=== PATIENT | female | born 1945 | race Caucasian/White ===

== ENCOUNTER 2019-08-10 14:18 | Outpatient (CLI) | payer MEDICARE, OTHER ==
[2019-08-10 14:53] LABS: BASOPHILS # (AUTO) 0.1 10^3/uL (0.0-0.1); BASOPHILS % (AUTO) 1.6 %; EOSINOPHILS # (AUTO) 0.3 10^3/uL (0.0-0.7); HGB - HEMOGLOBIN 11.8 g/dL (12.0-16.0); LYMPHOCYTES # (AUTO) 1.4 10^3/uL (1.5-3.5); LYMPHOCYTES % (AUTO) 21.2 %; MEAN CORPUSCULAR HEMOGLOBIN 25.3 pg (27.0-31.0); MEAN CORPUSCULAR HGB CONC 29.9 g/dL (32.0-36.0); MEAN CORPUSCULAR VOLUME 84.4 fL (81.0-99.0); MEAN PLATELET VOLUME 10.1 fL (7.9-10.8); MONOCYTES # (AUTO) 0.3 10^3/uL (0.0-1.0); MONOCYTES % (AUTO) 4.6 %; NEUTROPHILS # (AUTO) 4.6 10^3/uL (1.5-6.6); NEUTROPHILS % (AUTO) 68.3 %; PLT - PLATELET COUNT 434 10^3/uL (130-450); RED BLOOD COUNT 4.67 10^6/uL (4.20-5.40); RED CELL DISTRIBUTION WIDTH 16.5 % (12.0-15.0); WHITE BLOOD COUNT 6.7 x10^3/uL (4.8-10.8)
[2019-08-10 15:06] LABS: ALBUMIN 3.5 g/dL (3.2-5.5); ALBUMIN/GLOBULIN RATIO 0.9 (1.0-2.2); ALKALINE PHOSPHATASE 103 IU/L (42-121); ALT ALANINE AMINOTRANSFERASE 12 IU/L (10-60); AST ASPARTATE AMINOTRANSFERASE 25 IU/L (10-42); BILIRUBIN,TOTAL 0.7 mg/dL (0.2-1.0); BUN - BLOOD UREA NITROGEN 20 mg/dL (6-20); CALCIUM 9.6 mg/dL (8.5-10.3); CARBON DIOXIDE - CO2 27 mmol/L (21-32); CHLORIDE 105 mmol/L (101-111); CHOL/HDL RATIO 2.3 (<4.4); CHOLESTEROL 146 mg/dL; CREATININE 0.8 mg/dL (0.4-1.0); GFR - MDRD 70 (>89); GLUCOSE 131 mg/dL (70-100); HDL CHOLESTEROL 63 mg/dL; LDL CHOLESTEROL,CALCULATED 64 mg/dL; SODIUM 143 mmol/L (135-145); TOTAL PROTEIN 7.3 g/dL (6.7-8.2); VLDL CHOLESTEROL 19 mg/dL
[2019-08-10 15:18] LABS: HB2 TOTAL 12.5 g/dL; HEMOGLOBIN A1C 0.5 g/dL; HEMOGLOBIN A1C % 5.8 % (4.6-6.2)
== END 2019-08-10 14:19 | disposition home or self-care (01) ==
LOC: LAB 14:18
PROVIDERS: ATTEND Physician Assistant Medical
DX: E11.9 Type 2 diabetes mellitus without complications (principal); E78.5 Hyperlipidemia, unspecified; M19.90 Unspecified osteoarthritis, unspecified site
CPT/HCPCS: 36415; 80053; 80061; 83036; 83721; 85025

== ENCOUNTER 2019-10-16 18:12 | Outpatient (CLI) | payer MEDICARE, OTHER ==
--- NOTE | 2019-10-17 16:46 | XRAY Report ---
Reason: HIP JOINT PAIN,RT Procedure Date: 10/16/2019 Accession Number: [id number] / [id number] Procedure: XR - Hip w/Pelvis 2-3V RT CPT Code: Final Report FULL RESULT: EXAM: RIGHT HIP RADIOGRAPHY EXAM DATE: 10/16/2019 06:19 PM. CLINICAL HISTORY: HIP JOINT PAIN,RT. COMPARISON: None. TECHNIQUE: 2 views. FINDINGS: Bones: No acute fracture or focal bony lesion. Joints: Patient has undergone right hip arthroplasty with revision. There is no evidence of dislocation. There is sclerosis of the margins of the acetabular component. No definite radiographic evidence of loosening. Soft Tissues: No unexpected soft tissue findings. IMPRESSION: 1. No fracture or dislocation. 2. Patient has undergone right hip arthroplasty with revision. No clear evidence of hardware dysfunction. Comparison with any available prior imaging may be utility. RADIA
== END 2019-10-16 18:13 | disposition home or self-care (01) ==
LOC: DI 18:12
PROVIDERS: ATTEND Physician Assistant
DX: M25.551 Pain in right hip (principal); Z96.641 Presence of right artificial hip joint

== ENCOUNTER 2019-11-11 13:57 | Outpatient (CLI) | payer MEDICARE, OTHER ==
[2019-11-11 18:51] LABS: BASOPHILS # (AUTO) 0.1 10^3/uL (0.0-0.1); BASOPHILS % (AUTO) 1.3 %; EOSINOPHILS # (AUTO) 0.2 10^3/uL (0.0-0.7); HGB - HEMOGLOBIN 11.6 g/dL (12.0-16.0); LYMPHOCYTES # (AUTO) 1.1 10^3/uL (1.5-3.5); LYMPHOCYTES % (AUTO) 15.9 %; MEAN CORPUSCULAR HEMOGLOBIN 25.8 pg (27.0-31.0); MEAN CORPUSCULAR HGB CONC 30.1 g/dL (32.0-36.0); MEAN CORPUSCULAR VOLUME 85.7 fL (81.0-99.0); MEAN PLATELET VOLUME 10.8 fL (7.9-10.8); MONOCYTES # (AUTO) 0.4 10^3/uL (0.0-1.0); MONOCYTES % (AUTO) 6.2 %; NEUTROPHILS # (AUTO) 5.2 10^3/uL (1.5-6.6); NEUTROPHILS % (AUTO) 73.2 %; PLT - PLATELET COUNT 417 10^3/uL (130-450); RED BLOOD COUNT 4.49 10^6/uL (4.20-5.40); RED CELL DISTRIBUTION WIDTH 16.4 % (12.0-15.0); WHITE BLOOD COUNT 7.1 x10^3/uL (4.8-10.8)
[2019-11-11 19:11] LABS: ALBUMIN 3.3 g/dL (3.2-5.5); ALBUMIN/GLOBULIN RATIO 0.9 (1.0-2.2); BILIRUBIN,TOTAL 0.7 mg/dL (0.2-1.0); CALCIUM 9.1 mg/dL (8.5-10.3); CREATININE 1.1 mg/dL (0.4-1.0); TOTAL PROTEIN 6.8 g/dL (6.7-8.2)
== END 2019-11-11 23:59 | disposition home or self-care (01) ==
LOC: LAB.WCP 13:57
PROVIDERS: ATTEND Physician Assistant
DX: R53.1 Weakness (principal)
CPT/HCPCS: 36415; 80053; 85025

== ENCOUNTER 2019-12-06 07:00 | Outpatient (CLI) | payer MEDICARE, OTHER | END 2019-12-06 23:59 | disposition home or self-care (01) | LOC: LAB.WCP 07:00 | PROVIDERS: ATTEND Physician Assistant | DX: F32.9 Major depressive disorder, single episode, unspecified (principal) | CPT/HCPCS: 36415; 84443 ==

== ENCOUNTER 2019-12-23 14:43 | Emergency (ER) | payer MEDICARE, OTHER ==
--- NOTE | 2019-12-23 17:46 | ED Physician Documentation ---
PD HPI BACK PAIN - Stated complaint Stated Complaint: LOWER BACK PX - Chief complaint Chief Complaint: Back Pain - History obtained from History obtained from: Patient - Additional information Additional information: There is a 74-year-old woman with a prior history of sciatica who presents with complaints that for the past 3 to 4 days her sciatica down the right leg has "been driving her crazy. She had some oxycodone tablets that she was using at night but she only has 1 or 2 tablets left and could not get a refill from her primary care provider. Patient had a right total hip replacement and had a revision the last one being a year ago in she subsequently moved here from [place] to be with her daughter in May and they finally convinced her to go to physical therapy which she started on December 06. She thinks that is flared up her sciatica. It runs down the right leg to the top of the foot. She is been using a walker since May. She is had some urinary stress incontinence. She is had prior discectomy and laminectomy at L4-5 and has had an MRI spine done in [place] before she moved here but nothing done around here recently. Review of Systems Constitutional: denies: Fever Skin: denies: Rash Musculoskeletal: reports: Back pain Neurologic: reports: Other (Pain radiating down the right leg) PD PAST MEDICAL HISTORY - Present Medications Home Medications: Ambulatory Orders Medication Instructions Recorded Confirmed Atorvastatin Calcium 40 mg PO DAILY PM 12/23/19 12/23/19 Buspirone HCl 7.5 mg PO BID 12/23/19 12/23/19 Cyclobenzaprine HCl 5 mg PO TID PRN 12/23/19 12/23/19 Doxycycline Monohydrate 100 mg PO BID 12/23/19 12/23/19 Meloxicam 15 mg PO DAILY 12/23/19 12/23/19 Methylprednisolone [Medrol] 4 mg PO DAILY #1 tab.ds.pk 12/23/19 Pregabalin 150 mg PO BID 12/23/19 12/23/19 Venlafaxine ER [Effexor ER] 150 mg PO DAILY PM 12/23/19 12/23/19 metFORMIN [Glucophage] 500 mg PO BIDWM 12/23/19 12/23/19 oxyCODONE [Roxicodone] 2.5 - 5 mg PO BID PRN 12/23/19 12/23/19 - Allergies Allergies/Adverse Reactions: Allergies Allergy/AdvReac Type Severity Reaction Status Date / Time latex Allergy Itching Verified 12/23/19 14:54 opiods Allergy Itching Uncoded 12/23/19 14:54 PD ED PE NORMAL - Vitals Vital signs reviewed: Yes - General General: Alert and oriented X 3, No acute distress, Well developed/nourished - HEENT HEENT: Atraumatic - Back Back: No spinal TTP - Derm Derm: Normal color, Warm and dry, No rash - Extremities Extremities: No deformity, No tenderness to palpate, No edema, Other (She has pretty good range of motion in the right hip without pain.) - Neuro Neuro: Alert and oriented X 3, 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 She has the prescription at home. She is about to run out of the oxycodone but I have explained to her that I will not prescribe narcotics from the emergency department for chronic condition. She was given a shot of morphine and Phenergan. I'm going to put her on a Medrol Dosepak and she is to follow back up with her primary care provider for further pain management. I encouraged her to continue with physical therapy. Departure - Departure Disposition: 01 Home, Self Care Clinical Impression: Back pain Qualifiers: Back pain location: low back pain Chronicity: acute Back pain laterality: midline Sciatica presence: with sciatica Sciatica laterality: sciatica of right side Qualified Code(s): M54.41 - Lumbago with sciatica, right side Condition: Good Instructions: ED Sciatica Follow-Up: Ariane Valenzuela PA [Primary Care Provider] - Prescriptions: Methylprednisolone [Medrol] 4 mg PO DAILY #1 tab.ds.pk Comments: Be sure to take the meloxicam As prescribed. Take the Medrol Dosepak as prescribed. See your primary care provider for further pain management. Continue with physical therapy.
[2019-12-23] MEDS ORDERED: MORPHINE 10 MG/ML VIAL IM STA (18:41)
[2019-12-23] MEDS ORDERED: PROMETHAZINE 25 MG/1 ML VIAL IM STA (18:41)
[2019-12-23 19:19] VITALS: BP 121/60
== END 2019-12-23 19:18 | disposition home or self-care (01) ==
LOC: ED 14:43
DX: M54.41 Lumbago with sciatica, right side (principal)
CPT/HCPCS: 96372; 99283; 99284

== ENCOUNTER 2020-02-04 12:37 | Outpatient (CLI) | payer MEDICARE, OTHER ==
--- NOTE | 2020-02-04 15:41 | MRI Report ---
Reason: LUMBAR BACK PAIN, RADICULOPATHY Procedure Date: 02/04/2020 Accession Number: [id number] / [id number] Procedure: MRI - Lumbar Spine W/O CPT Code: Final Report FULL RESULT: EXAM: MRI LUMBAR SPINE WITHOUT CONTRAST EXAM DATE: 02/04/2020 01:00 PM. CLINICAL HISTORY: Lumbar back pain, radiculopathy. COMPARISON: None. TECHNIQUE: Multiplanar, multisequence T1-weighted and fluid-sensitive sequences of the lumbar spine from T12 to S1 without contrast. Other: None. FINDINGS: Spinal Canal: The conus terminates at L1. The conus medullaris and cauda equina are unremarkable. Alignment: Approximately 5 mm anterior subluxation L4 on L5. Alignment otherwise within normal limits. Bone Marrow: Five cyy-mfz-moqgkhf lumbar vertebral bodies are assumed. Moderate chronic appearing compression deformity of the L5 vertebral body. No significant associated marrow edema. Chronic Schmorl's node at the L4 upper endplate on the right. No acute fracture visualized. There appears to be solid osseous fusion of the L4 and L5 facet joints. Partial laminectomy at the L4-L5 level. Disk Levels/Facets: T12-L1: Mild disk dehydration. Minimal disk bulge. No stenosis. L1-L2: Mild disk height loss and dehydration. Minimal disk bulge. Mild facet arthropathy. No significant stenosis. L2-L3: Mild disk height loss. Slight annular disk bulge and mild degenerative facet arthropathy. No significant stenosis. L3-L4: Annular disk bulge with small broad-based foraminal protrusions and severe degenerative facet arthropathy. Mild central canal stenosis. Bilateral lateral recess stenosis. Mild bilateral foraminal stenosis. L4-L5: Grade 1 spondylolisthesis. Slight uncovering of the disk. Moderate left and mild right foraminal stenosis. Partial laminectomy. L5-S1: Moderate bilateral degenerative facet arthropathy. Slight annular disk bulge. Moderate left and mild right foraminal stenosis. Musculature: Mild atrophy of the paraspinous musculature more pronounced distally. Other: Unremarkable. IMPRESSION: 1. Multilevel lumbar degenerative disk and facet arthropathy. 2. L4-L5 previous partial laminectomy and posterior fusion. Grade 1 spondylolisthesis. 3. L3-L4 mild central canal stenosis. Mild bilateral foraminal stenosis. 4. L4-L5 moderate left and mild right foraminal stenosis. 5. L5-S1 moderate left and mild right foraminal stenosis. Comment: The following findings are so common in adults without low back pain that while we report their presence, they must be interpreted with caution and in the context of the clinical situation. (Reference [place] et al, Spine 2001) Prevalence of findings in patients without low back pain: Disk degeneration (any evidence): 92% Disk desiccation/T2 signal loss: 83% Disk height loss: 56% Disk bulge: 64% Disk protrusion: 32% Annular tear/high intensity zone: 38% RADIA
== END 2020-02-04 12:38 | disposition home or self-care (01) ==
LOC: DI 12:37
PROVIDERS: ATTEND Physician Assistant
DX: M51.37 Other intervertebral disc degeneration, lumbosacral region (principal); M48.07 Spinal stenosis, lumbosacral region; M51.36 Other intervertebral disc degeneration, lumbar region; M48.061 Spinal stenosis, lumbar region without neurogenic claudication; M47.816 Spondylosis without myelopathy or radiculopathy, lumbar region; M47.817 Spondylosis without myelopathy or radiculopathy, lumbosacral region; M43.16 Spondylolisthesis, lumbar region
CPT/HCPCS: 72148

== ENCOUNTER 2020-09-01 08:00 | Outpatient (CLI) | payer MEDICARE, OTHER ==
[2020-09-01 19:03] LABS: BASOPHILS # (AUTO) 0.1 10^3/uL (0.0-0.1); BASOPHILS % (AUTO) 1.5 %; EOSINOPHILS # (AUTO) 0.2 10^3/uL (0.0-0.7); EOSINOPHILS % (AUTO) 2.8 %; LYMPHOCYTES # (AUTO) 1.4 10^3/uL (1.5-3.5); LYMPHOCYTES % (AUTO) 20.6 %; MEAN CORPUSCULAR HEMOGLOBIN 23.7 pg (27.0-31.0); MEAN CORPUSCULAR HGB CONC 29.8 g/dL (32.0-36.0); MEAN CORPUSCULAR VOLUME 79.5 fL (81.0-99.0); MEAN PLATELET VOLUME 10.4 fL (7.9-10.8); MONOCYTES # (AUTO) 0.4 10^3/uL (0.0-1.0); MONOCYTES % (AUTO) 5.7 %; NEUTROPHILS # (AUTO) 4.7 10^3/uL (1.5-6.6); NEUTROPHILS % (AUTO) 69.3 %; PLT - PLATELET COUNT 432 10^3/uL (130-450); RED CELL DISTRIBUTION WIDTH 17.1 % (12.0-15.0); WHITE BLOOD COUNT 6.8 x10^3/uL (4.8-10.8)
[2020-09-01 19:16] LABS: ALBUMIN 3.3 g/dL (3.2-5.5); ALBUMIN/GLOBULIN RATIO 0.9 (1.0-2.2); ALKALINE PHOSPHATASE 95 IU/L (42-121); ALT ALANINE AMINOTRANSFERASE 13 IU/L (10-60); AST ASPARTATE AMINOTRANSFERASE 25 IU/L (10-42); BILIRUBIN,TOTAL 0.4 mg/dL (0.2-1.0); BUN - BLOOD UREA NITROGEN 22 mg/dL (6-20); CALCIUM 8.9 mg/dL (8.5-10.3); CARBON DIOXIDE - CO2 23 mmol/L (21-32); CHLORIDE 104 mmol/L (101-111); CHOL/HDL RATIO 2.1 (<4.4); CHOLESTEROL 143 mg/dL; CREATININE 0.8 mg/dL (0.4-1.0); GLUCOSE 85 mg/dL (70-100); HDL CHOLESTEROL 69 mg/dL; LDL CHOLESTEROL,CALCULATED 55 mg/dL; LDL/HDL RATIO 0.8 (<4.4); SODIUM 138 mmol/L (135-145); VLDL CHOLESTEROL 19 mg/dL
[2020-09-01 20:45] LABS: HEMOGLOBIN A1c% 5.8 % (4.27-6.07)
== END 2020-09-01 23:59 ==
LOC: LAB.R 08:00
PROVIDERS: ATTEND Physician Assistant
DX: E78.5 Hyperlipidemia, unspecified (principal); E11.42 Type 2 diabetes mellitus with diabetic polyneuropathy
CPT/HCPCS: 80053; 80061; 82607; 82746; 83036; 83721; 85025

== ENCOUNTER 2020-09-21 13:30 | Outpatient (CLI) | payer MEDICARE, OTHER ==
[2020-09-21 18:07] LABS: % IRON SATURATION 6 % (20-50); IRON 21 ug/dL (28-170); TOTAL IRON BINDING CAPACITY 335 ug/dL (250-450); TRANSFERRIN 239 mg/dL (192-382)
== END 2020-09-21 23:59 | disposition home or self-care (01) ==
LOC: LAB.WCP 13:30
PROVIDERS: ATTEND Physician Assistant
DX: D64.9 Anemia, unspecified (principal)
CPT/HCPCS: 36415; 82728; 83540; 84466

== ENCOUNTER 2021-01-15 08:00 | Outpatient (CLI) | payer MEDICARE, OTHER ==
[2021-01-15 19:25] LABS: CREATININE,URINE 51.1 mg/dL
[2021-01-15 19:57] LABS: MICROALBUMIN,URINE < 0.2 mg/dL (0-300.0)
== END 2021-01-15 23:59 | disposition home or self-care (01) ==
LOC: LAB.R 08:00
PROVIDERS: ATTEND Physician Assistant Medical
DX: E11.9 Type 2 diabetes mellitus without complications (principal)
CPT/HCPCS: 82043; 82570

== ENCOUNTER 2021-01-22 16:41 | Outpatient (CLI) | payer MEDICARE, OTHER ==
--- NOTE | 2021-01-22 19:20 | XRAY Report ---
PROCEDURE: Foot 3 View LT INDICATIONS: LEFT FOOT PAIN TECHNIQUE: 3 views of the foot were acquired. COMPARISON: None FINDINGS: Bones: No fractures or dislocations. There are scattered areas of moderate to severe IP degenerative narrowing as well as moderate first MTP degenerative narrowing. Periarticular osteophytes are presen t. Small areas of periarticular lucency are noted most prominent at the first MTP joint. Tibiotalar f usion is present. Midfoot degenerative changes are present. Calcaneal spur is present. Soft tissues: No tibiotalar joint effusion. Achilles tendon appears normal. IMPRESSION: Degenerative changes as above. Periarticular lucencies are noted particularly at the first MTP joint. There are somewhat nonspecific. These can be similar as identified with gout. However, degenerative lucencies secondary to subchondral arthritic cyst formation/erosions cannot be excluded. Reviewed by: Hina Huang MD on 01/22/2021 7:19 PM PST Approved by: Hina Huang MD on 01/22/2021 7:19 PM PST Station ID: [id number]
== END 2021-01-22 16:42 | disposition home or self-care (01) ==
LOC: DI.N 16:41
PROVIDERS: ATTEND Physician Assistant Medical
DX: M19.072 Primary osteoarthritis, left ankle and foot (principal); R93.6 Abnormal findings on diagnostic imaging of limbs

== ENCOUNTER 2021-02-24 17:08 | Emergency (ER) | payer MEDICARE, OTHER ==
--- NOTE | 2021-02-24 17:25 | ED Physician Documentation ---
PD HPI LOWER EXT INJURY - Stated complaint Stated Complaint: RIGHT KNEE PX - Chief complaint Chief Complaint: Ext Problem - History obtained from History obtained from: Patient - History of Present Illness PD HPI LOW EXT INJURY LOCATION: Right, Hip, Buttock, Calf Type of injury: No: Fall, Twist Timing - onset: Today (worsening), Yesterday Timing - duration: Days (1) Timing - details: Gradual onset, Still present Improved by: Rest Worsened by: Moving, Palpating Associated symptoms: Tingling (feeling of tingling down posterolateral thigh to lateral calf and foot. Has pain from right SI area of back down same area of leg. No leg weakness. No noted injury. Has had sciatic pain in the past, but typically not as bad and only to upper thigh level.). No: Weakness, Numbness, Swelling Similar symptoms before: Diagnosis (sciatic pain from back but not usually as severe. Current episode also different by having some tenderness at posterolateral thigh and posterolateral knee. No rash nor sores.) Recently seen: Clinic (had J&J COVID vaccine 4 days ago.) Review of Systems Constitutional: reports: Myalgias (just left shoulder at injection site.). denies: Fever, Chills Nose: denies: Rhinorrhea / runny nose, Congestion Throat: denies: Sore throat Respiratory: denies: Cough Skin: denies: Rash, Lesions Neurologic: denies: Focal weakness, Numbness, Altered mental status, Headache PD PAST MEDICAL HISTORY - Past Medical History Cardiovascular: High cholesterol Respiratory: Asthma, Sleep apnea Neuro: CVA, TIA, Peripheral neuropathy GI: Other : Incontinence, Chronic bladder infection Psych: Depression, Anxiety Musculoskeletal: Osteoarthritis, Fibromyalgia - Past Surgical History Past Surgical History: Yes General: Gastric surgery Ortho: Hip replacement, Knee replacement, Rotator cuff repair, Shoulder arthroplasty, Spine surgery - Present Medications Home Medications: Ambulatory Orders Medication Instructions Recorded Confirmed Atorvastatin Calcium 40 mg PO DAILY PM 12/23/19 02/24/21 Cyclobenzaprine HCl 5 mg PO TID PRN 12/23/19 02/24/21 Doxycycline Monohydrate 100 mg PO BID 12/23/19 02/24/21 Meloxicam 15 mg PO DAILY 12/23/19 02/24/21 Pregabalin 150 mg PO TID 12/23/19 02/24/21 Venlafaxine ER [Effexor ER] 150 mg PO DAILY PM 12/23/19 02/24/21 metFORMIN [Glucophage] 500 mg PO BIDWM 12/23/19 02/24/21 oxyCODONE [Roxicodone] 2.5 - 5 mg PO BID PRN 12/23/19 02/24/21 Naproxen Sodium 275 mg PO BID #10 tablet 02/24/21 dexAMETHasone [Decadron] 4 mg PO DAILY #5 tablet 02/24/21 oxyCODONE [Roxicodone] 5 mg PO Q4-6H PRN #10 tablet 02/24/21 - Allergies Allergies/Adverse Reactions: Allergies Allergy/AdvReac Type Severity Reaction Status Date / Time latex Allergy Itching Verified 02/24/21 17:28 opiods Allergy Itching Uncoded 02/24/21 17:28 - Social History Does the pt smoke?: No Smoking Status: Never smoker Does the pt drink ETOH?: Yes Does the pt have substance abuse?: No - Immunizations Immunizations are current?: Yes - POLST Patient has POLST: No PD ED PE NORMAL - Vitals Vital signs reviewed: Yes - General General: Alert and oriented X 3, Well developed/nourished, Other - Back Back: No CVA TTP, No spinal TTP, Other (tender right SI area, without rash nor sores, but is muscle tender. Also some tender at right gluteal and posterior thigh. ) - Derm Derm: Normal color, Warm and dry, No rash - Extremities Extremities: Normal ROM s pain, Other (tender posterolateral knee. No effusion. No calf tenderness. Decreased sensation in dermatomal pattern posterolateral thigh and knee, and anterolateral lower leg, dorsolateral foot. ) Results - Vitals Vitals: Vital Signs - 24 hr 02/24/21 02/24/21 17:13 18:52 Temperature 36.1 C L 37.2 C Heart Rate 79 78 Respiratory 16 18 Rate Blood Pressure 111/55 L 113/48 L O2 Saturation 98 100 Oxygen O2 Source Room air PD MEDICAL DECISION MAKING - ED course Complexity details: re-evaluated patient (improved with meds here. ), considered differential (no caudal symptoms. Does have nerve root pattern of tingling, decreased sensation. Interesting with some soft tissue/skin tendeness which has me consider early shingles but not definitive right now. ), d/w patient Departure - Departure Disposition: 01 Home, Self Care Clinical Impression: Sciatic leg pain Condition: Stable Instructions: ED Sciatica Follow-Up: Ariane Quick PA-C [Primary Care Provider] - Prescriptions: dexAMETHasone [Decadron] 4 mg PO DAILY #5 tablet Naproxen Sodium 275 mg PO BID #10 tablet oxyCODONE [Roxicodone] 5 mg PO Q4-6H PRN #10 tablet PRN Reason: Pain Comments: The area and pattern of your pain corresponds with sciatic distribution. This seems your sciatic back pain is flared and is just causing further down the leg. Consider the possibility of an inflammatory response to the vaccine that you had. There was no particular injury stated. I would suggest some anti-inflammatories over the next several days. This can be naproxen twice daily with food. Also consider mild steroid type medicine or Aleve for a few days, shaisses own. To this add Tylenol 500 mg 4 times a day. Also oxycodone 1/2 to 1 tablet every 6 hours if needed for worse pain. Stay well-hydrated. Recheck if not improved well over the next several days. Watch for signs of other symptoms such as weakness of the leg, fevers, rash (such as a shingles rash) or other new symptoms. Discharge Date/Time: 02/24/21 19:07
[2021-02-24] MEDS ORDERED: oxyCODONE 5 MG TABLET PO STA (17:58)
[2021-02-24] MEDS ORDERED: ACETAMINOPHEN 325 MG TABLET PO STA (17:58)
[2021-02-24] MEDS ORDERED: CHERRY SYRUP 10 ML UDC PO ONE (17:58)
[2021-02-24] MEDS ORDERED: DEXAMETHASONE 10 MG/ML VIAL PO STA (17:58)
[2021-02-24] MEDS ORDERED: KETOROLAC 30 MG/ML VIAL IM STA (17:58)
[2021-02-24 18:53] VITALS: BP 113/48
== END 2021-02-24 19:07 | disposition home or self-care (01) ==
LOC: ED 17:08
DX: M54.31 Sciatica, right side (principal); M53.3 Sacrococcygeal disorders, not elsewhere classified
CPT/HCPCS: 96372; 99283; A9270

== ENCOUNTER 2021-03-05 17:14 | Emergency (ER) | payer MEDICARE, OTHER ==
--- OUTSIDE RECORDS SUMMARY | 2021-03-05 17:17 | EXTERNAL MEDICAL SUMMARY RPT | Continuity of Care Document ---
:1945 Demographics Phone Unavailable Preferred Language Unknown Marital Status Unknown Restorationist Affiliation Unknown Race Unknown Ethnic Group Unknown Author Organization [facility] Address [address] [phone] Phone Social History date description facility [phone]
--- OUTSIDE RECORDS SUMMARY | 2021-03-05 17:26 | EXTERNAL MEDICAL SUMMARY RPT | Continuity of Care Document ---
:1945 Demographics Phone Unavailable Preferred Language Unknown Marital Status Unknown Religion Affiliation Unknown Race Unknown Ethnic Group Unknown Author Organization [facility] Address [address] [phone] Phone Social History date description facility [phone]
[2021-03-05] MEDS ORDERED: HYDROmorphone 1 MG/ML CARPUJECT IM STA (17:42)
--- NOTE | 2021-03-05 17:45 | ED Physician Documentation ---
PD HPI BACK PAIN - Stated complaint Stated Complaint: BACK PX - Chief complaint Chief Complaint: Back Pain - History obtained from History obtained from: Patient - Additional information Additional information: 85-year-old woman with history of back problems and sciatica. Had an MRI done January of last year showing multilevel lumbar degenerative disc and facet arthropathy and history of L4-L5 previous partial laminectomy and posterior fusion with grade 1 spondylolisthesis. L3-L4 mild central canal stenosis and mild bilateral foraminal stenosis, L4-L5 moderate left and mild right foraminal stenosis and L5-S1 moderate left and mild right foraminal stenosis. For the last 2 weeks after a cold she has developed significant right-sided back pain from the buttock into the right thigh. She denies weakness, numbness, tingling, saddle anesthesia. She has chronic urinary incontinence which has not changed with this episode. Got a shot of Toradol last week which was not helpful and has been medicating with oxycodone and Aleve at home without relief. Review of Systems Ten Systems: 10 systems reviewed and negative Constitutional: denies: Fever, Chills Cardiac: denies: Chest pain / pressure, Palpitations Respiratory: denies: Dyspnea, Cough GI: denies: Abdominal Pain : reports: Incontinent. denies: Dysuria, Frequency, Unable to Void PD PAST MEDICAL HISTORY - Past Medical History Cardiovascular: High cholesterol Respiratory: Asthma, Sleep apnea Neuro: CVA, TIA, Peripheral neuropathy Endocrine/Autoimmune: Type 2 diabetes GI: Other : Incontinence, Chronic bladder infection HEENT: Chronic vision loss Psych: Depression, Anxiety Musculoskeletal: Osteoarthritis, Fibromyalgia Derm: None - Past Surgical History Past Surgical History: Yes General: Gastric surgery Ortho: Hip replacement, Knee replacement, Rotator cuff repair, Shoulder arthrop lasty, Spine surgery - Present Medications Home Medications: Ambulatory Orders Medication Instructions Recorded Confirmed Atorvastatin Calcium 40 mg PO DAILY PM 12/23/19 02/24/21 Cyclobenzaprine HCl 5 mg PO TID PRN 12/23/19 02/24/21 Meloxicam 15 mg PO DAILY 12/23/19 02/24/21 Pregabalin 150 mg PO TID 12/23/19 02/24/21 Venlafaxine ER [Effexor ER] 150 mg PO DAILY PM 12/23/19 02/24/21 metFORMIN [Glucophage] 500 mg PO BIDWM 12/23/19 02/24/21 oxyCODONE [Roxicodone] 2.5 - 5 mg PO BID PRN 12/23/19 02/24/21 Naproxen Sodium 275 mg PO BID #10 tablet 02/24/21 oxyCODONE [Roxicodone] 5 mg PO Q4-6H PRN #10 tablet 02/24/21 HYDROmorphone [Dilaudid] 1 - 2 tab PO Q4H PRN #25 tablet 03/05/21 predniSONE [Deltasone] 20 mg PO [id number] #21 tab 03/05/21 - Allergies Allergies/Adverse Reactions: Allergies Allergy/AdvReac Type Severity Reaction Status Date / Time latex Allergy Itching Verified 03/05/21 17:24 opiods Allergy Itching Uncoded 03/05/21 17:24 - Social History Does the pt smoke?: No Smoking Status: Never smoker Does the pt drink ETOH?: Yes Does the pt have substance abuse?: No - Immunizations Immunizations are current?: Yes - POLST Patient has POLST: No PD ED PE NORMAL - Vitals Vital signs reviewed: Yes - General General: Alert and oriented X 3, No acute distress - Abdomen Abdomen: Normal bowel sounds, Soft, Non tender - Back Back: No CVA TTP, No spinal TTP - Extremities Extremities: Other (Symmetric bilateral lower extremity reflexes, slight hyper esthesia in the right leg.) - Neuro Neuro: Alert and oriented X 3, Normal speech Results - Vitals Vitals: Vital Signs - 24 hr 03/05/21 03/05/21 17:17 18:06 Temperature 36.0 C L 36.6 C Heart Rate 85 85 Respiratory 20 12 Rate Blood Pressure 88/61 L 118/58 L O2 Saturation 99 99 Oxygen O2 Source Room air - Labs Labs: Laboratory Tests 03/05/21 03/05/21 18:39 18:39 WBC 8.3 RBC 4.10 L Hgb 9.5 L Hct 32.9 L MCV 80.2 L MCH 23.2 L MCHC 28.9 L RDW 17.8 H Plt Count 378 MPV 10.0 Neut # (Auto) 5.8 Lymph # (Auto) 1.3 L [place] # (Auto) 0.7 Eos # (Auto) 0.4 Baso # (Auto) 0.1 Absolute Nucleated RBC 0.00 Nucleated RBC % 0.0 Sodium 134 L Potassium 4.6 Chloride 103 Carbon Dioxide 23 Anion Gap 8.0 BUN 32 H Creatinine 0.9 Estimated GFR (MDRD) 61 L Glucose 121 H Calcium 8.3 L PD MEDICAL DECISION MAKING - ED course ED course: 75-year-old woman presents with an acute exacerbation of chronic sciatica. CT imaging was done to rule out neoplasm given her advanced age and this was negative for acute changes when compared to prior MRI. She was pain-free after a milligram of Dilaudid IM. Departure - Departure Disposition: Home, Self Care Clinical Impression: Sciatic leg pain Back pain Qualifiers: Back pain location: low back pain Chronicity: acute Back pain laterality: right Sciatica presence: with sciatica Sciatica laterality: sciatica of right side Qualified Code(s): M54.41 - Lumbago with sciatica, right side Condition: Good Record reviewed to determine appropriate education?: Yes Instructions: ED Sciatica Prescriptions: predniSONE [Deltasone] 20 mg PO [id number] #21 tab HYDROmorphone [Dilaudid] 1 - 2 tab PO Q4H PRN #25 tablet PRN Reason: Pain Comments: Do not take Dilaudid/hydromorphone and oxycodone at the same time. When pain is more severe you can take the Dilaudid/hydromorphone since we know that worked for you here. If pain goes back to a lower level you can take the oxycodone. Follow-up with the back surgeon as scheduled for further evaluation and treatment; Return for new or worse symptoms. Do not drink or drive while taking narcotic pain medication. Note that many narcotic pain relievers also contain Tylenol/acetaminophen. Please ensure that your total dose of acetaminophen from all sources does not exceed 3 g (3000 mg) per day. You may get constipated while on this medication. Take a stool softener such as Colace twice a day while you are on it. Also add an jbbi-rgs-ylgnlln laxative such as senna or MiraLAX on any day that you do not have a bowel movement. If you received a narcotic pain medication or sedative while in the emergency department, do not drive for the next 24 hours.
[2021-03-05 18:43] LABS: BASOPHILS # (AUTO) 0.1 10^3/uL (0.0-0.1); BASOPHILS % (AUTO) 1.4 %; EOSINOPHILS # (AUTO) 0.4 10^3/uL (0.0-0.7); EOSINOPHILS % (AUTO) 4.8 %; HCT - HEMATOCRIT 32.9 % (37.0-47.0); HGB - HEMOGLOBIN 9.5 g/dL (12.0-16.0); LYMPHOCYTES # (AUTO) 1.3 10^3/uL (1.5-3.5); LYMPHOCYTES % (AUTO) 15.4 %; MEAN CORPUSCULAR HEMOGLOBIN 23.2 pg (27.0-31.0); MEAN CORPUSCULAR HGB CONC 28.9 g/dL (32.0-36.0); MEAN CORPUSCULAR VOLUME 80.2 fL (81.0-99.0); MONOCYTES # (AUTO) 0.7 10^3/uL (0.0-1.0); MONOCYTES % (AUTO) 8.3 %; NEUTROPHILS # (AUTO) 5.8 10^3/uL (1.5-6.6); NEUTROPHILS % (AUTO) 69.6 %; PLT - PLATELET COUNT 378 10^3/uL (130-450); RED CELL DISTRIBUTION WIDTH 17.8 % (12.0-15.0); WHITE BLOOD COUNT 8.3 x10^3/uL (4.8-10.8)
--- NOTE | 2021-03-05 18:49 | CT Report ---
PROCEDURE: LUMBAR SPINE WO INDICATIONS: back pain TECHNIQUE: Noncontrast 3 mm thick sections acquired from the T12 level to the sacrum. Sagittal and coronal refo rmats were constructed. For radiation dose reduction, the following was used: automated exposure co ntrol, adjustment of mA and/or kV according to patient size. COMPARISON: Correlation is made with the prior lumbar MRI, 02/04/2020. FINDINGS: Image quality: Excellent. Bones: There is normal bony alignment. No acute vertebral body compression fractures. Remote appearing compression of arteries are seen at L 4-L5, with approximately 50% loss of height centrally at L4, with a Schmorl's node component. There i s 40-50% loss of height centrally at L5. No definite posterior displacement of fracture fragments can be seen. No acute features are seen. No suspicious lytic or blastic bony lesions. Central spinal caliber is of normal overall caliber. N o pars defects. Relatively prominent bony degenerative changes are seen throughout, which are worst at L4-L5 and L5-S 1. At L4-L5, there is moderate right-sided and moderate to severe left-sided neuroforaminal narrowing . At L5-S1, there is bilateral moderate to severe neuroforaminal narrowing. Bridging endplate osteoph ytes are seen at each lumbar level, with the exception of L3-L4. Soft tissues: No retroperitoneal masses or hematomas. Visualized aorta is normal in caliber. Promi nent vascular calcification can be seen of the abdominal aorta and its branches. Apparent bariatric s urgery can be seen involving the stomach, which is partially seen. Please correlate with known patien t history. IMPRESSION: No acute fractures or other acute abnormalities can be seen. Stable central compression of arteries are seen at L4 and L5. Multiple levels of degenerative change are seen, which are similar to the prior lumbar MRI. Incidental note is made of: Prominent atherosclerotic calcification Apparent prior bariatric surgery partially seen Reviewed by: Jose Carlos Maldonado MD on 03/05/2021 5:47 PM SY Approved by: Jose Carlos Maldonado MD on 03/05/2021 5:47 PM SY Station ID: [id number]
[2021-03-05 18:52] LABS: CALCIUM 8.3 mg/dL (8.5-10.3); CREATININE 0.9 mg/dL (0.4-1.0); POTASSIUM 4.6 mmol/L (3.5-5.0)
[2021-03-05 19:01] VITALS: BP 117/50
[2021-03-05 19:37] LABS: PLATELET MORPHOLOGY NORMAL APPEARANCE (NORMAL)
[2021-03-05 19:38] LABS: PLATELET ESTIMATE, MANUAL NORMAL (130-450,000) (NORMAL); WBC MORPHOLOGY (MULTIPLE) NORMAL APPEARANCE (NORMAL)
--- NOTE | 2021-03-06 15:01 | ED Physician Documentation ---
ED Addendum - Addendum Addendum: 03/06/21 15:01 Nurse relayed that she was having a lot of nausea today, I authorized her to call in a prescription for Zofran, 20 mg every 6 hours by mouth as needed for nausea #20.
== END 2021-03-05 19:26 | disposition home or self-care (01) ==
LOC: ED 17:14
DX: M54.41 Lumbago with sciatica, right side (principal); R11.0 Nausea; E11.42 Type 2 diabetes mellitus with diabetic polyneuropathy; Z79.84 Long term (current) use of oral hypoglycemic drugs
CPT/HCPCS: 36415; 72131; 80048; 85025; 96372; 99284; J1170

== ENCOUNTER 2021-04-01 16:47 | Outpatient (CLI) | payer MEDICARE, OTHER | END 2021-04-01 16:48 | disposition critical access hospital (66) | LOC: EMS 16:47 | DX: R06.02 Shortness of breath (principal); M25.551 Pain in right hip; R41.0 Disorientation, unspecified | CPT/HCPCS: A0425; A0429 ==

== ENCOUNTER 2021-04-01 17:07 | Emergency (ER) | payer MEDICARE, OTHER ==
[2021-04-01] MEDS ORDERED: SODIUM CHLORIDE 0.9% 1,000 ML IV STA ×2 (17:13→19:06)
[2021-04-01] MEDS ORDERED: ONDANSETRON 4 MG/2 ML VIAL IVP STA (17:32)
[2021-04-01] MEDS ORDERED: IOVERSOL 320 100 ML VIAL IVP ONE ×2 (17:36→19:43)
--- NOTE | 2021-04-01 17:36 | ED Physician Documentation ---
History of Present Illness - Stated complaint Stated Complaint: SOA/HIP PX - Chief complaint Chief Complaint: General - Additonal information Additional information: 75-year-old female is brought to the emergency department for evaluation of reported hypotension and tachycardia. Patient was getting ready to go to her primary care doctor office when she began to feel worse than normal. She states for few days she has been having shortness of breath. She states that when she tries to eat or drink she gets nauseated. She presented to [facility] walk-in clinic where she was noted to be tachycardic with a heart rate of 116-120 as well as hypotension with a blood pressure of 77/50 therefore she was a brought to the emergency department via EMS. On presentation to the ER right now patient appears as though she does not feel well. She reports that she feels nauseated and short of air. She denies that she is having chest pain back pain or abdominal pain. She does have a history of chronic right hip pain and has difficulty lying flat or on her hip. She denies that at present she has had any uncontrolled vomiting or diarrhea or urinary symptoms in the preceding few days. On presentation to the emergency department now she is noted to have sinus rhythm without ischemic changes. Her blood pressure is 129/49. In review of previous emergency department visits I do note some previously soft blood pressures as well as diastolics in the 40s and 50s. Patient's daughter Sarika is at the bedside and provides more ancillary history. She reports that for the last 3 days patient has had significant nausea with loss of appetite and has eaten very little. She endorses that patient has chronic pain issues is depressed and rarely gets out of bed. Review of Systems Constitutional: denies: Fever, Chills Eyes: reports: Reviewed and negative Ears: reports: Reviewed and negative Nose: reports: Reviewed and negative Throat: reports: Reviewed and negative Cardiac: reports: Reviewed and negative Respiratory: reports: Dyspnea. denies: Cough GI: reports: Abdominal Pain, Nausea. denies: Vomiting : reports: Reviewed and negative Skin: reports: Reviewed and negative Musculoskeletal: reports: Reviewed and negative Neurologic: reports: Generalized weakness. denies: Focal weakness, Near syncope, Syncope, Seizure, Headache, Head injury, LOC Psychiatric: reports: Reviewed and negative PD PAST MEDICAL HISTORY - Past Medical History Cardiovascular: High cholesterol Respiratory: Asthma, Sleep apnea Neuro: CVA, TIA, Peripheral neuropathy Endocrine/Autoimmune: Type 2 diabetes GI: Other : Incontinence, Chronic bladder infection HEENT: Chronic vision loss Psych: Depression, Anxiety Musculoskeletal: Osteoarthritis, Fibromyalgia Derm: None - Past Surgical History Past Surgical History: Yes General: Gastric surgery Ortho: Hip replacement, Knee replacement, Rotator cuff repair, Shoulder arthroplasty, Spine surgery - Present Medications Home Medications: Ambulatory Orders Medication Instructions Recorded Confirmed Atorvastatin Calcium 40 mg PO DAILY PM 12/23/19 04/01/21 Cyclobenzaprine HCl 5 mg PO TID PRN 12/23/19 02/24/21 Meloxicam 15 mg PO DAILY 12/23/19 04/01/21 Pregabalin 150 mg PO TID 12/23/19 04/01/21 Venlafaxine ER [Effexor ER] 150 mg PO DAILY PM 12/23/19 04/01/21 metFORMIN [Glucophage] 500 mg PO BIDWM 12/23/19 04/01/21 Naproxen Sodium 275 mg PO BID #10 tablet 02/24/21 04/01/21 HYDROmorphone [Dilaudid] 1 - 2 tab PO Q4H PRN #25 tablet 03/05/21 - Allergies Allergies/Adverse Reactions: Allergies Allergy/AdvReac Type Severity Reaction Status Date / Time latex Allergy Itching Verified 04/01/21 17:28 opiods Allergy Itching Uncoded 04/01/21 17:28 - Social History Does the pt smoke?: No Smoking Status: Never smoker Does the pt drink ETOH?: Yes Does the pt have substance abuse?: No - Immunizations Immunizations are current?: Yes - POLST Patient has POLST: No PD ED PE EXPANDED - General General: Alert, No acute distress - Cardiac Cardiac: Regular Rate, Radial strong equal, Pedal strong equal, Cap refill < 2 sec - Respiratory Respiratory: Clear to ausultation rakan. No: Distress, Labored - Abdomen Abdomen: Normal Bowel sounds, Tender to palpation (Right-sided abdomen tender without guarding or rebound.) - Back Back: Soft tissue tenderness - Derm Derm: Normal color, Warm and dry - Extremities Extremities: Normal, Deformity, Right calf TTP/cord, Left calf TTP/cord, Pedal Pulses Present. No: Pedal edema bilateral - Neuro Neuro: Alert and Oriented X 3, CNII-XII intact - GCS Eye Opening: Spontaneous Motor: Obeys Commands Verbal: Oriented Total: 15 Results - Vitals Vitals: Vital Signs - 24 hr 04/01/21 04/01/21 04/01/21 17:19 18:51 20:28 Temperature 36.8 C 36.8 C Heart Rate 70 75 82 Respiratory 14 11 L 12 Rate Blood Pressure 129/49 L 125/67 147/93 H O2 Saturation 99 100 100 04/01/21 22:07 Temperature Heart Rate 79 Respiratory 16 Rate Blood Pressure 123/65 O2 Saturation 99 Oxygen O2 Source Room air - EKG (time done) 1725 Rate: Rate (enter#) (75) Rhythm: NSR Bentley: Normal Intervals: Normal SC. No: Prolonged QT QRS: Normal Ischemia: Normal ST segments Compare to prior EKG: Old EKG unavailable Computer interpretation: Agree with computer - Labs Labs: Laboratory Tests 04/01/21 04/01/21 04/01/21 17:41 17:41 17:41 WBC 10.1 RBC 4.37 Hgb 10.5 L Hct 34.5 L MCV 78.9 L MCH 24.0 L MCHC 30.4 L RDW 18.3 H Plt Count 385 MPV 9.4 Neut # (Auto) 8.0 H Lymph # (Auto) 1.2 L Metcalfe # (Auto) 0.8 Eos # (Auto) 0.1 Baso # (Auto) 0.1 Absolute Nucleated RBC 0.00 Nucleated RBC % 0.0 PT 13.3 H INR 1.2 APTT 23.9 L Sodium 138 Potassium 3.8 Chloride 102 Carbon Dioxide 25 Anion Gap 11.0 BUN 30 H Creatinine 1.1 H Estimated GFR (MDRD) 48 L Glucose 101 H Lactic Acid Calcium 9.0 Total Bilirubin 0.8 AST 24 ALT 19 Alkaline Phosphatase 89 Troponin I High Sens Total Protein 6.7 Albumin 3.5 Globulin 3.2 Albumin/Globulin Ratio 1.1 Lipase 27 Urine Color Urine Clarity Urine pH Ur Specific [place] Urine Protein Urine Glucose (UA) Urine Ketones Urine Occult Blood Urine Nitrite Urine Bilirubin Urine Urobilinogen Ur Leukocyte Esterase Ur Microscopic Review Urine Culture Comments 04/01/21 04/01/21 04/01/21 17:41 17:41 19:14 WBC RBC Hgb Hct MCV MCH MCHC RDW Plt Count MPV Neut # (Auto) Lymph # (Auto) Metcalfe # (Auto) Eos # (Auto) Baso # (Auto) Absolute Nucleated RBC Nucleated RBC % PT INR APTT Sodium Potassium Chloride Carbon Dioxide Anion Gap BUN Creatinine Estimated GFR (MDRD) Glucose Lactic Acid 2.7 H 1.4 Calcium Total Bilirubin AST ALT Alkaline Phosphatase Troponin I High Sens 10.0 Total Protein Albumin Globulin Albumin/Globulin Ratio Lipase Urine Color Urine Clarity Urine pH Ur Specific [place] Urine Protein Urine Glucose (UA) Urine Ketones Urine Occult Blood Urine Nitrite Urine Bilirubin Urine Urobilinogen Ur Leukocyte Esterase Ur Microscopic Review Urine Culture Comments 04/01/21 20:33 WBC RBC Hgb Hct MCV MCH MCHC RDW Plt Count MPV Neut # (Auto) Lymph # (Auto) Metcalfe # (Auto) Eos # (Auto) Baso # (Auto) Absolute Nucleated RBC Nucleated RBC % PT INR APTT Sodium Potassium Chloride Carbon Dioxide Anion Gap BUN Creatinine Estimated GFR (MDRD) Glucose Lactic Acid Calcium Total Bilirubin AST ALT Alkaline Phosphatase Troponin I High Sens Total Protein Albumin Globulin Albumin/Globulin Ratio Lipase Urine Color YELLOW Urine Clarity CLEAR Urine pH 5.0 Ur Specific Greenfield <=1.005 Urine Protein NEGATIVE Urine Glucose (UA) NEGATIVE Urine Ketones TRACE Urine Occult Blood NEGATIVE Urine Nitrite NEGATIVE Urine Bilirubin NEGATIVE Urine Urobilinogen 0.2 (NORMAL) Ur Leukocyte Esterase NEGATIVE Ur Microscopic Review NOT INDICATED Urine Culture Comments NOT INDICATED - Rads (name of study) CXR Radiology: Final report received (Indistinct left perihilar opacity is nonspecific but may represent an atypical infection.) CT angio chest Radiology: Final report received (No evidence of central pulmonary embolism. No acute airspace consolidation. No evidence of aortic aneurysm or definite evidence of dissection.) Ct abd Radiology: Final report received (Distention of the gallbladder without calcified gallstones or wall thickening. No evidence of aortic aneurysm or evidence of dissection. Small fat-containing ventral abdominal hernia.) abd US Radiology: See rad report, Other (Per aeronautical engineering technologist, bile duct within normal limits. Isolated shadowing stone within the fundus of the gallbladder. No stones seen in the CBD. No pericholecystic fluid or gallbladder wall thickening.) PD MEDICAL DECISION MAKING - ED course Complexity details: re-evaluated patient, considered differential, d/w patient, d/w family ED course: This is a 75-year-old female that comes to the emergency department for evaluation of 3 days of shortness of air, nausea and lack of appetite. She had been traveling to [place] to see her back pain specialist but the sudden shortness of air prompted her daughter to drive her to the walk-in clinic. When she presented there she was noted to be tachycardic and hypotensive thus EMS was summoned. By the time the patient arrived to the emergency department her blood pressure and heart rate had normalized despite no treatment. OtherwiseScreening labs show a mild anemia of 10.5 only. As her electrolytes are without any worrisome abnormality. Urine shows no signs of infection. Because of the hypotension and tachycardia at the outside clinic a lactic acid was obtained and initial lactate was noted to be elevated at 2.7. After 2 L of fluid the lactate had normalized to 1.2. However the concerning differential included pulmonary embolus versus aortic dissection therefore a CT of the chest abdomen and pelvis was completed. The CT of the chest though initially ordered as an aorta protocol was unfortunately done as a PE protocol however the radiologist has interpreted that there is no pulmonary embolus or findings of aortic aneurysm or thoracic aorta dilation. There are no findings of pneumonia. The CT of the abdomen did suggest gallbladder Distention without findings of calcified stones. On presentation the patient did have mild right upper quadrant abdominal pain therefore an abdominal ultrasound was completed to rule out gallstones versus acute cholecystitis. But again reassuringly her liver function tests and bilirubin are essentially normal. Abdominal ultrasound does show an isolated gallstone without gallbladder wall thickening pericholecystic fluid. CBD shows no obstructing stone. At this time the cause of the patient's acute shortness of air and lack of appetite is not clear though she has become chronically debilitated secondary to chronic back pain as well as chronic hip pain. No acute medical findings were found today. Patient is being discharged back home. Emergent return pr ecautions were discussed. Departure - Departure Disposition: 01 Home, Self Care Clinical Impression: Shortness of breath, Nausea Chronic hip pain Qualifiers: Laterality: right Qualified Code(s): M25.551 - Pain in right hip; G89.29 - Other chronic pain Gallstone Qualifiers: Cholecystitis presence: without cholecystitis Biliary obstruction: without b iliary obstruction Qualified Code(s): K80.20 - Calculus of gallbladder without cholecystitis without obstruction Condition: Stable Record reviewed to determine appropriate education?: Yes Instructions: Gallstones Toy Comments: Anne waller were seen in the emergency department today for a few days with shortness of breath, lack of appetite and nausea. When you were initially at the walk-in clinic they noted an elevated heart rate and a low blood pressure but by the time you had arrived to the emergency department your vital signs had normalized. Your heart rate was normal as well as your blood pressure. Initially you did have a mildly elevated lactic acid of 2.7. But with some IV fluids and this normalized to 1.2 which is a normal finding. Today your labs do show a mild anemia only. We did do a CAT scan of your chest and abdomen. Reassuringly the CAT scan of the chest does not show any pulmonary embolus, aortic aneurysm or dilation of your thoracic aorta. The CT of the abdomen did suggest that you had a distended or enlarged gallbladder therefore we did complete an abdominal ultrasound to make sure that your gallbladder was not inflamed. The ultrasound shows an isolated gallstone only without findings to suggest infection or inflammation of the gallbladder. I do think that a component of your shortness of air and nausea may be due to chronic pain and deconditioning secondary to lack of mobility and movement. Please discuss this emergency department visit with your primary care provider. If at any point you develop chest pain, cannot breathe normally, have suddenly severe abdominal pain or uncontrolled vomiting please return immediately to the emergency department for a second look.
[2021-04-01 17:47] LABS: BASOPHILS # (AUTO) 0.1 10^3/uL (0.0-0.1); BASOPHILS % (AUTO) 0.7 %; EOSINOPHILS # (AUTO) 0.1 10^3/uL (0.0-0.7); EOSINOPHILS % (AUTO) 0.8 %; HCT - HEMATOCRIT 34.5 % (37.0-47.0); HGB - HEMOGLOBIN 10.5 g/dL (12.0-16.0); LYMPHOCYTES # (AUTO) 1.2 10^3/uL (1.5-3.5); LYMPHOCYTES % (AUTO) 11.5 %; MEAN CORPUSCULAR HGB CONC 30.4 g/dL (32.0-36.0); MEAN CORPUSCULAR VOLUME 78.9 fL (81.0-99.0); MEAN PLATELET VOLUME 9.4 fL (7.9-10.8); MONOCYTES # (AUTO) 0.8 10^3/uL (0.0-1.0); MONOCYTES % (AUTO) 7.9 %; NEUTROPHILS % (AUTO) 78.6 %; PLT - PLATELET COUNT 385 10^3/uL (130-450); RED BLOOD COUNT 4.37 10^6/uL (4.20-5.40); RED CELL DISTRIBUTION WIDTH 18.3 % (12.0-15.0); WHITE BLOOD COUNT 10.1 x10^3/uL (4.8-10.8)
[2021-04-01 17:53] LABS: INR 1.2 (0.8-1.2); PT - PROTHROMBIN TIME 13.3 secs (9.9-12.6)
[2021-04-01 18:00] LABS: PARTIAL THROMBOPLASTIN TIME 23.9 secs (24.9-33.3)
--- NOTE | 2021-04-01 18:09 | XRAY Report ---
PROCEDURE: Chest 1 View X-Ray INDICATIONS: Chest Pain TECHNIQUE: One view of the chest was acquired. COMPARISON: None. FINDINGS: Surgical changes and devices: None. Lungs and pleura: No pleural effusions or pneumothorax. There is an indistinct perihilar opacity in the left hemithorax. Mediastinum: Mediastinal contours appear normal. Heart size is normal. Bones and chest wall: No suspicious bony lesions. Overlying soft tissues appear unremarkable. IMPRESSION: 1. Indistinct left perihilar opacity is nonspecific but may represent an atypical infection. Reviewed by: Jose Bautista MD on 04/01/2021 6:08 PM PDT Approved by: Jose Bautista MD on 04/01/2021 6:08 PM PDT Station ID: [id number]
[2021-04-01 18:10] LABS: ALBUMIN 3.5 g/dL (3.2-5.5); ALBUMIN/GLOBULIN RATIO 1.1 (1.0-2.2); BILIRUBIN,TOTAL 0.8 mg/dL (0.2-1.0); CREATININE 1.1 mg/dL (0.4-1.0); POTASSIUM 3.8 mmol/L (3.5-5.0); TOTAL PROTEIN 6.7 g/dL (6.7-8.2)
--- NOTE | 2021-04-01 19:16 | CT Report ---
PROCEDURE: ANGIO CHEST W/WO INDICATIONS: Short of air, reported hypotension, tachycardia CONTRAST: IV CONTRAST: Optiray 320 ml: 100 PO CONTRAST: *NO PO CONTRAST TECHNIQUE: After the administration of intravenous contrast, 2 mm thick sections acquired from the pulmonary api crystal to the posterior costophrenic angles. 3-dimensional maximum intensity projection (MIP) coronal a nd sagittal reformats were then acquired through the thorax. For radiation dose reduction, the follow ing was used: automated exposure control, adjustment of mA and/or kV according to patient size. COMPARISON: Chest x-ray 04/01/2021. Concurrent CT of the abdomen and pelvis. FINDINGS: Image quality: Diagnostic. Pulmonary arteries: Pulmonary arteries are normal in size, and demonstrate no intraluminal filling d efects to suggest central pulmonary embolism. Lungs and pleura: There is mild dependent atelectasis. There are small bilateral calcified nodules co nsistent with calcified granulomas. No pleural effusions or pneumothorax. Central and peripheral air ways are patent. Mediastinum: Heart size is normal, without pericardial effusion. No mediastinal or hilar adenopathy . Thoracic aorta is normal in caliber. There is suboptimal contrast enhancement but no definite inti mal flaps are identified to suggest dissection. No periaortic hematomas. Esophagus is normal in hang ruby, without hiatal hernia. Bones and chest wall: No suspicious bony lesions. Ribs and thoracic spine appear intact throughout. No axillary or supraclavicular adenopathy. No discrete thyroid nodules identified. Abdomen: Visualized upper abdomen demonstrates postsurgical changes consistent with prior gastrojeju nostomy. IMPRESSION: 1. No evidence of central pulmonary embolism. 2. No acute airspace consolidation. 3. No evidence of aortic aneurysm or definite evidence of dissection CLINICAL RECOMMENDATION STATEMENTS: In patients <35 years with an ITN detected on CT, MRI, or extrathyroidal ultrasound, the Committee re commends further evaluation with dedicated thyroid ultrasound if the nodule is ?1 cm and has no suspi cious imaging features, and if the patient has normal life expectancy. In patients ?35 years with an ITN detected on CT, MRI, or extrathyroidal ultrasound, the Committee re commends further evaluation with dedicated thyroid ultrasound if the nodule is ?1.5 cm and has no jaylene picious imaging features, and if the patient has normal life expectancy. (ACR, 2014) Reviewed by: Jose Bautista MD on 04/01/2021 7:15 PM PDT Approved by: Jose Bautista MD on 04/01/2021 7:15 PM PDT Station ID: [id number]
--- NOTE | 2021-04-01 19:37 | CT Report ---
PROCEDURE: Abdomen/Pelvis W INDICATIONS: hypotension, tachycardia CONTRAST: IV CONTRAST: Optiray 320 ml: 100 PO CONTRAST: *NO PO CONTRAST TECHNIQUE: After the administration of intravenous contrast, 5 mm thick sections acquired from the diaphragms to the symphysis. 5 mm thick coronal and sagittal reformats were acquired. For radiation dose reducti on, the following was used: automated exposure control, adjustment of mA and/or kV according to perri ent size. COMPARISON: Concurrent CT angiogram of the chest. FINDINGS: Image quality: There is metallic streak artifact from patient's right hip prosthesis. ABDOMEN: Lung bases: Lung bases are clear. Heart size is normal. Solid organs: Evaluation of the liver demonstrates no focal hepatic lesions. Gallbladder is distende d without wall thickening or calcified gallstones. Biliary system is non dilated. The spleen is norm al in size. Pancreas enhances normally without peripancreatic fat stranding or fluid collections. No adrenal nodules. Kidneys demonstrate no hydronephrosis. Peritoneum and bowel: Bowel loops demonstrate normal wall thickness and caliber. No free fluid or a ir. Nodes and vessels: No retroperitoneal or mesenteric adenopathy by size criteria. Aorta and inferior vena cava are normal in size. There is extensive atherosclerotic vascular calcification along the ao rta. No periaortic hematomas. Miscellaneous: There is a small fat-containing periumbilical hernia. PELVIS: Genitourinary: The urinary bladder is nondistended. Miscellaneous: No inguinal hernias or adenopathy. Bones: There is a right hip prosthesis with associated extensive metallic streak artifact limiting e valuation in the pelvis. No suspicious bony lesions. No vertebral body compression fractures. IMPRESSION: 1. Distention of the gallbladder without calcified gallstones or wall thickening. Recommend correlati on clinically and if there is clinical suspicion for cholecystitis, further evaluation may be obtaine d with ultrasound. 2. No evidence of aortic aneurysm or definite evidence of dissection. 3. Small fat-containing ventral abdominal hernia. Reviewed by: Jose Bautista MD on 04/01/2021 7:36 PM PDT Approved by: Jose Bautista MD on 04/01/2021 7:36 PM PDT Station ID: [id number]
[2021-04-01 20:39] LABS: BILIRUBIN,URINE NEGATIVE (NEGATIVE); GLUCOSE, URINE (UA) NEGATIVE (NEGATIVE); KETONES,URINE (UA) TRACE mg/dL (NEGATIVE); LEUKOCYTE ESTERASE, URINE NEGATIVE (NEGATIVE); NITRITE,URINE NEGATIVE (NEGATIVE); OCCULT BLOOD,URINE NEGATIVE (NEGATIVE); PROTEIN,URINE NEGATIVE (NEGATIVE); UROBILINOGEN,URINE 0.2 (NORMAL) E.U./dL (NORMAL)
[2021-04-01 20:40] LABS: CLARITY,URINE CLEAR (CLEAR)
[2021-04-01 23:11] VITALS: BP 119/69
--- NOTE | 2021-04-02 08:23 | Ultrasound Report ---
PROCEDURE: Abdomen Limited INDICATIONS: RUQ abdo pain; distended GB TECHNIQUE: Real-time focused scanning was performed of the abdomen, with image documentation. COMPARISON: None. FINDINGS: Liver measures 13.9 cm and is mildly echogenic diffusely. No focal hepatic lesion. There i s a 4 mm gallstone seen in the fundus. No definite wall thickening, pericholecystic fluid or sonograp hic Deras sign. No bile duct dilatation. The pancreas unremarkable but the tail is not well seen. Ri ght kidney measures 10.4 cm and there is a possible parapelvic cyst measuring 1.6 cm. Suboptimal eval uation secondary to bowel gas and body habitus. IMPRESSION: Cholelithiasis although no other sonographic criteria for acute cholecystitis. Coarsely echogenic liver suggesting hepatic steatosis/diffuse hepatocellular disease. Please correlat e with LFTs. Additional chronic and incidental findings as above. Findings are concordant with the preliminary study interpretation provided at the time of the study. Reviewed by: Dany Be MD on 04/02/2021 8:22 AM PDT Approved by: Dany Be MD on 04/02/2021 8:22 AM PDT Station ID: [id number]
== END 2021-04-01 23:18 | disposition home or self-care (01) ==
LOC: EDUNIT# → ED 17:07 → SUPCPDRO 17:07 → ED 23:18
DX: M25.551 Pain in right hip (principal); G89.29 Other chronic pain; K80.20 Calculus of gallbladder without cholecystitis without obstruction; D64.9 Anemia, unspecified; E11.42 Type 2 diabetes mellitus with diabetic polyneuropathy; Z79.84 Long term (current) use of oral hypoglycemic drugs
CPT/HCPCS: 36415; 71045; 71275; 74177; 76705; 80053; 81003; 83605; 83690; 84484; 85025; 85610; 85730; 87040; 93005; 96361; 96374; 99284; Q9967; 81001; 87086

== ENCOUNTER 2021-06-16 15:14 | Outpatient (CLI) | payer MEDICARE, OTHER ==
--- NOTE | 2021-06-16 16:20 | XRAY Report ---
PROCEDURE: Ankle 3 View LT INDICATIONS: PAINFUL L ANKLE TECHNIQUE: 3 views of the ankle were acquired. COMPARISON: Left foot radiographs 01/22/2021 FINDINGS: Bones: Postsurgical changes are seen from posterior arthrodesis with multiple metallic screws across the mortise joint and distal tibiofibular articulation, with solid osseous fusion. Chronic fracture or osteotomy of the distal fibular shaft. Severe degenerative changes are seen in the posterior subta lar joint with subchondral sclerosis. Mild degenerative spurring is seen at the dorsal talonavicular joint. A plantar calcaneal spur is present. No acute fractures or dislocations. No suspicious bony le sions. Soft tissues: Soft tissue edema is seen surrounding the ankle. IMPRESSION: Postsurgical changes from ankle arthrodesis with solid osseous fusion. Severe degenerati ve changes at the posterior subtalar joint. No acute osseous abnormality identified. Reviewed by: Jay Puentes MD on 06/16/2021 4:19 PM PDT Approved by: Jay Puentes MD on 06/16/2021 4:19 PM PDT Station ID: [id number]
== END 2021-06-16 15:15 | disposition home or self-care (01) ==
LOC: DI 15:14
PROVIDERS: ATTEND Podiatrist
DX: M19.072 Primary osteoarthritis, left ankle and foot (principal); Z98.1 Arthrodesis status

== ENCOUNTER 2021-06-27 09:48 | Outpatient (CLI) | payer MEDICARE | END 2021-06-27 09:49 | disposition critical access hospital (66) | LOC: EMS 09:48 | DX: Z04.3 Encounter for examination and observation following other accident (principal); M25.551 Pain in right hip | CPT/HCPCS: A0425; A0429 ==

== ENCOUNTER 2021-06-27 10:07 | Emergency (ER) | payer MEDICARE, OTHER ==
--- NOTE | 2021-06-27 10:24 | ED Physician Documentation ---
PD HPI Fall - Stated complaint Stated Complaint: GLF - Chief complaint Chief Complaint: Trauma Ext - History obtained from History obtained from: Patient - History of Present Illness Mechanism of injury: Tripped Fall distance: Standing position Where injury occurred: Home Timing - onset: Today Injury(ies) location: Head, Left Lower Extremity Quality of pain: Pain Associated symptoms: No: LOC, AMS, Amnesia, Seizures, Ear drainage, Nasal drainage, Neck pain, Weakness, Paresthesias, Dyspnea, Nausea / vomiting, Hematemesis, Abdominal distension Symptoms improve with: Rest Worsens with: Movement, Palpation Contributing factors: No: Anticoagulated Similar symptoms before: Diagnosis (hip fracture) Recently seen: Not recently seen - Additional information Additional information: 76-year-old female with a complicated orthopedic history was in her home today when she backed up into some boxes and fell into the boxes and hit her head on her bookcase. She was not knocked unconscious she denies any neck pain she does have pain in her right hip and her right knee and she was unable to get out of the boxes. She had to call 911. She has had prior fracture to her right hip she has had infection after the repair she has had 4 procedures on her right hip. She has had a knee replacement on the right. Review of Systems Constitutional: denies: Fever Eyes: denies: Decreased vision Respiratory: denies: Cough GI: denies: Vomiting : denies: Dysuria Skin: denies: Rash Musculoskeletal: reports: Extremity pain, Joint pain. 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 : Incontinence, Chronic bladder infection HEENT: Chronic vision loss Psych: Depression, Anxiety Musculoskeletal: Osteoarthritis, Fibromyalgia Derm: None - Past Surgical History Past Surgical History: Yes General: Gastric surgery Ortho: Hip replacement, Knee replacement, Rotator cuff repair, Shoulder arthroplasty, Spine surgery - Present Medications Home Medications: Ambulatory Orders Medication Instructions Recorded Confirmed Atorvastatin Calcium 40 mg PO DAILY PM 12/23/19 06/27/21 Cyclobenzaprine HCl 5 mg PO TID PRN 12/23/19 06/27/21 Meloxicam 15 mg PO DAILY 12/23/19 06/27/21 Pregabalin 150 mg PO TID 12/23/19 06/27/21 Venlafaxine ER [Effexor ER] 150 mg PO DAILY PM 12/23/19 06/27/21 metFORMIN [Glucophage] 500 mg PO BIDWM 12/23/19 06/27/21 - Allergies Allergies/Adverse Reactions: Allergies Allergy/AdvReac Type Severity Reaction Status Date / Time latex Allergy Itching Verified 06/27/21 10:11 opiods Allergy Itching Uncoded 04/01/21 17:28 - Social History Does the pt smoke?: No Smoking Status: Never smoker Does the pt drink ETOH?: Yes Does the pt have substance abuse?: No - Immunizations Immunizations are current?: Yes - POLST Patient has POLST: No PD ED PE NORMAL - Vitals Vital signs reviewed: Yes (normal ) - General General: Alert and oriented X 3, No acute distress, Well developed/nourished - HEENT HEENT: PERRL, EOMI, Other ( bruise to the occciput without step off or crepitance. ) - Neck Neck: Supple, no meningeal sign, No bony TTP - Cardiac Cardiac: RRR, No murmur - Respiratory Respiratory: No respiratory distress, Clear bilaterally - Abdomen Abdomen: Normal bowel sounds, Soft, Non tender, Non distended, No organomegaly - Female Female : Fern Cutter present - Back Back: No CVA TTP, No spinal TTP - Derm Derm: Normal color, Warm and dry, No rash - Extremities Extremities: No deformity, Other (Tenderness to the trochanter on the right and pain to the posterior knee on the right without evidence of effusion or ligamentous laxity. 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, No motor deficit, No sensory deficit, Normal speech Eye Opening: Spontaneous Motor: Obeys Commands Verbal: Oriented GCS Score: 15 - Psych Psych: Normal mood, Normal affect Results - Vitals Vitals: Vital Signs - 24 hr 06/27/21 06/27/21 06/27/21 10:11 10:42 11:53 Temperature 36.2 C L 35.9 C L Heart Rate 65 62 69 Respiratory 18 144 H 16 Rate Blood Pressure 123/49 L 114/96 H 143/55 H O2 Saturation 100 100 99 06/27/21 06/27/21 13:32 17:02 Temperature Heart Rate 69 69 Respiratory 14 18 Rate Blood Pressure 141/61 H 145/69 H O2 Saturation 100 Oxygen O2 Source Room air - Rads (name of study) hip Radiology: Prelim report reviewed (Impression: Total right hip arthroplasty with revision, stable from prior 2019 study. Moderate left hip joint space narrowing), EMP read indepedently, See rad report knee Radiology: Prelim report reviewed (Impression: Osteopenia and total joint replacement without fracture or joint effusion.), EMP read indepedently, See rad report PD MEDICAL DECISION MAKING - ED course Complexity details: reviewed results, re-evaluated patient, considered differential, d/w patient ED course: 76-year-old female with a fall in her home was unable to get up out of the cardboard box that she fell into she did hit her head she is not on any blood thinners she injured her right hip which is the hip she has had a lot of problems with and has had multiple revisions with she is able to walk on this and has no evidence of fracture to her pelvis or hip or loosening of her hardware. Similar to her knee. Departure - Departure Disposition: 01 Home, Self Care Clinical Impression: Contusion of hip, right Qualifiers: Encounter type: initial encounter Qualified Code(s): S70.01XA - Contusion of right hip, initial encounter Sprain of knee Qualifiers: Encounter type: initial encounter Involved ligament of knee: unspecified ligament Laterality: right Qualified Code(s): S83.91XA - Sprain of unspecified site of right knee, initial encounter Condition: Stable Instructions: ED Contusion Hip, ED Sprain Knee Follow-Up: Ariane Quick PA-C [Primary Care Provider] - Discharge Date/Time: 06/27/21 16:55
--- NOTE | 2021-06-27 11:23 | XRAY Report ---
PROCEDURE: Hip w/Pelvis 2-3V RT INDICATIONS: Fall, pain TECHNIQUE: AP pelvis with lateral view(s) of the right hip(s). COMPARISON: 10/16/2019 FINDINGS: Bones: There is a right hip arthroplasty with revision and acetabular stabilization. There is linear lucency around the femoral associated bone cement, stable from prior. Acetabular periarticular sclero sis and remodeling is also stable. Degenerative changes noted lower lumbar spine. Moderate left hip j oint space narrowing and diffuse atherosclerotic vascular calcification noted as well. Soft tissues: The visualized bowel gas pattern is normal. No suspicious soft tissue calcifications. Herniorrhaphy titanium tacks noted in the low pelvis. IMPRESSION: Right total hip arthroplasty with revision, stable from the prior 2019 study. Moderate left hip joint space narrowing Reviewed by: Waqas Pillai MD on 06/27/2021 10:22 AM AKMORAIMA Approved by: Waqas Pillai MD on 06/27/2021 10:22 AM AKMORAIMA Station ID: [id number]
--- NOTE | 2021-06-27 11:25 | XRAY Report ---
PROCEDURE: Knee 3 View RT INDICATIONS: GLF TECHNIQUE: 3 views of the right knee(s) were acquired. COMPARISON: None. FINDINGS: Bones: No fractures or dislocations. No suspicious bony lesions. Generalized decreased osseous min eralization present. Total knee arthroplasty in place. Soft tissues: No joint effusion. No suspicious soft tissue calcifications. The described vascular c alcification noted. IMPRESSION: Osteopenia and total joint replacement without fracture or joint effusion Reviewed by: Waqas Pillai MD on 06/27/2021 10:23 AM SY Approved by: Waqas Pillai MD on 06/27/2021 10:23 AM AKMORAIMA Station ID: [id number]
[2021-06-27] MEDS ORDERED: ACETAMINOPHEN 325 MG TABLET PO STA (16:33)
[2021-06-27 17:03] VITALS: BP 145/69
== END 2021-06-27 16:55 | disposition home or self-care (01) ==
LOC: EDUNIT# → ED 10:07
DX: S09.90XA Unspecified injury of head, initial encounter (principal); S70.01XA Contusion of right hip, initial encounter; S83.91XA Sprain of unspecified site of right knee, initial encounter; W01.198A Fall on same level from slipping, tripping and stumbling with subsequent striking against other object, initial encounter; Y92.009 Unspecified place in unspecified non-institutional (private) residence as the place of occurrence of the external cause; E11.42 Type 2 diabetes mellitus with diabetic polyneuropathy; Z79.84 Long term (current) use of oral hypoglycemic drugs
CPT/HCPCS: 73502; 73562; 99282; 99283; A9270

== ENCOUNTER 2021-10-26 17:22 | Outpatient (CLI) | payer MEDICARE ==
[2021-10-27 00:45] LABS: CHLAMYDIA TRACHOMATIS DNA NEGATIVE (NEGATIVE); NEISSERIA GONORRHOEAE DNA NEGATIVE (NEGATIVE); TRICHOMONAS VAGINALIS DNA NEGATIVE (NEGATIVE)
[2021-10-27 01:42] LABS: BACTERIAL VAGINOSIS DNA NEGATIVE (NEGATIVE); CANDIDA GLABRATA DNA NEGATIVE (NEGATIVE); CANDIDA GROUP DNA POSITIVE (NEGATIVE); CANDIDA KRUSEI DNA NEGATIVE (NEGATIVE); TRICHOMONAS VAGINALIS DNA NEGATIVE (NEGATIVE)
== END 2021-10-26 23:59 | disposition home or self-care (01) ==
LOC: LAB 17:22
PROVIDERS: ATTEND Family Medicine
DX: N89.8 Other specified noninflammatory disorders of vagina (principal)
CPT/HCPCS: 87491; 87591; 87661; 87801

== ENCOUNTER 2023-09-06 08:00 | Outpatient (CLI) | payer MEDICARE, MEDICAID ==
[2023-09-06 19:31] LABS: BASOPHILS # (AUTO) 0.1 10^3/uL (0.0-0.1); BASOPHILS % (AUTO) 2.4 %; EOSINOPHILS # (AUTO) 0.6 10^3/uL (0.0-0.7); EOSINOPHILS % (AUTO) 10.3 %; HCT - HEMATOCRIT 38.8 % (37.0-47.0); HGB - HEMOGLOBIN 11.7 g/dL (12.0-16.0); LYMPHOCYTES # (AUTO) 1.6 10^3/uL (1.5-3.5); LYMPHOCYTES % (AUTO) 29.6 %; MEAN CORPUSCULAR HEMOGLOBIN 25.6 pg (27.0-31.0); MEAN CORPUSCULAR HGB CONC 30.2 g/dL (32.0-36.0); MEAN CORPUSCULAR VOLUME 84.9 fL (81.0-99.0); MEAN PLATELET VOLUME 9.2 fL (7.9-10.8); MONOCYTES # (AUTO) 0.5 10^3/uL (0.0-1.0); MONOCYTES % (AUTO) 9.2 %; NEUTROPHILS # (AUTO) 2.6 10^3/uL (1.5-6.6); NEUTROPHILS % (AUTO) 48.3 %; PLT - PLATELET COUNT 391 10^3/uL (130-450); RED BLOOD COUNT 4.57 10^6/uL (4.20-5.40); RED CELL DISTRIBUTION WIDTH 16.4 % (12.0-15.0); WHITE BLOOD COUNT 5.3 x10^3/uL (4.8-10.8)
[2023-09-06 20:14] LABS: ALBUMIN 3.1 g/dL (3.2-5.5); BILIRUBIN,TOTAL 0.3 mg/dL (0.2-1.0); CALCIUM 8.8 mg/dL (8.5-10.3); CREATININE 0.7 mg/dL (0.6-1.3); CRP - C-REACTIVE PROTEIN 0.8 mg/dL (<0.5); POTASSIUM 4.6 mmol/L (3.5-4.5); TOTAL PROTEIN 6.2 g/dL (6.4-8.9)
== END 2023-09-06 23:59 | disposition home or self-care (01) ==
LOC: LAB.R 08:00
DX: E11.42 Type 2 diabetes mellitus with diabetic polyneuropathy (principal); D50.9 Iron deficiency anemia, unspecified; M79.7 Fibromyalgia
CPT/HCPCS: 80053; 85025; 85651; 86140

== ENCOUNTER 2023-09-14 12:04 | Outpatient (CLI) | payer MEDICARE, MEDICAID ==
--- NOTE | 2023-09-14 14:27 | XRAY Report ---
PROCEDURE: Tib/Fib LT INDICATIONS: OSTEOMYELITIS, UNSPECIFIED TECHNIQUE: 2 views of the tibia and fibula were acquired. COMPARISON: 06/16/2021 FINDINGS: Bones: The left tibia and fibula demonstrates severe osteopenia of the distal tibia and fibula and a nkle. There is been resection of the distal fibula. Best seen on AP view, the bone surrounding the sc rews demonstrates lucency consistent with loosening or infection. The left knee also demonstrates ost eopenia with subcortical lucency. Status post arthrodesis of the ankle Soft tissues: Vasculature has atherosclerotic calcifications. No soft tissue gas. IMPRESSION: 1. Status post arthrodesis of the ankle 2. 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 3. Lucency around the screws in the distal tibia consistent with loosening or infection. Reviewed by: Yohannes Coats on 09/14/2023 2:25 PM PDT Approved by: Yohannes Coats on 09/14/2023 2:25 PM PDT Station ID: [id number]
== END 2023-09-14 12:05 | disposition home or self-care (01) ==
LOC: DI 12:04
PROVIDERS: ATTEND Registered Nurse
DX: M85.862 Other specified disorders of bone density and structure, left lower leg (principal); Z98.1 Arthrodesis status

== ENCOUNTER 2023-09-15 08:00 | Outpatient (CLI) | payer MEDICARE, MEDICAID | END 2023-09-15 23:59 | disposition home or self-care (01) | LOC: LAB.R 08:00 | PROVIDERS: ATTEND Registered Nurse | DX: S81.802A Unspecified open wound, left lower leg, initial encounter (principal) | CPT/HCPCS: 87070; 87205 ==

== ENCOUNTER 2023-09-20 11:24 | Day surgery (SDC) | payer MEDICARE, MEDICAID ==
[2023-09-20 12:26] VITALS: O2SAT 97
--- NOTE | 2023-09-20 14:08 | ANESTHESIA PROCEDURE NOTE ---
Anesth Central Line Template - Central Line Central Line Preparation: Consent Obtained, Time out completed, Ultrasound used, Sterile prep and drape (trimmed at 45, 3 cm left exposed. statlock and tegederm, flushes and draws easily.) Central line location: Right Basilic Central line type: PICC Single Lumen Central line catheter tip site resides: Superior vena cava (SVC) Central line aftercare: Secured, Placement confirmed, Bundle checklist complete, Pt tolerated well
--- NOTE | 2023-09-20 14:12 | XRAY Report ---
PROCEDURE: Chest for Line Placement INDICATIONS: post PICC insertion TECHNIQUE: One view of the chest was acquired. COMPARISON: CT chest chest x-ray 04/01/2021 FINDINGS: Surgical changes and devices: None. Lungs and pleura: No pleural effusions or pneumothorax. Lungs are clear. Mediastinum: Mediastinal contours appear normal. Heart size is enlarged. Bones and chest wall: No suspicious bony lesions. Overlying soft tissues appear unremarkable. IMPRESSION: No acute cardiopulmonary process. Reviewed by: Hina Huang MD on 09/20/2023 2:10 PM PST Approved by: Hina Huang MD on 09/20/2023 2:10 PM PST Station ID: [id number]
[2023-09-20 14:39] VITALS: BP 128/50
== END 2023-09-20 11:25 | disposition home or self-care (01) ==
LOC: SDS 11:24
PROVIDERS: ATTEND Registered Nurse
DX: M86.9 Osteomyelitis, unspecified (principal)
CPT/HCPCS: 36569; C1751

== ENCOUNTER 2023-10-04 14:41 | Outpatient (CLI) | payer OTHER, MEDICAID ==
[2023-10-04 15:09] LABS: BASOPHILS # (AUTO) 0.1 10^3/uL (0.0-0.1); BASOPHILS % (AUTO) 2.2 %; EOSINOPHILS # (AUTO) 0.6 10^3/uL (0.0-0.7); EOSINOPHILS % (AUTO) 9.8 %; HCT - HEMATOCRIT 38.4 % (37.0-47.0); HGB - HEMOGLOBIN 11.5 g/dL (12.0-16.0); LYMPHOCYTES # (AUTO) 1.3 10^3/uL (1.5-3.5); LYMPHOCYTES % (AUTO) 21.9 %; MEAN CORPUSCULAR HEMOGLOBIN 26.2 pg (27.0-31.0); MEAN CORPUSCULAR HGB CONC 29.9 g/dL (32.0-36.0); MEAN CORPUSCULAR VOLUME 87.5 fL (81.0-99.0); MEAN PLATELET VOLUME 9.6 fL (7.9-10.8); MONOCYTES # (AUTO) 0.6 10^3/uL (0.0-1.0); MONOCYTES % (AUTO) 9.6 %; NEUTROPHILS # (AUTO) 3.4 10^3/uL (1.5-6.6); NEUTROPHILS % (AUTO) 56.3 %; PLT - PLATELET COUNT 340 10^3/uL (130-450); RED BLOOD COUNT 4.39 10^6/uL (4.20-5.40); RED CELL DISTRIBUTION WIDTH 16.8 % (12.0-15.0)
[2023-10-04 15:29] LABS: ALBUMIN 3.2 g/dL (3.2-5.5); ALBUMIN/GLOBULIN RATIO 1.2 (1.0-2.2); BILIRUBIN,TOTAL 0.2 mg/dL (0.2-1.0); CREATININE 0.6 mg/dL (0.6-1.3); CRP - C-REACTIVE PROTEIN 1.1 mg/dL (<0.5); POTASSIUM 3.9 mmol/L (3.5-4.5); TOTAL PROTEIN 5.9 g/dL (6.4-8.9)
== END 2023-10-04 14:42 | disposition home or self-care (01) ==
LOC: LAB.R 14:41
PROVIDERS: ATTEND Registered Nurse
DX: I10 Essential (primary) hypertension (principal); E50.9 Vitamin A deficiency, unspecified; M19.90 Unspecified osteoarthritis, unspecified site
CPT/HCPCS: 80053; 85025; 85651; 86140

== ENCOUNTER 2023-10-14 08:00 | Outpatient (CLI) | payer OTHER, MEDICAID ==
[2023-10-14 13:19] LABS: BASOPHILS # (AUTO) 0.1 10^3/uL (0.0-0.1); BASOPHILS % (AUTO) 1.5 %; EOSINOPHILS # (AUTO) 0.4 10^3/uL (0.0-0.7); HCT - HEMATOCRIT 38.1 % (37.0-47.0); HGB - HEMOGLOBIN 11.4 g/dL (12.0-16.0); LYMPHOCYTES # (AUTO) 1.4 10^3/uL (1.5-3.5); LYMPHOCYTES % (AUTO) 17.4 %; MEAN CORPUSCULAR HEMOGLOBIN 25.9 pg (27.0-31.0); MEAN CORPUSCULAR HGB CONC 29.9 g/dL (32.0-36.0); MEAN CORPUSCULAR VOLUME 86.4 fL (81.0-99.0); MEAN PLATELET VOLUME 9.6 fL (7.9-10.8); MONOCYTES # (AUTO) 0.7 10^3/uL (0.0-1.0); MONOCYTES % (AUTO) 8.3 %; NEUTROPHILS # (AUTO) 5.4 10^3/uL (1.5-6.6); NEUTROPHILS % (AUTO) 67.6 %; PLT - PLATELET COUNT 419 10^3/uL (130-450); RED BLOOD COUNT 4.41 10^6/uL (4.20-5.40); RED CELL DISTRIBUTION WIDTH 16.4 % (12.0-15.0)
[2023-10-14 13:33] LABS: BILIRUBIN,TOTAL 0.3 mg/dL (0.2-1.0); CALCIUM 8.5 mg/dL (8.5-10.3); CREATININE 0.5 mg/dL (0.6-1.3)
[2023-10-14 15:56] LABS: CRP - C-REACTIVE PROTEIN 3.4 mg/dL (<0.5)
== END 2023-10-14 23:59 | disposition home or self-care (01) ==
LOC: LAB.R 08:00
PROVIDERS: ATTEND Registered Nurse
DX: L97.228 Non-pressure chronic ulcer of left calf with other specified severity (principal)
CPT/HCPCS: 80053; 85025; 86140

== ENCOUNTER 2023-10-18 13:57 | Outpatient (CLI) | payer OTHER, MEDICAID | END 2023-10-18 13:58 | disposition home or self-care (01) | LOC: LAB.R 13:57 | PROVIDERS: ATTEND Registered Nurse | DX: M86.9 Osteomyelitis, unspecified (principal) | CPT/HCPCS: 85651 ==

== ENCOUNTER 2023-11-06 08:00 | Outpatient (CLI) | payer OTHER, MEDICAID ==
[2023-11-06 15:54] LABS: BASOPHILS # (AUTO) 0.2 10^3/uL (0.0-0.1); BASOPHILS % (AUTO) 2.3 %; EOSINOPHILS # (AUTO) 0.6 10^3/uL (0.0-0.7); EOSINOPHILS % (AUTO) 9.1 %; HCT - HEMATOCRIT 39.5 % (37.0-47.0); HGB - HEMOGLOBIN 11.7 g/dL (12.0-16.0); LYMPHOCYTES # (AUTO) 1.4 10^3/uL (1.5-3.5); MEAN CORPUSCULAR HEMOGLOBIN 25.2 pg (27.0-31.0); MEAN CORPUSCULAR HGB CONC 29.6 g/dL (32.0-36.0); MEAN CORPUSCULAR VOLUME 84.9 fL (81.0-99.0); MEAN PLATELET VOLUME 9.7 fL (7.9-10.8); MONOCYTES # (AUTO) 0.6 10^3/uL (0.0-1.0); MONOCYTES % (AUTO) 8.2 %; NEUTROPHILS # (AUTO) 4.3 10^3/uL (1.5-6.6); NEUTROPHILS % (AUTO) 60.3 %; PLT - PLATELET COUNT 388 10^3/uL (130-450); RED BLOOD COUNT 4.65 10^6/uL (4.20-5.40); RED CELL DISTRIBUTION WIDTH 15.8 % (12.0-15.0); WHITE BLOOD COUNT 7.1 x10^3/uL (4.8-10.8)
[2023-11-06 16:30] LABS: BILIRUBIN,TOTAL 0.2 mg/dL (0.2-1.0); CALCIUM 8.7 mg/dL (8.5-10.3); CREATININE 0.7 mg/dL (0.6-1.3); CRP - C-REACTIVE PROTEIN 0.8 mg/dL (<0.5); POTASSIUM 4.6 mmol/L (3.5-4.5); TOTAL PROTEIN 6.1 g/dL (6.4-8.9)
== END 2023-11-06 23:59 | disposition home or self-care (01) ==
LOC: LAB.R 08:00
PROVIDERS: ATTEND Registered Nurse
DX: E11.42 Type 2 diabetes mellitus with diabetic polyneuropathy (principal); D50.9 Iron deficiency anemia, unspecified; M19.90 Unspecified osteoarthritis, unspecified site
CPT/HCPCS: 80053; 85025; 86140

== ENCOUNTER 2023-11-15 08:00 | Outpatient (CLI) | payer OTHER, MEDICAID | END 2023-11-15 23:59 | disposition home or self-care (01) | LOC: LAB.R 08:00 | PROVIDERS: ATTEND Registered Nurse | DX: I10 Essential (primary) hypertension (principal); E11.42 Type 2 diabetes mellitus with diabetic polyneuropathy; M79.7 Fibromyalgia | CPT/HCPCS: 83036; 85025; 86140 ==

== ENCOUNTER 2023-12-12 13:06 | Outpatient (CLI) | payer MEDICARE, MEDICAID ==
--- NOTE | 2023-12-12 14:39 | XRAY Report ---
PROCEDURE: Hip w/Pelvis 2-3V RT INDICATIONS: RIGHT HIP PAIN TECHNIQUE: 3 views of the hip were acquired. COMPARISON: 06/27/2021 FINDINGS: Bones: No fractures or dislocations. Stable appearance of right hip arthroplasty. Bone cement is see n along the femoral component with adjacent lucency, stable compared to prior. Acetabular component p eriarticular sclerosis and remodeling is stable compared to prior. Degenerative changes of the visual ized lower lumbar spine and pubic symphysis. Moderate degenerative changes of the left hip. Diffusely decreased osseous mineralization. No suspicious bony lesions. Soft tissues: No suspicious soft tissue calcifications or masses. Atherosclerotic vascular calcifica tions. Partially visualized stent within the right femoral artery. IMPRESSION: Stable appearance of right total hip arthroplasty status post revision. No acute osseous abnormalitie s. Reviewed by: Eric Long MD on 12/12/2023 2:38 PM PST Approved by: Eric Long MD on 12/12/2023 2:38 PM PST Station ID: [id number]
== END 2023-12-12 13:07 | disposition home or self-care (01) ==
LOC: DI 13:06
PROVIDERS: ATTEND Registered Nurse
DX: M25.551 Pain in right hip (principal); Z96.641 Presence of right artificial hip joint

== ENCOUNTER 2024-01-16 08:00 | Outpatient (CLI) | payer MEDICARE, MEDICAID ==
[2024-01-16 17:01] LABS: BASOPHILS # (AUTO) 0.2 10^3/uL (0.0-0.1); EOSINOPHILS # (AUTO) 0.7 10^3/uL (0.0-0.7); EOSINOPHILS % (AUTO) 8.7 %; HGB - HEMOGLOBIN 11.3 g/dL (12.0-16.0); LYMPHOCYTES # (AUTO) 1.6 10^3/uL (1.5-3.5); LYMPHOCYTES % (AUTO) 21.4 %; MEAN CORPUSCULAR HEMOGLOBIN 25.5 pg (27.0-31.0); MEAN PLATELET VOLUME 9.2 fL (7.9-10.8); MONOCYTES # (AUTO) 0.6 10^3/uL (0.0-1.0); MONOCYTES % (AUTO) 8.5 %; NEUTROPHILS # (AUTO) 4.4 10^3/uL (1.5-6.6); NEUTROPHILS % (AUTO) 59.1 %; PLT - PLATELET COUNT 442 10^3/uL (130-450); RED BLOOD COUNT 4.43 10^6/uL (4.20-5.40); RED CELL DISTRIBUTION WIDTH 16.4 % (12.0-15.0); WHITE BLOOD COUNT 7.4 x10^3/uL (4.8-10.8)
[2024-01-16 17:03] LABS: ALBUMIN 2.9 g/dL (3.2-5.5); ALBUMIN/GLOBULIN RATIO 0.9 (1.0-2.2); BILIRUBIN,TOTAL 0.3 mg/dL (0.2-1.0); CALCIUM 9.2 mg/dL (8.5-10.3); CREATININE 0.6 mg/dL (0.6-1.3); POTASSIUM 4.4 mmol/L (3.5-4.5); TOTAL PROTEIN 6.2 g/dL (6.4-8.9)
== END 2024-01-16 23:58 | disposition home or self-care (01) ==
LOC: LAB.R 08:00
PROVIDERS: ATTEND Registered Nurse
DX: L97.228 Non-pressure chronic ulcer of left calf with other specified severity (principal); D50.9 Iron deficiency anemia, unspecified; G90.09 Other idiopathic peripheral autonomic neuropathy; L89.619 Pressure ulcer of right heel, unspecified stage
CPT/HCPCS: 80053; 85025; 85651; 86140

== ENCOUNTER 2024-01-19 10:14 | Outpatient (CLI) | payer MEDICARE, MEDICAID ==
--- NOTE | 2024-01-19 13:06 | XRAY Report ---
PROCEDURE: Calcaneus 2+V RT INDICATIONS: PRESSURE ULCER RIGHT HEEL/OSTEOMYELITIS TECHNIQUE: Two views of the calcaneus were acquired. COMPARISON: None. FINDINGS: Bones: Diffuse osseous demineralization limits sensitivity for subtle nondisplaced fracture. No defi nite fracture or dislocation. No osseous erosion, osteolysis or periosteal reaction. No suspicious b duane lesions. Soft tissues: No suspicious calcifications. Achilles tendon appears normal. IMPRESSION: 1.Diffuse osseous demineralization limits sensitivity for subtle nondisplaced fracture. No definite f racture or dislocation. 2.No osseous erosion, osteolysis or periosteal reaction. If there is high clinical suspicion for oste omyelitis, recommend an MRI for further evaluation. Reviewed by: Kat Raymundo MD on 01/19/2024 1:05 PM PST Approved by: Kat Raymundo MD on 01/19/2024 1:05 PM PST Station ID: [id number]
--- NOTE | 2024-01-19 13:13 | XRAY Report ---
PROCEDURE: Tib/Fib LT INDICATIONS: OSTEO - EXPOSED TENDON/LIGAMENT TECHNIQUE: 2 views of the tibia and fibula were acquired. COMPARISON: Tib-fib radiograph on September 14, 2023. FINDINGS: Bones: Status post arthrodesis of the ankle and resection of the distal fibula. Lucencies surroundin g the distal tibial hardware, as before. Severe osteopenia limits sensitivity for subtle nondisplaced fracture. Within these limitations, no definite fracture. Left knee demonstrate diffuse osseous santos neralization and heterogeneity, as before. No suspicious bony lesions. Compared to prior, no increase d osseous erosion, osteolysis or periosteal reaction. Soft tissues: No suspicious soft tissue calcifications or masses. Vascular calcifications. Soft ti ssue lucency at the level of the lateral tibial middiaphysis. Plantar and calcaneal enthesophytes. IMPRESSION: 1.Status post arthrodesis of the ankle and resection of the distal fibula. Lucency surrounding the di stal tibial hardware, as before, concerning for loosening and/or infection. 2.Severe osteopenia limits sensitivity for subtle nondisplaced fracture. Within these limitations, no definite acute osseous abnormality. 3.Compared to prior dated September 14, 2023, no increased osseous erosion, osteolysis or periosteal re action. 4.Soft tissue lucency at the level of the lateral tibial middiaphysis may reflect a wound. Correlate with physical exam. Reviewed by: Kat Raymundo MD on 01/19/2024 1:12 PM PST Approved by: Kat Raymundo MD on 01/19/2024 1:12 PM PST Station ID: [id number]
== END 2024-01-19 10:15 | disposition home or self-care (01) ==
LOC: DI 10:14
PROVIDERS: ATTEND Registered Nurse
DX: M86.9 Osteomyelitis, unspecified (principal); M85.872 Other specified disorders of bone density and structure, left ankle and foot

== ENCOUNTER 2024-02-02 10:58 | Outpatient (CLI) | payer MEDICARE, MEDICAID | END 2024-02-02 23:59 | disposition critical access hospital (66) | LOC: EMS 10:58 | DX: R07.89 Other chest pain (principal); R07.1 Chest pain on breathing | CPT/HCPCS: A0425; A0429 ==

== ENCOUNTER 2024-02-02 11:04 | Emergency (ER) | payer MEDICARE, MEDICAID ==
[2024-02-02 11:24] VITALS: O2SAT 94
[2024-02-02 11:42] LABS: BASOPHILS # (AUTO) 0.1 10^3/uL (0.0-0.1); BASOPHILS % (AUTO) 1.6 %; EOSINOPHILS # (AUTO) 0.3 10^3/uL (0.0-0.7); HCT - HEMATOCRIT 41.3 % (37.0-47.0); HGB - HEMOGLOBIN 12.1 g/dL (12.0-16.0); LYMPHOCYTES # (AUTO) 1.1 10^3/uL (1.5-3.5); LYMPHOCYTES % (AUTO) 15.4 %; MEAN CORPUSCULAR HEMOGLOBIN 25.5 pg (27.0-31.0); MEAN CORPUSCULAR HGB CONC 29.3 g/dL (32.0-36.0); MEAN CORPUSCULAR VOLUME 86.9 fL (81.0-99.0); MEAN PLATELET VOLUME 8.8 fL (7.9-10.8); MONOCYTES # (AUTO) 0.6 10^3/uL (0.0-1.0); MONOCYTES % (AUTO) 8.8 %; NEUTROPHILS # (AUTO) 5.1 10^3/uL (1.5-6.6); NEUTROPHILS % (AUTO) 70.1 %; PLT - PLATELET COUNT 384 10^3/uL (130-450); RED BLOOD COUNT 4.75 10^6/uL (4.20-5.40); RED CELL DISTRIBUTION WIDTH 16.8 % (12.0-15.0); WHITE BLOOD COUNT 7.3 x10^3/uL (4.8-10.8)
--- NOTE | 2024-02-02 11:58 | XRAY Report ---
PROCEDURE: Chest 1V INDICATIONS: Chest pain TECHNIQUE: One view of the chest was acquired. COMPARISON: None. FINDINGS: Surgical changes and devices: None. Lungs and pleura: No pleural effusions or pneumothorax. Lungs are clear. Mediastinum: Mediastinal contours appear normal. Heart size is normal. Bones and chest wall: No suspicious bony lesions. Overlying soft tissues appear unremarkable. IMPRESSION: No acute cardiopulmonary process. Reviewed by: Jesus Napier MD on 02/02/2024 11:57 AM PDT Approved by: Jesus Napier MD on 02/02/2024 11:57 AM PDT Station ID: [id number]
[2024-02-02 11:59] LABS: ALBUMIN/GLOBULIN RATIO 0.9 (1.0-2.2); BILIRUBIN,TOTAL 0.3 mg/dL (0.2-1.0); CALCIUM 8.7 mg/dL (8.5-10.3); CREATININE 0.6 mg/dL (0.6-1.3); POTASSIUM 4.2 mmol/L (3.5-4.5); TOTAL PROTEIN 6.4 g/dL (6.4-8.9)
[2024-02-02 12:01] LABS: TROPONIN I HIGH SENSITIVITY 5.1 ng/L (2.3-14.8)
[2024-02-02] MEDS: HYDROcod/ACETAM 5/325 MG TABLET PO STA (12:10)
--- NOTE | 2024-02-02 12:18 | ED Physician Documentation ---
PD HPI DYSPNEA - Stated complaint Stated Complaint: CP - Chief complaint Chief Complaint: Cardiac - History obtained from History obtained from: Patient - Additional information Additional information: Patient is a 78-year-old female presenting for evaluation of chest pain with taking a deep breath and feeling more short of air for the past few days. She does have a history of mild dementia. She resides at [facility]. She does have bedsores to bilateral lower extremities. She does have a history of pneumonia and raise concerns about to this being the cause of her symptoms. She denies any significant cough. Denies fever. She is on Plavix for history of a stroke. 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 : Incontinence, Chronic bladder infection HEENT: Chronic vision loss Psych: Depression, Anxiety Musculoskeletal: Osteoarthritis, Fibromyalgia Derm: None - Past Surgical History Past Surgical History: Yes General: Gastric surgery Ortho: Hip replacement, Knee replacement, Rotator cuff repair, Shoulder arthroplasty, Spine surgery - Present Medications Home Medications: Ambulatory Orders Medication Instructions Recorded Confirmed Atorvastatin Calcium 40 mg PO DAILY PM 12/23/19 06/27/21 Cyclobenzaprine HCl 5 mg PO TID PRN 12/23/19 06/27/21 Meloxicam 15 mg PO DAILY 12/23/19 06/27/21 Pregabalin 150 mg PO TID 12/23/19 06/27/21 Venlafaxine ER [Effexor ER] 150 mg PO DAILY PM 12/23/19 06/27/21 metFORMIN [Glucophage] 500 mg PO BIDWM 12/23/19 06/27/21 - Allergies Allergies/Adverse Reactions: Allergies Allergy/AdvReac Type Severity Reaction Status Date / Time latex Allergy Itching Verified 06/27/21 10:11 Sulfa (Sulfonamide Allergy Unknown Verified 02/02/24 11:22 Antibiotics) opiods Allergy Itching Uncoded 04/01/21 17:28 - Social History Does the pt smoke?: No Smoking Status: Never smoker Does the pt drink ETOH?: Yes Does the pt have substance abuse?: No - Immunizations Immunizations are current?: Yes - POLST Patient has POLST: No PD ED PE NORMAL - General General: Alert and oriented X 3, No acute distress, Well developed/nourished - HEENT HEENT: Atraumatic, Moist mucous membranes, Pharynx benign - Neck Neck: Supple, no meningeal sign - Cardiac Cardiac: RRR, Strong equal pulses - Respiratory Respiratory: No respiratory distress, Clear bilaterally - Abdomen Abdomen: Soft, Non tender, Non distended - Extremities Extremities: No calf tenderness / cord - Neuro Neuro: Alert and oriented X 3, Normal speech Results - Vitals Vitals: Vital Signs - 24 hr 02/02/24 02/02/24 02/02/24 11:16 13:41 15:33 Temperature 37.0 C Heart Rate 80 79 78 Respiratory 18 19 17 Rate Blood Pressure 136/59 H 152/71 H 147/70 H O2 Saturation 94 94 94 Oxygen O2 Source Room air - EKG (time done) 1116 EKG releavant findings:: EKG personally interpreted by author of this note. Relevant findings are: Rate 82, normal sinus rhythm, no STEMI, QTc 415 - Labs Labs: Laboratory Tests 02/02/24 02/02/24 02/02/24 11:37 11:37 11:37 WBC 7.3 RBC 4.75 Hgb 12.1 Hct 41.3 MCV 86.9 MCH 25.5 L MCHC 29.3 L RDW 16.8 H Plt Count 384 MPV 8.8 Neut # (Auto) 5.1 Lymph # (Auto) 1.1 L Fannin # (Auto) 0.6 Eos # (Auto) 0.3 Baso # (Auto) 0.1 Absolute Nucleated RBC 0.00 Nucleated RBC % 0.0 D-Dimer 338.3 H Sodium 139 Potassium 4.2 Chloride 104 Carbon Dioxide 31 Anion Gap 4.0 L BUN 38 H Creatinine 0.6 Estimated GFR (MDRD) 96 Glucose 104 Calcium 8.7 Total Bilirubin 0.3 AST 10 ALT 4 L Alkaline Phosphatase 89 Troponin I High Sens 5.1 B-Natriuretic Peptide Total Protein 6.4 Albumin 3.0 L Globulin 3.4 Albumin/Globulin Ratio 0.9 L Lipase 13 Nasal Adenovirus (PCR) Nasal B. parapertussis DNA (PCR) Nasal Coronavir 229E PCR Nasal Coronavir HKU1 PCR Nasal Coronavir NL63 PCR Nasal Coronavir OC43 PCR Nasal Enterovir/Rhinovir PCR Nasal Influenza B PCR Nasal Influenza A PCR Nasal Parainfluen 1 PCR Nasal Parainfluen 2 PCR Nasal Parainfluen 3 PCR Nasal Parainfluen 4 PCR Nasal RSV (PCR) Nasal B.pertussis DNA PCR Nasal C.pneumoniae (PCR) Kaushik Human Metapneumo PCR Nasal M.pneumoniae (PCR) Nasal SARS-CoV-2 (PCR) 02/02/24 02/02/24 11:37 11:49 WBC RBC Hgb Hct MCV MCH MCHC RDW Plt Count MPV Neut # (Auto) Lymph # (Auto) Fannin # (Auto) Eos # (Auto) Baso # (Auto) Absolute Nucleated RBC Nucleated RBC % D-Dimer Sodium Potassium Chloride Carbon Dioxide Anion Gap BUN Creatinine Estimated GFR (MDRD) Glucose Calcium Total Bilirubin AST ALT Alkaline Phosphatase Troponin I High Sens B-Natriuretic Peptide 73 Total Protein Albumin Globulin Albumin/Globulin Ratio Lipase Nasal Adenovirus (PCR) NOT DETECTED Nasal B. parapertussis DNA (PCR) NOT DETECTED Nasal Coronavir 229E PCR NOT DETECTED Nasal Coronavir HKU1 PCR NOT DETECTED Nasal Coronavir NL63 PCR NOT DETECTED Nasal Coronavir OC43 PCR NOT DETECTED Nasal Enterovir/Rhinovir PCR NOT DETECTED Nasal Influenza B PCR NOT DETECTED Nasal Influenza A PCR NOT DETECTED Nasal Parainfluen 1 PCR NOT DETECTED Nasal Parainfluen 2 PCR NOT DETECTED Nasal Parainfluen 3 PCR NOT DETECTED Nasal Parainfluen 4 PCR NOT DETECTED Nasal RSV (PCR) NOT DETECTED Nasal B.pertussis DNA PCR NOT DETECTED Nasal C.pneumoniae (PCR) NOT DETECTED Kaushik Human Metapneumo PCR NOT DETECTED Nasal M.pneumoniae (PCR) NOT DETECTED Nasal SARS-CoV-2 (PCR) NOT DETECTED PD Medical Decision Making - ED course Complexity details: reviewed results, re-evaluated patient, d/w patient ED course: Patient is a 78-year-old female presenting for evaluation of chest pain and shortness of air. Vital signs stable.She is on Plavix. EKG is nonischemic. CBC, chemistries, D-dimer, troponin were obtained and reviewed. Troponin negative. Symptoms ongoing for 2 days thus I feel ACS is unlikely with a negative troponin and nonischemic EKG. Symptoms also do not suggest unstable angina. BNP unremarkable. Does not appear to be in fluid overload. Chest x-ray which I reviewed is without signs of pneumonia. Respiratory swab is pending. D-dimer slightly elevated but Age-adjusted D-dimer cutoff is 395. Patient resting comfortably here without further symptoms. Reviewed results of workup with her and she feels comfortable with plan for discharge and close outpatient follow- up. Advised on concerning symptoms to return for. Departure - Departure Disposition: 01 Home, Self Care Clinical Impression: Chest pain Condition: Stable Instructions: ED Chest Pain Atypical Unkn Cause Comments: Your testing today does not show signs of a heart attack, blood clot in your lungs or pneumonia. Your respiratory swab is negative for tested viruses such as COVID, influenza and RSV. I would recommend close follow-up with your primary care doctor regarding your symptoms to see if you need more testing. Return to the ER with any worsening symptoms. Forms: PCP List Discharge Date/Time: 02/02/24 15:33
[2024-02-02 13:10] LABS: B. PARAPERTUSSIS- RESP PCR PAN NOT DETECTED; B. PERTUSSIS- RESP PCR PANEL NOT DETECTED; C. PNEUMONIAE- RESP PCR PANEL NOT DETECTED; CORONAVIRUS 229E-RESP PCR NOT DETECTED; CORONAVIRUS HKU1-RESP PCR NOT DETECTED; CORONAVIRUS NL63-RESP PCR NOT DETECTED; CORONAVIRUS OC43-RESP PCR NOT DETECTED; HUMAN METAPNEUMOVIRUS NOT DETECTED; INFLUENZA A- RESP PCR PANEL NOT DETECTED; INFLUENZA B - RESP PCR PANEL NOT DETECTED; M. PNEUMONIAE- RESP PCR PANEL NOT DETECTED; PARAINFLUENZA VIRUS 1 NOT DETECTED; PARAINFLUENZA VIRUS 2 NOT DETECTED; PARAINFLUENZA VIRUS 3 NOT DETECTED; PARAINFLUENZA VIRUS 4 NOT DETECTED; RHINOVIRUS/ENTEROVIRUS NOT DETECTED; RSV- RESP PCR PANEL NOT DETECTED; SARS-CoV-2 -RESP PCR PANEL NOT DETECTED
[2024-02-02 15:36] VITALS: BP 147/70
== END 2024-02-02 15:33 | disposition home or self-care (01) ==
LOC: EDUNIT# → ED 11:04
DX: R07.9 Chest pain, unspecified (principal); R06.02 Shortness of breath; E78.00 Pure hypercholesterolemia, unspecified; J45.909 Unspecified asthma, uncomplicated; G47.30 Sleep apnea, unspecified; Z86.73 Personal history of transient ischemic attack (TIA), and cerebral infarction without residual deficits; E11.42 Type 2 diabetes mellitus with diabetic polyneuropathy; M79.7 Fibromyalgia; Z79.01 Long term (current) use of anticoagulants; Z98.84 Bariatric surgery status; Z79.84 Long term (current) use of oral hypoglycemic drugs
CPT/HCPCS: 36415; 71045; 80053; 83690; 83880; 84484; 85025; 85379; 87633; 93005; 99283; 99284; A9270

== ENCOUNTER 2024-02-02 15:32 | Outpatient (CLI) | payer MEDICARE, MEDICAID | END 2024-02-02 23:59 | disposition home or self-care (01) | LOC: EMS 15:32 | PROVIDERS: ATTEND Emergency Medicine | DX: R53.1 Weakness (principal); I69.398 Other sequelae of cerebral infarction; F03.90 Unspecified dementia, unspecified severity, without behavioral disturbance, psychotic disturbance, mood disturbance, and anxiety; R41.0 Disorientation, unspecified; Z74.01 Bed confinement status | CPT/HCPCS: A0425; A0428 ==

== ENCOUNTER 2024-02-13 15:12 | Outpatient (CLI) | payer MEDICARE, MEDICAID ==
[2024-02-13 15:26] LABS: BASOPHILS # (AUTO) 0.1 10^3/uL (0.0-0.1); BASOPHILS % (AUTO) 1.9 %; EOSINOPHILS # (AUTO) 0.4 10^3/uL (0.0-0.7); EOSINOPHILS % (AUTO) 5.8 %; HCT - HEMATOCRIT 40.5 % (37.0-47.0); HGB - HEMOGLOBIN 12.2 g/dL (12.0-16.0); LYMPHOCYTES # (AUTO) 1.3 10^3/uL (1.5-3.5); LYMPHOCYTES % (AUTO) 20.1 %; MEAN CORPUSCULAR HEMOGLOBIN 26.2 pg (27.0-31.0); MEAN CORPUSCULAR HGB CONC 30.1 g/dL (32.0-36.0); MEAN CORPUSCULAR VOLUME 87.1 fL (81.0-99.0); MEAN PLATELET VOLUME 9.4 fL (7.9-10.8); MONOCYTES # (AUTO) 0.5 10^3/uL (0.0-1.0); MONOCYTES % (AUTO) 7.4 %; NEUTROPHILS % (AUTO) 64.5 %; PLT - PLATELET COUNT 442 10^3/uL (130-450); RED BLOOD COUNT 4.65 10^6/uL (4.20-5.40); RED CELL DISTRIBUTION WIDTH 16.1 % (12.0-15.0); WHITE BLOOD COUNT 6.2 x10^3/uL (4.8-10.8)
== END 2024-02-13 15:13 | disposition home or self-care (01) ==
LOC: LAB.R 15:12
PROVIDERS: ATTEND Registered Nurse
DX: R79.82 Elevated C-reactive protein (CRP) (principal); R70.0 Elevated erythrocyte sedimentation rate; R79.9 Abnormal finding of blood chemistry, unspecified; Z13.0 Encounter for screening for diseases of the blood and blood-forming organs and certain disorders involving the immune mechanism
CPT/HCPCS: 85025; 85651; 86140

== ENCOUNTER 2024-02-19 08:08 | Day surgery (SDC) | payer MEDICARE, MEDICAID ==
--- NOTE | 2024-02-19 10:35 | ANESTHESIA PROCEDURE NOTE ---
Anesth Central Line Template - Central Line Central Line Preparation: Consent Obtained, Time out completed, Ultrasound used, Sterile prep and drape Central line location: Right Basilic Central line type: PICC Single Lumen Central line catheter tip site resides: Superior vena cava (SVC) Central line aftercare: Secured, Placement confirmed, No pneumothorax, No complications, Bundle checklist complete, Pt tolerated well Other Info/Details: cut at 41 based on elbow insertion point. Unable to elicit p wave changes at 41 cm. Easily aspirates and flushes with cap. Secured. PCXR for confirmation of placement.
--- NOTE | 2024-02-19 10:36 | XRAY Report ---
PROCEDURE: Chest for Line Placement INDICATIONS: POST PICC TECHNIQUE: One view of the chest was acquired. COMPARISON: Chest x-ray 02/02/2024 FINDINGS: Surgical changes and devices: Right PICC line is present distal tip projecting over the mid/distal S VC. Left shoulder tendon anchors are present. Lungs and pleura: No pleural effusions or pneumothorax. Lungs are clear. Mediastinum: Mediastinal contours appear normal. Heart size is normal. Bones and chest wall: No suspicious bony lesions. Overlying soft tissues appear unremarkable. IMPRESSION: Right PICC projecting over mid/distal SVC. Reviewed by: Hina Huang MD on 02/19/2024 10:35 AM PDT Approved by: Hina Huang MD on 02/19/2024 10:35 AM PDT Station ID: [id number]
== END 2024-02-19 08:09 | disposition home or self-care (01) ==
LOC: SDS 08:08
PROVIDERS: ATTEND Nurse Anesthetist, Certified Registered
DX: M86.671 Other chronic osteomyelitis, right ankle and foot (principal)
CPT/HCPCS: 36569; C1751

== ENCOUNTER 2024-02-20 19:59 | Outpatient (CLI) | payer MEDICARE, MEDICAID | END 2024-02-20 20:00 | disposition EMS.NT | LOC: EMS 19:59 | DX: T82.9XXA Unspecified complication of cardiac and vascular prosthetic device, implant and graft, initial encounter (principal) ==

== ENCOUNTER 2024-03-11 13:49 | Outpatient (CLI) | payer MEDICARE, MEDICAID ==
--- NOTE | 2024-03-12 09:39 | MRI Report ---
PROCEDURE: Ankle RT WO INDICATIONS: OSTEOMYELITIS TECHNIQUE: Noncontrast coronal and sagittal T1 spin echo and STIR; axial T1 spin echo and T2 fast spin echo with fat saturation through the right ankle. COMPARISON: Calcaneal radiograph dated 01/19/2024. FINDINGS: Image quality: Excellent. Bones: Extensive marrow edema throughout calcaneus is seen with fracture line involving weight-bearin g portion of calcaneus extending to posterior superior cortex. Edema is also noted involving distal t ibia with internal linear hypointense signal extending to anterior and inferior cortex. Similar edema and internal hypointense signal involving superior aspect of talus extending to anterior talar dome is seen. No displaced fracture is seen. Edema is also noted involving plantar aspect of proximal cubo id without discrete fracture line. Moderate tibiotalar joint effusion is noted, and no loose bodies. Well-defined plantar calcaneal enthesophyte is seen. No definite bony erosive changes are seen. Midfo ot and hindfoot joint osteoarthritic changes are noted. Soft tissues: Ulceration involving plantar aspect of right heel is seen with surrounding subcutaneous soft tissue edema and swelling consistent with cellulitis. No discrete drainable abscess collection is seen. Achilles tendon is intact. Thickened plantar fascia at its plantar calcaneal insertion is se en, no gross loose bodies. Mild edema within visualized plantar foot muscles concerning for mild myos itis. No intramuscular fluid collection. Flexor tendons are intact. Extensor tendons are intact. Tendinosis involving the peroneus longus tend on at the level of mid to distal calcaneus and cuboid joint is seen. There is low-grade deltoid ligam ent and spring ligament sprain. Attenuated-appearing anterior talofibular ligament is seen suggestive of moderate grade intrasubstance partial thickness tear. Rest of the lateral ankle ligaments are int act. IMPRESSION: 1. Extensive marrow edema involving weight-bearing portion of calcaneus, superior aspect of talus and distal tibia with internal linear hypointense signal extending to articulating cortices as described in detail above suggestive of extensive insufficiency fractures. No displaced fracture. 2. Osteoarthritic changes throughout midfoot and hindfoot. Likely contusion involving plantar aspect of proximal cuboid. 3. Ulceration involving plantar aspect of right heel with adjacent cellulitis. No underlying bony ero sive changes are seen in the calcaneus to suggest osteomyelitis. Moderate tibiotalar joint effusion, no loose bodies. 4. Tendinosis involving the peroneus longus tendon at the level of distal calcaneus and calcaneocuboi d joint. Rest of the ankle tendons are intact. 5. Low-grade sprain involving spring ligament. Moderate grade partial thickness tear involving anteri or talofibular ligament. Reviewed by: Riaz Tello MD on 03/12/2024 9:38 AM PDT Approved by: Riaz Tello MD on 03/12/2024 9:38 AM PDT Station ID: [id number]
== END 2024-03-11 13:50 | disposition home or self-care (01) ==
LOC: DI 13:49
PROVIDERS: ATTEND Registered Nurse
DX: M19.072 Primary osteoarthritis, left ankle and foot (principal); L97.419 Non-pressure chronic ulcer of right heel and midfoot with unspecified severity; L03.115 Cellulitis of right lower limb; M25.471 Effusion, right ankle; S93.491A Sprain of other ligament of right ankle, initial encounter; M67.971 Unspecified disorder of synovium and tendon, right ankle and foot

== ENCOUNTER 2024-03-12 13:53 | Outpatient (CLI) | payer MEDICARE, MEDICAID ==
[2024-03-12 14:05] LABS: BASOPHILS # (AUTO) 0.2 10^3/uL (0.0-0.1); BASOPHILS % (AUTO) 2.2 %; EOSINOPHILS # (AUTO) 0.5 10^3/uL (0.0-0.7); EOSINOPHILS % (AUTO) 6.1 %; HGB - HEMOGLOBIN 10.3 g/dL (12.0-16.0); LYMPHOCYTES # (AUTO) 1.1 10^3/uL (1.5-3.5); LYMPHOCYTES % (AUTO) 14.7 %; MEAN CORPUSCULAR HGB CONC 28.6 g/dL (32.0-36.0); MEAN CORPUSCULAR VOLUME 87.4 fL (81.0-99.0); MEAN PLATELET VOLUME 9.4 fL (7.9-10.8); MONOCYTES # (AUTO) 0.5 10^3/uL (0.0-1.0); MONOCYTES % (AUTO) 6.1 %; NEUTROPHILS # (AUTO) 5.5 10^3/uL (1.5-6.6); NEUTROPHILS % (AUTO) 70.8 %; PLT - PLATELET COUNT 454 10^3/uL (130-450); RED BLOOD COUNT 4.12 10^6/uL (4.20-5.40); RED CELL DISTRIBUTION WIDTH 15.7 % (12.0-15.0); WHITE BLOOD COUNT 7.8 x10^3/uL (4.8-10.8)
[2024-03-12 20:23] LABS: ESTIMATED AVERAGE GLUCOSE 111 mg/dL (70-100); HEMOGLOBIN A1c% 5.5 % (4.27-6.07)
== END 2024-03-12 13:54 | disposition home or self-care (01) ==
LOC: LAB.R 13:53
PROVIDERS: ATTEND Registered Nurse
DX: E11.42 Type 2 diabetes mellitus with diabetic polyneuropathy (principal); D50.9 Iron deficiency anemia, unspecified; L89.619 Pressure ulcer of right heel, unspecified stage
CPT/HCPCS: 83036; 85025; 86140

== ENCOUNTER 2024-03-27 11:45 | Outpatient (CLI) | payer MEDICARE, MEDICAID ==
[2024-03-27 11:51] LABS: BASOPHILS # (AUTO) 0.1 10^3/uL (0.0-0.1); BASOPHILS % (AUTO) 1.6 %; EOSINOPHILS # (AUTO) 0.5 10^3/uL (0.0-0.7); EOSINOPHILS % (AUTO) 6.7 %; HCT - HEMATOCRIT 36.7 % (37.0-47.0); HGB - HEMOGLOBIN 10.6 g/dL (12.0-16.0); LYMPHOCYTES % (AUTO) 13.2 %; MEAN CORPUSCULAR HGB CONC 28.9 g/dL (32.0-36.0); MEAN CORPUSCULAR VOLUME 86.6 fL (81.0-99.0); MEAN PLATELET VOLUME 9.2 fL (7.9-10.8); MONOCYTES # (AUTO) 0.5 10^3/uL (0.0-1.0); NEUTROPHILS # (AUTO) 5.2 10^3/uL (1.5-6.6); NEUTROPHILS % (AUTO) 71.4 %; PLT - PLATELET COUNT 438 10^3/uL (130-450); RED BLOOD COUNT 4.24 10^6/uL (4.20-5.40); RED CELL DISTRIBUTION WIDTH 16.1 % (12.0-15.0); WHITE BLOOD COUNT 7.3 x10^3/uL (4.8-10.8)
[2024-03-27 11:58] LABS: SLIDE REVIEW? Indicated
[2024-03-27 12:07] LABS: ALBUMIN 2.9 g/dL (3.2-5.5); ALBUMIN/GLOBULIN RATIO 0.9 (1.0-2.2); BILIRUBIN,TOTAL 0.3 mg/dL (0.2-1.0); CALCIUM 8.6 mg/dL (8.5-10.3); CREATININE 0.6 mg/dL (0.6-1.3); PLATELET ESTIMATE, MANUAL NORMAL (130-450,000) (NORMAL); PLATELET MORPHOLOGY NORMAL APPEARANCE (NORMAL); POTASSIUM 4.2 mmol/L (3.5-4.5); TOTAL PROTEIN 6.2 g/dL (6.4-8.9)
== END 2024-03-27 11:46 | disposition home or self-care (01) ==
LOC: LAB.R 11:45
PROVIDERS: ATTEND Registered Nurse
DX: E78.2 Mixed hyperlipidemia (principal); R78.1 Finding of opiate drug in blood
CPT/HCPCS: 80053; 85025

== ENCOUNTER 2024-04-15 08:24 | Outpatient (CLI) | payer MEDICARE, MEDICAID ==
[2024-04-15 08:34] LABS: BASOPHILS # (AUTO) 0.1 10^3/uL (0.0-0.1); BASOPHILS % (AUTO) 1.9 %; EOSINOPHILS # (AUTO) 0.5 10^3/uL (0.0-0.7); EOSINOPHILS % (AUTO) 7.2 %; HCT - HEMATOCRIT 40.4 % (37.0-47.0); HGB - HEMOGLOBIN 12.1 g/dL (12.0-16.0); LYMPHOCYTES # (AUTO) 1.5 10^3/uL (1.5-3.5); LYMPHOCYTES % (AUTO) 22.6 %; MEAN CORPUSCULAR HEMOGLOBIN 25.5 pg (27.0-31.0); MEAN CORPUSCULAR VOLUME 85.2 fL (81.0-99.0); MEAN PLATELET VOLUME 9.6 fL (7.9-10.8); MONOCYTES # (AUTO) 0.5 10^3/uL (0.0-1.0); MONOCYTES % (AUTO) 7.3 %; NEUTROPHILS # (AUTO) 4.1 10^3/uL (1.5-6.6); NEUTROPHILS % (AUTO) 60.9 %; PLT - PLATELET COUNT 364 10^3/uL (130-450); RED BLOOD COUNT 4.74 10^6/uL (4.20-5.40); RED CELL DISTRIBUTION WIDTH 16.6 % (12.0-15.0); WHITE BLOOD COUNT 6.7 x10^3/uL (4.8-10.8)
== END 2024-04-15 08:25 | disposition home or self-care (01) ==
LOC: LAB.R 08:24
PROVIDERS: ATTEND Registered Nurse
DX: D50.9 Iron deficiency anemia, unspecified (principal); G90.09 Other idiopathic peripheral autonomic neuropathy
CPT/HCPCS: 85025; 86140

== ENCOUNTER 2024-05-27 14:35 | Outpatient (CLI) | payer MEDICARE, MEDICAID ==
--- NOTE | 2024-05-27 19:12 | Ultrasound Report ---
PROCEDURE: Arterial Duplex Lwr Ext BL INDICATIONS: ATHSCL [place] ARTERIES OF EXTRM W INTRMT MARSHA TECHNIQUE: Color and pulse Doppler interrogation was performed of both lower extremity arterial systems, with im age documentation. COMPARISON: None FINDINGS: Right lower extremity: Common femoral artery: Not imaged Deep femoral artery: Not imaged Proximal superficial femoral artery: 16.5 cm/sec, with triphasic flow. Mid superficial femoral artery: Not imaged Distal superficial femoral artery: Not imaged. Popliteal artery: Not imaged Posterior tibial artery: Not imaged Anterior tibial artery/dorsalis pedis: Potentially thrombosed. Morales-scale imaging description: Technically very challenging study with limited ability to tolerate the exam. Patient in a wheelchair, nonmobile, unable to move her to relax. Left lower extremity: Common femoral artery: Not imaged Deep femoral artery: Not imaged Proximal superficial femoral artery: 32.5 cm/sec, with biphasic flow. Mid superficial femoral artery: Not imaged Distal superficial femoral artery: 36.5 cm/sec, with monophasic flow. Popliteal artery: Not imaged Posterior tibial artery: Not imaged Anterior tibial artery/dorsalis pedis: 10.9 cm/sec, with biphasic flow. Morales-scale imaging description: Technically very challenging study with limited ability to tolerate the exam. Patient in a wheelchair, nonmobile, unable to move her to relax. IMPRESSION: Extremely limited study secondary to inability to tolerate the examination based on the in a wheelcha ir and immobile and unable to turn the legs. Reviewed by: Cipriano Koehler MD on 05/27/2024 7:11 PM PDT Approved by: Cipriano Koehler MD on 05/27/2024 7:11 PM PDT Station ID: [id number]
--- NOTE | 2024-05-27 19:14 | Ultrasound Report ---
PROCEDURE: Ankle Brachial Index INDICATIONS: ATHSCL [place] ARTERIES OF EXTRM W INTRKS MARSHA TECHNIQUE: Ankle-brachial indices were obtained bilaterally and recorded. COMPARISONS: Arterial ultrasound from the same date. FINDINGS: Right ankle brachial index (ENEDELIA): 1.04 Left ankle brachial index (ENEDELIA): 0.45 Healing potential: Ankle pressures >55 mm Hg in non-diabetics and >80 mm Hg in diabetics are likely to achieve primary h ealing of ischemic foot ulcers. Toe pressures >30 mm Hg are likely to achieve primary healing of ischemic foot ulcers, toe or transme tatarsal amputations. IMPRESSION: Suspect severe stenotic/occlusive disease of the left lower extremity. Unfortunately, however, patien t was unable to tolerate the arterial ultrasound examination. An ENEDELIA of 0.45 on the left is consisten t with chronic limb ischemia. Reviewed by: Cipriano Koehler MD on 05/27/2024 7:13 PM PDT Approved by: Cipriano Koehler MD on 05/27/2024 7:13 PM PDT Station ID: [id number]
== END 2024-05-27 14:36 | disposition home or self-care (01) ==
LOC: DI 14:35
PROVIDERS: ATTEND Family Medicine
DX: I70.213 Atherosclerosis of native arteries of extremities with intermittent claudication, bilateral legs (principal)
CPT/HCPCS: 93922; 93925

== ENCOUNTER 2024-06-09 08:00 | Outpatient (CLI) | payer MEDICARE, MEDICAID ==
[2024-06-09 16:33] LABS: BASOPHILS # (AUTO) 0.1 10^3/uL (0.0-0.1); BASOPHILS % (AUTO) 1.3 %; EOSINOPHILS # (AUTO) 0.3 10^3/uL (0.0-0.7); EOSINOPHILS % (AUTO) 4.4 %; HCT - HEMATOCRIT 42.1 % (37.0-47.0); HGB - HEMOGLOBIN 12.2 g/dL (12.0-16.0); LYMPHOCYTES # (AUTO) 1.2 10^3/uL (1.5-3.5); LYMPHOCYTES % (AUTO) 16.4 %; MEAN CORPUSCULAR HEMOGLOBIN 25.4 pg (27.0-31.0); MEAN CORPUSCULAR VOLUME 87.5 fL (81.0-99.0); MONOCYTES # (AUTO) 0.6 10^3/uL (0.0-1.0); MONOCYTES % (AUTO) 7.8 %; NEUTROPHILS # (AUTO) 5.2 10^3/uL (1.5-6.6); NEUTROPHILS % (AUTO) 69.8 %; PLT - PLATELET COUNT 385 10^3/uL (130-450); RED BLOOD COUNT 4.81 10^6/uL (4.20-5.40); RED CELL DISTRIBUTION WIDTH 17.3 % (12.0-15.0); WHITE BLOOD COUNT 7.5 x10^3/uL (4.8-10.8)
== END 2024-06-09 23:59 | disposition home or self-care (01) ==
LOC: LAB.R 08:00
PROVIDERS: ATTEND Family Medicine
DX: D50.9 Iron deficiency anemia, unspecified (principal); M86.671 Other chronic osteomyelitis, right ankle and foot; L89.619 Pressure ulcer of right heel, unspecified stage
CPT/HCPCS: 85025; 86140

== ENCOUNTER 2024-06-16 08:00 | Outpatient (CLI) | payer MEDICARE, MEDICAID ==
[2024-06-16 15:45] LABS: BASOPHILS # (AUTO) 0.1 10^3/uL (0.0-0.1); BASOPHILS % (AUTO) 1.7 %; EOSINOPHILS # (AUTO) 0.6 10^3/uL (0.0-0.7); EOSINOPHILS % (AUTO) 7.4 %; HCT - HEMATOCRIT 43.2 % (37.0-47.0); HGB - HEMOGLOBIN 12.2 g/dL (12.0-16.0); LYMPHOCYTES # (AUTO) 1.3 10^3/uL (1.5-3.5); LYMPHOCYTES % (AUTO) 15.2 %; MEAN CORPUSCULAR HEMOGLOBIN 25.3 pg (27.0-31.0); MEAN CORPUSCULAR HGB CONC 28.2 g/dL (32.0-36.0); MEAN CORPUSCULAR VOLUME 89.4 fL (81.0-99.0); MEAN PLATELET VOLUME 9.2 fL (7.9-10.8); MONOCYTES # (AUTO) 0.8 10^3/uL (0.0-1.0); NEUTROPHILS # (AUTO) 5.6 10^3/uL (1.5-6.6); NEUTROPHILS % (AUTO) 66.3 %; PLT - PLATELET COUNT 321 10^3/uL (130-450); RED BLOOD COUNT 4.83 10^6/uL (4.20-5.40); RED CELL DISTRIBUTION WIDTH 17.2 % (12.0-15.0); WHITE BLOOD COUNT 8.4 x10^3/uL (4.8-10.8)
[2024-06-16 15:49] LABS: SLIDE REVIEW? Indicated
[2024-06-16 16:32] LABS: PLATELET ESTIMATE, MANUAL NORMAL (130-450,000) (NORMAL); PLATELET MORPHOLOGY NORMAL APPEARANCE (NORMAL)
== END 2024-06-16 23:59 | disposition home or self-care (01) ==
LOC: LAB.R 08:00
PROVIDERS: ATTEND Family Medicine
DX: D50.9 Iron deficiency anemia, unspecified (principal); R79.82 Elevated C-reactive protein (CRP)
CPT/HCPCS: 36415; 85025; 86140

== ENCOUNTER 2024-07-15 13:32 | Outpatient (CLI) | payer MEDICARE, MEDICAID ==
[2024-07-15 13:38] LABS: BASOPHILS # (AUTO) 0.1 10^3/uL (0.0-0.1); BASOPHILS % (AUTO) 1.8 %; EOSINOPHILS # (AUTO) 0.3 10^3/uL (0.0-0.7); HCT - HEMATOCRIT 45.7 % (37.0-47.0); HGB - HEMOGLOBIN 13.4 g/dL (12.0-16.0); LYMPHOCYTES # (AUTO) 1.2 10^3/uL (1.5-3.5); LYMPHOCYTES % (AUTO) 21.4 %; MEAN CORPUSCULAR HEMOGLOBIN 25.7 pg (27.0-31.0); MEAN CORPUSCULAR HGB CONC 29.3 g/dL (32.0-36.0); MEAN CORPUSCULAR VOLUME 87.5 fL (81.0-99.0); MEAN PLATELET VOLUME 9.5 fL (7.9-10.8); MONOCYTES # (AUTO) 0.4 10^3/uL (0.0-1.0); MONOCYTES % (AUTO) 7.6 %; NEUTROPHILS # (AUTO) 3.6 10^3/uL (1.5-6.6); NEUTROPHILS % (AUTO) 62.8 %; PLT - PLATELET COUNT 317 10^3/uL (130-450); RED BLOOD COUNT 5.22 10^6/uL (4.20-5.40); RED CELL DISTRIBUTION WIDTH 17.2 % (12.0-15.0); WHITE BLOOD COUNT 5.7 x10^3/uL (4.8-10.8)
== END 2024-07-15 13:33 | disposition home or self-care (01) ==
LOC: LAB.R 13:32
PROVIDERS: ATTEND Family Medicine
DX: D50.9 Iron deficiency anemia, unspecified (principal); R79.82 Elevated C-reactive protein (CRP)
CPT/HCPCS: 85025; 86140

== ENCOUNTER 2024-08-06 10:11 | Observation (INO) | payer MEDICARE, MEDICAID ==
[2024-08-06 10:48] LABS: BASOPHILS # (AUTO) 0.1 10^3/uL (0.0-0.1); BASOPHILS % (AUTO) 1.8 %; EOSINOPHILS # (AUTO) 0.2 10^3/uL (0.0-0.7); EOSINOPHILS % (AUTO) 3.6 %; HCT - HEMATOCRIT 45.3 % (37.0-47.0); HGB - HEMOGLOBIN 13.2 g/dL (12.0-16.0); LYMPHOCYTES # (AUTO) 1.2 10^3/uL (1.5-3.5); LYMPHOCYTES % (AUTO) 18.2 %; MEAN CORPUSCULAR HGB CONC 29.1 g/dL (32.0-36.0); MEAN CORPUSCULAR VOLUME 89.3 fL (81.0-99.0); MEAN PLATELET VOLUME 9.6 fL (7.9-10.8); MONOCYTES # (AUTO) 0.6 10^3/uL (0.0-1.0); MONOCYTES % (AUTO) 9.3 %; NEUTROPHILS # (AUTO) 4.5 10^3/uL (1.5-6.6); NEUTROPHILS % (AUTO) 66.8 %; PLT - PLATELET COUNT 345 10^3/uL (130-450); RED BLOOD COUNT 5.07 10^6/uL (4.20-5.40); RED CELL DISTRIBUTION WIDTH 16.6 % (12.0-15.0); WHITE BLOOD COUNT 6.7 x10^3/uL (4.8-10.8)
--- NOTE | 2024-08-06 10:50 | ED Physician Documentation ---
PD HPI CHEST PAIN - Stated complaint Stated Complaint: CHEST DISCOMFORT - Chief complaint Chief Complaint: Cardiac - History obtained from History obtained from: Patient - Additional information Additional information: 79-year-old woman with mild dementia, lives at [facility], type 2 diabetes, CVA, TIA, PAD, hypercholesterolemia, apnea, asthma presents for evaluation of chest pain and shortness of breath. She says she has had intermittent chest pain for the last 2 weeks. She cannot describe it very well. She does say it is worse after eating and while sleeping. She is also short of breath. Noted to be hypoxemic. She denies cough. When I ask her if her legs are swollen she says "they tell me that they are." She denies history of heart or lung disease. 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 : Incontinence, Chronic bladder infection HEENT: Chronic vision loss Psych: Depression, Anxiety Musculoskeletal: Osteoarthritis, Fibromyalgia, Chronic back pain Derm: None - Past Surgical History Past Surgical History: Yes General: Gastric surgery Ortho: Hip replacement, Knee replacement, Rotator cuff repair, Shoulder arthroplasty, Spine surgery - Present Medications Home Medications: Ambulatory Orders Medication Instructions Recorded Confirmed Atorvastatin Calcium 40 mg PO DAILY PM 12/23/19 06/27/21 Cyclobenzaprine HCl 5 mg PO TID PRN 12/23/19 06/27/21 Meloxicam 15 mg PO DAILY 12/23/19 06/27/21 Pregabalin 150 mg PO TID 12/23/19 06/27/21 Venlafaxine ER [Effexor ER] 150 mg PO DAILY PM 12/23/19 06/27/21 metFORMIN [Glucophage] 500 mg PO BIDWM 12/23/19 06/27/21 - Allergies Allergies/Adverse Reactions: Allergies Allergy/AdvReac Type Severity Reaction Status Date / Time latex Allergy Itching Verified 08/06/24 10:27 Sulfa (Sulfonamide Allergy Unknown Verified 08/06/24 10:27 Antibiotics) opiods Allergy Itching Uncoded 08/06/24 10:27 - Social History Does the pt smoke?: No Smoking Status: Never smoker Does the pt drink ETOH?: Yes Does the pt have substance abuse?: No - Immunizations Immunizations are current?: Yes - POLST Patient has POLST: No PD ED PE NORMAL - Vitals Vital signs reviewed: Yes - General General: No acute distress, Other (Demented and slow to answer questions but is able to give an adequate history.) - HEENT HEENT: PERRL, EOMI - Neck Neck: Supple, no meningeal sign, No bony TTP - Cardiac Cardiac: RRR, No murmur - Respiratory Respiratory: No respiratory distress, Clear bilaterally - Abdomen Abdomen: Non tender - Derm Derm: Normal color, Warm and dry - Extremities Extremities: Other (Mild pitting pedal edema of both legs, no calf tenderness.) - Neuro Eye Opening: Spontaneous Motor: Obeys Commands Verbal: Confused (Mild) GCS Score: 14 Results - Vitals Vitals: Vital Signs - 24 hr 08/06/24 08/06/24 10:19 12:27 Temperature 36.0 C L Heart Rate 96 94 Respiratory 19 20 Rate Blood Pressure 144/81 H 122/84 H O2 Saturation 89 L 94 If not protocol 2 : Oxygen Flow, liters/minute Oxygen O2 Source Nasal cannula - EKG (time done) 1059 EKG releavant findings:: EKG personally interpreted by author of this note. Relevant findings are: Rate: Rate (enter#) (99) Rhythm: Atrial fibrillation (w pvc) QRS: Low voltage Ischemia: Normal ST segments - Labs Labs: Laboratory Tests 08/06/24 08/06/24 08/06/24 10:42 10:42 10:42 WBC 6.7 RBC 5.07 Hgb 13.2 Hct 45.3 MCV 89.3 MCH 26.0 L MCHC 29.1 L RDW 16.6 H Plt Count 345 MPV 9.6 Neut # (Auto) 4.5 Lymph # (Auto) 1.2 L Bradford # (Auto) 0.6 Eos # (Auto) 0.2 Baso # (Auto) 0.1 Absolute Nucleated RBC 0.00 Nucleated RBC % 0.0 Sodium 138 Potassium 4.6 H Chloride 101 Carbon Dioxide 33 H Anion Gap 4.0 L BUN 27 H Creatinine 0.6 Estimated GFR (MDRD) 96 Glucose 124 H Calcium 8.9 Total Bilirubin 0.4 AST 10 ALT < 3 L Alkaline Phosphatase 103 Troponin I High Sens 7.2 B-Natriuretic Peptide 158 H Total Protein 6.1 L Albumin 3.1 L Globulin 3.0 Albumin/Globulin Ratio 1.0 Lipase 10 L - Rads (name of study) Single view chest x-ray showing prominent interstitial markings possibly consistent with pulmonary edema Relevant Findings:: Final report received, EMP independent interpretation of test CT of the chest demonstrates hazy groundglass opacities, prominent pulmonary artery. Enlarged mediastinal lymph nodes. Relevant Findings:: Final report received, EMP independent interpretation of test PD Medical Decision Making - ED course ED course: 79-year-old woman presents with intermittent chest pain of 2 weeks duration and some shortness of breath. She is hypoxic on room air with sats in the high 80s. Grossly normal-appearing lungs, may be some mild peripheral fluid overload. Workup demonstrates mild elevation in BNP, normal CBC, unremarkable CMP, and CT angiography of the chest demonstrating some nonspecific findings that could be atypical infection versus CHF. She was persistently hypoxemic in the emergency department so decision to admit was made at 12:53 PM when I spoke with Dr. Laguerre for observation status and will treat her for combination of atypical pneumonia and CHF with Lasix, Rocephin, Zithromax, after blood cultures. Departure - Departure Disposition: ED Place in Observation Clinical Impression: Congestive heart failure Qualifiers: Heart failure type: unspecified Heart failure chronicity: acute Qualified Code(s): I50.9 - Heart failure, unspecified Pneumonia Qualifiers: Pneumonia type: due to unspecified organism Laterality: bilateral Lung location: unspecified part of lung Qualified Code(s): J18.9 - Pneumonia, unspecified organism Respiratory failure Qualifiers: Chronicity: acute Respiratory failure complication: hypoxia Qualified Code(s): J96.01 - Acute respiratory failure with hypoxia Condition: Serious Forms: PCP List
--- NOTE | 2024-08-06 10:58 | XRAY Report ---
PROCEDURE: Chest 1V INDICATIONS: CHEST PAIN TECHNIQUE: One view of the chest was acquired. COMPARISON: 02/19/2024. FINDINGS: Surgical changes and devices: None. Lungs and pleura: No pleural effusions or pneumothorax. Prominent interstitial markings. Mediastinum: Mediastinal contours appear normal. Heart size is normal. Bones and chest wall: No suspicious bony lesions. Overlying soft tissues appear unremarkable. IMPRESSION: Prominent interstitial markings may represent pulmonary edema. Recommend clinical correlation. Reviewed by: Eric Long MD on 08/06/2024 10:56 AM PDT Approved by: Eric Long MD on 08/06/2024 10:56 AM PDT Station ID: [id number]
[2024-08-06 11:04] LABS: LIPASE 10 U/L (11-82)
[2024-08-06 11:09] LABS: TROPONIN I HIGH SENSITIVITY 7.2 ng/L (2.3-14.8)
[2024-08-06 11:21] LABS: ALBUMIN 3.1 g/dL (3.2-5.5); ALKALINE PHOSPHATASE 103 IU/L (42-121); ALT ALANINE AMINOTRANSFERASE < 3 IU/L (10-60); AST ASPARTATE AMINOTRANSFERASE 10 IU/L (10-42); BILIRUBIN,TOTAL 0.4 mg/dL (0.2-1.0); BUN - BLOOD UREA NITROGEN 27 mg/dL (6-20); CALCIUM 8.9 mg/dL (8.5-10.3); CARBON DIOXIDE - CO2 33 mmol/L (21-32); CHLORIDE 101 mmol/L (101-111); CREATININE 0.6 mg/dL (0.6-1.3); GFR - MDRD 96 (>89); GLUCOSE 124 mg/dL (74-104); POTASSIUM 4.6 mmol/L (3.5-4.5); SODIUM 138 mmol/L (135-145); TOTAL PROTEIN 6.1 g/dL (6.4-8.9)
[2024-08-06] MEDS ORDERED: iohexoL-300 100 ML VIAL ONE (11:28)
--- NOTE | 2024-08-06 12:19 | CT Report ---
PROCEDURE: Angio Chest INDICATIONS: dyspnea, cp, hypoxemia, pe protocol CONTRAST: 80ml [id number] TECHNIQUE: After the administration of intravenous contrast, 2 mm axial images were acquired from the pulmonary apices to the posterior costophrenic angles during the arterial phase. In addition, 1 mm lung kernel and 5 mm soft tissue kernel reconstructions were performed. 3-dimensional coronal oblique maximum int ensity projection (MIP) reformats, 8 mm axial MIP, and 5 mm coronal and sagittal MPR reformats were t hen performed through the thorax. For radiation dose reduction, the following was used: automated exp osure control, adjustment of mA and/or kV according to patient size. COMPARISON: Chest radiograph on the same day. FINDINGS: Image quality: Excellent. Large vessels: No filling defects within the opacified pulmonary arteries, accounting for motion and contrast timing. Main pulmonary artery is prominent in size concerning for pulmonary vascular hyperte nsion. No evidence of acute aortic syndrome or aortic aneurysm. Lungs and pleura: There is biapical scarring. Hazy groundglass opacities are seen scattered in bilate ral lung pink. Dependent atelectasis are seen in posterior aspect of bilateral lung pink. No pleu ral effusion. No pneumothorax. No suspicious pulmonary nodules which require follow up. Mediastinum: Heart size is normal. No pericardial effusion. No large vessel abnormality. Prominent me diastinal lymph nodes are seen measures up to 1.3 cm in short axis diameter in right paratracheal spa ce. Moderate atherosclerotic calcifications are noted in coronary vessels and thoracic aorta. Chest wall and lower neck: Thyroid is unremarkable. No axillary or supraclavicular adenopathy by size . Bones: No aggressive osseous abnormality. Upper Abdomen: Unremarkable. IMPRESSION: 1. No pulmonary embolus. No thoracic aortic aneurysm or gross dissection. Prominent size of main pulm onary artery concerning for pulmonary vascular hypertension. 2. Hazy groundglass opacities scattered in bilateral lung pink concerning for mild pulmonary edema versus pneumonitis. Dependent atelectasis in posterior aspect of bilateral lung pink. No pleural ef fusion or pneumothorax. Airway is patent. 3. Enlarged mediastinal lymph nodes which may be reactive in nature. Moderate atherosclerotic disease and coronary vessels and thoracic aorta. Reviewed by: Riaz Tello MD on 08/06/2024 12:17 PM PDT Approved by: Riaz Tello MD on 08/06/2024 12:17 PM PDT Station ID: [id number]
[2024-08-06] MEDS: cefTRIAXone 1 GM VIAL IVP STA (13:01)
[2024-08-06] MEDS: cefTRIAXone 1 GM in SODIUM CHLORIDE 0.9% MINIBAG 100 ML IV STA (13:07)
[2024-08-06] MEDS: FUROSEMIDE 40 MG/4 ML VIAL IVP STA (13:07)
[2024-08-06] MEDS: iohexoL-300 100 ML VIAL IVP ONE (13:15)
[2024-08-06] MEDS ORDERED: HYDROmorphone 0.5 MG/0.5 ML SYRINGE IVP PRN (13:47)
[2024-08-06] MEDS ORDERED: ONDANSETRON 4 MG/2 ML VIAL IVP PRN (13:47)
[2024-08-06] MEDS ORDERED: ONDANSETRON ODT 4 MG TABLET TL PRN (13:47)
[2024-08-06] MEDS ORDERED: SODIUM CHLORIDE FLUSH 0.9% 10 ML SYRINGE IVP PRN (13:47)
[2024-08-06] MEDS: AZITHROMYCIN INJ 500 MG in SODIUM CHLORIDE 0.9% 250 ML IV STA (14:01)
--- NOTE | 2024-08-06 16:08 | HISTORY & PHYSICAL EXAMINATION ---
Chief Complaint - Chief Complaint Chief Complaint: Shortness of Breath History of Present Illness - Admitted From Admitted From:: ED - History Obtained From Records Reviewed: ED Note History obtained from: Patient Exam Limitations: Patient was slow to answer questions - History of Present Illness HPI Comment/Other: Ms. Martinez is a pleasant 79 year old female who presents today with shortness of breath. She states her shortness of breath appears suddenly and randomly and is not associated with any event. Patient states she has been experiencing this for a couple of weeks now but can not remember when exactly it began. She also states her chest feels tight. She is unable to describe her chest pain. Nothing seems to make her shortness of breath better other then resting and waiting for it to go away. When she experiences SOB, she will call her nurse who will tell her to breath slowly and calmly. Patient states that she has been gaining weight and thinks that makes her SOB worse however she can not stop eating. She does not walk or exercises. Upon ROS patient admits to fatigue, SOB and chest pain/chest tightness and experiences trouble swallowing when having difficulty breathing. She states she does not remember the last time she urinated but had a bowel movement couple days ago. Patient denies fever, chills, night sweats, nausea, vomiting, changes to hearing or vision, abdominal pain, diarrhea, numbness or tingling or skin rashes. Patient states she does not like people talking to her about her health because she does not think we can make her feel better. 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 She states her dad is healthy. Living arrangement: assisted Living Situation: Alone Social History Notes: Never smoked - Substance History Use: Uses substance without health or social issues: NONE, Alcohol (Used to drink a glass of wine with her meal every night however not anymore since she has been in and out of the hospital) Abuse: Recurrent use of substance despite neg consequences: NONE Dependence: Experiences withdrawal or developed tolerances: NONE - POLST Patient has POLST: Yes POLST Status: Full Code Meds/Allgy - Home Medications Home Medications: Ambulatory Orders Medication Instructions Recorded Confirmed Pregabalin 225 mg PO BID 12/23/19 08/06/24 Albuterol Sulfate [Proair 90 mcg IH Q6HR PRN 08/06/24 08/06/24 Respiclick] Ascorbic Acid [Vitamin C] 500 mg PO DAILY 08/06/24 08/06/24 Aspirin Chewable [St Rodo 81 mg PO DAILY 08/06/24 08/06/24 Aspirin] Bisacodyl Supp [Dulcolax Supp] 10 mg [place] ONCE PRN 08/06/24 08/06/24 Carboxymethylcellulose Sodium 2 each OP UD 08/06/24 08/06/24 [Refresh Plus] Cholecalciferol [Vitamin D3] 50 mcg PO DAILY 08/06/24 08/06/24 Clopidogrel Bisulfate [Plavix] 75 mg PO DAILY 08/06/24 08/06/24 DULoxetine [Cymbalta] 30 mg PO DAILY 08/06/24 08/06/24 Ferrous Sulfate [Feosol] 325 mg PO DAILY 08/06/24 08/06/24 HYDROcodone/ACET 7.5/325 [[place] 1 tab PO Q6HR 08/06/24 08/06/24 7.5/325] HYDROcodone/ACET 7.5/325 [[place] 1 tab PO Q6HR PRN 08/06/24 08/06/24 7.5/325] Menthol [Biofreeze] 1 each TP Q8HR 08/06/24 08/06/24 Mineral Oil [Mineral Oil Enema] 1 ea RC PRN PRN 08/06/24 08/06/24 Multivit with Iron,Minerals 1 each PO DAILY 08/06/24 08/06/24 [Multivitamins with Iron] Naloxone HCl [Narcan] 4 mg NS PRN PRN 08/06/24 08/06/24 Oxycodone HCl 5 mg PO UD PRN 08/06/24 08/06/24 Pantoprazole [Protonix] 40 mg PO DAILY 08/06/24 08/06/24 Saliva Stimulant Thelma [Biotene 15 ml PO DAILY 08/06/24 08/06/24 Moisturizing Mouth Thelma] Senna [Senokot] 17.2 mg PO BID PRN 08/06/24 08/06/24 busPIRone [Buspar] 5 mg PO BID 08/06/24 08/06/24 guaiFENesin LIQUID [Robitussin 15 ml PO Q6H PRN 08/06/24 08/06/24 Liquid] polyethylene glycoL 3350 [Miralax] 17 gm PO DAILY 08/06/24 08/06/24 - Allergies Allergies/Adverse Reactions: Allergies Allergy/AdvReac Type Severity Reaction Status Date / Time latex Allergy Itching Verified 08/06/24 10:27 Sulfa (Sulfonamide Allergy Unknown Verified 08/06/24 10:27 Antibiotics) opiods Allergy Itching Uncoded 08/06/24 10:27 Review of Systems - Other Findings Other Findings: ROS that I could obtain was in HPI. Patient was sleepy and tired and not willing to answer more questions. Prior Level of Functionality: Patient states she spends most of her time in bed Exam - Vital Signs Vital Signs: Vital Signs x48h Temp Pulse Pulse Resp BP BP Pulse Ox 08/06/24 14:45 36.5 C 107 H 18 130/79 96 08/06/24 13:20 105 H 22 151/97 H 96 08/06/24 12:27 94 20 122/84 H 94 08/06/24 10:19 36.0 C L 96 19 144/81 H 89 L O2 Flow Rate 08/06/24 14:45 2 08/06/24 13:20 2 08/06/24 12:27 2 08/06/24 10:19 - Physical Exam General Appearance: positive: No acute distress, Other (Patient is slow to answer questions. When I would ask the patient questions she would go back to sleep then wake up again then go back to sleep.) Eyes Bilateral: positive: Normal inspection, No lid inflammation, Conjunctivae nml, No scleral icterus Neck: positive: Nml inspection, Thyroid nml, No JVD Respiratory: positive: Breath sounds nml Cardiovascular: positive: No murmur, Tachycardia Abdomen: positive: Non-tender, Nml bowel sounds, No distention Skin: positive: Color nml, No rash, Warm, Dry Extremities: positive: Non-tender, No pedal edema Neurologic/Psychiatric: positive: Mood/affect nml Conclusion/Plan - Problem List (1) Acute respiratory failure with hypoxia Conclusion/Plan: -Unclear if patient's hypoxia is due to pulmonary or cardiology - SOB that appeared 2 weeks ago. X-ray findings depict hazy ground glass opacities scattered in bilateral lung pink. These findings may suggest pulmonary edema - Patient does not have a fever, no elevated WBC count or any infectious symptoms that will suggest a viral pneumonia - Patient is currently on empiric broad spectrum antibiotic treatment: Azithromycin 250 mls @250 mls/hr IV Daily and Ceftriaxone 100 mls @200 mls/hr IV Daily - Blood cultures are ordered and results are pending. Once results come back, I will reassess antibiotic treatment - I will order an echo to see if this is a cardiac cause which will tell me if the patient has pulmonary edema - Continuos monitoring of vital signs - IV Fluids (2) Obstructive sleep apnea Conclusion/Plan: - Patient has obstructive sleep apnea which can lead to obesity hypoventilation syndrome. Both of these can lead to Pulmonary hypertension resulting in right si ded heart failure - I will investigate if patient needs a CPAP mask - I will order an echo to help me determine what the cause is (3) Diabetes mellitus Conclusion/Plan: - Patient's blood glucose level is 124. I will order an low insulin sliding scale and low care diet - I will check order a A1C test for tomorrow (4) Hypertension Conclusion/Plan: - Patient's blood pressure appears to be well managed. Will discharge patient with at home blood pressure medication Selected Entries 08/06/24 08/06/24 08/06/24 10:19 12:27 13:20 Blood Pressure 144/81 H 122/84 H 151/97 H (5) Immobility Conclusion/Plan: - Will order a PT/OT for an evaluation for the patient's mobility - Lab Results Lab results reviewed: Yes Fish Bones: 08/06/24 10:42 08/06/24 10:42 - Diagnostic Imaging Results Diagnostic Imaging Results: positive: Final report reviewed (Interstitial markings may represent pulmonary edema) - EKG Results EKG Comparison: No prior EKG
--- NOTE | 2024-08-06 16:39 | PHARMACY PROGRESS NOTE ---
- Best Possible Medication History Admit Date and Time: 08/06/24 6532 Processed by: Pharmacy Medications reviewed in ED?: Yes Medication History completed: Yes Patient Interview: Completed Secondary Source(s): Facility MAR as ONLY source As the person ultimately responsible for medication therapy, providers are able to order a medication from an existing home medication list in [facility] via the "Reconcile Routine" prior to Confirmation of that medication by integrated logistics support manager. Such practice is discouraged except when the physician, in their clinical judgment, deems that a medical need exists for a medication without regard to previous use.
[2024-08-06] MEDS: SODIUM CHLORIDE 0.9% 1,000 ML IV SCH (20:24)
[2024-08-06] MEDS: SODIUM CHLORIDE FLUSH 0.9% 10 ML SYRINGE IVP SCH (20:25)
[2024-08-06] MEDS: INSULIN LISPRO 300 UNIT/3 ML PEN SUBQ SCH (21:33)
[2024-08-07] MEDS: ACETAMINOPHEN 325 MG TABLET PO PRN (03:26)
[2024-08-07] MEDS: oxyCODONE 5 MG TABLET PO PRN (05:04)
[2024-08-07] MEDS: ENOXAPARIN 40 MG/0.4 ML SYRINGE SUBQ SCH (08:23)
[2024-08-07] MEDS: cefTRIAXone 1 GM in SODIUM CHLORIDE 0.9% MINIBAG 100 ML IV SCH (08:24)
[2024-08-07] MEDS: AZITHROMYCIN INJ 500 MG in SODIUM CHLORIDE 0.9% 250 ML IV SCH (09:13)
--- NOTE | 2024-08-07 09:49 | PROVIDER PROGRESS NOTE ---
Subjective - Prog Note Date Prog Note Date: 08/07/24 Prog Note Time: 10:19 - Subjective Pt reports feeling: Improved (Discharge Note) Subjective: Ms. Martinez is a pleasant 79 year old female who is admitted for shortness of breath. Patient is more alert today and is able to answer questions better compared to yesterday. She reports feeling better today. Patient states her breathing "feels labored" but when she relaxes it goes away. Eating makes her SOB worse. She did report her chest feels tight but can breath past it. Patient expressed interest in starting physical therapy and wants to move a little bit as she is "too young to be bedridden and laying around". Upon ROS, patient admits to a runny nose and increased appetite. Patient believes her hunger is due to her anxiety and the feeling that she should be doing something. Patient denies headache, fever, chills, vision or hearing changes, difficulty swallowing, abdominal pain or urinary/bowel problems. Current Medications - Current Medications Current Medications: Medications Oxycodone HCl (Oxycodone 5 Mg Tablet) 5 mg PO Q4HR PRN PRN Reason: Pain 5 to 7 Last Admin: 08/07/24 09:32 Dose: 5 mg Acetaminophen (Acetaminophen 325 Mg Tablet) 650 mg PO Q4HR PRN PRN Reason: Pain 1 to 4, or Fever Last Admin: 08/07/24 03:26 Dose: 650 mg Azithromycin 500 mg/ Sodium (Chloride) 250 mls @ 250 mls/hr IV DAILY [facility] Stop: 08/08/24 09:00 Last Admin: 08/07/24 09:13 Dose: 250 mls/hr Ceftriaxone Sodium 1 gm/ (Sodium Chloride) 100 mls @ 200 mls/hr IV DAILY [facility] Stop: 08/10/24 09:29 Last Admin: 08/07/24 09:00 Dose: Infused Enoxaparin Sodium (Enoxaparin 40 Mg/0.4 Ml Syringe) 40 mg SUBQ DAILY [facility] Last Admin: 08/07/24 08:23 Dose: 40 mg Hydromorphone HCl (Hydromorphone 0.5 Mg/0.5 Ml Syringe) 0.5 mg IVP Q2H PRN PRN Reason: Pain 8 to 10 Insulin Human Lispro (Insulin Lispro 300 Unit/3 Ml Pen) 1 - 9 unit SUBQ 0800,1200,1700,2100 [facility]; Protocol Last Admin: 08/07/24 08:23 Dose: Not Given Ondansetron HCl (Ondansetron Odt 4 Mg Tablet) 4 mg TL Q6HR PRN PRN Reason: Nausea / Vomiting Ondansetron HCl (Ondansetron 4 Mg/2 Ml Vial) 4 mg IVP Q6HR PRN PRN Reason: Nausea / Vomiting Objective - Vital Signs/Intake & Output Vital Signs: Vital Signs x48h Temp Pulse Resp BP Pulse Ox O2 Flow Rate 08/07/24 09:14 20 93 08/07/24 08:09 36.3 C L 72 20 127/72 96 2 08/07/24 03:35 36.3 C L 87 24 124/74 97 2 Intake & Output: Intake & Output 08/04/24 08/05/24 08/06/24 08/07/24 23:59 23:59 23:59 23:59 Intake Total 590 1100 Output Total 1850 300 Balance -1260 800 - Objective General Appearance: positive: No acute distress, Alert Eyes Bilateral: positive: Normal inspection, No lid inflammation, Conjunctivae nml ENT: positive: No signs of dehydration Neck: positive: Nml inspection, Thyroid nml, No JVD Respiratory: positive: Breath sounds nml Cardiovascular: positive: Regular rate & rhythm, No murmur, No gallop Abdomen: positive: Non-tender, Nml bowel sounds Skin: positive: Color nml, No rash, Warm Neurologic/Psychiatric: positive: Oriented x3, Mood/affect nml - Lab Results Fish Bones: 08/06/24 10:42 08/06/24 10:42 Other Labs: Lab Results x24hrs 08/07/24 08/06/24 08/06/24 Range/Units 07:48 21:31 13:43 WBC (4.8-10.8) x10^3/uL RBC (4.20-5.40) 10^6/uL Hgb (12.0-16.0) g/dL Hct (37.0-47.0) % MCV (81.0-99.0) fL MCH (27.0-31.0) pg MCHC (32.0-36.0) g/dL RDW (12.0-15.0) % Plt Count (130-450) 10^3/uL MPV (7.9-10.8) fL Neut # (Auto) (1.5-6.6) 10^3/uL Lymph # (Auto) (1.5-3.5) 10^3/uL Jackson # (Auto) (0.0-1.0) 10^3/uL Eos # (Auto) (0.0-0.7) 10^3/uL Baso # (Auto) (0.0-0.1) 10^3/uL Absolute Nucleated RBC x10^3/uL Nucleated RBC % /100WBC Sodium (135-145) mmol/L Potassium (3.5-4.5) mmol/L Chloride (101-111) mmol/L Carbon Dioxide (21-32) mmol/L Anion Gap (6-13) BUN (6-20) mg/dL Creatinine (0.6-1.3) mg/dL Estimated GFR (MDRD) (>89) Glucose (74-104) mg/dL POC Whole Bld Glucose 115 H 108 H (70 - 100) mg/dL Lactic Acid 0.7 (0.5-2.2) mmol/L Calcium (8.5-10.3) mg/dL Total Bilirubin (0.2-1.0) mg/dL AST (10-42) IU/L ALT (10-60) IU/L Alkaline Phosphatase (42-121) IU/L Troponin I High Sens (2.3-14.8) ng/L B-Natriuretic Peptide (5-100) pg/mL Total Protein (6.4-8.9) g/dL Albumin (3.2-5.5) g/dL Globulin (2.1-4.2) g/dL Albumin/Globulin Ratio (1.0-2.2) Lipase (11-82) U/L 08/06/24 08/06/24 08/06/24 Range/Units 10:42 10:42 10:42 WBC 6.7 (4.8-10.8) x10^3/uL RBC 5.07 (4.20-5.40) 10^6/uL Hgb 13.2 (12.0-16.0) g/dL Hct 45.3 (37.0-47.0) % MCV 89.3 (81.0-99.0) fL MCH 26.0 L (27.0-31.0) pg MCHC 29.1 L (32.0-36.0) g/dL RDW 16.6 H (12.0-15.0) % Plt Count 345 (130-450) 10^3/uL MPV 9.6 (7.9-10.8) fL Neut # (Auto) 4.5 (1.5-6.6) 10^3/uL Lymph # (Auto) 1.2 L (1.5-3.5) 10^3/uL Jackson # (Auto) 0.6 (0.0-1.0) 10^3/uL Eos # (Auto) 0.2 (0.0-0.7) 10^3/uL Baso # (Auto) 0.1 (0.0-0.1) 10^3/uL Absolute Nucleated RBC 0.00 x10^3/uL Nucleated RBC % 0.0 /100WBC Sodium 138 (135-145) mmol/L Potassium 4.6 H (3.5-4.5) mmol/L Chloride 101 (101-111) mmol/L Carbon Dioxide 33 H (21-32) mmol/L Anion Gap 4.0 L (6-13) BUN 27 H (6-20) mg/dL Creatinine 0.6 (0.6-1.3) mg/dL Estimated GFR (MDRD) 96 (>89) Glucose 124 H (74-104) mg/dL POC Whole Bld Glucose (70 - 100) mg/dL Lactic Acid (0.5-2.2) mmol/L Calcium 8.9 (8.5-10.3) mg/dL Total Bilirubin 0.4 (0.2-1.0) mg/dL AST 10 (10-42) IU/L ALT < 3 L (10-60) IU/L Alkaline Phosphatase 103 (42-121) IU/L Troponin I High Sens 7.2 (2.3-14.8) ng/L B-Natriuretic Peptide 158 H (5-100) pg/mL Total Protein 6.1 L (6.4-8.9) g/dL Albumin 3.1 L (3.2-5.5) g/dL Globulin 3.0 (2.1-4.2) g/dL Albumin/Globulin Ratio 1.0 (1.0-2.2) Lipase 10 L (11-82) U/L ABX Reporting Has patient been on IV antibiotics over the past 48 hours?: Yes Sepsis Event Note (H) - Evaluation Current Stage of Sepsis: Ruled out Assessment/Plan - Problem List (1) Acute respiratory failure with hypoxia Impression: - Unclear if patient's hypoxia is due to pulmonary or cardiology. At this point I am leaning towards CHF rather than a pulmonary etiology due to the fact that the patient responded well to diuretics and the antibiotic treatment. - SOB that appeared 2 weeks ago. X-ray findings depict hazy ground glass opacities scattered in bilateral lung pink. These findings may suggest pulmonary edema - Patient does not have a fever, no elevated WBC count or any infectious symptoms that will suggest a viral pneumonia - Patient is currently on empiric broad spectrum antibiotic treatment: Azithromycin 250 mls @250 mls/hr IV Daily and Ceftriaxone 100 mls @200 mls/hr IV Daily - Blood cultures are ordered and results are pending. Once results come back, I will reassess antibiotic treatment. My plan is to discharge the patient to custodial today with the appropriate oral antibiotic treatment once the cultures are received - I will order an echo to see if this is a cardiac cause which will tell me if the patient has pulmonary edema. The results of this echo will not change my course of treatment. I will inform the patient to follow up with her PCP regarding the results of the echo - Continous monitoring of vital signs - IV Fluids (2) Obstructive sleep apnea Impression: - Patient has obstructive sleep apnea which can lead to obesity hypoventilation syndrome. Both of these can lead to Pulmonary hypertension resulting in right sided heart failure - I do not believe a CPAP mask is necessary at this point however consider overnight oximetry if needed - I will order an echo to help me determine if the cause is pulmonary hypertension (3) Diabetes mellitus Impression: - Today patient's blood glucose is 115. Patient is on a low insulin sliding scale and low carb diet - Her A1C is 5.5 - no change to patient's outpatient's medications Laboratory Tests 08/07/24 05:25 Hemoglobin A1c % 5.5 (4) Hypertension Impression: - Today patients blood pressure appears to be well managed. Will discharge patient with at home blood pressure medications Selected Entries 08/07/24 08:09 Blood Pressure 127/72 [Right Brachial artery] (5) Immobility Impression: - Will order a PT/OT for an evaluation for the patient's mobility
[2024-08-07 10:37] LABS: ESTIMATED AVERAGE GLUCOSE 111 mg/dL (70-100); HEMOGLOBIN A1c% 5.5 % (4.27-6.07)
--- NOTE | 2024-08-07 12:16 | Discharge Plan ---
"Discharge Plan for SNF / TREV - Discharge Plan And Transition Orders Problem Reviewed?: Yes Disposition: 03 SNF DC/Xfer Condition: Fair Allergies and Adverse Reactions: Allergies Allergy/AdvReac Type Severity Reaction Status Date / Time latex Allergy Itching Verified 08/06/24 10:27 Sulfa (Sulfonamide Allergy Unknown Verified 08/06/24 10:27 Antibiotics) opiods Allergy Itching Uncoded 08/06/24 10:27 Health Concerns: Morbidly obese female who is essentially bedbound. She has been living at various half-way facilities since approximately the spring 2020. She has severely reduced mobility due to multiple falls starting in 2011. A hip fracture resulted in a hip arthroplasty and then she developed postoperative infection. Overall she has had 5 surgeries with 2 revisions in that same hip until 2018. She then had a fall at [facility] in November 2001 with a distal femur periprosthetic fracture of the right femur. She has spinal stenosis. Sciatica. Chronic back pain due to all of this with severely reduced mobility. Unfortunately she has gained weight with her immobility. In August 2019 she weighed 176 pounds (80 kg) and had a BMI of 26.27. She shahla joy weighs 111.13 kg and a BMI of 36.2. She has lived in [facility], and most recently here on [facility] at these facilities. Other than asthma as a remote medical problem, the patient does not have any diagnosis cardiovascular disease. She had an episode of chest pain and shortness of breath for which she was seen in a walk-in clinic. Chest x-ray and EKG and troponins were negative at that visit. She was not hypoxic. CT pulmonary angiogram was negative. Starting in approximately 2019 she has been having iron deficiency anemia. That was transfused for hemoglobin of 7.1 when she was treated for her fall and femur fracture in November 2021. She was brought in by ambulance from [facility] for intermittent substernal chest pain for 2 weeks. Patient has a history of intermittent atrial fibrillation as well as past stroke and TIAs and is on Plavix. She was 89% on room air. EKG was normal. Troponins are negative. Chest x-ray has prominent interstitial markings but may be technique because of her obesity. CT of the chest and thorax does not have pulmonary emboli. Biapical scarring is present. Hazy groundglass opacities seen scattered in bilateral lung pink with dependent atelectasis especially in the posterior aspect of bilateral lung pink. No pleural effusion. EKG had sinus rhythm. Troponin was normal at 7.2. She was placed in observation and treated as either early congestive heart failure with a Lasix injection, or early viral pneumonia. Empiric antibiotics were used even though we were thinking viral. Overnight the patient has done well. She is now 92% on room air. Seems to be back at baseline from her physical immobility. Echocardiogram was done before discharge. Results are pending. Plan of Treatment: 1. Her primary care provider at the longterm, either Dr. Laguna or Dr. Stallings, need to get the final echo report to assess her ejection fraction will risk of pulmonary hypertension due to obesity hypoventilation syndrome/obesity/obstructive sleep apnea 2. Although I strongly suspect cardiac disease in the form of diastolic heart failure, I will go ahead and have 1 day of azithromycin at the longterm, follow-up with 3 days of amoxicillin to complete therapy for antibiotics. 3. Patient insist that she does not want to be in bed. She would like to be more mobile. I would recommend PT and OT at the longterm. Care Goals: She has permanent placement at a half-way facility. Goal will be to improve quality of life with reduced pain, improve mobility in the forms of multimodal pain management and PT and OT. Assessment: Patient is alert, oriented to person. Not necessarily oriented to place, time or situation. Appears to have poor insight into her overall condition. - SNF / TREV Transition Orders Admit to (Facility): [facility] Under the care of (Name): [facility] specialty group: Dr. Stallings or Dr. Rivas Discharge Diagnosis: 1. Acute respiratory failure with hypoxia 2. Abnormal CT with groundglass opacities 3. Obstructive sleep apnea history 4. Type 2 diabetes mellitus with A1c 5.5% 5. Hypertension 6. Immobility 7. Chronic pain syndrome 8. Morbid obesity 9. Dementia Medicare Certification Statement: I certify that [facility] half[facility]way care is medically necessary on a continuing basis for any of the conditions for which she/he is receiving care during hospitalization. Notify PCP of admission and forward orders to primary provider for signature. Weight on admission and: Daily Call PCP immediately if weight increases by: 2 kg Other Notification Orders: Call PCP immediately if patient develops dyspnea, chest pain/tightness or edema. House Bowel Program: Yes Additional Bowel Program Orders: If no BM after 2 days, nurse may give M.O.M. 30ml PO PRN and/or ducolax Supp 1 ID and/or SHARA 250mg P.O., and/or senna 1-2 tabs PO. On day 3 nurse may give repeat above order until residents constipation is resolved. Annual Influenza Vaccine (between Jul 14 and February 10): Yes Two-step PPD per [facility] [id number] or approved exception documents: Yes Lab Tests or X-ray Orders: bmp and bnp 08/14/24 Medication Orders: PLEASE REFER TO THE DISCHARGE MEDICATION LIST. Insulin Orders?: No - Medications New Prescriptions: Amoxicillin [Amoxil] 500 mg PO Q6H 3 Days #24 cap Furosemide [Lasix] 20 mg PO DAILY #1 tablet Azithromycin [Zithromax] 500 mg PO DAILY #2 tablet - Diet Type: No added salt Texture: Regular Liquids: Thin May have monthly special meal: Yes - Therapies | Activity Therapy: Evaluation | Treat if indicated: PT, OT Rehabilitation Potential: Maximize functional status Activity: Activity as Tolerated Weight Bearing: Full Weight Assistance Devices: Wheelchair, Walker"
[2024-08-07 16:20] VITALS: BP 154/76; O2SAT 98
== END 2024-08-07 15:17 ==
LOC: EDUNIT# → ED 10:11 → MS2 13:47 → UNDODISOB 15:33
PROVIDERS: ADMIT Specialist; ATTEND Specialist
DX: J96.01 Acute respiratory failure with hypoxia (principal); I11.0 Hypertensive heart disease with heart failure; I50.9 Heart failure, unspecified; J18.9 Pneumonia, unspecified organism; G47.33 Obstructive sleep apnea (adult) (pediatric); I48.91 Unspecified atrial fibrillation; Z86.73 Personal history of transient ischemic attack (TIA), and cerebral infarction without residual deficits; Z91.81 History of falling; G89.29 Other chronic pain; Z79.84 Long term (current) use of oral hypoglycemic drugs; Z79.02 Long term (current) use of antithrombotics/antiplatelets; E66.01 Morbid (severe) obesity due to excess calories; Z68.36 Body mass index [BMI] 36.0-36.9, adult; M48.00 Spinal stenosis, site unspecified; E11.42 Type 2 diabetes mellitus with diabetic polyneuropathy; F32.A Depression, unspecified; F41.9 Anxiety disorder, unspecified; R32 Unspecified urinary incontinence; R53.2 Functional quadriplegia; F03.90 Unspecified dementia, unspecified severity, without behavioral disturbance, psychotic disturbance, mood disturbance, and anxiety
CPT/HCPCS: 36415; 71045; 71275; 80053; 83036; 83605; 83690; 83880; 84484; 85025; 87040; 93005; 93307; 96361; 96365; 96366; 96367; 96372; 96375; 99285; A9270; G0378; J1650; Q9967

== ENCOUNTER 2025-03-11 06:00 | Inpatient (IN) ==
--- NOTE | 2025-03-11 06:17 | ED Physician Documentation ---
History of Present Illness Stated complaint Stated Complaint: WEAKNESS Chief complaint Chief Complaint: Fever History obtained from History obtained from: Patient and EMS Additonal information Additional information: The patient is sent to the emergency department from [facility] via EMS for chief complaint of altered mental status. The patient has mild dementia but is apparently at baseline fairly talkative. It is not clear why staff was checking her in the wee hours in the morning but they felt that her responsiveness was less and sent her in. Medics deny any other report of complaints from either the staff or the patient. She has been tachycardic and route. The patient states she has a little bit of pain near the top of her right chest, but denies pain elsewhere. No nausea or vomiting. No cough or shortness of breath. No sore throat. No other complaints at this time. Meds/Allgy Home Medications Ambulatory Orders Medication Instructions Recorded Confirmed pregabalin 150 mg capsule 225 mg PO BID 12/23/19 08/06/24 Menthol [Biofreeze] 1 ea TP Q8HR 08/06/24 08/06/24 Oxycodone Hcl 5 mg PO UD PRN Pain >8 08/06/24 08/06/24 albuterol sulfate 90 mcg/actuation 90 mcg IH Q6HR PRN Wheezing 08/06/24 08/06/24 breath activated powder inhaler (ProAir RespiClick) ascorbic acid (vitamin C) 500 mg 500 mg PO DAILY 08/06/24 08/06/24 chewable tablet (C-500) aspirin 81 mg chewable tablet 81 mg PO DAILY 08/06/24 08/06/24 bisacodyl 10 mg rectal suppository 10 mg MA ONCE PRN Constipation 08/06/24 08/06/24 buspirone 5 mg tablet 5 mg PO BID 08/06/24 08/06/24 carboxymethylcellulose sodium 0.5 2 ea ophthalmic (eye) UD dry eyes 08/06/24 08/06/24 % eye drops in a dropperette (Refresh Plus) cholecalciferol (vitamin D3) 25 50 mcg PO DAILY 08/06/24 08/06/24 mcg (1,000 unit) tablet clopidogrel 75 mg tablet (Plavix) 75 mg PO DAILY 08/06/24 08/06/24 duloxetine 30 mg capsule,delayed 30 mg PO DAILY 08/06/24 08/06/24 release ferrous sulfate 325 mg (65 mg 325 mg PO DAILY 08/06/24 08/06/24 iron) tablet guaifenesin 100 mg/5 mL oral liquid 15 ml PO Q6H PRN Cough 08/06/24 08/06/24 hydrocodone 7.5 mg-acetaminophen 1 tab PO Q6HR 08/06/24 08/06/24 325 mg tablet hydrocodone 7.5 mg-acetaminophen 1 tab PO Q6HR PRN Moderate Pain 08/06/24 325 mg tablet (Level 4-6) mineral oil (Fleet Mineral Oil 1 ea RC PRN PRN Constipation 08/06/24 08/06/24 enema) naloxone 4 mg/actuation nasal 4 mg NS PRN PRN Per Pharmacy 08/06/24 08/06/24 spray (Narcan) pantoprazole 40 mg tablet,delayed 40 mg PO DAILY 08/06/24 08/06/24 release pediatric [id number]-blvb-mon 1 ea PO DAILY 08/06/24 08/06/24 (Multi-Vitamins with Iron chewable tablet) polyethylene glycol 3350 17 gram 17 g PO DAILY 08/06/24 08/06/24 oral powder packet saliva stimulant comb. no.3 15 ml PO DAILY 08/06/24 08/06/24 (Biotene Moisturizing Mouth mucosal spray) sennosides 8.6 mg tablet (Senna 17.2 mg PO BID PRN Constipation 08/06/24 08/06/24 Lax) amoxicillin 250 mg capsule 500 mg (2 x 250 mg) PO Q6H 3 days 08/07/24 #24 caps azithromycin 250 mg tablet 500 mg (2 x 250 mg) PO DAILY #2 08/07/24 tabs furosemide 20 mg tablet 20 mg PO DAILY new chf #1 tab 08/07/24 naloxone 4 mg/actuation nasal 4 mg intranasal Q2M #2 ea 09/30/24 spray (Narcan) Allergies Allergies Allergy/AdvReac Type Severity Reaction Status Date / Time latex Allergy Itching Verified 09/30/24 21:04 Sulfa (Sulfonamide Allergy Unknown Verified 09/30/24 21:04 Antibiotics) opiods Allergy Intermediate Rash Uncoded 09/30/24 21:04 PFSH Active Problems All Active Problems (Updated 11/30/24 @ 00:01 by ) Immobility (Acute) Hypertension (Acute) Diabetes mellitus (Acute) Obstructive sleep apnea (Acute) Acute respiratory failure with hypoxia (Acute) Pulmonary edema (Acute) Respiratory failure (Acute) Pneumonia (Acute) Congestive heart failure (Acute) Back pain (Acute) Social History Social History Smoking Status: Never smoker Do you dip or chew tobacco?: No Do you vape?: No Living arrangement: assisted Living Condition: Alone Relationship: Level: Dependent Do you feel safe in your home environment?: Yes Suffered physical, verbal, emotional, or financial abuse?: No History of Abuse: No ETOH Use: Frequency: Occasional Number of Amount/day: 1 POLST Patient has POLST: Yes POLST Status: Full Code Exam Exam Vital Signs: Vital Signs x48h Temp Pulse Resp BP Pulse Ox O2 Flow Rate 03/11/25 06:55 126/98 H 03/11/25 06:36 37.7 C 130 H 28 H 95 2 Constitutional normal general appearance and no apparent distress HENMT normocephalic, head/scalp atraumatic, external nose normal and oral mucous membranes normal Eyes EOMs intact bilaterally Neck/C-Spine visual inspection normal and supple Respiratory breath sounds equal bilaterally, normal respiratory effort and clear to auscultation bilaterally Cardiovascular normal heart rate noted, regular rhythm noted and no edema Gastrointestinal abdomen normal to inspection, abdomen soft to palpation, nontender to palpation and nondistended Genitourinary no CVA tenderness Extremities normal to inspection Neurology The patient is awake, but is somewhat slow to respond to questions. She is able to answer simple questions without difficulty though. Psychiatry mental status grossly normal Skin skin color normal Results Vitals Vitals: Vital Signs - 24 hr 03/11/25 06:36 03/11/25 06:43 03/11/25 06:55 Temperature 37.7 C Temperature Source Oral Pulse Rate 130 H Respiratory Rate 28 H Blood Pressure 126/98 H O2 Saturation 95 O2 Source Nasal cannula If not protocol: Oxygen Flow, liters/minute 2 Pain Intensity 10 10 Oxygen O2 Source Nasal cannula Labs Labs: Laboratory Tests 03/11/25 03/11/25 06:30 06:35 WBC 16.7 H RBC 5.20 Hgb 14.6 Hct 50.8 H MCV 97.7 MCH 28.1 MCHC 28.7 L RDW 14.4 Plt Count 372 MPV 9.5 Neut # (Auto) 14.5 H Lymph # (Auto) 1.1 L Dare # (Auto) 1.0 Eos # (Auto) 0.1 Baso # (Auto) 0.1 Absolute Nucleated RBC 0.00 Nucleated RBC % 0.0 Urine Color YELLOW Urine Clarity HAZY Urine pH 6.0 Ur Specific Mohawk >=1.030 H Urine Protein TRACE Urine Glucose (UA) NEGATIVE Urine Ketones NEGATIVE Urine Occult Blood MODERATE H Urine Nitrite POSITIVE H Urine Bilirubin NEGATIVE Urine Urobilinogen 0.2 (NORMAL) Ur Leukocyte Esterase MODERATE H Urine RBC 11-25 H Urine WBC >25 H Urine WBC Clumps PRESENT Ur Squamous Epith Cells FEW Squamous Urine Bacteria Moderate H Ur Microscopic Review INDICATED Urine Culture Comments INDICATED PD Medical Decision Making ED course ED course: The patient was treated with IV fluids, Tylenol, and Toradol, and worked up for her fever with labs, chest x-ray, UA, and respiratory PCR panel. I felt she was likely tachycardic secondary to the fever and her pain was atypical but since she had chest pain, I also got an EKG on her. She is currently awaiting the remainder of her workup and will be sent to Dr. Gamez at change of shift pending this. Discharge Plan Discharge Prescriptions: No Action pregabalin 150 MG capsule 225 mg PO BID Patient Comments: TK 1 C PO BID Rx Instructions: AM/ PM buspirone 5 MG tablet 5 mg PO BID Rx Instructions: give 1 tablet po every AM and at bedtime for anxiety. aspirin 81 MG tablet,chewable 81 mg PO DAILY albuterol sulfate [ProAir RespiClick] 90 MCG aerosol powdr breath activated 90 mcg IH Q6HR PRN (Reason: Wheezing) clopidogrel [Plavix] 75 MG tablet 75 mg PO DAILY hydrocodone-acetaminophen 1 TAB tablet 1 tab PO Q6HR ferrous sulfate 325 MG tablet 325 mg PO DAILY Oxycodone Hcl 5 MG Capsule 5 mg PO UD PRN (Reason: Pain >8) Rx Instructions: give 1 tablet by mouth every 12 hours as needed for breakthrough pain unrelieved by norco. bisacodyl 10 MG suppository 10 mg MA ONCE PRN (Reason: Constipation) Rx Instructions: use 1 supp rectally as needed for bm if senna not effective on 4th day of no bm. ascorbic acid (vitamin C) [C-500] 500 MG tablet,chewable 500 mg PO DAILY carboxymethylcellulose sodium [Refresh Plus] 1 EACH dropperette 2 ea ophthalmic (eye) UD Rx Instructions: instill 2 drops into both eyes 3 times daily for related cataract surgery. duloxetine 30 MG capsule,delayed release(DR/EC) 30 mg PO DAILY cholecalciferol (vitamin D3) 25 MCG tablet 50 mcg PO DAILY saliva stimulant comb. no.3 [Biotene Moisturizing Mouth] 100 SPRAYS/44.3 ML spray,non-aerosol 15 ml PO DAILY Menthol [Biofreeze] 1 EACH Adh..Patch 1 ea TP Q8HR Rx Instructions: apply to RLE topically every 8 hrs for pain. polyethylene glycol 3350 17 GM powder in packet 17 g PO DAILY pediatric ebzpbeoh-sryd-wsc [Multi-Vitamins with Iron] 1 EACH tablet,chewable 1 ea PO DAILY guaifenesin 100 MG/5 ML liquid 15 ml PO Q6H PRN (Reason: Cough) mineral oil [Fleet Mineral Oil] 133 ML enema 1 ea RC PRN PRN (Reason: Constipation) Rx Instructions: insert 1 as needed if bisacodyl supp not effective on 4th day of no bm. hydrocodone-acetaminophen 1 TAB tablet 1 tab PO Q6HR PRN (Reason: Moderate Pain (Level 4-6)) naloxone [Narcan] 4 MG spray,non-aerosol 4 mg NS PRN PRN (Reason: Per Pharmacy) sennosides [Senna Lax] 8.6 MG tablet 17.2 mg PO BID PRN (Reason: Constipation) pantoprazole 40 MG tablet,delayed release (DR/EC) 40 mg PO DAILY furosemide 20 MG tablet 20 mg PO DAILY Qty: 1 0RF azithromycin 250 MG tablet 500 mg PO DAILY Qty: 2 0RF amoxicillin 250 MG capsule 500 mg PO Q6H 3 Days Qty: 24 0RF naloxone [Narcan] 4 mg/actuation spray,non-aerosol 4 mg intranasal Q2M Qty: 2 0RF Rx Instructions: spray 1 dose into ONE nostril; alternate nostrils w each dose until help arrives Print Language: Mohawk Stand Alone Forms: PCP List
[2025-03-11 06:42] LABS: BASOPHILS # (AUTO) 0.1 10^3/uL (0.0-0.1); BASOPHILS % (AUTO) 0.5 %; EOSINOPHILS # (AUTO) 0.1 10^3/uL (0.0-0.7); EOSINOPHILS % (AUTO) 0.5 %; HCT - HEMATOCRIT 50.8 % (37.0-47.0); HGB - HEMOGLOBIN 14.6 g/dL (12.0-16.0); LYMPHOCYTES # (AUTO) 1.1 10^3/uL (1.5-3.5); LYMPHOCYTES % (AUTO) 6.3 %; MEAN CORPUSCULAR HEMOGLOBIN 28.1 pg (27.0-31.0); MEAN CORPUSCULAR HGB CONC 28.7 g/dL (32.0-36.0); MEAN CORPUSCULAR VOLUME 97.7 fL (81.0-99.0); MEAN PLATELET VOLUME 9.5 fL (7.9-10.8); MONOCYTES % (AUTO) 5.7 %; NEUTROPHILS # (AUTO) 14.5 10^3/uL (1.5-6.6); NEUTROPHILS % (AUTO) 86.6 %; PLT - PLATELET COUNT 372 10^3/uL (130-450); RED CELL DISTRIBUTION WIDTH 14.4 % (12.0-15.0); WHITE BLOOD COUNT 16.7 x10^3/uL (4.8-10.8)
[2025-03-11] MEDS: SODIUM CHLORIDE 0.9% 1,000 ML IV STA ×2 (06:42→08:56)
[2025-03-11] MEDS: KETOROLAC 30 MG/ML VIAL IVP STA (06:43)
[2025-03-11 06:47] LABS: BILIRUBIN,URINE NEGATIVE (NEGATIVE); GLUCOSE, URINE (UA) NEGATIVE (NEGATIVE); KETONES,URINE (UA) NEGATIVE (NEGATIVE); LEUKOCYTE ESTERASE, URINE MODERATE (NEGATIVE); NITRITE,URINE POSITIVE (NEGATIVE); OCCULT BLOOD,URINE MODERATE (NEGATIVE); PROTEIN,URINE TRACE mg/dL (NEGATIVE); UROBILINOGEN,URINE 0.2 (NORMAL) E.U./dL (NORMAL)
--- OUTSIDE RECORDS SUMMARY | 2025-03-11 06:55 | EXTERNAL MEDICAL SUMMARY RPT | Continuity of Care Document ---
Author Organization [facility] Address [address] [place] [id number] Phone Problems date description facility 2024-12-16 01:58 Personal history of (healed) tr aumatic fracture [facility] 2024-12-18 07:44 [facility] 2024-12-19 14:55 Personal history of (healed) tr aumatic fracture [facility] 2024-12-25 09:34 Personal history of (healed) tr aumatic fracture [facility] 2024-12-26 07:30 Unspecified open wound, [facility] h ip[facility] 2024-12-26 08:23 Unspecified open wound, right h ip, initial encounter [facility] 2024-12-27 00:05 Unspecified open wound, right h ip, initial encounter [facility] Results/Labs test date facility value unit notes Result panel 1 AMPICILLIN 2024-12-16 01:30 [facility] (missing) (missing) (missing) CEFAZOLIN 2024-12-16 01:30 [facility] (missing) (missing) (missing) CUL,WOUND (AEROBIC) 2024-12-16 01:30 [facility] (missing) (missing) (missing) GENTAMICIN 2024-12-16 01:30 [facility] (missing) (missing) (missing) TOBRAMYCIN 2024-12-16 01:30 [facility] (missing) (missing) (missing) AMPICILLIN 2024-12-16 01:30 [facility] >=32 (missing) (missing) AMPICILLIN/SULBAC ORTIZ 2024-12-16 01:30 [facility] >=32 (missing) (missing) TRIMETHOPRIM/SULF AMETHOXAZOLE 2024-12-16 01:30 [facility] >=320 (missing) (missing) CIPROFLOXACIN 2024-12-16 01:30 [facility] >=4 (missing) (missing) CEFAZOLIN 2024-12-16 01:30 [facility] >=64 (missing) (missing) LEVOFLOXACIN 2024-12-16 01:30 [facility] >=8 (missing) (missing) CEFEPIME 2024-12-16 01:30 [facility] <=0.12 (missing) (missing) ERTAPENEM 2024-12-16 01:30 [facility] <=0.12 (missing) (missing) CEFTRIAXONE 2024-12-16 01:30 [facility] <=0.25 (missing) (missing) AMPICILLIN/SULBAC ORTIZ 2024-12-16 01:30 [facility] <=2 (missing) (missing) PIPERACILLIN/TAZO BACTAM 2024-12-16 01:30 [facility] <=4 (missing) (missing) CEFEPIME 2024-12-16 01:30 [facility] 0.5 (missing) (missing) CEFTRIAXONE 2024-12-16 01:30 [facility] 0.5 (missing) (missing) CUL,WOUND (AEROBIC) 2024-12-16 01:30 [facility] 11+ GROWTH (missing) (missing) CUL,WOUND (AEROBIC) 2024-12-16 01:30 [facility] 22+ GROWTH (missing) (missing) TOBRAMYCIN 2024-12-16 01:30 [facility] 4 (missing) (missing) GENTAMICIN 2024-12-16 01:30 [facility] 8 (missing) (missing) CUL,WOUND (AEROBIC) 2024-12-16 01:30 [facility] BETA STREP C: Susceptibility testing is not generally (missing) (missing) CUL,WOUND (AEROBIC) 2024-12-16 01:30 [facility] [employer] CC.1ORG 1 COLONY COUNT* (missing) (missing) CUL,WOUND (AEROBIC) 2024-12-16 01:30 [facility] CC.6COLONY COUNT (missing) (missing) CUL,WOUND (AEROBIC) 2024-12-16 01:30 [facility] CULTURE IN PROGRESS. RESULTS TO FOLLOW. (missing) (missing) CUL,WOUND (AEROBIC) 2024-12-16 01:30 [facility] GRAM STAIN: (missing) (missing) CUL,WOUND (AEROBIC) 2024-12-16 01:30 [facility] IDMIC.1ORG 1 ID/JAYESH COM* (missing) (missing) CUL,WOUND (AEROBIC) 2024-12-16 01:30 [facility] IDMICID/JAYESH COM* (missing) (missing) CUL,WOUND (AEROBIC) 2024-12-16 01:30 [facility] MODERATE WHITE BLOOD CELLS (missing) (missing) CUL,WOUND (AEROBIC) 2024-12-16 01:30 [facility] NO ORGANISMS SEEN (missing) (missing) CUL,WOUND (AEROBIC) 2024-12-16 01:30 [facility] ORG.1PRELIM ORG ID* (missing) (missing) CUL,WOUND (AEROBIC) 2024-12-16 01:30 [facility] PPROPROTEUS SPECIES TO BE FURTHER IDENTIFIED (missing) (missing) O:PROMIR 2024-12-16 01:30 [facility] PROMIRPROTEUS MIRABILISPROTEUS MIRABILIS (missing) (missing) O:PROSTU 2024-12-16 01:30 [facility] PROSTUPROVIDENCIA STUARTIIPROVIDENCIA STUARTII (missing) (missing) CUL,WOUND (AEROBIC) 2024-12-16 01:30 [facility] SENSNISENSITIVITIES NOT INDICATED FOR THIS ISOLATE (missing) (missing) O:STRGPC 2024-12-16 01:30 [facility] STRGPCBETA HEMOLYTIC STREP GROUP CBETA HEMOLYTIC STREP GROUP C (missing) (missing) CUL,WOUND (AEROBIC) 2024-12-16 01:30 [facility] YIDENTIFICATION AND SENSITIVITIES TO FOLLOW (missing) (missing) CUL,WOUND (AEROBIC) 2024-12-16 01:30 [facility] erythromycin, levofloxacin and vancomycin. (missing) (missing) CUL,WOUND (AEROBIC) 2024-12-16 01:30 [facility] indicated due to this organism's predictable susceptibility (missing) (missing) CUL,WOUND (AEROBIC) 2024-12-16 01:30 [facility] to ampicillin, penicillin, cephalosporins, clindamycin, (missing) (missing) Result panel 2 CUL,WOUND (AEROBIC) 2024-12-26 07:00 [facility] (missing) (missing) (missing) TRIMETHOPRIM/SULFA METHOXAZOLE 2024-12-26 07:00 [facility] >=320 (missing) (missing) CIPROFLOXACIN 2024-12-26 07:00 [facility] >=4 (missing) (missing) LEVOFLOXACIN 2024-12-26 07:00 [facility] >=8 (missing) (missing) CEFEPIME 2024-12-26 07:00 [facility] <=0.12 (missing) (missing) ERTAPENEM 2024-12-26 07:00 [facility] <=0.12 (missing) (missing) CEFTRIAXONE 2024-12-26 07:00 [facility] <=0.25 (missing) (missing) AMPICILLIN 2024-12-26 07:00 [facility] <=2 (missing) (missing) AMPICILLIN/SULBACT AM 2024-12-26 07:00 [facility] <=2 (missing) (missing) CEFAZOLIN 2024-12-26 07:00 [facility] <=4 (missing) (missing) PIPERACILLIN/TAZOB ACTAM 2024-12-26 07:00 [facility] <=4 (missing) (missing) CUL,WOUND (AEROBIC) 2024-12-26 07:00 [facility] 11+ GROWTH (missing) (missing) TOBRAMYCIN 2024-12-26 07:00 [facility] 4 (missing) (missing) GENTAMICIN 2024-12-26 07:00 [facility] 8 (missing) (missing) CUL,WOUND (AEROBIC) 2024-12-26 07:00 [employer] CC.1ORG 1 COLONY COUNT* (missing) (missing) CUL,WOUND (AEROBIC) 2024-12-26 07:00 [employer] CC.6COLONY COUNT (missing) (missing) CUL,WOUND (AEROBIC) 2024-12-26 07:00 [facility] CULTURE IN PROGRESS. RESULTS TO FOLLOW. (missing) (missing) CUL,WOUND (AEROBIC) 2024-12-26 07:00 [facility] FEW WHITE BLOOD CELLS (missing) (missing) CUL,WOUND (AEROBIC) 2024-12-26 07:00 [facility] GRAM STAIN: (missing) (missing) CUL,WOUND (AEROBIC) 2024-12-26 07:00 [email or web address] IDMIC.1ORG 1 ID/JAYESH COM* (missing) (missing) CUL,WOUND (AEROBIC) 2024-12-26 07:00 [facility] NO ORGANISMS SEEN (missing) (missing) CUL,WOUND (AEROBIC) 2024-12-26 07:00 [facility] ORG.1PRELIM ORG ID* (missing) (missing) CUL,WOUND (AEROBIC) 2024-12-26 07:00 [facility] PPROPROTEUS SPECIES TO BE FURTHER IDENTIFIED (missing) (missing) O:PROMIR 2024-12-26 07:00 [facility] PROMIRPROTEUS MIRABILISPROTEUS MIRABILIS (missing) (missing) CUL,WOUND (AEROBIC) 2024-12-26 07:00 [facility] YIDENTIFICATION AND SENSITIVITIES TO FOLLOW (missing) (missing) Social History date description facility
[2025-03-11 06:57] LABS: BACTERIA,URINE Moderate /HPF (None Seen); CLARITY,URINE HAZY (CLEAR); SQUAMOUS EPITHELIAL CELL,UR FEW Squamous (<= Few); WBC CLUMPS,URINE PRESENT; WBC,URINE >25 /HPF (0-5)
[2025-03-11 07:02] LABS: LIPASE < 10 U/L (11-82)
[2025-03-11 07:03] LABS: ALBUMIN 3.3 g/dL (3.2-5.5); ALBUMIN/GLOBULIN RATIO 0.9 (1.0-2.2); ALKALINE PHOSPHATASE 103 IU/L (42-121); ALT ALANINE AMINOTRANSFERASE 4 IU/L (10-60); AST ASPARTATE AMINOTRANSFERASE 14 IU/L (10-42); BILIRUBIN,TOTAL 0.6 mg/dL (0.2-1.0); BUN - BLOOD UREA NITROGEN 18 mg/dL (6-20); CALCIUM 8.9 mg/dL (8.5-10.3); CARBON DIOXIDE - CO2 37 mmol/L (21-32); CHLORIDE 95 mmol/L (101-111); CREATININE 0.5 mg/dL (0.6-1.3); GFR - MDRD 119 (>89); GLUCOSE 173 mg/dL (74-104); SODIUM 139 mmol/L (135-145); TOTAL PROTEIN 6.8 g/dL (6.4-8.9)
[2025-03-11] MEDS: ACETAMINOPHEN 500 MG TABLET PO STA (07:03)
[2025-03-11] MEDS: ACETAMINOPHEN 650 MG SUPP PR STA (07:18)
[2025-03-11] MEDS: ACETAMINOPHEN 1,000 MG/100 ML 1,000 MG/100 ML BAG IV ONE (07:28)
[2025-03-11] MEDS: cefTRIAXone 2 GM in SODIUM CHLORIDE 0.9% MINIBAG 100 ML IV STA (07:41)
[2025-03-11 07:46] LABS: CORONAVIRUS 229E-RESP PCR NOT DETECTED; CORONAVIRUS HKU1-RESP PCR NOT DETECTED; CORONAVIRUS NL63-RESP PCR NOT DETECTED; CORONAVIRUS OC43-RESP PCR NOT DETECTED; HUMAN METAPNEUMOVIRUS NOT DETECTED; SARS-CoV-2 -RESP PCR PANEL NOT DETECTED
[2025-03-11 07:47] LABS: B. PARAPERTUSSIS- RESP PCR PAN NOT DETECTED; B. PERTUSSIS- RESP PCR PANEL NOT DETECTED; C. PNEUMONIAE- RESP PCR PANEL NOT DETECTED; INFLUENZA A- RESP PCR PANEL NOT DETECTED; INFLUENZA B - RESP PCR PANEL NOT DETECTED; M. PNEUMONIAE- RESP PCR PANEL NOT DETECTED; PARAINFLUENZA VIRUS 1 NOT DETECTED; PARAINFLUENZA VIRUS 2 NOT DETECTED; PARAINFLUENZA VIRUS 4 NOT DETECTED; RHINOVIRUS/ENTEROVIRUS NOT DETECTED; RSV- RESP PCR PANEL NOT DETECTED
[2025-03-11] MEDS ORDERED: iohexoL-300 100 ML VIAL ONE (08:00)
--- NOTE | 2025-03-11 08:02 | ED Physician Documentation ---
ED Addendum Addendum Addendum: 79-year-old female signed out to me by Dr. Carmona, see her note for full H&P on this patient. Briefly she does have some baseline cognitive deficits, but was more altered than usual. Noted to have a fever and was sent here for evaluation. Found to have a UTI. Respiratory panel does not show any acute abnormalities. Lactate is normal. White blood cell count elevated at 16,000. Blood cultures drawn. Given Rocephin and IV fluids. She is in atrial fibrillation, heart rate is staying at around [address] abdomen pelvis was performed to exclude any intra-abdominal pathology since the patient is difficult to obtain a history from. Does have a periumbilical hernia that is easily reducible. EKG done at 6:07 AM. 136 bpm. Atrial fibrillation. Borderline axis deviation normal QRS. No ST changes consistent with ischemia Discussed the case with the hospitalist and admit for further care. This document was made in part using voice recognition software. While efforts are made to proofread this document, sound alike and grammatical errors may occur. Discharge Plan Discharge Patient Disposition: [facility] DC/Xfer Condition: Stable Clinical Impression: Acute alteration in mental status, Atrial fibrillation with RVR Fever Qualifiers: Fever type: unspecified Qualified Code(s): R50.9 - Fever, unspecified UTI (urinary tract infection) Qualifiers: Urinary tract infection type: site unspecified Hematuria presence: without hematuria Qualified Code(s): N39.0 - Urinary tract infection, site not specified Interventions: ED Admission Assessment Last Done: 03/11/25 09:58
--- NOTE | 2025-03-11 08:06 | XRAY Report ---
PROCEDURE: XR Chest 1V INDICATIONS: R CP, fever TECHNIQUE: One view of the chest was acquired. COMPARISON: 09/30/2024. FINDINGS: Surgical changes and devices: None. Lungs and pleura: No pleural effusions or pneumothorax. Mild left basilar atelectasis. Otherwise, no consolidation. Mediastinum: Mediastinal contours appear normal. Heart size is normal. Bones and chest wall: No suspicious bony lesions. Overlying soft tissues appear unremarkable. IMPRESSION: No acute cardiopulmonary process. Findings are concordant with preliminary interpretation provided by [facility]. Reviewed by: Eric Long MD on 03/11/2025 8:05 AM PDT Approved by: Eric Long MD on 03/11/2025 8:05 AM PDT Station ID: [id number]
[2025-03-11] MEDS: iohexoL-300 100 ML VIAL IVP ONE (08:26)
--- NOTE | 2025-03-11 08:42 | CT Report ---
PROCEDURE: CT Abdomen/Pelvis W INDICATIONS: UTI, flank pain CONTRAST: 100ml omni 300 TECHNIQUE: After the administration of intravenous contrast, a CT scan of the abdomen and pelvis was performed. Images were recorded and evaluated at appropriate window settings. Reformats: coronal and sagittal. F or radiation dose reduction, the following was used: automated exposure control, adjustment of mA and /or kV according to patient size. COMPARISON: 04/01/2021 FINDINGS: Image quality: Diagnostic. Lower chest: Small right pleural effusion with adjacent atelectasis. Trace left pleural effusion. Cor onary and valvular calcifications. Liver: No solid mass. Gallbladder: No radiopaque stones or wall thickening. Biliary tree: No intrahepatic or extrahepatic dilation, accounting for age. Spleen: No splenomegaly. Pancreas: No pancreatic ductal dilation. Adrenals: No adrenal nodule. Kidneys and ureters: No hydronephrosis. No renal cystic lesion which requires follow up. No solid mas s. Stomach, bowel and peritoneum: Prior gastric bypass. No gastric or small bowel dilation. No abnormal wall thickening. No pathologic free fluid. Diverticulosis without evidence of diverticulitis. Normal appendix. Lymph nodes: No central or retroperitoneal adenopathy. Vessels: No infrarenal aortic aneurysm. Atherosclerotic vascular calcifications. Patent portal vein. PELVIS Reproductive organs: Unremarkable. Bladder: Decompressed, limiting evaluation. Pelvic lymph nodes: No pelvic adenopathy by size criteria. Bones: No aggressive osseous abnormality. Right hip arthroplasty with surrounding soft tissue attenua tion with some calcification is progressed compared to prior. There is posterior and superior migrati on of the hip arthroplasty with chronic osseous remodeling/fracture deformities of the acetabulum. De creased osseous mineralization. Degenerative changes of the spine. Other: Umbilical hernia containing fat.. IMPRESSION: 1.No acute findings within the abdomen or pelvis. 2.Small right and trace left pleural effusions with adjacent atelectasis. 3.There is posterior and superior migration of the right hip arthroplasty with osseous remodeling/fra cture deformities of the acetabulum. 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 Recommend nonurgent orthopedic consultation. 4.Diverticulosis without evidence of acute diverticulitis. Reviewed by: Eric Long MD on 03/11/2025 8:40 AM PDT Approved by: Eric Long MD on 03/11/2025 8:40 AM PDT Station ID: [id number]
[2025-03-11] MEDS: diltiaZEM INJ 5 MG/ML VIAL IVP STA (08:56)
--- OUTSIDE RECORDS SUMMARY | 2025-03-11 09:23 | EXTERNAL MEDICAL SUMMARY RPT | Continuity of Care Document ---
Author Organization [facility] Address [address] [place] [id number] Phone Problems date description facility 2024-12-16 01:58 Personal history of (healed) tr aumatic fracture [facility] 2024-12-18 07:44 [facility] 2024-12-19 14:55 Personal history of (healed) tr aumatic fracture [facility] 2024-12-25 09:34 Personal history of (healed) tr aumatic fracture [facility] 2024-12-26 07:30 Unspecified open wound, right h ip[facility] 2024-12-26 08:23 Unspecified open wound, right h ip, initial encounter [facility] 2024-12-27 00:05 Unspecified open wound, right h ip, initial encounter [facility] Results/Labs test date facility value unit [...] generally (missing) (missing) CUL,WOUND (AEROBIC) 2024-12-16 01:30 [facility] [employer] CC.1ORG 1 COLONY COUNT* (missing) (missing) CUL,WOUND (AEROBIC) 2024-12-16 01:30 [facility] CC.6COLONY COUNT (missing) (missing) CUL,WOUND (AEROBIC) 2024-12-16 01:30 [facility] CULTURE IN PROGRESS. RESULTS TO FOLLOW. (missing) (missing) CUL,WOUND (AEROBIC) 2024-12-16 01:30 [facility] GRAM STAIN: (missing) (missing) CUL,WOUND (AEROBIC) 2024-12-16 01:30 [facility] IDMIC.1ORG 1 ID/JAYESH COM* (missing) (missing) CUL,WOUND (AEROBIC) 2024-12-16 01:30 [facility] IDMICID/JAYESH COM* (missing) (missing) CUL,WOUND (AEROBIC) 2024-12-16 01:30 [facility] MODERATE WHITE BLOOD CELLS (missing) (missing) CUL,WOUND (AEROBIC) 2024-12-16 01:30 [facility] NO ORGANISMS SEEN (missing) (missing) CUL,WOUND (AEROBIC) 2024-12-16 01:30 [facility] ORG.1PRELIM ORG ID* (missing) (missing) CUL,WOUND (AEROBIC) 2024-12-16 01:30 [facility] PPROPROTEUS SPECIES TO BE FURTHER IDENTIFIED (missing) (missing) O:PROMIR 2024-12-16 01:30 [facility] PROMIRPROTEUS MIRABILISPROTEUS MIRABILIS (missing) (missing) O:PROSTU 2024-12-16 01:30 [facility] PROSTUPROVIDENCIA STUARTIIPROVIDENCIA STUARTII (missing) (missing) CUL,WOUND (AEROBIC) 2024-12-16 01:30 [facility] SENSNISENSITIVITIES NOT INDICATED FOR THIS ISOLATE (missing) (missing) O:STRGPC 2024-12-16 01:30 [facility] STRGPCBETA HEMOLYTIC STREP GROUP CBETA HEMOLYTIC STREP GROUP C (missing) (missing) CUL,WOUND (AEROBIC) 2024-12-16 01:30 [facility] YIDENTIFICATION AND SENSITIVITIES TO FOLLOW (missing) (missing) CUL,WOUND (AEROBIC) 2024-12-16 01:30 [facility] erythromycin, levofloxacin and vancomycin. (missing) (missing) CUL,WOUND (AEROBIC) 2024-12-16 01:30 [facility] indicated due to this organism's predictable susceptibility [...] 8 (missing) (missing) CUL,WOUND (AEROBIC) 2024-12-26 07:00 [facility] CC.1ORG 1 COLONY COUNT* (missing) (missing) CUL,WOUND (AEROBIC) 2024-12-26 07:00 [facility] CC.6COLONY COUNT (missing) (missing) CUL,WOUND (AEROBIC) 2024-12-26 07:00 [facility] CULTURE IN PROGRESS. RESULTS TO FOLLOW. (missing) (missing) CUL,WOUND (AEROBIC) 2024-12-26 07:00 [facility] FEW WHITE BLOOD CELLS (missing) (missing) CUL,WOUND (AEROBIC) 2024-12-26 07:00 [facility] GRAM STAIN: (missing) (missing) CUL,WOUND (AEROBIC) 2024-12-26 07:00 [facility] IDMIC.1ORG 1 ID/JAYESH COM* (missing) (missing) CUL,WOUND (AEROBIC) 2024-12-26 07:00 [facility] NO ORGANISMS SEEN (missing) (missing) CUL,WOUND (AEROBIC) 2024-12-26 07:00 [facility] ORG.1PRELIM ORG ID* (missing) (missing) CUL,WOUND (AEROBIC) 2024-12-26 07:00 [facility] PPROPROTEUS SPECIES TO BE FURTHER IDENTIFIED (missing) (missing) O:PROMIR 2024-12-26 07:00 [facility] PROMIRPROTEUS MIRABILISPROTEUS MIRABILIS (missing) (missing) CUL,WOUND (AEROBIC) 2024-12-26 07:00 [facility] YIDENTIFICATION AND SENSITIVITIES TO FOLLOW (missing) (missing) Result panel 3 WBC,URINE 2025-03-11 06:30 [facility] >25 /hpf URINE CATHETERIZED SPECIFIC GRAVITY,URINE 2025-03-11 06:30 [facility] >=1.030 (missing) (missing) UROBILINOGEN,URIN E 2025-03-11 06:30 [facility] 0.2 (NORMAL) e.u./dl (missing) RBC,URINE 2025-03-11 06:30 [facility] 11-25 /hpf (missing) PH,URINE 2025-03-11 06:30 [facility] 6.0 ph (missing) SQUAMOUS EPITHELIAL CELL,UR 2025-03-11 06:30 [facility] FEW Squamous (missing) (missing) CLARITY,URINE 2025-03-11 06:30 [facility] HAZY (missing) (missing) UR CULTURE IF IND 2025-03-11 06:30 [facility] INDICATED (missing) (missing) URINE MICROSCOPIC INDICATED? 2025-03-11 06:30 [facility] INDICATED (missing) (missing) LEUKOCYTE ESTERASE, URINE 2025-03-11 06:30 [facility] MODERATE (missing) (missing) OCCULT BLOOD,URINE 2025-03-11 06:30 [facility] MODERATE (missing) (missing) BACTERIA,URINE 2025-03-11 06:30 [facility] Moderate /hpf (missing) BILIRUBIN,URINE 2025-03-11 06:30 [facility] NEGATIVE (missing) Bilirubin can be influenced by color interference. Please correlate positive results with clinical presentation GLUCOSE, URINE (UA) 2025-03-11 06:30 [facility] NEGATIVE mg/dl (missing) KETONES,URINE (UA) 2025-03-11 06:30 [facility] NEGATIVE mg/dl (missing) NITRITE,URINE 2025-03-11 06:30 [facility] POSITIVE (missing) (missing) WBC CLUMPS,URINE 2025-03-11 06:30 [facility] PRESENT (missing) (missing) PROTEIN,URINE 2025-03-11 06:30 [facility] TRACE mg/dl (missing) COLOR,URINE 2025-03-11 06:30 [facility] YELLOW (missing) URINE CATHETERIZED Result panel 4 LIPASE 2025-03-11 06:35 [facility] < 10 u/l As of May 2023 testing method has changed, this may include reference ranges. NUCLEATED RED BLOOD CELLS AUTO 2025-03-11 06:35 [facility] 0.0 /100wbc (missing) NRBC ABSOLUTE COUNT (AUTO) 2025-03-11 06:35 [facility] 0.00 x10 3/ul (missing) BASOPHILS # (AUTO) 2025-03-11 06:35 [facility] 0.1 10 3/ul (missing) EOSINOPHILS # (AUTO) 2025-03-11 06:35 [facility] 0.1 10 3/ul (missing) CREATININE 2025-03-11 06:35 [facility] 0.5 mg/dl As of May 2023 testing method has changed, this may include reference ranges. BILIRUBIN,TOTAL 2025-03-11 06:35 [facility] 0.6 mg /dl As of May 2023 testing method has changed, this may include reference ranges. ALBUMIN/GLOBULIN RATIO 2025-03-11 06:35 [facility] 0.9 (missing) (missing) MONOCYTES # (AUTO) 2025-03-11 06:35 [facility] 1.0 10 3/ul (missing) LYMPHOCYTES # (AUTO) 2025-03-11 06:35 [facility] 1.1 10 3/ul (missing) ALKALINE PHOSPHATASE 2025-03-11 06:35 [facility] 103 iu/l As of May 2023 testing method has changed, this may include reference ranges. GFR - MDRD 2025-03-11 06:35 [facility] 119 (vanessa arredondo) Social History date description facility
[2025-03-11] MEDS ORDERED: ONDANSETRON 4 MG/2 ML VIAL IVP PRN (09:46)
[2025-03-11] MEDS: SODIUM CHLORIDE 0.9% 1,000 ML IV SCH (10:20)
--- NOTE | 2025-03-11 14:06 | PHARMACY PROGRESS NOTE ---
Best Possible Medication History Admit Date and Time: 03/11/25 [id number] Home Medications Medication Instructions Recorded Confirmed Type albuterol sulfate 90 mcg/actuation 2 inh inhalation Q4H PRN shortness 08/06/24 03/11/25 History breath activated powder inhaler of breath (ProAir RespiClick) ascorbic acid (vitamin C) 500 mg 500 mg PO DAILY 08/06/24 03/11/25 History chewable tablet (C-500) aspirin 81 mg chewable tablet 81 mg PO DAILY 08/06/24 03/11/25 History bisacodyl 10 mg rectal suppository 10 mg WV ONCE PRN Constipation 08/06/24 03/11/25 History carboxymethylcellulose sodium 0.5 2 ea ophthalmic (eye) TID dry eyes 08/06/24 03/11/25 History % eye drops in a dropperette (Refresh Plus) cholecalciferol (vitamin D3) 25 50 mcg PO DAILY 08/06/24 03/11/25 History mcg (1,000 unit) tablet clopidogrel 75 mg tablet (Plavix) 75 mg PO DAILY 08/06/24 03/11/25 History ferrous sulfate 325 mg (65 mg 325 mg PO DAILY 08/06/24 03/11/25 History iron) tablet guaifenesin 100 mg/5 mL oral liquid 15 ml PO Q6H PRN Cough 08/06/24 03/11/25 History mineral oil (Fleet Mineral Oil 1 ea RC PRN PRN Constipation 08/06/24 03/11/25 History enema) naloxone 4 mg/actuation nasal 1 spray intranasal PRN PRN opioid 08/06/24 03/11/25 History spray (Narcan) overdose pantoprazole 40 mg tablet,delayed 40 mg PO DAILY 08/06/24 03/11/25 History release polyethylene glycol 3350 17 gram 17 g PO DAILY PRN constipation 08/06/24 03/11/25 History oral powder packet saliva stimulant comb. no.3 15 ml PO DAILY 08/06/24 03/11/25 History (Biotene Moisturizing Mouth mucosal spray) sennosides 8.6 mg tablet (Senna 17.2 mg PO DAILY PRN Constipation 08/06/24 0 03/11/25 History Lax) furosemide 20 mg tablet 20 mg PO DAILY new chf #1 tab 08/07/24 03/11/25 Rx acetaminophen 325 mg tablet 650 mg PO Q4H PRN pain 03/11/25 03/11/25 History camphor-menthol 0.2 %-3.5 % 1 applic topical Q8HR 03/11/25 03/11/25 History topical gel duloxetine 20 mg capsule,delayed 20 mg PO QAM 03/11/25 03/11/25 History release sprinkle (Drizalma Sprinkle) multivitamin (Daily Multi-Vitamin 1 tab PO DAILY 03/11/25 03/11/25 History tablet) oxycodone 5 mg tablet 5 mg PO Q12H PRN breakthrough pain 03/11/25 03/11/25 History pregabalin 225 mg capsule 225 mg PO BID 03/11/25 03/11/25 History Processed by: Pharmacy Medications reviewed in ED?: No Medication History completed: Yes Patient Interview: Pt unable to participate Secondary Source(s): Facility [facility] as ONLY source (From [facility]) [facility] Statement: As the person ultimately responsible for medication therapy, providers are able to order a medication from an existing home medication list in [facility] via the "Reconcile Routine" prior to Confirmation of that medication by pit crew support worker. Such practice is discouraged except when the physician, in their clinical judgment, deems that a medical need exists for a medication without regard to previous use.
--- NOTE | 2025-03-11 16:51 | ADVANCE CARE PLANNING NOTE ---
Advance Care Planning Planning Encounter Date: 03/11/25 Time: 16:46 Purpose: establish code status and discuss care goals Parties in Attendance: hospitalitst, patient and patient's daughter/DPOA Sarika Lyon Decisional Capacity of the Patient: impaired w improving encephalopathy from UTI, and baseline mild dementia. Daughter is making decisions but running them past mom Diagnosis for Encounter (1) Acute alteration in mental status: Summary: lives at SNF due to immobility. Presented as sudden change in mental status. This morning was moaning and nonverbal and sent to ER. Found to have encephalopathy from UTI. 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. She retired and was living in [place]. She is and has 3 children. She began having orthopedic problems in 2011. Increasing mobility issues. Those are delineated in her objective medical story. She then came to live with her [place] in [place] She lasted with her daughter about a year but had a noticeable decline with memory and increasing depression. She was transition to an assisted living facility a nd had a tumultuous experience with various assisted living facilities and usp facilities unavailable [facility], and eventually ended up back [place]. She has become more and more obese due to her sedentary existence. Her orthopedic injuries, and spinal stenosis have resulted in and immobility. Her right foot is turned inward and right leg slightly turned inward. She has had heel ulcers, buttocks ulcers. Recurrent UTIs. When she was living with her daughter in 2019 she was at least able to ambulate with a walker. Her DPOA is her daughter. Sarika Lyon. She lives in [place]. Mom's main discomfort is chronic pain. She is also plagued by a waxing and waning dysthymia. Memory loss is present but she still is oriented to person, place, and situation for the most part. She and her daughter seem to have a loving relationship with good communication between the 2 of them when I watched them talk to 1 another during this encounter. Although previous POLST form was a full code, the daughter states that there was a new POLST form filled out that made the patient a DO NOT RESUSCITATE. Somewhere that was lost in the multiple shuffles between nursing homes. She and mom both would like to state that she is a DO NOT RESUSCITATE and are amenable to filling out a new POLST form while she is here. Goals were discussed. The patient has chronic nosebleeds from her oxygen given to her at night. The patient is on Plavix and aspirin. I talked about the fact that she is on a platelet inhibitor for history of TIAs as well as for intermi ttent A-fib. The daughter and the patient do not want her on Coumadin or a DOAC. After discussing the risk of stroke, the daughter feels that at least I will keep her on the platelet inhibitors and deal with the nosebleeds. Daughter would also like to see mom regain some of her strength in her arms. She does not have any expectations of mom will become fully mobile again, even with use of walker. But she would like to see mom being more independent by the use of her arms and strengthening her arms. So she would like to see us do PT and OT here. Objective/Medical Story: Morbidly obese female who is essentially bedbound. 1. She has severely reduced mobility due to multiple falls/sciatica/spinal stenosis starting in 2011. A hip fracture resulted in a hip arthroplasty and then she developed postoperative infection that year. Overall, she has had 5 surgeries with 2 revisions in that same hip until 2018. She was living in [place] and she came to live with her daughter in the Fall of 2018. She was using a Front wheeled walker. By February 2020, she was not able to live with her daughter and she was placed at [facility] in [place], [place]. These placements have to take into account that she is a combined Medicare/Medicaid patient. From [place] she went to [facility] in [place] in December 2020. A POLST form was filled out at that time and she was a Full Code. On November 21, 2021, she fell in the [facility] From [place] (she could not return due to high level of care needs) she was transferred to a [place] SNF affiliated with [facility]. She then had a fall at [facility] usp facility in November 2021 with a distal femur periprosthetic fracture of the right femur. a right distal femur periprosthetic fracture. Orthopedics found the fracture to be nonoperable and they recommended nonweightbearing and leg immobilizer. Hemoglobin was 7.1. She returned to assisted living facility in [facility] November 22, 2021. She was rehospitalized at [facility] in November 2021 for a UTI as well as continued iron deficiency anemia. She slid out of her wheelchair there. After hospitalization she was transferred to [facility] in [place]. From there she was transferred to [facility] to be closed to her daughter. 2. She has spinal stenosis. Sciatica. She was sent to see Maddie Bernal in Jun for the back pain and the hip pain. This was also after some of her antidepressants were modified. Dr. Bernal felt that the patient's hip condition was consistent with complex right hip and revision arthroplasty with residual numbness and difficulty. A component of her symptoms was right sided sciatica and it was recommended she return to see anesthesia for epidural steroid injection. Is not clear if she ever received that treatment. 3. Unfortunately she has gained weight with her immobility. In August 2019 she weighed 176 pounds (80 kg) and had a BMI of 26.27. InSeptember, she weighed 111.13 kg and a BMI of 36.2. Currently she is 110.5 kg. 4. She had an episode of chest pain and shortness of breath for which she was seen in a walk-in clinic. Chest x-ray and EKG and troponins were negative at that visit. She was not hypoxic. CT pulmonary angiogram was negative. 5. Starting in approximately 2019 she has been having iron deficiency anemia. That was transfused for hemoglobin of 7.1 when she was treated for her fall and femur fracture in November 2021. 6. Remote history of asthma 7. Diabetes with nephropathy. Used to be on metformin. 8. Depression with anxiety, also major depressive disorder 9. Hypertriglyceridemia 10. Chronic pain syndrome 11. Urinary incontinence with bladder sling 12. 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 Also in 2006. 14. History of atrial fibrillation dating to [place]. Had an episode of atrial fibrillation with her July 2024 admission. Unclear why she is not on a DOAC. Anticoagulation is with aspirin and Plavix. #15 rotator cuff disease with both rotator cuffs repaired. 16. Left wrist carpal tunnel repair 17. Right knee replacement for osteoarthritis 18. Deep tissue injury of heels due to immobility as well as current skin tunnel in buttock. Goals of Care: 1. Complete a POLST form 2. Increase strength in arms 3 complete treatment for this current acute episode of UTI. They still want treatment of any acute illnesses for the foreseeable future. We discussed pneumonia, GI bleed, recurrent skin ulcers. They still want treatment for any of these things if they occur. Plan: 1. New POLST form with. Patient is DO NOT RESUSCITATE with limited interventions. 2. I have ordered PT and OT 3. If the quality of her life deteriorates further with progressive dementia and inability to interact with her family and loved ones, daughter and she may consider transitioning to hospice with comfort measures. Code Status: Do Not Attempt Resuscitation Time spent on advance care plannin minutes
[2025-03-11] MEDS: PETROLATUM WHITE 5 GM PACKET TOP PRN (17:23)
[2025-03-11] MEDS: SODIUM CHLORIDE FLUSH 0.9% 10 ML SYRINGE IVP SCH (17:23)
[2025-03-11] MEDS: ONDANSETRON ODT 4 MG TABLET TL PRN (17:26)
--- NOTE | 2025-03-11 17:42 | HISTORY & PHYSICAL EXAMINATION ---
Chief Complaint Chief Complaint Chief Complaint: AMS History of Present Illness Admitted From Admitted From:: [facility] History Obtained From Records Reviewed: [facility] and [facility] History obtained from: Patient Exam Limitations: acutely altered History of Present Illness HPI Comment/Other: Anne is an 79-year-old female with a history of CHF, HTN, and atrial fibrillation who was brought to the ED with acute altered mental status from [facility]. Staff at [facility] reported that she was less talkative than usual. She had no nausea, vomiting, fever, or shortness of breath on admission. In the ED, she was found to have an acute UTI and was started on IV ceftriaxone. A complete history and review of systems was not obtained, due the the patient's altered mentation. She is currently immobile and appears lethargic and pale. The patient is oriented to person and place, but not date/time. The patient thought it was March and then April. When she was told today's date, she became upset about missing a meeting with her daughter Sarika and was in mild distress. She complained that her right leg was "paralyzed". Meds/Allgy Home Medications Ambulatory Orders Medication Instructions Recorded Confirmed albuterol sulfate 90 mcg/actuation 2 inh inhalation Q4H PRN shortness 08/06/24 03/11/25 breath activated powder inhaler of breath (ProAir RespiClick) ascorbic acid (vitamin C) 500 mg 500 mg PO DAILY 08/06/24 03/11/25 chewable tablet (C-500) aspirin 81 mg chewable tablet 81 mg PO DAILY 08/06/24 03/11/25 bisacodyl 10 mg rectal suppository 10 mg IA ONCE PRN Constipation 08/06/24 03/11/25 carboxymethylcellulose sodium 0.5 2 ea ophthalmic (eye) TID dry eyes 08/06/24 03/11/25 % eye drops in a dropperette (Refresh Plus) cholecalciferol (vitamin D3) 25 50 mcg PO DAILY 08/06/24 03/11/25 mcg (1,000 unit) tablet clopidogrel 75 mg tablet (Plavix) 75 mg PO DAILY 08/06/24 03/11/25 ferrous sulfate 325 mg (65 mg 325 mg PO DAILY 08/06/24 03/11/25 iron) tablet guaifenesin 100 mg/5 mL oral liquid 15 ml PO Q6H PRN Cough 08/06/24 03/11/25 mineral oil (Fleet Mineral Oil 1 ea RC PRN PRN Constipation 08/06/24 03/11/25 enema) naloxone 4 mg/actuation nasal 1 spray intranasal PRN PRN opioid 08/06/24 03/11/25 spray (Narcan) overdose pantoprazole 40 mg tablet,delayed 40 mg PO DAILY 08/06/24 03/11/25 release polyethylene glycol 3350 17 gram 17 g PO DAILY PRN constipation 08/06/24 03/11/25 oral powder packet saliva stimulant comb. no.3 15 ml PO DAILY 08/06/24 03/11/25 (Biotene Moisturizing Mouth mucosal spray) sennosides 8.6 mg tablet (Senna 17.2 mg PO DAILY PRN Constipation 08/06/24 03/11/25 Lax) furosemide 20 mg tablet 20 mg PO DAILY new chf #1 tab 08/07/24 03/11/25 acetaminophen 325 mg tablet 650 mg PO Q4H PRN pain 03/11/25 03/11/25 camphor-menthol 0.2 %-3.5 % 1 applic topical Q8HR 03/11/25 03/11/25 topical gel duloxetine 20 mg capsule,delayed 20 mg PO QAM 03/11/25 03/11/25 release sprinkle (Drizalma Sprinkle) multivitamin (Daily Multi-Vitamin 1 tab PO DAILY 03/11/25 03/11/25 tablet) oxycodone 5 mg tablet 5 mg PO Q12H PRN breakthrough pain 03/11/25 03/11/25 pregabalin 225 mg capsule 225 mg PO BID 03/11/25 03/11/25 Allergies Allergies Allergy/AdvReac Type Severity Reaction Status Date / Time latex Allergy Itching Verified 09/30/24 21:04 Sulfa (Sulfonamide Allergy Unknown Verified 09/30/24 21:04 Antibiotics) opiods Allergy Intermediate Rash Uncoded 09/30/24 21:04 PFSH Active Problems All Active Problems (Updated 03/11/25 @ 19:00 by Mercedes Solis) Hyperkalemia (Acute) Decubitus ulcer, buttock (Acute) Sepsis (Acute) Atrial fibrillation with RVR (Acute) Acute alteration in mental status (Acute) UTI (urinary tract infection) (Acute) Fever (Acute) Immobility (Acute) Hypertension (Acute) Diabetes mellitus (Acute) Obstructive sleep apnea (Acute) Acute respiratory failure with hypoxia (Acute) Pulmonary edema (Acute) Respiratory failure (Acute) Pneumonia (Acute) Congestive heart failure (Acute) Back pain (Acute) Social History Social History Smoking Status: Never smoker Do you dip or chew tobacco?: No Do you vape?: No Living arrangement: [facility] Living Condition: Alone Relationship: Caregiver Level: Dependent Do you feel safe in your home environment?: Yes Suffered physical, verbal, emotional, or financial abuse?: No History of Abuse: No ETOH Use: Frequency: Occasional Number of Amount/day: 1 POLST Patient has POLST: Yes POLST Status: Full Code Review of Systems Status of ROS: unobtainable due to mental status (Patient was unable to answer most questions) Constitutional Reports: Weakness Neurological Reports: Weakness in extremities (Patient reported her right leg is "paralyzed") Psychiatric Reports: Other (Patient expressed worry and became upset about today's date.) Prior Level of Functionality: Patient has been immobile for years. Exam Exam Vital Signs: Vital Signs x48h Temp Pulse Resp BP Pulse Ox O2 Flow Rate 03/11/25 17:04 36.7 C 94 16 106/73 95 2 Constitutional Mild distress. Pallor. Well-nourished. Immobile. HENMT normocephalic, head/scalp atraumatic (Complaint of right head tenderness--no lesion seen on exam.), hearing grossly normal bilaterally and external nose normal Oral mucous membranes are dry. Patient has mild epistaxis. Eyes PERRL and no scleral icterus Neck/C-Spine visual inspection normal and supple Chest inspection of chest normal and palpation of chest abnormal (Patient had tenderness to palpation.) Respiratory breath sounds equal bilaterally, normal respiratory effort and clear to auscultation bilaterally Cardiovascular normal heart rate noted, rhythm abnormal (irregular) (atrial fibrillation) and no murmur Gastrointestinal abdomen soft to palpation and nontender to palpation Obese abdomen; scars. Opening that tunnels into her right upper buttock 6.4cm. Extremities 2+ pitting edema bilaterally. UE strength 2/5. LE immobility. Right hip scar, right leg internally rotated, and knee scar. Neurology gait normal (Immobile) Psychiatry cooperative A&O x2. Patient did not know date or time. Worried and mildly distressed. Skin skin color abnormal (pale), no rash and no lesions Sepsis Event Note (H) Evaluation Current Stage of Sepsis: Sepsis Possible source of Sepsis: positive Genitourinary Sepsis Criteria Sepsis Criteria: Suspected or Documented, Recorded Heart Rate greater than 90 bpm, Recorded Respiratory Rate greater than 20 and WBC count greater than 12,000 or less than 4000 Conclusion/Plan Problem List (1) Sepsis: Plan: Patient is altered and has been tachycardic with HR up to 130 bpm and tachypneic with RR up to 28. Patient's WBCs are significantly elevated, and urinalysis revealed acute UTI with presence of blood and leukocyte esterase. -Continue IV Rocephin and trend WBCs and clinical status. -Blood and urine cultures were collected to identify pathogen and adjust antibiotics as indicated. -Repeat blood cultures as indicated. (2) Acute alteration in mental status: Plan: Patient was brought into ED by EMS from [facility] with AMS. Staff at [facility] reported that she changed from her baseline and had a fever, according to the record. On admission, she was alert and oriented to person and place only, and was unaware of date/time. She became mildly distressed when hearing today's date, as she became worried that she missed a meeting. Patient was given IV Rocephin to treat acute UTI, which is most likely the cause of the patient's altered mental status. -Continue daily neuro exams and monitor mental status -Continue IV Rocephin x5 days and trend WBCs -Monitor her elevated potassium and continue IVF. Trend in am. (3) UTI (urinary tract infection): Plan: Patient's urinalysis showed positive leukocyte esterase, nitrites, WBCs, RBCs/blood, and moderate bacteria. Patient has a history of recurrent UTIs and is immobile. She was started on IVF, IV abx. Ruled out acute pyelonephritis and hydronephrosis with abdominal CT. -Continue IV Rocephin x5 days -Trend WBCs and observe clinical status -Urine culture pending Qualifiers: Hematuria presence: without hematuria Urinary tract infection type: s ite unspecified Qualified Code(s): N39.0 - Urinary tract infection, site not specified (4) Atrial fibrillation with RVR: Plan: The patient was diagnosed with atrial fibrillation last year and was prescribed clopidogrel. In the ED, she was given diltiazem in the ED and enoxaparin on admission. Her heart rate was elevated to 130 bpm, but has normalized to 90s. An EKG in the ED showed no acute changes indicating MN or ischemia. -Continue enoxaparin and monitor HR (5) Congestive heart failure: Plan: On exam, patient does not have any signs or symptoms of CHF currently--no cough, JVD, or rales. However, she has 2+ pitting edema bilaterally likely due to immobility and lack of compression. Patient's CXR showed no pulmonary edema. Her previous echocardiogram 07/2024 during previous inpatient admission that showed an EF of 50-55%, mild tricuspid regurgitation, and mild-moderate mitral regurgitation. -Continue furosemide to control edema/congestion -Continue to monitor volume status in hospital and clinical signs of CHF Qualifiers: Heart failure chronicity: acute Heart failure type: unspecified Q ualified Code(s): I50.9 - Heart failure, unspecified (6) Immobility: Plan: Patient has been immobile for the last 4 years, according to her daughter. She is unable to move her legs and has limited mobility in her upper extremities. She and her daughter discussed a goal of increasing mobility in her arms. -Referral for PT/OT in hospital and possibly at [facility] depending on duration of hospital stay and insurance coverage (7) Hyperkalemia: Plan: Patient's potassium is elevated at 5.0mmol/L. -Continue IVF -Trend in am (8) Diabetes mellitus: Plan: Patient's glucose is 173 mg/dL in hospital. She is not currently being treated for DM2. -Trend in am -Recommend follow-up with PCP Lab Results Lab results reviewed: Yes 03/11/25 06:35 03/11/25 06:35 Diagnostic Imaging Results Diagnostic Imaging Results: positive Final report reviewed EKG Results EKG Interpreted Independently: No EKG Comparison: Changed from prior EKG EKG Findings: Right axis deviation seen on EKG 09/2024. Core Measures Anticipated LOS I expect patient to be DC'd or transferred within 96 hours.: Yes DVT/VTE - Prophylaxis VTE/DVT Device ordered at admit?: No VTE/DVT Prophylaxis med ordered at admit?: Yes
[2025-03-12] MEDS: HYDROcod/ACETAM 5/325 MG TABLET PO PRN (01:15)
[2025-03-12] MEDS: cefTRIAXone 1 GM VIAL IVP SCH (08:25)
[2025-03-12] MEDS: ENOXAPARIN 40 MG/0.4 ML SYRINGE SUBQ SCH (08:27)
[2025-03-12] MEDS ORDERED: cefTRIAXone 1 GM in SODIUM CHLORIDE 0.9% MINIBAG 100 ML IV SCH (09:00)
--- NOTE | 2025-03-12 09:09 | PROVIDER PROGRESS NOTE ---
Subjective Prog Note Date Prog Note Date: 03/12/25 Prog Note Time: 08:15 Subjective Pt reports feeling: Improved Subjective: Anne is an 79-year-old female with a history of DM2 and HTN who was admitted to the hospital with sepsis, altered mental status, and urinary tract infection. She states that she feels a little better today. She denies any abdominal pain, nausea, or vomiting. The patient denies shortness of breath, chest pain, or palpitations. She reports that she is not "fully better". She has an appetite and requested breakfast. Her pallor is pink now, and she is aware of herself, the location, and date/time. She had eye irritation and was rubbing her eyes. She reports that she had cataract surgery in the past. Current Medications Current Medications Current Medications: Current Medications Generic Name Dose Route Start Last Admin Trade Name Freq PRN Reason Stop Dose Admin Acetaminophen 650 mg 03/11/25 09:46 Acetaminophen 325 Mg Tablet PO Q4HR PRN Pain 1 to 4, or Fever Hydrocodone Bitart/Acetaminophen 1 tab 03/11/25 09:46 03/12/25 01:15 Hydrocod/Acetam 5/325 Mg Tablet PO 1 tab Q4HR PRN Administration Pain 5 to 7 Ceftriaxone Sodium 1 gm 03/12/25 09:00 Ceftriaxone 1 Gm Vial IVP DAILY [facility] Enoxaparin Sodium 40 mg 03/12/25 09:00 Enoxaparin 40 Mg/0.4 Ml Syringe SUBQ DAILY [facility]AN Ondansetron HCl 4 mg 03/11/25 09:46 03/11/25 17:26 Ondansetron Odt 4 Mg Tablet TL 4 mg Q6HR PRN Administration Nausea / Vomiting Ondansetron HCl 4 mg 03/11/25 09:46 Ondansetron 4 Mg/2 Ml Vial IVP Q6HR PRN Nausea / Vomiting Petrolatum 1 applic 03/11/25 17:07 03/11/25 17:23 Petrolatum White 5 Gm Packet TOP 1 applic PRN PRN Administration Dry Lips Sodium Chloride 10 ml 03/11/25 09:46 Sodium Chloride Flush 0.9% 10 Ml Syringe IVP PRN PRN NEEDED PER PROVIDER ORDERS Sodium Chloride 10 ml 03/11/25 17:00 03/12/25 01:15 Sodium Chloride Flush 0.9% 10 Ml Syringe IVP 10 ml 0100,0900,1700 [facility] Administration Sterile Water 10 ml 03/12/25 09:00 Water For Injection,Sterile 10 Ml Vial DAILY [facility] Objective Vital Signs/Intake & Output Reviewed Vital Signs: Yes Vital Signs: Vital Signs x48h Temp Pulse Resp BP Pulse Ox O2 Flow Rate 03/12/25 01:32 36.6 C 113 H 18 130/73 97 2 Intake & Output: Intake & Output 03/09/25 03/10/25 03/11/25 03/12/25 23:59 23:59 23:59 23:59 Intake Total 3680 / 3680 Output Total 0 / 0 150 / 150 Balance 368 / 0 -150 / -150 Weight (kg) 110.5 kg Objective General Appearance: positive No acute distress, Alert and Lethargic Eyes Bilateral: positive Normal inspection, PERRL and Other (Dry eyes) ENT: positive ENT inspection nml Neck: positive Nml inspection Respiratory: positive Chest non-tender and No respiratory distress; negative Breath sounds nml (decreased bilaterally) Cardiovascular: positive Irregularly irregular (Atrial fibrillation) and Tachycardia (112 bpm) Abdomen: positive Non-tender and No distention Skin: positive Color nml, No rash, Warm and Dry Extremities: positive Non-tender and Pedal edema (+2); negative Full ROM (Lower extremities immobile) or Nml appearance (Internal rotation of right leg) Neurologic/Psychiatric: positive Oriented x3 and Mood/affect nml Lab Results 03/11/25 06:35 03/11/25 06:35 Diagnostic Imaging Diagnostic Imaging Results: positive Final report reviewed ABX Reporting Has patient been on IV antibiotics over the past 48 hours?: Yes Sepsis Event Note (H) Evaluation Current Stage of Sepsis: Sepsis Possible source of Sepsis: positive Genitourinary Sepsis Criteria Sepsis Criteria: Suspected or Documented, Recorded Heart Rate greater than 90 bpm, Recorded Respiratory Rate greater than 20 and WBC count greater than 12,000 or less than 4000 Assessment/Plan Problem List (1) Sepsis: Impression: The patient presented with tachycardia, tachypneia, and an elevated WBC count. Her lactic acid today is 1.1 mmol/L. Blood cultures have shown no growth after 1 day. -Continue IVF and IV ceftriaxone -Adjust antiobiotic therapy as indicated when urine and blood culture results return Qualifiers: Sepsis acute organ dysfunction status: unspecified Sepsis type: sepsis due to unspecified organism Qualified Code(s): A41.9 - Sepsis, unspecified organism (2) UTI (urinary tract infection): Impression: The patient had positive urinalysis with blood, nitrites, moderate bacteria, leukocyte esterase and WBCs in the emergency department. The patient denies abdominal pain, or painful urination. Abdominal CT was negative for hydronephrosis/pyelonephritis. -Continue IVF and IV ceftriaxone -Urine culture is pending--adjust abx therapy as indicated. Qualifiers: Hematuria presence: without hematuria Urinary tract infection type: s ite unspecified Qualified Code(s): N39.0 - Urinary tract infection, site not specified (3) Hyperkalemia: Impression: On admission, the patient's potassium was elevated to 5.0 mmol/L. She has received IVF since her admission. -Trend K in am -Continue IVF (4) Acute alteration in mental status: Impression: The patient presented to the ED with confusion and less talkative than her baseline, according to [facility] staff. On admission, she was unable to recall the date or time, and was in mild distress. She has improved today and was alert and oriented to person/place/time. She was calm and able to answer questions about her condition. -Continue to monitor any acute changes (5) Atrial fibrillation with RVR: Impression: The patient was diagnosed with atrial fibrillation years ago, and is currently on clopidogrel. She is still tachycardic at 112bpm this morning. She has a history of stroke/TIA. However, her daughter Sarika stated yesterday evening that she was not aware of her mother's atrial fibrillation or the medications she was taking for this condition. The daughter and patient were educated about her condition and treatment. -Continue telemetry to monitor for acute changes -Continue anticoagulant therapy (6) Diabetes mellitus: Impression: The patient has been treated with metformin in the past for diabetes. However, she is currently untreated. Her glucose was 173 mg/dL yesterday. This elevation is possibly due to her acute UTI. -Continue to monitor glucose level -Obtain hgbA1C and recommend follow up with primary care at [facility] Qualifiers: Diabetes mellitus complication status: with hyperglycemia Diabetes mellitus half-way insulin use: without half-way use Diabetes mellitus type: t ype 2 Qualified Code(s): E11.65 - Type 2 diabetes mellitus with hyperglycemia (7) Immobility: Impression: The patient has been immobile for at least four years, according to her daughter. The patient and her daughter discussed a goal of increasing mobility and trying physical therapy. They have a meeting scheduled with staff at [facility] to discuss her mobility goals. -Consult with PT to screen
[2025-03-12] MEDS: MULTIVITAMIN W/MINERALS TABLET PO SCH (09:53)
--- NOTE | 2025-03-12 13:35 | PT Plan of Care ---
PT Plan of Care Physical Therapy Plan of Care: Diagnosis Diagnosis UTI Diagnosis metabolic encephalopathy Referring Provider Kristi Laguerre Patient Status Inpatient Chief Complaint Chief Complaint weakness, mobility limitations Onset of Chief Complaint steady decline over several years, onset 2011 Balance/ Functional Results Sitting Balance Unable Standing Balance Unable Assessment Assessment Pt is an 79yo F referred for PT eval d/t limited mobility and reported deconditioning. Pt has complex medical history including several orthopedic injuries and surgeries and per hospitalist pt is NWB BLE. Please see med record for further PMH. Primarily bedbound at baseline and has a tilt in space wheelchair at SNF where she resides. D/t history of BLE injuries and surgeries, pt requires overhead lift transfers for all out of bed mobility. Cleared for PT eval . Upon eval, pt is somnolent but follows cues with mod multimodal cueing requiring maxAx2 to dependent assist for all bed mobility and transfers. BLE with significantly limited active motion, able to PF BL ankles but unable to DF d /t weakness, atrophy and pain. Unable to participate in unsupported sitting at EOB d/t pain, weakness, and elevated RR with supine activities. Able to complete upper body hygiene tasks x5 min with set up and mod to max cueing. Notably fatigued with increased RR after this activity, SpO2 92% after activity. Pt appears below reported baseline of indep with ADLs and able to participate in transfers. Plan for PT 2- 3x/wk while in acute setting to restore PLOF. When medically clear, PT rec dc back to SNF with continued PT services as appropriate. Goals Improve bed mobility to: Moderate Assist Improve supine to sit to: Maximum Assist Improve sit to supine to: Maximum Assist Other transfer goal: able to sit unsupported x2 minutes during transfers for improved safety and core stability PT Plan of Care Duration 2-3x/wk during acute stay Discharge Recommendations Discharge Location Intermediate Facility Support/Services Needed With assist Transport Needs at [facility]
--- NOTE | 2025-03-12 15:11 | OT Plan of Care ---
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 Complicated surgical hx of R LE which pt has been in and out of rehab for since 2019. Most recently resides at [facility] where she is bedbound, CHARISSA OOB, but able to use UE for simple ADLs/Grooming with set up. Met on 1L NC Spo2 above 90% during session. Pt lethargic but appropriate. B UE grossly 3/5 throughout deconditioned. Pt GC-MIN A grooming with set up and increased time 2/2 fatigue requiring therapist assist. Pt able to use B UE for support on bedrails for A with rolling R<>L in bed MAX A; MAX A perineal hygiene and LB care. Minimal active movement B LE. Overall presents with decreased endurance, activity tolerance and ADL status. Will benefit from cont OT services during acute stay 2-3x per week to maintain. Rec d/c to SNF at this time. Goals - Activities of Daily Living Improve Upper Extremity Contact Guard Dressing to: Improve Lower Extremity Maximum Assist Dressing to: Improve Grooming/Hygiene to: Contact Guard Improve Bathing to: Maximum Assist Improve Toileting to: Maximum Assist Plan Treatment Frequency 2 to 3 times/week -Discharge Recommendations Discharge Location Alf Facility Transport Needs at [facility]charge [facility]
[2025-03-12] MEDS: METOPROLOL TARTRATE 25 MG TABLET PO SCH (18:19)
[2025-03-12] MEDS: ACETAMINOPHEN 325 MG TABLET PO PRN (18:55)
[2025-03-12] MEDS: DULoxetine 20 MG CAPSULE PO SCH (18:55)
[2025-03-12] MEDS: SIMETHICONE CHEW 80 MG TABLET PO SCH (18:55)
[2025-03-12] MEDS: PREGABALIN 100 MG CAPSULE PO SCH (22:14)
[2025-03-12] MEDS: CARBOXYMETHYLCELLULOSE OPHTH DROPS EACHEYE SCH (22:14)
[2025-03-12] MEDS: PREGABALIN 25 MG CAPSULE PO SCH (22:14)
[2025-03-13 05:53] LABS: BASOPHILS # (AUTO) 0.1 10^3/uL (0.0-0.1); BASOPHILS % (AUTO) 0.9 %; EOSINOPHILS # (AUTO) 0.2 10^3/uL (0.0-0.7); EOSINOPHILS % (AUTO) 2.1 %; HCT - HEMATOCRIT 45.2 % (37.0-47.0); HGB - HEMOGLOBIN 13.6 g/dL (12.0-16.0); LYMPHOCYTES # (AUTO) 1.2 10^3/uL (1.5-3.5); LYMPHOCYTES % (AUTO) 16.1 %; MEAN CORPUSCULAR HEMOGLOBIN 28.8 pg (27.0-31.0); MEAN CORPUSCULAR HGB CONC 30.1 g/dL (32.0-36.0); MEAN CORPUSCULAR VOLUME 95.8 fL (81.0-99.0); MEAN PLATELET VOLUME 9.7 fL (7.9-10.8); MONOCYTES # (AUTO) 0.6 10^3/uL (0.0-1.0); MONOCYTES % (AUTO) 7.6 %; NEUTROPHILS # (AUTO) 5.5 10^3/uL (1.5-6.6); PLT - PLATELET COUNT 305 10^3/uL (130-450); RED BLOOD COUNT 4.72 10^6/uL (4.20-5.40); RED CELL DISTRIBUTION WIDTH 14.6 % (12.0-15.0); WHITE BLOOD COUNT 7.6 x10^3/uL (4.8-10.8)
[2025-03-13] MEDS: PANTOPRAZOLE 40 MG TABLET PO SCH (06:06)
[2025-03-13 06:12] LABS: CALCIUM 9.1 mg/dL (8.5-10.3); CREATININE 0.6 mg/dL (0.6-1.3); POTASSIUM 4.7 mmol/L (3.5-4.5)
[2025-03-13] MEDS: SALIVA STIMULANT SPRAY 44.3 ML BOTTLE PO SCH (08:19)
[2025-03-13] MEDS: polyethylene glycoL 3350 17 GM PACKET PO SCH (08:19)
[2025-03-13] MEDS: DOCUSATE SODIUM 250 MG CAPSULE PO SCH (08:20)
[2025-03-13] MEDS: ASPIRIN CHEW 81 MG TABLET PO SCH (08:20)
[2025-03-13] MEDS: FUROSEMIDE 20 MG TABLET PO SCH (08:20)
[2025-03-13] MEDS: CLOPIDOGREL 75 MG TABLET PO SCH (08:20)
[2025-03-13] MEDS: SENNA 8.6 MG TABLET PO SCH (08:21)
[2025-03-13] MEDS: FERROUS SULFATE 325 MG TABLET PO SCH (08:21)
--- NOTE | 2025-03-13 10:28 | PROVIDER PROGRESS NOTE ---
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 Her pallor has improved, although she is more lethargic today. Nursing staff reports that she is slow to respond and had to be fed her pills this morning. Current Medications Current Medications Current Medications: Current Medications Generic Name Dose Route Start Last Admin Trade Name Freq PRN Reason Stop Dose Admin Acetaminophen 650 mg 03/11/25 09:46 03/12/25 18:55 Acetaminophen 325 Mg Tablet PO 650 mg Q4HR PRN Administration Pain 1 to 4, or Fever Hydrocodone Bitart/Acetaminophen 1 tab 03/11/25 09:46 03/13/25 05:48 Hydrocod/Acetam 5/325 Mg Tablet PO 1 tab Q4HR PRN Administration Pain 5 to 7 Aspirin 81 mg 03/13/25 09:00 03/13/25 08:20 Aspirin Chew 81 Mg Tablet PO 81 mg DAILY [facility]AN Administration Carboxymethylcellulose 2 drops 03/12/25 22:00 03/13/25 05:48 Carboxymethylcellulose Ophth Drops EACHEYE 2 drops TID AMAN Administration Ceftriaxone Sodium 1 gm 03/12/25 09:00 03/13/25 08:19 Ceftriaxone 1 Gm Vial IVP 1 gm DAILY [facility] Administration Clopidogrel Bisulfate 75 mg 03/13/25 09:00 03/13/25 08:20 Clopidogrel 75 Mg Tablet PO 75 mg DAILY [facility] Administration Docusate Sodium 250 - 500 mg 03/13/25 09:00 03/13/25 08:20 Docusate Sodium 250 Mg Capsule PO 250 mg DAILY [facility]AN Administration Duloxetine HCl 20 mg 03/12/25 18:00 03/13/25 08:20 Duloxetine 20 Mg Capsule PO 20 mg DAILY [facility] Administration Enoxaparin Sodium 40 mg 03/12/25 09:00 03/13/25 08:19 Enoxaparin 40 Mg/0.4 Ml Syringe SUBQ 40 mg DAILY [facility] Administration Ferrous Sulfate 325 mg 03/13/25 09:00 03/13/25 08:21 Ferrous Sulfate 325 Mg Tablet PO 325 mg DAILY [facility]AN Administration Furosemide 20 mg 03/13/25 09:00 03/13/25 08:20 Furosemide 20 Mg Tablet PO 20 mg DAILY [facility] Administration Metoprolol Tartrate 25 mg 03/12/25 17:03 03/13/25 09:23 Metoprolol Tartrate 25 Mg Tablet PO 25 mg BID AMAN Administration Multivitamins/Minerals 1 tab 03/12/25 10:00 03/13/25 08:20 Multivitamin W/Minerals Tablet PO 1 tab DAILYWM AMAN Administration Ondansetron HCl 4 mg 03/11/25 09:46 03/12/25 12:13 Ondansetron Odt 4 Mg Tablet TL 4 mg Q6HR PRN Administration Nausea / Vomiting Ondansetron HCl 4 mg 03/11/25 09:46 Ondansetron 4 Mg/2 Ml Vial IVP Q6HR PRN Nausea / Vomiting Pantoprazole Sodium 40 mg 03/13/25 07:00 03/13/25 06:06 Pantoprazole 40 Mg Tablet PO 40 mg QDAC AMAN Administration Petrolatum 1 applic 03/11/25 17:07 03/11/25 17:23 Petrolatum White 5 Gm Packet TOP 1 applic PRN PRN Administration Dry Lips Polyethylene Glycol 17 gm 03/13/25 09:00 03/13/25 08:19 Polyethylene Glycol 3350 17 Gm Packet PO 17 gm DAILY AMAN Administration Pregabalin 200 mg 03/12/25 21:00 03/13/25 08:20 Pregabalin 100 Mg Capsule PO 200 mg BID AMAN Administration Pregabalin 25 mg 03/12/25 21:00 03/13/25 08:21 Pregabalin 25 Mg Capsule PO 25 mg BID AMAN Administration Saliva Substitute 1,500 sprays 03/13/25 09:00 03/13/25 08:19 Saliva Stimulant [place] 44.3 Ml Bottle PO 1,500 sprays DAILY AMAN Administration Senna 8.6 - 17.2 mg 03/13/25 09:00 03/13/25 08:21 Senna 8.6 Mg Tablet PO 8.6 mg DAILY AMAN Administration Simethicone 80 mg 03/12/25 19:00 03/13/25 09:19 Simethicone Chew 80 Mg Tablet PO 80 mg 0900,1300,1800,2100 AMAN Administration Sodium Chloride 10 ml 03/11/25 09:46 Sodium Chloride Flush 0.9% 10 Ml Syringe IVP PRN PRN NEEDED PER PROVIDER ORDERS Sodium Chloride 10 ml 03/11/25 17:00 03/13/25 09:12 Sodium Chloride Flush 0.9% 10 Ml Syringe IVP 10 ml 0100,0900,1700 AMAN Administration Sterile Water 10 ml 03/12/25 09:00 03/13/25 08:19 Water For Injection,Sterile 10 Ml Vial MC 10 ml DAILY AMAN Administration Objective Vital Signs/Intake & Output Reviewed Vital Signs: Yes Vital Signs: Vital Signs x48h Temp Pulse Pulse Resp BP BP Pulse Ox 03/13/25 09:23 102 H 141/73 H 03/13/25 08:13 36.6 C 100 24 141/73 H 94 O2 Flow Rate 03/13/25 09:23 03/13/25 08:13 1 Intake & Output: Intake & Output 03/10/25 03/11/25 03/12/25 03/13/25 23:59 23:59 23:59 23:59 Intake Total 3680 / 3680 480 / 480 140 / 140 Output Total 0 / 0 150 / 150 Balance 3680 / 3680 330 / 330 140 / 140 Weight (kg) 110.5 kg Objective General Appearance: positive No acute distress, Alert and Lethargic Eyes Bilateral: positive Normal inspection ENT: positive ENT inspection nml Neck: positive Nml inspection and No JVD Respiratory: positive Chest non-tender and No respiratory distress; negative Breath sounds nml (hypoventilation) Cardiovascular: positive Irregularly irregular (atrial fibrillation) Skin: positive Color nml, No rash, Warm, Dry and Other (3 erythematous, patchy skin lesions on neck and chest) Extremities: positive Non-tender and Pedal edema (2+ pitting edema) Neurologic/Psychiatric: positive Oriented x3 and Depressed mood/affect Lab Results 03/13/25 05:38 03/13/25 05:38 Other Labs: Lab Results x24hrs 03/13/25 Range/Units 05:38 WBC 7.6 (4.8-10.8) x10^3/uL RBC 4.72 (4.20-5.40) 10^6/uL Hgb 13.6 (12.0-16.0) g/dL Hct 45.2 (37.0-47.0) % MCV 95.8 (81.0-99.0) fL MCH 28.8 (27.0-31.0) pg MCHC 30.1 L (32.0-36.0) g/dL RDW 14.6 (12.0-15.0) % Plt Count 305 (130-450) 10^3/uL MPV 9.7 (7.9-10.8) fL Neut # (Auto) 5.5 (1.5-6.6) 10^3/uL Lymph # (Auto) 1.2 L (1.5-3.5) 10^3/uL Andrew # (Auto) 0.6 (0.0-1.0) 10^3/uL Eos # (Auto) 0.2 (0.0-0.7) 10^3/uL Baso # (Auto) 0.1 (0.0-0.1) 10^3/uL Absolute Nucleated RBC 0.00 x10^3/uL Nucleated RBC % 0.0 /100WBC Sodium 139 (135-145) mmol/L Potassium 4.7 H (3.5-4.5) mmol/L Chloride 98 L (101-111) mmol/L Carbon Dioxide 38 H (21-32) mmol/L Anion Gap 3.0 L (6-13) BUN 24 H (6-20) mg/dL Creatinine 0.6 (0.6-1.3) mg/dL Estimated GFR (MDRD) 96 (>89) Glucose 145 H (74-104) mg/dL Calcium 9.1 (8.5-10.3) mg/dL Diagnostic Imaging Diagnostic Imaging Results: positive Final report reviewed ABX Reporting Has patient been on IV antibiotics over the past 48 hours?: Yes Sepsis Event Note (H) Evaluation Current Stage of Sepsis: Sepsis Possible source of Sepsis: positive Genitourinary Sepsis Criteria Sepsis Criteria: Suspected or Documented, Recorded Heart Rate greater than 90 bpm, Recorded Respiratory Rate greater than 20 and WBC count greater than 12,000 or less than 4000 Assessment/Plan Problem List (1) Sepsis: Impression: The patient's sepsis has improved on IV ceftriaxone x2 days; her WBCs and neutrophils have decreased. She has no fever, chills, or other clinical signs of infection. -No growth from blood cultures after 2 days. -Growth from urine cultures is being assessed. -Continue IV ceftriaxone x5 days and adjust as indicated Qualifiers: Sepsis acute organ dysfunction status: unspecified Sepsis type: sepsis due to unspecified organism Qualified Code(s): A41.9 - Sepsis, unspecified organism (2) Acute alteration in mental status: Impression: When the patient was first admitted, it was suspected that her AMS was due to sepsis due to UTI. The patient's became A&Ox3 on day 2, however her mentation declined on day 3 of admission. She was slow to respond and did not feed herself or take her pills. Differential diagnosis included stroke/TIA, drug-induced (sedatives/opioids), or hypercapnia d/t hypoventilation. After the RT assessed her, PaCO2 was found to be 71 mmHg. -The patient is being placed on room air and in a chair for further evaluation of respiration (3) UTI (urinary tract infection): Impression: The patient's infection has improved, with her WBCs and neutrophils decreasing. -Urine culture grew Citrobacter sedlakii -Consult with pharmacist to change IV abx based on pathogen identified Qualifiers: Hematuria presence: without hematuria Urinary tract infection type: s ite unspecified Qualified Code(s): N39.0 - Urinary tract infection, site not specified (4) Hyperkalemia: Impression: Patient's potassium level has decreased to 4.7 mmol/L. -Continue to trend (5) Atrial fibrillation with RVR: Impression: Patient was diagnosed with a-fib many years ago and is currently on clopidogrel and metoprolol. -Continue telemetry -Continue meds (6) Diabetes mellitus: Impression: The patient has untreated diabetes. Her glucose in hospital has been as high as 173 mg/dL. -Continue to trend. Consider hgbA1C. -Recommend follow up with primary care at [facility] Qualifiers: Diabetes mellitus complication status: with hyperglycemia Diabetes mellitus intermediate frame tender insulin use: without intermediate frame tender use Diabetes mellitus type: t ype 2 Qualified Code(s): E11.65 - Type 2 diabetes mellitus with hyperglycemia (7) Immobility: Impression: Patient has limited mobility and strength 2/5 in UE. She has no mobility in her legs and 2+ pitting edema. She has been assessed by PT. She requires maximum assistance. They recommended a follow-up with PT at [facility] as needed. -Encourage patient to sit up in a chair -Encourage patient to use arms independently
[2025-03-13 10:48] LABS: ABG BASE EXCESS 15.7 mmol/L (-2.0-3.0); ABG HCO3 41.3 mmol/L (22.0-26.0); ABG PH 7.37 (7.35-7.45); ABG PO2 54 mmHg (83-108); ALLEN TEST POSITIVE
[2025-03-13 10:51] LABS: ABG OXYGEN SATURATION 87 % (95-98); ABG PCO2 71 mmHg (34-45); ABG TCO2 43.4 mmol/L (21.0-29.0)
[2025-03-13] MEDS: CEFEPIME 1 GM VIAL IVP SCH (13:58)
[2025-03-13 18:07] LABS: ABG PH 7.39 (7.35-7.45); ABG PO2 89 mmHg (83-108)
[2025-03-13 18:08] LABS: ABG BASE EXCESS 18.6 mmol/L (-2.0-3.0); ABG HCO3 43.7 mmol/L (22.0-26.0); ABG OXYGEN SATURATION 99 % (95-98); ALLEN TEST POSITIVE
[2025-03-13 18:12] LABS: ABG PCO2 71 mmHg (34-45); ABG TCO2 45.8 mmol/L (21.0-29.0)
[2025-03-13] MEDS ORDERED: SENNA 8.6 MG TABLET PO PRN (21:59)
[2025-03-14 05:05] LABS: BASOPHILS # (AUTO) 0.1 10^3/uL (0.0-0.1); BASOPHILS % (AUTO) 0.9 %; EOSINOPHILS # (AUTO) 0.2 10^3/uL (0.0-0.7); EOSINOPHILS % (AUTO) 2.8 %; HCT - HEMATOCRIT 44.5 % (37.0-47.0); LYMPHOCYTES # (AUTO) 1.5 10^3/uL (1.5-3.5); LYMPHOCYTES % (AUTO) 18.2 %; MEAN CORPUSCULAR HEMOGLOBIN 28.2 pg (27.0-31.0); MEAN CORPUSCULAR HGB CONC 29.2 g/dL (32.0-36.0); MEAN CORPUSCULAR VOLUME 96.5 fL (81.0-99.0); MEAN PLATELET VOLUME 10.1 fL (7.9-10.8); MONOCYTES # (AUTO) 0.6 10^3/uL (0.0-1.0); MONOCYTES % (AUTO) 7.7 %; NEUTROPHILS # (AUTO) 5.8 10^3/uL (1.5-6.6); PLT - PLATELET COUNT 308 10^3/uL (130-450); RED BLOOD COUNT 4.61 10^6/uL (4.20-5.40); RED CELL DISTRIBUTION WIDTH 14.5 % (12.0-15.0); WHITE BLOOD COUNT 8.2 x10^3/uL (4.8-10.8)
[2025-03-14 05:17] LABS: ABG PH 7.42 (7.35-7.45)
[2025-03-14 05:18] LABS: ABG BASE EXCESS 19.6 mmol/L (-2.0-3.0); ABG HCO3 44.2 mmol/L (22.0-26.0); ABG OXYGEN SATURATION 99 % (95-98); ABG PO2 87 mmHg (83-108); ALLEN TEST POSITIVE
[2025-03-14 05:19] LABS: ABG RESPIRATORY RATE 16 b/min
[2025-03-14 05:19] LABS: CREATININE 0.6 mg/dL (0.6-1.3); POTASSIUM 4.7 mmol/L (3.5-4.5)
[2025-03-14 05:20] LABS: ABG PCO2 68 mmHg (34-45)
[2025-03-14 05:21] LABS: ABG TCO2 46.3 mmol/L (21.0-29.0)
[2025-03-14] MEDS: PANTOPRAZOLE 40 MG VIAL IVP SCH (06:22)
--- NOTE | 2025-03-14 16:37 | PROVIDER PROGRESS NOTE ---
Subjective Prog Note Date Prog Note Date: 03/14/25 Prog Note Time: 13:16 Subjective Pt reports feeling: No change Subjective: Anne is an 79-year-old female with a history of A-fib, DM2, LARON, and HTN who was brought in by EMS for AMS and found to have a UTI in the ED. Today, she reported feeling sad and sleepy. She was alert and oriented to person and place, but not time, according to RN. She was not able to distinguish night versus day. Her gaze is more downcast and she has more pain in her right hip. She asked for her leg to be moved medially. She denied nausea/vomiting, chest pain. Current Medications Current Medications Current Medications: Current Medications Generic Name Dose Route Start Last Admin Trade Name Freq PRN Reason Stop Dose Admin Acetaminophen 650 mg 03/11/25 09:46 03/12/25 18:55 Acetaminophen 325 Mg Tablet PO 650 mg Q4HR PRN Administration Pain 1 to 4, or Fever Hydrocodone Bitart/Acetaminophen 1 tab 03/11/25 09:46 03/13/25 05:48 Hydrocod/Acetam 5/325 Mg Tablet PO 1 tab Q4HR PRN Administration Pain 5 to 7 Aspirin 81 mg 03/13/25 09:00 03/14/25 08:45 Aspirin Chew 81 Mg Tablet PO 81 mg DAILY AMAN Administration Carboxymethylcellulose 2 drops 03/12/25 22:00 03/14/25 05:20 Carboxymethylcellulose Ophth Drops EACHEYE 2 drops TID AMAN Administration Cefepime HCl 1 gm 03/13/25 12:30 03/14/25 08:45 Cefepime 1 Gm Vial IVP 1 gm BID AMAN Administration Clopidogrel Bisulfate 75 mg 03/13/25 09:00 03/14/25 08:45 Clopidogrel 75 Mg Tablet PO 75 mg DAILY AMAN Administration Docusate Sodium 250 - 500 mg 03/13/25 09:00 03/14/25 08:45 Docusate Sodium 250 Mg Capsule PO 250 mg DAILY AMAN Administration Duloxetine HCl 20 mg 03/12/25 18:00 03/14/25 08:45 Duloxetine 20 Mg Capsule PO 20 mg DAILY AMAN Administration Enoxaparin Sodium 40 mg 03/12/25 09:00 03/14/25 08:45 Enoxaparin 40 Mg/0.4 Ml Syringe SUBQ 40 mg DAILY AMAN Administration Ferrous Sulfate 325 mg 03/13/25 09:00 03/14/25 08:47 Ferrous Sulfate 325 Mg Tablet PO 325 mg DAILY AMAN Administration Furosemide 20 mg 03/13/25 09:00 03/14/25 08:47 Furosemide 20 Mg Tablet PO 20 mg DAILY AMAN Administration Metoprolol Tartrate 25 mg 03/12/25 17:03 03/14/25 08:47 Metoprolol Tartrate 25 Mg Tablet PO 25 mg BID AMAN Administration Multivitamins/Minerals 1 tab 03/12/25 10:00 03/14/25 08:44 Multivitamin W/Minerals Tablet PO 1 tab DAILYWM AMAN Administration Ondansetron HCl 4 mg 03/11/25 09:46 03/12/25 12:13 Ondansetron Odt 4 Mg Tablet TL 4 mg Q6HR PRN Administration Nausea / Vomiting Ondansetron HCl 4 mg 03/11/25 09:46 Ondansetron 4 Mg/2 Ml Vial IVP Q6HR PRN Nausea / Vomiting Pantoprazole Sodium 40 mg 03/14/25 05:15 03/14/25 08:48 Pantoprazole 40 Mg Vial IVP Not Given DAILY [facility] Petrolatum 1 applic 03/11/25 17:07 03/11/25 17:23 Petrolatum White 5 Gm Packet TOP 1 applic PRN PRN Administration Dry Lips Polyethylene Glycol 17 gm 03/13/25 09:00 03/14/25 08:49 Polyethylene Glycol 3350 17 Gm Packet PO 17 gm DAILY AMAN Administration Pregabalin 200 mg 03/12/25 21:00 03/14/25 08:49 Pregabalin 100 Mg Capsule PO 200 mg BID AMAN Administration Pregabalin 25 mg 03/12/25 21:00 03/14/25 08:49 Pregabalin 25 Mg Capsule PO 25 mg BID AMAN Administration Saliva Substitute 1,500 sprays 03/13/25 09:00 03/14/25 09:11 Saliva Stimulant [place] 44.3 Ml Bottle PO 1,500 sprays DAILY AMAN Administration Senna 8.6 - 17.2 mg 03/13/25 09:00 03/14/25 08:46 Senna 8.6 Mg Tablet PO 8.6 mg DAILY AMAN Administration Senna 17.2 mg 03/13/25 21:59 Senna 8.6 Mg Tablet PO DAILY PRN Constipation Simethicone 80 mg 03/12/25 19:00 03/14/25 08:49 Simethicone Chew 80 Mg Tablet PO 80 mg 0900,1300,1800,2100 AMAN Administration Sodium Chloride 10 ml 03/11/25 09:46 Sodium Chloride Flush 0.9% 10 Ml Syringe IVP PRN PRN NEEDED PER PROVIDER ORDERS Sodium Chloride 10 ml 03/11/25 17:00 03/14/25 09:11 Sodium Chloride Flush 0.9% 10 Ml Syringe IVP 10 ml 0100,0900,1700 AMAN Administration Sterile Water 15 ml 03/13/25 12:30 03/14/25 08:49 Water For Injection,Sterile 10 Ml Vial MC 15 ml BID AMAN Administration Objective Vital Signs/Intake & Output Reviewed Vital Signs: Yes Vital Signs: Vital Signs x48h Temp Pulse Pulse Resp BP BP Pulse Ox 03/14/25 12:00 36.1 C L 72 24 108/67 99 03/14/25 11:00 76 24 109/64 98 03/14/25 11:00 03/14/25 10:00 81 26 H 120/71 98 03/14/25 09:00 03/14/25 09:00 90 24 123/82 97 03/14/25 08:47 92 132/65 H 03/14/25 08:02 88 03/14/25 08:00 36.4 C L 90 23 111/74 95 03/14/25 07:00 86 27 H 120/77 94 03/14/25 06:32 03/14/25 06:00 83 23 115/60 96 03/14/25 05:44 81 O2 Flow Rate 03/14/25 12:00 2 03/14/25 11:00 2 03/14/25 11:00 2 03/14/25 10:00 2 03/14/25 09:00 2 03/14/25 09:00 2 03/14/25 08:47 03/14/25 08:02 2 03/14/25 08:00 03/14/25 07:00 03/14/25 06:32 2 03/14/25 06:00 03/14/25 05:44 2 Intake & Output: Intake & Output 03/11/25 03/12/25 03/13/25 03/14/25 23:59 23:59 23:59 23:59 Intake Total 3680 / 3680 480 / 480 140 / 140 120 / 120 Output Total 0 / 0 150 / 150 200 / 200 0 / 0 Balance 3679 / 0 330 / 330 -60 / -60 120 / 120 Weight (kg) 110.5 kg Objective General Appearance: positive No acute distress, Alert and Lethargic Eyes Bilateral: positive Normal inspection, PERRL and No scleral icterus Neck: positive No JVD and Other (three dry, scaly lesions--two on neck and one on chest) Respiratory: positive Chest non-tender, No respiratory distress and Other (hypoventilation and diminished breath sounds) Cardiovascular: positive Irregularly irregular (atrial fibrillation) Abdomen: positive Non-tender Skin: positive Color nml, Warm, Dry and Other (scab/eschar lesion on right anterior lower leg and left medial lower leg) Extremities: positive Non-tender and Pedal edema (left 2+ edema, right 1+ ) Neurologic/Psychiatric: positive Disoriented to time (Patient is aware of person and place.) and Depressed mood/affect Lab Results 03/14/25 04:50 03/14/25 04:50 Other Labs: Lab Results x24hrs 03/14/25 03/14/25 03/13/25 Range/Units 05:05 04:50 21:20 WBC 8.2 (4.8-10.8) x10^3/uL RBC 4.61 (4.20-5.40) 10^6/uL Hgb 13.0 (12.0-16.0) g/dL Hct 44.5 (37.0-47.0) % MCV 96.5 (81.0-99.0) fL MCH 28.2 (27.0-31.0) pg MCHC 29.2 L (32.0-36.0) g/dL RDW 14.5 (12.0-15.0) % Plt Count 308 (130-450) 10^3/uL MPV 10.1 (7.9-10.8) fL Neut # (Auto) 5.8 (1.5-6.6) 10^3/uL Lymph # (Auto) 1.5 (1.5-3.5) 10^3/uL Martin # (Auto) 0.6 (0.0-1.0) 10^3/uL Eos # (Auto) 0.2 (0.0-0.7) 10^3/uL Baso # (Auto) 0.1 (0.0-0.1) 10^3/uL Absolute Nucleated RBC 0.00 x10^3/uL Nucleated RBC % 0.0 /100WBC Bld Gas Analysis Time 0514 Sample Site LEFT RADIAL ABG pH 7.42 (7.35-7.45) ABG pCO2 68 H* (34-45) mmHg ABG pO2 87 (83-108) mmHg ABG HCO3 44.2 H (22.0-26.0) mmol/L ABG Total CO2 46.3 H* (21.0-29.0) mmol/L ABG O2 Saturation 99 H (95-98) % ABG Base Excess 19.6 H (-2.0-3.0) mmol/L Danny Test POSITIVE Respiration Rate 16 b/min O2 Delivery Device BiPAP O2 Liters/Min LPM FiO2 28.00 Tidal Volume 400 mL EPAP 5 cmH2O IPAP 16 cmH2O Sodium 139 (135-145) mmol/L Potassium 4.7 H (3.5-4.5) mmol/L Chloride 98 L (101-111) mmol/L Carbon Dioxide 38 H (21-32) mmol/L Anion Gap 3.0 L (6-13) BUN 29 H (6-20) mg/dL Creatinine 0.6 (0.6-1.3) mg/dL Estimated GFR (MDRD) 96 (>89) Glucose 132 H (74-104) mg/dL Calcium 9.0 (8.5-10.3) mg/dL Nasal Screen MRSA (PCR) NEGATIVE (NEGATIVE) 03/13/25 Range/Units 18:00 WBC (4.8-10.8) x10^3/uL RBC (4.20-5.40) 10^6/uL Hgb (12.0-16.0) g/dL Hct (37.0-47.0) % MCV (81.0-99.0) fL MCH (27.0-31.0) pg MCHC (32.0-36.0) g/dL RDW (12.0-15.0) % Plt Count (130-450) 10^3/uL MPV (7.9-10.8) fL Neut # (Auto) (1.5-6.6) 10^3/uL Lymph # (Auto) (1.5-3.5) 10^3/uL Martin # (Auto) (0.0-1.0) 10^3/uL Eos # (Auto) (0.0-0.7) 10^3/uL Baso # (Auto) (0.0-0.1) 10^3/uL Absolute Nucleated RBC x10^3/uL Nucleated RBC % /100WBC Bld Gas Analysis Time 1803 Sample Site RIGHT RADIAL ABG pH 7.39 (7.35-7.45) ABG pCO2 71 H* (34-45) mmHg ABG pO2 89 (83-108) mmHg ABG HCO3 43.7 H (22.0-26.0) mmol/L ABG Total CO2 45.8 H* (21.0-29.0) mmol/L ABG O2 Saturation 99 H (95-98) % ABG Base Excess 18.6 H (-2.0-3.0) mmol/L Danny Test POSITIVE Respiration Rate b/min O2 Delivery Device O2 Liters/Min 35.00 LPM FiO2 Tidal Volume mL EPAP cmH2O IPAP cmH2O Sodium (135-145) mmol/L Potassium (3.5-4.5) mmol/L Chloride (101-111) mmol/L Carbon Dioxide (21-32) mmol/L Anion Gap (6-13) BUN (6-20) mg/dL Creatinine (0.6-1.3) mg/dL Estimated GFR (MDRD) (>89) Glucose (74-104) mg/dL Calcium (8.5-10.3) mg/dL Nasal Screen MRSA (PCR) (NEGATIVE) Diagnostic Imaging Diagnostic Imaging Results: positive Final report reviewed ABX Reporting Has patient been on IV antibiotics over the past 48 hours?: Yes Sepsis Event Note (H) Evaluation Current Stage of Sepsis: Sepsis Possible source of Sepsis: positive Genitourinary Sepsis Criteria Sepsis Criteria: Suspected or Documented, Recorded Heart Rate greater than 90 bpm, Recorded Respiratory Rate greater than 20 and WBC count greater than 12,000 or less than 4000 Assessment/Plan Problem List (1) Acute alteration in mental status: Impression: While the patient's mentation improved on her second day of admission, as she was A&Ox3 and more talkative, she digressed on day 3. Today, she is depressed, and is aware only of herself and that she's in the hospital in [place]. When asked by nursing staff, she was not able to tell if it was day or night, even with her window open to sunlight. Patient continues to be hypercapneic at pCO2 68 mmHg despite BiPAP over night. She is on 2L NC currently. She reported today that she was sad and is being treated with duloxetine. Differential diagnoses that were considered: metabolic encephalopathy due to urosepsis, TIA/stroke, drug-induced (sedative/opioid), hypercapneia. -Trend pCO2 -Recommend counseling at [facility] (2) UTI (urinary tract infection): Impression: As above, patient is being treated for Citrobacter infection with IV cefepime x7 days. Qualifiers: Hematuria presence: without hematuria Urinary tract infection type: s ite unspecified Qualified Code(s): N39.0 - Urinary tract infection, site not specified (3) Hyperkalemia: Impression: Patient's potassium is stable at 4.7 mmol/L. -Continue to trend -Administer IV fluids if indicated (4) Sepsis: Impression: Patient's WBC count has normalized and she denies fever or chills. IV ceftriaxone was switched to cefepime after urine culture revealed pathogen C itrobacter sedlakii. Blood cultures and nasal swabs were negative. -Continue IV cefepime x7 days and watch for clinical improvement Qualifiers: Sepsis acute organ dysfunction status: unspecified Sepsis type: sepsis due to unspecified organism Qualified Code(s): A41.9 - Sepsis, unspecified organism (5) Atrial fibrillation with RVR: Impression: Patient is currently on enoxaparin and metoprolol. Blood pressure is elevated today. Patient's HR is elevated, but she is not tachycardic. -Monitor and adjust dosage if indicated (6) Diabetes mellitus: Impression: Patient's glucose is 132 mg/dL today. -Continue to trend -Recommend follow-up at [facility] for management Qualifiers: Diabetes mellitus complication status: with hyperglycemia Diabetes mellitus oil heaterman insulin use: without oil heaterman use Diabetes mellitus type: t ype 2 Qualified Code(s): E11.65 - Type 2 diabetes mellitus with hyperglycemia (7) Immobility: Impression: Patient has pain in her right hip today, and has LE immobility. She is able to feed herself and do some ADLs. However, she is bed-bound and has UE weakness. -Recommend follow-up with PT at [facility] -Encourage patient to sit upright
[2025-03-14] MEDS: SODIUM CHLORIDE FLUSH 0.9% 10 ML SYRINGE IVP PRN (21:17)
[2025-03-15 05:44] LABS: BASOPHILS # (AUTO) 0.1 10^3/uL (0.0-0.1); BASOPHILS % (AUTO) 1.5 %; EOSINOPHILS # (AUTO) 0.3 10^3/uL (0.0-0.7); EOSINOPHILS % (AUTO) 3.2 %; HCT - HEMATOCRIT 42.1 % (37.0-47.0); HGB - HEMOGLOBIN 12.5 g/dL (12.0-16.0); LYMPHOCYTES # (AUTO) 1.1 10^3/uL (1.5-3.5); LYMPHOCYTES % (AUTO) 14.4 %; MEAN CORPUSCULAR HEMOGLOBIN 28.7 pg (27.0-31.0); MEAN CORPUSCULAR HGB CONC 29.7 g/dL (32.0-36.0); MEAN CORPUSCULAR VOLUME 96.6 fL (81.0-99.0); MEAN PLATELET VOLUME 9.8 fL (7.9-10.8); MONOCYTES # (AUTO) 0.8 10^3/uL (0.0-1.0); MONOCYTES % (AUTO) 10.1 %; NEUTROPHILS # (AUTO) 5.5 10^3/uL (1.5-6.6); NEUTROPHILS % (AUTO) 70.4 %; PLT - PLATELET COUNT 280 10^3/uL (130-450); RED BLOOD COUNT 4.36 10^6/uL (4.20-5.40); RED CELL DISTRIBUTION WIDTH 14.6 % (12.0-15.0); WHITE BLOOD COUNT 7.8 x10^3/uL (4.8-10.8)
[2025-03-15 05:59] LABS: CALCIUM 8.6 mg/dL (8.5-10.3); CREATININE 0.6 mg/dL (0.6-1.3); POTASSIUM 4.5 mmol/L (3.5-4.5)
[2025-03-15 08:01] VITALS: BP 152/89; TEMP 97.7
[2025-03-15 11:13] VITALS: O2SAT 95
--- NOTE | 2025-03-15 13:13 | Discharge Summary ---
Discharge Summary Admit Date: 03/11/25 Discharge Date: 03/15/25 Discharging Provider: Dr. Kelsey Lang MD Primary Care Provider: [facility] Group: Dr. Stallings or Dr. Rivas Code Status: Do Not Attempt Resuscitation Discharge Facility Name: [facility] DIAGNOSES Admission Diagnoses: 1. UTI 2. Sepsis 3. Altered mental status 4. Atrial fibrillation with RVR 5. Hyperkalemia 6. Type 2 diabetes mellitus 7. Immobility Discharge Diagnoses with Status of Each Condition: 1. UTI: Resolved. Patient was altered and septic due to a UTI. She was initially treated with IV ceftriaxone, but a urine culture grew Citrobacter sedlakii and she was switched to IV cefepime. On day 4, the patient is alert and oriented, so she will continue on oral antibiotic, nitrofurantoin at [facility]. She denies painful urination or urinary frequency. 2. Sepsis: Resolved. Patient was altered when she was brought to EMS, with elevated WBC count at 16.7, which declined to 7.8 today. She was also tachycardic on admission possibly due to both acute infection and atrial fibrillation. This has resolved. 3. Altered mental status: Resolved. On admission, the patient was lethargic and only oriented to person/place. On day 2, she was A&Ox3 patient was found to be hypercapneic with pCO2 of 71mmHg, which likely contributed to her altered mentation. She was placed on BiPAP over night , which caused her pCO2 to decline slightly to 68mmHg. Hypercapneia is likely her baseline, as she hypoventilates due to obese body habitus. She has returned to her baseline in being alert and oriented to person/place/time/situation. 4. Atrial fibrillation with RVR: RVR resolved. The patient had a history of atrial fibrillation when she was admitted, and was placed on metoprolol tartrate while in hospital. The patient will be sent home back on her previous medications, aspirin 81mg and Plavix for patient's history of stroke. Recommend follow-up with PCP and cardiology. She is not on an oral anticoagulation. 5. Hyperkalemia: Resolved. On admission, patient's potassium was elevated to 5.0mmol/L. She was given IV fluids and on discharge, her potassium is 4.5mmol/L. 6. Type 2 diabetes mellitus: Patient has history of type II DM, but was previously prediabetic. Patient was admitted with DM2 diagnosis that is untreated. Blood glucose levels were elevated while in hospital. Her last hgbA1C was 5.9% in 08/2024. We will obtain her hgbA1C again today and recommend follow- up with her PCP. 7. Immobility: Not resolved. On admission, the patient had lower extremity immobility and was bed-bound. Physical therapy was consulted and patient was evaluated. She has mobility in her upper extremities and is able to do her ADLs. However, PT team recommend follow-up with PT at [facility]. The patient's daughter reported that they have a meeting scheduled with staff at [facility] about improving the patient's care and mobility. HPI History of Present Illness: Anne is an 79-year-old female with a history of hypertension and atrial fibrillation who was brought to the ED with acute altered mental status from [facility]. Staff at [facility] reported that she was less talkative than usual. She had no nausea, vomiting, fever, or shortness of breath on admission. In the ED, she was found to have an acute UTI and was started on IV ceftriaxone. A complete history and review of systems was not obtained, due the the patient's altered mentation. She is currently immobile and appears lethargic and pale. The patient is oriented to person and place, but not date/time. The patient thought it was March and then April. When she was told today's date, she became upset about missing a meeting with her daughter Sarika and was in mild distress. She complained that her right leg was "paralyzed". CONSULTS | PROCEDURES Consultations: Physical therapy, Occupational therapy, Respiratory therapy Procedures: CT abdomen/pelvis, Chest X-ray, EKG, blood cultures, urine culture HOSPITAL COURSE Hospital Course: The patient was brought to the ED by EMS from [facility] for altered mental status. In the ED, urinalysis and hematology showed she had a UTI. She was also septic. An abdomen/pelvis CT ruled out hydronephrosis and pyelonephritis. The patient was admitted to medicine; blood and urine cultures were collected. She was given IV ceftriaxone, fluids, and medications. She was placed on telemetry to monitor her atrial fibrillation. When urine culture returned with pathogen identified as Citrobacter sedlakii, she was switched to IV cefepime. Physical therapy was also consulted to address her immobility, and they made recommendations. She was found to be altered again, so respiratory therapy was consulted and her blood gases were found to be abnormal. The patient was hypercapneic with pCO2 at 71mmHg, so she was moved to the ICU and placed on BiPAP overnight. Her pCO2 had diminished only slightly, but was still elevated at 68mmHg. She has been placed on 1L oxygen via nasal cannula and has been titrated to 0.5L prior to discharge (she is on 1-2L of oxygen at baseline). She is currently A&Ox4 and responding. She will be discharged with nitrofurantoin x 4 days. She will be discharged to SNF for further rehab. She needs follow up with her PCP for the followin) A formal sleep study to aid in diagnoses of OHS/LARON, and assess need for BIPAP 2) A conversation about anticoagulation with her history of atrial fibrillation 3) A conversation regarding her continued depression and continuing to make adjustments with her treatment regimen as needed. ALLERGIES Allergies Allergy/AdvReac Type Severity Reaction Status Date / Time Opioids - Morphine Analogues Allergy Intermediate Rash Unverified 03/15/25 12:02 latex Allergy Itching Verified 09/30/24 21:04 Sulfa (Sulfonamide Allergy Unknown Verified 09/30/24 21:04 Antibiotics) MEDICATIONS Ambulatory Orders Medication Instructions Recorded Confirmed albuterol sulfate 90 mcg/actuation 2 inh inhalation Q4H PRN shortness 08/06/24 03/11/25 breath activated powder inhaler of breath (ProAir RespiClick) ascorbic acid (vitamin C) 500 mg 500 mg PO DAILY 08/06/24 03/11/25 chewable tablet (C-500) aspirin 81 mg chewable tablet 81 mg PO DAILY 08/06/24 03/11/25 bisacodyl 10 mg rectal suppository 10 mg OR ONCE PRN Constipation 08/06/24 03/11/25 carboxymethylcellulose sodium 0.5 2 ea ophthalmic (eye) TID dry eyes 08/06/24 03/11/25 % eye drops in a dropperette (Refresh Plus) cholecalciferol (vitamin D3) 25 50 mcg PO DAILY 08/06/24 03/11/25 mcg (1,000 unit) tablet clopidogrel 75 mg tablet (Plavix) 75 mg PO DAILY 08/06/24 03/11/25 ferrous sulfate 325 mg (65 mg 325 mg PO DAILY 08/06/24 03/11/25 iron) tablet guaifenesin 100 mg/5 mL oral liquid 15 ml PO Q6H PRN Cough 08/06/24 03/11/25 mineral oil (Fleet Mineral Oil 1 ea RC PRN PRN Constipation 08/06/24 03/11/25 enema) naloxone 4 mg/actuation nasal 1 spray intranasal PRN PRN opioid 08/06/24 03/11/25 spray (Narcan) overdose pantoprazole 40 mg tablet,delayed 40 mg PO DAILY 08/06/24 03/11/25 release polyethylene glycol 3350 17 gram 17 g PO DAILY PRN constipation 08/06/24 03/11/25 oral powder packet saliva stimulant comb. no.3 15 ml PO DAILY 08/06/24 03/11/25 (Biotene Moisturizing Mouth mucosal spray) sennosides 8.6 mg tablet (Senna 17.2 mg PO DAILY PRN Constipation 08/06/24 03/11/25 Lax) furosemide 20 mg tablet 20 mg PO DAILY new chf #1 tab 08/07/24 03/11/25 acetaminophen 325 mg tablet 650 mg PO Q4H PRN pain 03/11/25 03/11/25 camphor-menthol 0.2 %-3.5 % 1 applic topical Q8HR 03/11/25 03/11/25 topical gel duloxetine 20 mg capsule,delayed 20 mg PO QAM 03/11/25 03/11/25 release sprinkle (Drizalma Sprinkle) multivitamin (Daily Multi-Vitamin 1 tab PO DAILY 03/11/25 03/11/25 tablet) oxycodone 5 mg tablet 5 mg PO Q12H PRN breakthrough pain 03/11/25 03/11/25 pregabalin 225 mg capsule 225 mg PO BID 03/11/25 03/11/25 metoprolol tartrate 25 mg tablet 25 mg PO BID #60 tabs 03/15/25 [id number] 1 tab PO DAILYWM #30 tabs 03/15/25 fumarate 19 mg-folic acid 400 mcg tablet (Therapeutic-M) nitrofurantoin 100 mg PO BID 4 days #8 caps 03/15/25 monohydrate/macrocrystals 100 mg capsule (Macrobid) PHYSICAL EXAM AT DISCHARGE Vital Signs: Vital Signs x48h Temp Pulse Pulse Resp BP BP Pulse Ox 03/15/25 11:12 83 20 95 03/15/25 11:10 85 20 96 03/15/25 11:07 88 20 89 L 03/15/25 11:03 83 20 94 03/15/25 10:40 03/15/25 09:21 96 152/89 H 03/15/25 07:59 36.5 C 97 20 152/89 H 96 O2 Flow Rate 03/15/25 11:12 0.5 03/15/25 11:10 1 03/15/25 11:07 03/15/25 11:03 03/15/25 10:40 1.5 03/15/25 09:21 03/15/25 07:59 1.5 General Appearance: positive No acute distress and Alert Eyes Bilateral: positive Normal inspection and PERRL ENT: positive Other (Moist oral mucus membranes. Dentures.) Neck: positive Nml inspection Respiratory: positive Chest non-tender, No respiratory distress and Other (hypoventilation and decreased breath sounds at baseline) Cardiovascular: positive Irregularly irregular (atrial fibrillation) Peripheral Pulses: positive 1+ Abdomen: positive Non-tender and Nml bowel sounds Skin: positive Color nml, No rash, Warm and Dry Extremities: positive Non-tender, Pedal edema (2+ pitting edema bilaterally) and Other (2/5 strength in UE; LE immobile.) Neurologic/Psychiatric: positive Oriented x3 and Depressed mood/affect LABS 03/15/25 05:23 03/15/25 05:23 DIAGNOSTIC IMAGING Diagnostic Imaging Results: Final report reviewed SEPSIS Current Stage of Sepsis: Sepsis Possible source of Sepsis: Genitourinary Sepsis Criteria: Suspected or Documented, Recorded Heart Rate greater than 90 bpm, Recorded Respiratory Rate greater than 20 and WBC count greater than 12,000 or less than 4000 QUALITY (Female Hip Fx Only) Was patient sent home on osteoporosis medication?: No TIME SPENT Time Spent in Discharge (Minutes): 80 Discharge Plan Discharge Patient Disposition: [facility] DC/Xfer Condition: Stable Medically Cleared Date:: 03/15/25 Prescriptions: New metoprolol tartrate 25 mg Tablet 25 mg PO BID Qty: 60 0RF Therapeutic-M 19 mg iron- 400 mcg Tablet 1 tab PO DAILYWM Qty: 30 0RF nitrofurantoin monohyd/m-cryst [Macrobid] 100 mg capsule 100 mg PO BID 4 Days Qty: 8 0RF Rx Instructions: must administer with a meal/food Continued aspirin 81 MG tablet,chewable 81 mg PO DAILY ProAir RespiClick 90 MCG aerosol powdr breath activated 2 inh inhalation Q4H PRN (Reason: shortness of breath) clopidogrel [Plavix] 75 MG tablet 75 mg PO DAILY ferrous sulfate 325 MG tablet 325 mg PO DAILY bisacodyl 10 MG suppository 10 mg OR ONCE PRN (Reason: Constipation) Rx Instructions: use 1 supp rectally as needed for bm if senna not effective on 5th day of no bm. ascorbic acid (vitamin C) [C-500] 500 MG tablet,chewable 500 mg PO DAILY carboxymethylcellulose sodium [Refresh Plus] 1 EACH dropperette 2 ea ophthalmic (eye) TID Rx Instructions: instill 2 drops into both eyes 3 times daily for related cataract surgery. cholecalciferol (vitamin D3) 25 MCG tablet 50 mcg PO DAILY Biotene Moisturizing Mouth 100 SPRAYS/44.3 ML spray,non-aerosol 15 ml PO DAILY polyethylene glycol 3350 17 GM powder in packet 17 g PO DAILY PRN (Reason: constipation) Rx Instructions: give 17 grams by mouth as needed for day 3 without a bowel movement guaifenesin 100 MG/5 ML liquid 15 ml PO Q6H PRN (Reason: Cough) mineral oil [Fleet Mineral Oil] 133 ML enema 1 ea RC PRN PRN (Reason: Constipation) Rx Instructions: insert 1 as needed if bisacodyl supp not effective on 6th day of no bm. naloxone [Narcan] 4 MG spray,non-aerosol 1 spray intranasal PRN PRN (Reason: opioid overdose) sennosides [Senna Lax] 8.6 MG tablet 17.2 mg PO DAILY PRN (Reason: Constipation) Rx Instructions: give two tabs by mouth as needed for day 4 without a bowel movement pantoprazole 40 MG tablet,delayed release (DR/EC) 40 mg PO DAILY furosemide 20 MG tablet 20 mg PO DAILY Qty: 1 0RF camphor-menthol 0.2-3.5 % gel 1 applic topical Q8HR Rx Instructions: Apply to RLE topically every 8 hours for pain Drizalma Sprinkle 20 mg capsule, delayed rel sprinkle 20 mg PO QAM oxycodone 5 mg tablet 5 mg PO Q12H PRN (Reason: breakthrough pain) acetaminophen 325 mg tablet 650 mg PO Q4H PRN (Reason: pain) multivitamin [Daily Multi-Vitamin] Tablet 1 tab PO DAILY pregabalin 225 mg capsule 225 mg PO BID Activity Restrictions: Activity as Tolerated Diet: Soft Health Concerns: When you came in, you were very weak, and confused. You were found to have a urinary tract infection. You have been on IV antibiotics since you have been here, and you will continue oral antibiotics on discharge, Macrobid 100 mg twice a day for 4 additional days. While you have been here, a few things have been discussed, that will require close follow-up in the outpatient setting. 1. I would like you to follow-up with your primary care provider and discuss the need for anticoagulation, or a blood thinner. With this history of atrial fibrillation, an abnormal heart rate and rhythm, you are at a higher risk for developing blood clots which could lead to things like strokes. As such, you need to carefully weigh the risks and benefits of starting an blood thinner with your primary care provider, or your customer experience analyst. 2. You may require a sleep study, which your primary care provider can prescribe. This will help us determine if you will need a CPAP machine at night. 3. I know you have been struggling with depression for a long time. I am glad you are taking your duloxetine. Please continue to follow up with your primary care doctor to discuss further depression mitigation strategies 4. Please continue to work on your strength, and continue to work with physical therapy and occupational therapy to get stronger. We are glad you're feeling better; thanks for allowing us to take care of you. Print Language: [place] Zeal[place] Patient Instructions: ED UTI Cystitis Female Stand Alone Forms: SNF Discharge, PCP List
== END 2025-03-15 15:32 | DRG 871 ==
LOC: ED 06:00 → MS3 09:19 → ICU 03-13 21:23 → MS2 03-14 23:02
PROVIDERS: ADMIT Specialist; ATTEND Specialist
DX: G47.33 Obstructive sleep apnea (adult) (pediatric); Z79.899 Other long term (current) drug therapy; Z20.818 Contact with and (suspected) exposure to other bacterial communicable diseases; I48.91 Unspecified atrial fibrillation; R07.9 Chest pain, unspecified; I49.3 Ventricular premature depolarization; I50.9 Heart failure, unspecified; M25.551 Pain in right hip; A41.59 Other Gram-negative sepsis; Z68.36 Body mass index [BMI] 36.0-36.9, adult; Z20.822 Contact with and (suspected) exposure to COVID-19; R53.1 Weakness; E66.9 Obesity, unspecified; E87.5 Hyperkalemia; Z20.828 Contact with and (suspected) exposure to other viral communicable diseases; E11.65 Type 2 diabetes mellitus with hyperglycemia; N39.0 Urinary tract infection, site not specified; Z79.82 Long term (current) use of aspirin; G93.41 Metabolic encephalopathy; R06.89 Other abnormalities of breathing; F32.A Depression, unspecified; I11.0 Hypertensive heart disease with heart failure

== ENCOUNTER 2025-04-01 09:16 | Inpatient (IN) ==
--- NOTE | 2025-04-01 09:19 | ED Physician Documentation ---
PD HPI DYSPNEA Stated complaint Stated Complaint: SOA Chief complaint Chief Complaint: Resp History obtained from History obtained from: Patient (intubated so no direct info, but EMS relates some info from pt ), EMS and Caregiver History of Present Illness Timing - onset: How many days ago (few days of cough and dyspnea, despite home inhaler use. ) Timing - onset during: Exertion Timing - duration: Days Timing - details: Gradual onset and Still present Inciting event(s): Other (underlying COPD. ) Improved by: No BiPAP / CPAP (brief attempt t CPAP prehospital but pt not having goo tidal volume.) Associated symptoms: Cough, Wheezing and Bilateral edema Meds/Allgy Home Medications Ambulatory Orders Medication Instructions Recorded Confirmed albuterol sulfate 90 mcg/actuation 2 inh inhalation Q4 H PRN shortness 08/06/24 04/01/25 breath activated powder inhaler of breath (ProAir RespiClick) ascorbic acid (vitamin C) 500 mg 500 mg PO DAILY 08/0604/01/25 chewable tablet (C-500) bisacodyl 10 mg rectal suppository 10 mg SD ONCE PRN C onstipation 08/06/24 04/01/25 carboxymethylcellulose sodium 0.5 2 ea ophthalmic (eye ) TID dry eyes 08/06/24 04/01/25 % eye drops in a dropperette (Refresh Plus) cholecalciferol (vitamin D3) 25 50 mcg PO DAILY 04/01/25 mcg (1,000 unit) tablet ferrous sulfate 325 mg (65 mg 325 mg PO DAILY 08/06/24 04/01/25 iron) tablet guaifenesin 100 mg/5 mL oral liquid 15 ml PO Q6H PRN C ough 08/06/24 04/01/25 mineral oil (Fleet Mineral Oil 1 ea RC PRN PRN Constip ation 08/06/24 04/01/25 enema) naloxone 4 mg/actuation nasal 1 spray intranasal PRN P RN opioid 08/06/24 04/01/25 spray (Narcan) overdose pantoprazole 40 mg tablet,delayed 40 mg PO DAILY 08/0604/01/25 release polyethylene glycol 3350 17 gram 17 g PO DAILY PRN con stipation 08/06/24 04/01/25 oral powder packet saliva stimulant comb. no.3 15 ml PO DAILY 08/06/24 (Biotene Moisturizing Mouth mucosal spray) sennosides 8.6 mg tablet (Senna 17.2 mg PO DAILY PRN C onstipation 08/06/24 04/01/25 Lax) furosemide 20 mg tablet 20 mg PO DAILY new chf #1 ta b 08/07/24 04/01/25 acetaminophen 325 mg tablet 650 mg PO Q4H PRN pain 04/01/25 camphor-menthol 0.2 %-3.5 % 1 applic topical Q8HR 02/1204/01/25 topical gel duloxetine 20 mg capsule,delayed 20 mg PO QAM 03/11/25 04/01/25 release sprinkle (Drizalma Sprinkle) oxycodone 5 mg tablet 5 mg PO Q12H PRN breakthroug h pain 03/11/25 04/01/25 pregabalin 225 mg capsule 225 mg PO BID 03/11/2504/01 metoprolol tartrate 25 mg tablet 25 mg PO BID #60 tabs 03/15/25 04/01/25 rktffehaowfs-pbtcawdb-kpmt 1 tab PO DAILYWM #30 tabs 0 03/15/25 04/01/25 fumarate 19 mg-folic acid 400 mcg tablet (Therapeutic-M) apixaban 5 mg tablet (Eliquis) 5 mg PO BID 04/01/25 Allergies Allergies Allergy/AdvReac Type Severity Reaction Status Date / Time Opioids - Morphine Analogues Allergy Intermediate Rash Unverified 04/01/25 11:48 latex Allergy Itching Verified 04/01/25 11:48 Sulfa (Sulfonamide Allergy Unknown Verified 04/01/25 11:48 Antibiotics) PFSH Active Problems All Active Problems (Updated 04/01/25 @ 16:11 by Kelsey Lang MD) Acute metabolic encephalopathy (Acute) Peripheral edema (Acute) Altered mental state (Acute) Acute exacerbation of chronic obstructive pulmonary disease (Acute) Respiratory failure (Acute) Hypercapnia (Acute) Decubitus ulcer, buttock (Acute) UTI (urinary tract infection) (Acute) Hypertension (Acute) Diabetes mellitus (Acute) Obstructive sleep apnea (Acute) Acute respiratory failure with hypoxia (Acute) Pulmonary edema (Acute) Respiratory failure (Acute) Pneumonia (Acute) Congestive heart failure (Acute) Back pain (Acute) Medical History Medical History (Updated 04/01/25 @ 16:11 by Kelsey Lang MD) Depression Anemia, iron deficiency Anxiety Dementia HLD (hyperlipidemia) GERD (gastroesophageal reflux disease) Fibromyalgia Chronic pain syndrome Social History Social History Smoking Status: Unknown if ever smoked Do you dip or chew tobacco?: No Do you vape?: No Living arrangement: [facility] Living Condition: Alone Relationship: Caregiver Level: Dependent Do you feel safe in your home environment?: Yes Suffered physical, verbal, emotional, or financial abuse?: No History of Abuse: No ETOH Use: Frequency: Occasional Number of Amount/day: 1 POLST Patient has POLST: Yes POLST Status: Full Code Exam Exam Vital Signs: Vital Signs x48h Temp Pulse Resp BP Pulse Ox 04/01/25 09:25 80 04/01/25 09:16 37.5 C 89 18 108/68 100 lungs symmetric sounds with diffuse prlonged expiratory wheezing. No fine ccrackles. no resp effort on arrival as still sedated by EMS. Constitutional distress noted (moderate) and abnormal body habitus (overweight) Respiratory clear to auscultation bilaterally (breath sounds with diffuse wheezing. ), wheezing noted (expiratory wheezes) and no retractions Cardiovascular normal heart rate noted, no murmur, no JVD and edema noted (moderate edema in both lower legs. ) Gastrointestinal nondistended and abnormal bowel sounds noted (hypoactive bowel sounds) Results Vitals Vitals: Vital Signs - 24 hr 04/01/25 09:16 04/01/25 09:25 04/01/25 09:49 Temperature 37.5 C Temperature Source Temporal Artery Scan Pulse Rate 89 80 82 Respiratory Rate 18 18 Blood Pressure 108/68 74/48 L O2 Saturation 100 98 Oxygen Delivery Method O2 Source Mechanical ventilator Fraction of Inspired Oxygen (FIO2) 50 FiO2 (%) Pain Intensity 0 0 04/01/25 09:51 04/01/25 09:53 04/01/25 09:58 Temperature Temperature Source Pulse Rate 83 78 87 Respiratory Rate 18 18 18 Blood Pressure 82/55 L 95/59 L 94/70 O2 Saturation 98 99 98 Oxygen Delivery Method O2 Source Mechanical ventilator Mechanical ventilator Mechanical ventilator Fraction of Inspired Oxygen (FIO2) FiO2 (%) Pain Intensity 0 0 0 04/01/25 10:10 04/01/25 10:15 04/01/25 10:17 Temperature 36.2 C L Temperature Source Core Pulse Rate 91 81 83 Respiratory Rate 16 16 16 Blood Pressure 90/78 90/55 L O2 Saturation 96 97 Oxygen Delivery Method O2 Source Mechanical ventilator Mechanical ventilator Mechanical ventilator Fraction of Inspired Oxygen (FIO2) FiO2 (%) Pain Intensity 0 0 04/01/25 10:24 04/01/25 10:30 04/01/25 10:40 Temperature Temperature Source Pulse Rate 80 87 95 Respiratory Rate 16 16 16 Blood Pressure 79/58 L 94/67 141/70 H O2 Saturation 99 96 91 L Oxygen Delivery Method O2 Source Mechanical ventilator Mechanical ventilator Mechanical ventilator Fraction of Inspired Oxygen (FIO2) FiO2 (%) Pain Intensity 0 0 0 04/01/25 10:44 04/01/25 11:05 04/01/25 11:05 Temperature 36.9 C 36.9 C Temperature Source Core Core Pulse Rate 87 88 82 Respiratory Rate 16 16 16 Blood Pressure 97/60 105/68 105/68 O2 Saturation 94 97 98 Oxygen Delivery Method O2 Source Mechanical ventilator Mechanical ventilator Mechanical ventilator Fraction of Inspired Oxygen (FIO2) FiO2 (%) 50 Pain Intensity 0 0 04/01/25 11:06 Temperature Temperature Source Pulse Rate Respiratory Rate Blood Pressure O2 Saturation Oxygen Delivery Method Mechanical Ventilator O2 Source Fraction of Inspired Oxygen (FIO2) FiO2 (%) Pain Intensity Oxygen O2 Source Mechanical ventilator Labs Labs: Laboratory Tests 04/01/25 04/01/25 04/01/25 09:17 09:30 09:30 WBC 7.4 RBC 4.36 Hgb 12.3 Hct 43.4 MCV 99.5 H MCH 28.2 MCHC 28.3 L RDW 14.4 Plt Count 328 MPV 9.9 Neut # (Auto) 5.8 Lymph # (Auto) 0.9 L [place] # (Auto) 0.5 Eos # (Auto) 0.1 Baso # (Auto) 0.1 Absolute Nucleated RBC 0.00 Nucleated RBC % 0.0 Manual Slide Review Indicated WBC Morphology NORMAL APPEARANCE Platelet Estimate NORMAL (130-450,000) Platelet Morphology NORMAL APPEARANCE RBC Morph Micro Appear 1+ HYPOCHROMASIA 1+ STOMATOCYTES Bld Gas Analysis Time Sample Site ABG pH ABG pCO2 ABG pO2 ABG HCO3 ABG Total CO2 ABG O2 Saturation ABG Base Excess Danny Test VBG pH 7.379 VBG pCO2 98.4 H VBG pO2 31.7 VBG HCO3 58.5 H VBG Total CO2 61.6 H VBG O2 Saturation 56.0 L VBG Base Excess 33.2 H Respiration Rate O2 Delivery Device Vent Mode FiO2 Tidal Volume PEEP Pressure Support Vent Sodium 140 Potassium 5.6 H Chloride 91 L Carbon Dioxide > 45 H* Anion Gap TNP BUN 19 Creatinine 0.6 Estimated GFR (MDRD) 96 Glucose 178 H Calcium 9.0 Magnesium 1.9 Total Bilirubin 0.6 AST 15 ALT 4 L Alkaline Phosphatase 80 B-Natriuretic Peptide 203 H Total Protein 6.7 Albumin 3.1 L Globulin 3.6 Albumin/Globulin Ratio 0.9 L Lipase < 10 L TSH 8.97 H Free T4 Direct 0.71 Nasal Adenovirus (PCR) NOT DETECTED Nasal B. parapertussis DNA (PCR) NOT DETECTED Nasal Coronavir 229E PCR NOT DETECTED Nasal Coronavir HKU1 PCR NOT DETECTED Nasal Coronavir NL63 PCR NOT DETECTED Nasal Coronavir OC43 PCR NOT DETECTED Nasal Enterovir/Rhinovir PCR NOT DETECTED Nasal Influenza B PCR NOT DETECTED Nasal Influenza A PCR NOT DETECTED Nasal Parainfluen 1 PCR NOT DETECTED Nasal Parainfluen 2 PCR NOT DETECTED Nasal Parainfluen 3 PCR NOT DETECTED Nasal Parainfluen 4 PCR NOT DETECTED Nasal RSV (PCR) NOT DETECTED Nasal B.pertussis DNA PCR NOT DETECTED Nasal C.pneumoniae (PCR) NOT DETECTED Kaushik Human Metapneumo PCR NOT DETECTED Nasal M.pneumoniae (PCR) NOT DETECTED Nasal SARS-CoV-2 (PCR) NOT DETECTED 04/01/25 09:43 WBC RBC Hgb Hct MCV MCH MCHC RDW Plt Count MPV Neut # (Auto) Lymph # (Auto) [place] # (Auto) Eos # (Auto) Baso # (Auto) Absolute Nucleated RBC Nucleated RBC % Manual Slide Review WBC Morphology Platelet Estimate Platelet Morphology RBC Morph Micro Appear Bld Gas Analysis Time 0943 Sample Site RIGHT RADIAL ABG pH 7.59 H ABG pCO2 57 H ABG pO2 88 ABG HCO3 54.8 H ABG Total CO2 56.6 H* ABG O2 Saturation 100 H ABG Base Excess 32.9 H Danny Test POSITIVE VBG pH VBG pCO2 VBG pO2 VBG HCO3 VBG Total CO2 VBG O2 Saturation VBG Base Excess Respiration Rate 18 O2 Delivery Device MECH VENT Vent Mode SIMV FiO2 50.00 Tidal Volume 450 PEEP 5 Pressure Support Vent 5 Sodium Potassium Chloride Carbon Dioxide Anion Gap BUN Creatinine Estimated GFR (MDRD) Glucose Calcium Magnesium Total Bilirubin AST ALT Alkaline Phosphatase B-Natriuretic Peptide Total Protein Albumin Globulin Albumin/Globulin Ratio Lipase TSH Free T4 Direct Nasal Adenovirus (PCR) Nasal B. parapertussis DNA (PCR) Nasal Coronavir 229E PCR Nasal Coronavir HKU1 PCR Nasal Coronavir NL63 PCR Nasal Coronavir OC43 PCR Nasal Enterovir/Rhinovir PCR Nasal Influenza B PCR Nasal Influenza A PCR Nasal Parainfluen 1 PCR Nasal Parainfluen 2 PCR Nasal Parainfluen 3 PCR Nasal Parainfluen 4 PCR Nasal RSV (PCR) Nasal B.pertussis DNA PCR Nasal C.pneumoniae (PCR) Kaushik Human Metapneumo PCR Nasal M.pneumoniae (PCR) Nasal SARS-CoV-2 (PCR) Rads (name of study) chest xray: Relevant Findings:: Final report received and EMP independent interpretation of test Interpretation: COMPARISON: None. FINDINGS: Surgical changes and devices: ET tube 3.2 cm above the bailey. Lungs and pleura: Small left pleural effusion. Left basilar consolidation. Mediastinum: Mediastinal contours appear normal. Heart size is normal. Bones and chest wall: No suspicious bony lesions. Overlying soft tissues appear unremarkable. IMPRESSION: Small left pleural effusion. Left basilar atelectasis or pneumonia. ET tube 3.2 cm above the bailey. Reviewed by: Genie Ceron MD, PhD on 04/01/2025 9:49 AM PDT PD Medical Decision Making ED course Complexity details: reviewed results, considered differential and d/w hospice care consultant ED course: Patient is a resident at a [place] [facility] and caregivers report to the medics she has been having increasing wheezing and dyspnea over several days. No reported fever. Has been coughing. Lethargic this morning and medics were called. They found her to be adequate oxygenation on nasal cannula but altered mentation and PCO2 is elevated. They attempted CPAP but she was not breathing adequately nor awake enough. Intubated in the field and also given DuoNeb en route. Peripheral edema is noted in the legs. Wheezing and not really crackles on lung sounds. The patient does have history of COPD without history of CHF. Recent hospitalized for UTI and sepsis and did have BiPAP overnight on one of the nights due to decreased respiratory status. At the time her pCO2 was in the 70s and improved to the 68. Her mentation was good at that point. Presumed CO2 retainer. Reportedly had been doing okay up until the last few days. Here she does have wheezing bilaterally. No obvious crackles per se. Chest x- ray shows some mild increased vascularity but not significant CHF. Heart size is comparable to previous. No effusions noted. Likely atelectasis without infiltrate per se. On exam she does have 2+ pitting edema on both legs up to the knees and thighs. Not really noted in the hands. She is making some respiratory effort so her medications are wearing off. Until better assessment and predictability of success, I will keep her intubated for now. She is given some ketamine to help with sedation. Blood pressure was slightly soft after that and when she was given a 500 cc bolus with improvement in the pressure to above 100. Most recent blood pressure is now 90/78. We can give another fluid bolus. Will perhaps need to change from propofol to another medicine. At this point she is afebrile. White count is slightly elevated. She is not acidotic. I do not believe she is septic at this point. She does not appear in overt CHF so some fluid bolusing despite the peripheral edema. I did talk with the hospitalist who will come assess the patient. Critical Care Time(min): 45 Comments: untubated by EMS. resp failure. Time Includes: Direct patient care, Review records, Document care and Coordinate care Discharge Plan Discharge Patient Disposition: [facility] DC/Xfer Condition: Stable Clinical Impression: Respiratory failure, Acute exacerbation of chronic obstructive pulmonary disease, Altered mental state, Peripheral edema Interventions: ED Admission Assessment Last Done: 04/01/25 11:20
[2025-04-01 09:37] LABS: BASOPHILS # (AUTO) 0.1 10^3/uL (0.0-0.1); BASOPHILS % (AUTO) 1.1 %; EOSINOPHILS # (AUTO) 0.1 10^3/uL (0.0-0.7); EOSINOPHILS % (AUTO) 1.1 %; HCT - HEMATOCRIT 43.4 % (37.0-47.0); HGB - HEMOGLOBIN 12.3 g/dL (12.0-16.0); LYMPHOCYTES # (AUTO) 0.9 10^3/uL (1.5-3.5); LYMPHOCYTES % (AUTO) 12.3 %; MEAN CORPUSCULAR HEMOGLOBIN 28.2 pg (27.0-31.0); MEAN CORPUSCULAR HGB CONC 28.3 g/dL (32.0-36.0); MEAN CORPUSCULAR VOLUME 99.5 fL (81.0-99.0); MEAN PLATELET VOLUME 9.9 fL (7.9-10.8); MONOCYTES # (AUTO) 0.5 10^3/uL (0.0-1.0); MONOCYTES % (AUTO) 6.8 %; NEUTROPHILS # (AUTO) 5.8 10^3/uL (1.5-6.6); NEUTROPHILS % (AUTO) 78.6 %; PLT - PLATELET COUNT 328 10^3/uL (130-450); RED BLOOD COUNT 4.36 10^6/uL (4.20-5.40); RED CELL DISTRIBUTION WIDTH 14.4 % (12.0-15.0); WHITE BLOOD COUNT 7.4 x10^3/uL (4.8-10.8)
[2025-04-01] MEDS: PROPOFOL 1000 MG/100 ML 1,000 MG/100 ML BOTTLE IV STA (09:38)
[2025-04-01 09:39] LABS: VBG PCO2 98.4 mmHg (41-51); VBG PH 7.379 (7.31-7.41)
[2025-04-01 09:40] LABS: VBG BASE EXCESS 33.2 mmol/L (-2 - +2); VBG PO2 31.7 mmHg (25-47); VBG TOTAL CO2 61.6 mmol/L (24-29)
[2025-04-01] MEDS: KETAMINE 500 MG/10 ML VIAL IVP STA (09:41)
[2025-04-01] MEDS: DEXAMETHASONE 10 MG/ML VIAL IVP STA (09:42)
[2025-04-01 09:44] LABS: SLIDE REVIEW? Indicated
[2025-04-01] MEDS: IPRATROPIUM/ALBUTEROL 3 ML NEB INH STA (09:47)
[2025-04-01 09:50] LABS: MAGNESIUM 1.9 mg/dL (1.7-2.3)
--- NOTE | 2025-04-01 09:50 | XRAY Report ---
PROCEDURE: XR Chest for Line Placement INDICATIONS: intubated, dyspnea TECHNIQUE: One view of the chest was acquired. COMPARISON: None. FINDINGS: Surgical changes and devices: ET tube 3.2 cm above the bailey. Lungs and pleura: Small left pleural effusion. Left basilar consolidation. Mediastinum: Mediastinal contours appear normal. Heart size is normal. Bones and chest wall: No suspicious bony lesions. Overlying soft tissues appear unremarkable. IMPRESSION: Small left pleural effusion. Left basilar atelectasis or pneumonia. ET tube 3.2 cm above the bailey. Reviewed by: Genie Ceron MD, PhD on 04/01/2025 9:49 AM PDT Approved by: Genie Ceron MD, PhD on 04/01/2025 9:49 AM PDT Station ID: [id number]
[2025-04-01 09:53] LABS: ALBUMIN 3.1 g/dL (3.2-5.5); ALBUMIN/GLOBULIN RATIO 0.9 (1.0-2.2); ALKALINE PHOSPHATASE 80 IU/L (42-121); ALT ALANINE AMINOTRANSFERASE 4 IU/L (10-60); AST ASPARTATE AMINOTRANSFERASE 15 IU/L (10-42); BILIRUBIN,TOTAL 0.6 mg/dL (0.2-1.0); BUN - BLOOD UREA NITROGEN 19 mg/dL (6-20); CARBON DIOXIDE - CO2 > 45 mmol/L (21-32); CHLORIDE 91 mmol/L (101-111); CREATININE 0.6 mg/dL (0.6-1.3); GFR - MDRD 96 (>89); GLUCOSE 178 mg/dL (74-104); LIPASE < 10 U/L (11-82); POTASSIUM 5.6 mmol/L (3.5-4.5); SODIUM 140 mmol/L (135-145); TOTAL PROTEIN 6.7 g/dL (6.4-8.9)
[2025-04-01] MEDS: SODIUM CHLORIDE 0.9% 500 ML IV STA (09:54)
[2025-04-01 09:55] LABS: PLATELET ESTIMATE, MANUAL NORMAL (130-450,000) (NORMAL); PLATELET MORPHOLOGY NORMAL APPEARANCE (NORMAL); WBC MORPHOLOGY (MULTIPLE) NORMAL APPEARANCE (NORMAL)
[2025-04-01 09:58] LABS: ABG BASE EXCESS 32.9 mmol/L (-2.0-3.0); ABG HCO3 54.8 mmol/L (22.0-26.0); ABG OXYGEN SATURATION 100 % (95-98); ABG PCO2 57 mmHg (34-45); ABG PH 7.59 (7.35-7.45); ABG PO2 88 mmHg (83-108)
[2025-04-01 09:59] LABS: ABG MODE OF VENTILATION SIMV; ABG RESPIRATORY RATE 18 b/min; ALLEN TEST POSITIVE
--- OUTSIDE RECORDS SUMMARY | 2025-04-01 10:01 | EXTERNAL MEDICAL SUMMARY RPT | Continuity of Care Document ---
Author Organization [facility] Address [address] [place] [address] Phone Problems date description facility 2025-03-11 09:20 Altered mental status, unspecif ied [facility] 2025-03-11 10:30 Unspecified atrial fibrillation [facility] 2025-03-11 10:30 Urinary tract infection, site n ot specified [facility] 2025-03-11 10:30 Altered mental status, unspecif ied [facility] 2025-03-13 21:23 Sepsis, unspecified organism [facility] 2025-03-13 21:23 Type 2 diabetes mellitus with h yperglycemia [facility] 2025-03-13 21:23 Type 2 diabetes mellitus withou t complications [facility] 2025-03-13 21:23 Hyperkalemia [facility] 2025-03-13 21:23 Unspecified atrial fibrillation [facility] 2025-03-13 21:23 Heart failure, unspecified [facility] 2025-03-13 21:23 Pressure ulcer of un specified buttock, unspecified stage [facility] 2025-03-13 21:23 Urinary tract infection, site n ot specified [facility] 2025-03-13 21:23 Altered mental status, unspecif ied [facility] 2025-03-13 21:23 Other reduced mobility [facility] 2025-03-14 23:03 Sepsis, unspecified organism [facility] 2025-03-14 23:03 Type 2 diabetes mellitus with h yperglycemia [facility] 2025-03-14 23:03 Type 2 diabetes mellitus withou t complications [facility] 2025-03-14 23:03 Hyperkalemia [facility] 2025-03-14 23:03 Unspecified atrial fibrillation [facility] 2025-03-14 23:03 Heart failure, unspecified [facility] 2025-03-14 23:03 Pressure ulcer of un specified buttock, unspecified stage [facility] 2025-03-14 23:03 Urinary tract infection, site n ot specified [facility] 2025-03-14 23:03 Altered mental status, unspecif ied [facility] 2025-03-14 23:03 Other reduced mobility [facility] 2025-03-15 11:00 [facility], [facility] 11:00 Type 2 diabetes mellitus with h yperglycemia [facility] 2025-03-15 11:00 Type 2 diabetes mellitus withou t complications [facility] 2025-03-15 11:00 Hyperkalemia [facility] 2025-03-15 11:00 Unspecified atrial fibrillation [facility] 2025-03-15 11:00 Heart failure, unspecified [facility] 2025-03-15 11:00 Pressure ulcer of un specified buttock, unspecified stage [facility] 2025-03-15 11:00 Urinary tract infection, site n ot specified [facility] 2025-03-15 11:00 Altered mental status, unspecif ied [facility] 2025-03-15 11:00 Other reduced mobility [facility] 2025-03-15 11:09 Sepsis, [facility] 11:09 Type 2 diabetes mellitus with h yperglycemia [facility] 2025-03-15 11:09 Type 2 diabetes mellitus withou t complications [facility]25-[facility] 11:09 Hyperkalemia [facility] 2025-03-15 11:09 Unspecified atrial fibrillation [facility] 2025-03-15 11:09 Heart failure, unspecified [facility] 2025-03-15 11:09 Pressure ulcer of un specified buttock, unspecified stage [facility] 2025-03-15 11:09 Urinary tract infection, site n ot specified [facility] 2025-03-15 11:09 Altered mental status, unspecif ied [facility] 2025-03-15 11:09 Other reduced mobility [facility] 2025-03-15 11:30 Sepsis, unspecified organism [facility] 2025-03-15 11:30 Type 2 diabetes mellitus with h yperglycemia [facility] 2025-03-15 11:30 Type 2 diabetes mellitus withou t complications [facility] 2025-03-15 11:30 Hyperkalemia [facility] 2025-03-15 11:30 Unspecified atrial fibrillation [facility] 2025-03-15 11:30 Heart failure, unspecified [facility] 2025-03-15 11:30 Pressure ulcer of un specified buttock, unspecified stage [facility] 2025-03-15 11:30 Urinary tract infection, site n ot specified [facility] 2025-03-15 11:30 Altered mental status, unspecif ied [facility] 2025-03-15 11:30 Other reduced mobility [facility] 2025-03-15 11:44 Sepsis, unspecified [facility] 11:44 Type 2 diabetes mellitus with h yperglycemia [facility] 2025-03-15 11:44 Type 2 diabetes mellitus withou t complications [facility] 2025-03-15 11:44 Hyperkalemia [facility] 2025-03-15 11:44 Unspecified atrial fibrillation [facility] 2025-03-15 11:44 Heart failure, unspecified [facility] 2025-03-15 11:44 Pressure ulcer of un specified buttock, unspecified stage [facility] 2025-03-15 11:44 Urinary tract infection, site n ot specified [facility] 2025-03-15 11:44 Altered mental status, unspecif ied [facility] 2025-03-15 11:44 Other reduced mobility [facility] 2025-03-15 12:02 Sepsis, unspecified [facility] 12:02 Type 2 diabetes mellitus with h yperglycemia [facility] 2025-03-15 12:02 Type 2 diabetes mellitus withou t complications [facility] 2025-03-15 12:02 Hyperkalemia [facility] 2025-03-15 12:02 Unspecified atrial fibrillation [facility] 2025-03-15 12:02 Heart failure, unspecified [facility] 2025-03-15 12:02 Pressure ulcer of un specified buttock, unspecified stage [facility] 2025-03-15 12:02 Urinary tract infection, site n ot specified [facility] 2025-03-15 12:02 Altered mental status, unspecif ied [facility] 2025-03-15 12:02 Other reduced mobility [facility] 2025-03-15 13:27 Sepsis, unspecified [facility] 13:27 Type 2 diabetes mellitus with h yperglycemia [facility] 2025-03-15 13:27 Type 2 diabetes mellitus withou t complications [facility] 2025-03-15 13:27 Hyperkalemia [facility] 2025-03-15 13:27 Unspecified atrial fibrillation [facility] 2025-03-15 13:27 Heart failure, unspecified [facility] 2025-03-15 13:27 Pressure ulcer of un specified buttock, unspecified stage [facility] 2025-03-15 13:27 Urinary tract infection, site n ot specified [facility] 2025-03-15 13:27 Altered mental status, unspecif ied [facility] 2025-03-15 13:27 Other reduced mobility [facility] 2025-03-15 15:32 Sepsis, unspecified [facility]15 15:32 Type 2 diabetes mellitus with h yperglycemia [facility] 2025-03-15 15:32 Type 2 diabetes mellitus withou t complications [facility] 2025-03-15 15:32 Hyperkalemia [facility] 2025-03-15 15:32 Unspecified atrial fibrillation [facility] 2025-03-15 15:32 Heart failure, unspecified [facility] 2025-03-15 15:32 Pressure ulcer of un specified buttock, unspecified stage [facility] 2025-03-15 15:32 Urinary tract infection, site n ot specified [facility] 2025-03-15 15:32 Altered mental status, unspecif ied [facility] 2025-03-15 15:32 Other reduced mobility [facility] 2025-03-17 05:10 Sepsis, unspecified [facility]25-03-17 05:10 Type 2 diabetes mellitus with h yperglycemia [facility] 2025-03-17 05:10 Type 2 diabetes mellitus withou t complications [facility] 2025-03-17 05:10 Hyperkalemia [facility] 2025-03-17 05:10 Unspecified atrial fibrillation [facility] 2025-03-17 05:10 Heart failure, unspecified [facility] 2025-03-17 05:10 Pressure ulcer of un specified buttock, unspecified stage [facility] 2025-03-17 05:10 Urinary tract infection, site n ot specified [facility] 2025-03-17 05:10 Chest pain, unspecified [facility] 2025-03-17 05:10 Altered mental status, unspecif ied [facility] 2025-03-17 05:10 Weakness [facility] 2025-03-17 05:10 Other reduced mobility [facility] 2025-03-19 08:26 Slowness and poor responsivenes s [facility] 2025-03-27 09:53 Weakness [facility] 2025-03-31 23:40 Encounter for screening for lip oid disorders [facility] 2025-04-01 09:27 Encounter for screening for lip oid disorders [facility] Results/Labs test date facility value unit notes Result panel 1 WBC,URINE 2025-03-11 06:30 [facility] >25 /hpf URINE CATHETERIZED SPECIFIC GRAVITY,URINE 2025-03-11 06:30 [facility] >=1.030 (missin g) (missing) CEFAZOLIN 2025-03-11 06:30 [facility] >=64 (missin g) (missing) NITROFURANTOIN 2025-03-11 06:30 [facility] <=16 (missin g) (missing) UROBILINOGEN,URINE 2025-03-11 06:30 [facility] 0.2 (NORMAL) e.u./dl (missing) CUL, URINE 2025-03-11 06:30 [facility] 100>100,000 CFU/mL (missin g) (missing) RBC,URINE 2025-03-11 06:30 [facility] 11-25 /hpf (missing) PH,URINE 2025-03-11 06:30 [facility] 6.0 ph (missing) O:CITSED 2025-03-11 06:30 [facility] CITSEDCITROBACTER SEDLAKIICITROBACTER SEDLAKII (missin g) (missing) SQUAMOUS EPITHELIAL CELL,UR 2025-03-11 06:30 [facility] FEW Squamous (missin g) (missing) CUL, URINE 2025-03-11 06:30 [facility] GNGRAM NEGATIVE GROWTH TO BE FURTHER IDENTIFIED (missin g) (missing) CLARITY,URINE 2025-03-11 06:30 [facility] HAZY (missin g) (missing) CUL, URINE 2025-03-11 06:30 [facility] IDMIC.1ORG 1 ID/JAYESH COM* (missin g) (missing) CUL, URINE 2025-03-11 06:30 [facility] IDMICID/JAYESH COM* (missin g) (missing) UR CULTURE IF IND 2025-03-11 06:30 [facility] INDICATED (missin g) (missing) URINE MICROSCOPIC INDICATED? 2025-03-11 06:30 [facility] INDICATED (missin g) (missing) LEUKOCYTE ESTERASE, URINE 2025-03-11 06:30 [facility] MODERATE (missin g) (missing) OCCULT BLOOD,URINE 2025-03-11 06:30 [facility] MODERATE (missin g) (missing) BACTERIA,URINE 2025-03-11 06:30 [facility] Moderate /hpf (missing) BILIRUBIN,URINE 2025-03-11 06:30 [facility] NEGATIVE (missin g) Bilirubin can be influenced by color interference. Please correlate positive results with clinical presentation GLUCOSE, URINE (UA) 2025-03-11 06:30 [facility] NEGATIVE mg/dl (missing) KETONES,URINE (UA) 2025-03-11 06:30 [facility] NEGATIVE mg/dl (missing) CUL, URINE 2025-03-11 06:30 [facility] ORG.1PRELIM ORG ID* (missin g) (missing) NITRITE,URINE 2025-03-11 06:30 [facility] POSITIVE (missin g) (missing) WBC CLUMPS,URINE 2025-03-11 06:30 [facility] PRESENT (missin g) (missing) CUL, URINE 2025-03-11 06:30 [facility] Pending (missin g) (missing) CUL, URINE 2025-03-11 06:30 [facility] SENSISENSITIVITIES TO FOLLOW (missin g) (missing) PROTEIN,URINE 2025-03-11 06:30 [facility] TRACE mg/dl (missing) CUL, URINE 2025-03-11 06:30 [facility] UCC.1ORG 1 CC* (missin g) (missing) CUL, URINE 2025-03-11 06:30 [facility] UCC.6COLONY COUNT (missin g) (missing) COLOR,URINE 2025-03-11 06:30 [facility] YELLOW (missin g) URINE CATHETERIZED CUL, URINE 2025-03-11 06:30 [facility] YIDENTIFICATION AND SENSITIVITIES TO FOLLOW (missin g) (missing) Result panel 2 LIPASE 2025-03-11 06:35 [facility] < 10 [...] may include reference ranges. BILIRUBIN,TOTAL 2025-03-11 06:35 [facility] 0.6 mg /dl As of May 2023 testing method has changed, this may include reference ranges. ALBUMIN/GLOBULIN RATIO 2025-03-11 06:35 [facility] 0.9 (missing) (missing) MONOCYTES # (AUTO) 2025-03-11 06:35 [facility] 1.0 10 3/ul (missing) LYMPHOCYTES # (AUTO) 2025-03-11 06:35 [facility] 1.1 10 3/ul (missing) ALKALINE PHOSPHATASE 2025-03-11 06:35 [facility] 103 iu/l As of May 2023 testing method has changed, this may include reference ranges. GFR - MDRD 2025-03-11 06:35 [facility] 119 (vanessa arredondo) Social History date description facility
[2025-04-01 10:02] LABS: ABG TCO2 56.6 mmol/L (21.0-29.0)
[2025-04-01 10:24] LABS: B. PARAPERTUSSIS- RESP PCR PAN NOT DETECTED; B. PERTUSSIS- RESP PCR PANEL NOT DETECTED; C. PNEUMONIAE- RESP PCR PANEL NOT DETECTED; CORONAVIRUS 229E-RESP PCR NOT DETECTED; CORONAVIRUS HKU1-RESP PCR NOT DETECTED; CORONAVIRUS NL63-RESP PCR NOT DETECTED; CORONAVIRUS OC43-RESP PCR NOT DETECTED; HUMAN METAPNEUMOVIRUS NOT DETECTED; INFLUENZA A- RESP PCR PANEL NOT DETECTED; INFLUENZA B - RESP PCR PANEL NOT DETECTED; M. PNEUMONIAE- RESP PCR PANEL NOT DETECTED; PARAINFLUENZA VIRUS 1 NOT DETECTED; PARAINFLUENZA VIRUS 2 NOT DETECTED; PARAINFLUENZA VIRUS 4 NOT DETECTED; RHINOVIRUS/ENTEROVIRUS NOT DETECTED; RSV- RESP PCR PANEL NOT DETECTED; SARS-CoV-2 -RESP PCR PANEL NOT DETECTED
--- NOTE | 2025-04-01 11:06 | HISTORY & PHYSICAL EXAMINATION ---
Chief Complaint Chief Complaint Chief Complaint: Altered mentation History of Present Illness Admitted From Admitted From:: Sandra Palomino History Obtained From Records Reviewed: EMR History obtained from: Chart review Exam Limitations: Patient intubated and sedated History of Present Illness HPI Comment/Other: Patient is a 79-year-old female with a likely diagnosis of obesity hypoventilation syndrome versus obstructive sleep apnea who presents due to lethargy noted at her senior care facility. Per ER records, patient was obtunded. She was not tolerating CPAP, and as such, she was intubated via EMS. Of note, she was admitted recently from 03/11 to this time, she also had altered mentation, and required a night of BiPAP with improvement of her CO2 retention. She was also treated for a UTI and sepsis at that time. Advance care planning was completed, as well as documented well. Patient is a DNR/DNI. She does have a POLST filled out. In the ED, patient was intubated and sedated so further history cannot be elicited. I did try to reach out to her daughter multiple times without success. In the ER, she was saturating 96% on minimal settings on the ventilator. Her blood pressure was soft at 90/55, after receiving ketamine and propofol for sedation. Respiratory rate was 16, heart rate was 83, and she was afebrile. Lab work was reviewed, and it showed no white count. Her initial VBG did show a PCO2 in the 90s, and after half an hour on the ventilator, this improved to 56.6. Her potassium was elevated at 5.6. Her creatinine was within normal limits at 0.6. UA was positive for urinary tract infection. Respiratory viral panel was negative. Chest x-ray was completed, and it does show small left pleural effusion, as well as atelectasis or pneumonia. When she was transferred to the ICU, she self extubated, and now remains on 3 L, saturating well, with a normal respiratory rate. Meds/Allgy Home Medications Ambulatory Orders Medication Instructions Recorded Confirmed albuterol sulfate 90 mcg/actuation 2 inh inhalation Q4 H PRN shortness 08/06/24 04/01/25 breath activated powder inhaler of breath (ProAir RespiClick) ascorbic acid (vitamin C) 500 mg 500 mg PO DAILY 08/0604/01/25 chewable tablet (C-500) bisacodyl 10 mg rectal suppository 10 mg NC ONCE PRN C onstipation 08/06/24 04/01/25 carboxymethylcellulose sodium 0.5 2 ea ophthalmic (eye ) TID dry eyes 08/06/24 04/01/25 % eye drops in a dropperette (Refresh Plus) cholecalciferol (vitamin D3) 25 50 mcg PO DAILY 04/01/25 mcg (1,000 unit) tablet ferrous sulfate 325 mg (65 mg 325 mg PO DAILY 08/06/24 04/01/25 iron) tablet guaifenesin 100 mg/5 mL oral liquid 15 ml PO Q6H PRN C ough 08/06/24 04/01/25 mineral oil (Fleet Mineral Oil 1 ea RC PRN PRN Constip ation 08/06/24 04/01/25 enema) naloxone 4 mg/actuation nasal 1 spray intranasal PRN P RN opioid 08/06/24 04/01/25 spray (Narcan) overdose pantoprazole 40 mg tablet,delayed 40 mg PO DAILY 08/0604/01/25 release polyethylene glycol 3350 17 gram 17 g PO DAILY PRN con stipation 08/06/24 04/01/25 oral powder packet saliva stimulant comb. no.3 15 ml PO DAILY 08/06/24 (Biotene Moisturizing Mouth mucosal spray) sennosides 8.6 mg tablet (Senna 17.2 mg PO DAILY PRN C onstipation 08/06/24 04/01/25 Lax) furosemide 20 mg tablet 20 mg PO DAILY new chf #1 ta b 08/07/24 04/01/25 acetaminophen 325 mg tablet 650 mg PO Q4H PRN pain 04/01/25 camphor-menthol 0.2 %-3.5 % 1 applic topical Q8HR /08/0704/01/25 topical gel duloxetine 20 mg capsule,delayed 20 mg PO QAM 03/11/25 04/01/25 release sprinkle (Drizalma Sprinkle) oxycodone 5 mg tablet 5 mg PO Q12H PRN breakthroug h pain 03/11/25 04/01/25 pregabalin 225 mg capsule 225 mg PO BID 03/11/2504/01 metoprolol tartrate 25 mg tablet 25 mg PO BID #60 tabs 03/15/25 04/01/25 hqavbyoyajmj-wnvkcwxh-hobj 1 tab PO DAILYWM #30 tabs 0 03/15/25 04/01/25 fumarate 19 mg-folic acid 400 mcg tablet (Therapeutic-M) apixaban 5 mg tablet (Eliquis) 5 mg PO BID 04/01/25 Allergies Allergies Allergy/AdvReac Type Severity Reaction Status Date / Time Opioids - Morphine Analogues Allergy Intermediate Rash Unverified 04/01/25 11:48 latex Allergy Itching Verified 04/01/25 11:48 Sulfa (Sulfonamide Allergy Unknown Verified 04/01/25 11:48 Antibiotics) PFSH Active Problems All Active Problems (Updated 04/01/25 @ 16:11 by Kelsey Lang MD) Acute metabolic encephalopathy (Acute) Peripheral edema (Acute) Altered mental state (Acute) Acute exacerbation of chronic obstructive pulmonary disease (Acute) Respiratory failure (Acute) Hypercapnia (Acute) Decubitus ulcer, buttock (Acute) UTI (urinary tract infection) (Acute) Hypertension (Acute) Diabetes mellitus (Acute) Obstructive sleep apnea (Acute) Acute respiratory failure with hypoxia (Acute) Pulmonary edema (Acute) Respiratory failure (Acute) Pneumonia (Acute) Congestive heart failure (Acute) Back pain (Acute) Medical History Medical History (Updated 04/01/25 @ 16:11 by Kelsey Lang MD) Depression Anemia, iron deficiency Anxiety Dementia HLD (hyperlipidemia) GERD (gastroesophageal reflux disease) Fibromyalgia Chronic pain syndrome Social History Social History Smoking Status: Unknown if ever smoked Do you dip or chew tobacco?: No Do you vape?: No Living arrangement: [facility] Living Condition: Alone Relationship: Caregiver Level: Dependent Do you feel safe in your home environment?: Yes Suffered physical, verbal, emotional, or financial abuse?: No History of Abuse: No ETOH Use: Frequency: Occasional Number of Amount/day: 1 POLST Patient has POLST: Yes POLST Status: Full Code Review of Systems Patient sedated on propofol when first seen. Unable to obtain. Status of ROS: unobtainable due to medical condition and unobtainable due to mental status Prior Level of Functionality: Bedbound at baseline due to multiple orthopedic surgeries. Exam Exam Vital Signs: Vital Signs x48h Temp Pulse Pulse Resp BP BP Pulse Ox 04/01/25 15:00 107 H 24 119/67 97 04/01/25 14:09 99.7 F 106 H 19 130/70 95 04/01/25 13:16 39 L 04/01/25 13:00 99.7 F 103 H 16 125/56 L 94 04/01/25 12:05 97 04/01/25 12:00 98.6 F 105 H 7 L 112/86 91 L 04/01/25 11:23 88 04/01/25 11:05 98.4 F 82 16 105/68 98 04/01/25 11:05 98.4 F 88 16 105/68 97 04/01/25 10:44 87 16 97/60 94 04/01/25 10:40 95 16 141/70 H 91 L 04/01/25 10:30 87 16 94/67 96 04/01/25 10:24 80 16 79/58 L 99 04/01/25 10:17 83 16 04/01/25 10:15 97.2 F L 81 16 90/55 L 97 04/01/25 10:10 91 16 90/78 96 04/01/25 09:58 87 18 94/70 98 04/01/25 09:53 78 18 95/59 L 99 04/01/25 09:51 83 18 82/55 L 98 04/01/25 09:49 82 18 74/48 L 98 04/01/25 09:25 80 04/01/25 09:16 99.5 F 89 18 108/68 100 O2 Flow Rate 04/01/25 15:00 3 04/01/25 14:09 04/01/25 13:16 04/01/25 13:00 04/01/25 12:05 04/01/25 12:00 04/01/25 11:23 04/01/25 11:05 04/01/25 11:05 04/01/25 10:44 04/01/25 10:40 04/01/25 10:30 04/01/25 10:24 04/01/25 10:17 04/01/25 10:15 04/01/25 10:10 04/01/25 09:58 04/01/25 09:53 04/01/25 09:51 04/01/25 09:49 04/01/25 09:25 04/01/25 09:16 Constitutional abnormal general appearance (appears older than stated age), no apparent distress, abnormal body habitus (obese) and level of alertness abnormal (obtunded) and (lethargic) Intubated and sedated HENMT normocephalic and head/scalp atraumatic Eyes PERRL and EOMs intact bilaterally Chest inspection of chest normal and palpation of chest normal Respiratory breath sounds equal bilaterally, normal respiratory effort, clear to auscultation bilaterally, no wheezes and no rales Cardiovascular heart rate abnormal (tachycardic), rhythm abnormal (irregular), no rub, no murmur and edema noted (2+ peripheral edema noted) Gastrointestinal abdomen normal to inspection, abdomen soft to palpation, nontender to palpation and nontender to percussion Genitourinary no CVA tenderness, bladder normal to palpation and external appearance normal Back/Pelvis spine normal to inspection and no thoracic spine tenderness Extremities normal to palpation and no tenderness Neurology no movement abnormality noted and no focal motor deficit noted Psychiatry orientation abnormal (disoriented to person), (disoriented to place) and (disoriented to time) sedated Skin skin color normal, no rash and no lesions Conclusion/Plan Problem List (1) Acute metabolic encephalopathy: Plan: Patient was found to be lethargic, obtunded. Was intubated via EMS. Self extubated in the ICU. Likely has an underlying component of obesity hypoventilation versus obstructive sleep apnea. Continue BiPAP at night. Continue to monitor. Continue to trend VBG's. Patient is now more responsive, alert and oriented x 1-2. CT head ordered. TSH ordered. UA positive for acute infection. Continue IV Rocephin at this time until there is final speciation. (2) Acute respiratory failure with hypoxia: Plan: Patient was intubated. Now currently requiring 3 L of oxygen, saturating well. Continue to monitor. No documented history of COPD. Remote history of asthma. Likely has some underlying obesity hypoventilation versus obstructive sleep apnea. Will trial BiPAP at night. (3) GERD (gastroesophageal reflux disease): Plan: Continue Protonix. Qualifiers: Esophagitis presence: without esophagitis Qualified Code(s): K21.9 - Gastro-esophageal reflux disease without esophagitis (4) Congestive heart failure: Plan: Last ECHO in our system is from 08/06 which shows mild to moderate mitral regurgitation, but normal left ventricular size and systolic function. Patient was recently placed on oral Lasix due to "new history of congestive heart failure". She does appear euvolemic at this time, but will continue her home Lasix dose. Qualifiers: Heart failure chronicity: acute Heart failure type: unspecified Q ualified Code(s): I50.9 - Heart failure, unspecified (5) Hypertension: Plan: Continue home Lasix, as well as metoprolol. Qualifiers: Hypertension type: unspecified Qualified Code(s): I10 - Essential (primary) hypertension (6) Diabetes mellitus: Plan: Last A1c was 5.9. Continue hold sliding scale insulin at this time. Qualifiers: Diabetes mellitus complication status: with hyperglycemia Diabetes mellitus tank terminal gauger insulin use: without assisted use Diabetes mellitus type: t ype 2 Qualified Code(s): E11.65 - Type 2 diabetes mellitus with hyperglycemia (7) Atrial fibrillation with RVR: Plan: Patient does have a history of atrial fibrillation. On previous visits, her daughter had stated that she would like to hold off on Eliquis. It appears it may have been started at her facility; Plavix and aspirin have been held. She remains just on Eliquis. Lab Results Lab results reviewed: Yes 04/01/25 09:30 04/01/25 09:30 Diagnostic Imaging Results Diagnostic Imaging Results: positive Final report reviewed Core Measures Anticipated LOS I expect patient to be DC'd or transferred within 96 hours.: Yes Issues Hospital Issues and Management Plan: None anticipated. DVT/VTE - Prophylaxis VTE/DVT Device ordered at admit?: No VTE/DVT Prophylaxis med ordered at admit?: Yes
--- OUTSIDE RECORDS SUMMARY | 2025-04-01 11:17 | EXTERNAL MEDICAL SUMMARY RPT | Continuity of Care Document ---
Author Organization [facility] Address [address] [place] [address] Phone Problems date description facility 2025-03-11 09:20 Altered mental status, unspecif ied [facility] 2025-03-11 10:30 Unspecified atrial fibrillation [facility] 2025-03-11 10:30 Urinary tract infection, site n ot specified [facility] 2025-03-11 10:30 Altered mental status, unspecif ied [facility] 2025-03-13 21:23 Sepsis, unspecified organism [facility] 2025-03-13 21:23 Type 2 diabetes mellitus with h yperglycemia [facility] 2025-03-13 21:23 Type 2 diabetes mellitus withou t complications [facility] 2025-03-13 21:23 Hyperkalemia [facility] 2025-03-13 21:23 Unspecified atrial fibrillation [facility] 2025-03-13 21:23 Heart failure, unspecified [facility] 2025-03-13 21:23 Pressure ulcer of un specified buttock, unspecified stage [facility] 2025-03-13 21:23 Urinary tract infection, site n ot specified [facility] 2025-03-13 21:23 Altered mental status, unspecif ied [facility] 2025-03-13 21:23 Other reduced mobility [facility] 2025-03-14 23:03 Sepsis, unspecified organism [facility] 2025-03-14 23:03 Type 2 diabetes mellitus with h yperglycemia [facility] 2025-03-14 23:03 Type 2 diabetes mellitus withou t complications [facility] 2025-03-14 23:03 Hyperkalemia [facility] 2025-03-14 23:03 Unspecified atrial fibrillation [facility] 2025-03-14 23:03 Heart failure, unspecified [facility] 2025-03-14 23:03 Pressure ulcer of un specified buttock, unspecified stage [facility] 2025-03-14 23:03 Urinary tract infection, site n ot specified [facility] 2025-03-14 23:03 Altered mental status, unspecif ied [facility] 2025-03-14 23:03 Other reduced mobility [facility] 2025-03-15 11:00 [facility]epsis, [facility]25-[facility] 11:00 Type 2 diabetes mellitus with h yperglycemia [facility] 2025-03-15 11:00 Type 2 diabetes mellitus withou t complications [facility] 2025-03-15 11:00 Hyperkalemia [facility] 2025-03-15 11:00 Unspecified atrial fibrillation [facility] 2025-03-15 11:00 Heart failure, unspecified [facility] 2025-03-15 11:00 Pressure ulcer of un specified buttock, unspecified stage [facility] 2025-03-15 11:00 Urinary tract infection, site n ot specified [facility] 2025-03-15 11:00 Altered mental status, unspecif ied [facility] 2025-03-15 11:00 Other reduced mobility [facility] 2025-03-15 11:09 Sepsis, unspecified [facility] 2025-03-15 11:09 Type 2 diabetes mellitus with h yperglycemia [facility] 2025-03-15 11:09 Type 2 [facility]ou t [facility] 11:09 Hyperkalemia [facility] 2025-03-15 11:09 Unspecified atrial fibrillation [facility] 2025-03-15 11:09 Heart failure, unspecified [facility] 2025-03-15 11:09 Pressure ulcer of un specified buttock, unspecified stage [facility] 2025-03-15 11:09 Urinary tract infection, site n ot specified [facility] 2025-03-15 11:09 Altered mental status, unspecif ied [facility] 2025-03-15 11:09 Other reduced mobility [facility] 2025-03-15 11:30 Sepsis, unspecified organism [facility] 2025-03-15 11:30 Type 2 diabetes mellitus with [facility]glycemia [facility] 11:30 Type 2 diabetes mellitus withou t complications [facility]25-[facility] 11:30 [facility]kalemia [facility]25-03[facility]15 11:30 Unspecified atrial fibrillation [facility] 2025-03-15 11:30 Heart failure, unspecified [facility] 2025-03-15 11:30 Pressure ulcer of un specified buttock, unspecified stage [facility]25-[facility]15 11:30 Urinary tract infection, site n ot specified [facility]25-03-15 11:30 Altered mental status, unspecif ied [facility] 2025-03-15 11:30 Other reduced mobility [facility] 2025-03-15 11:44 Sepsis, unspecified organism [facility] 2025-03-15 11:44 Type 2 diabetes mellitus with h yperglycemia [facility] 2025-03-15 11:44 Type 2 diabetes mellitus withou t complications [facility] 2025-03-15 11:44 [facility]kalemia [facility] 2025-03-15 11:44 Unspecified atrial fibrillation [facility] 2025-03-15 11:44 Heart failure, unspecified [facility] [employer] 2025-03-15 11:44 Pressure ulcer of un specified buttock, unspecified stage [facility] 2025-03-15 11:44 Urinary tract infection, site n ot specified [facility] 2025-03-15 11:44 Altered mental status, unspecif ied [facility] 2025-03-15 11:44 Other reduced mobility [facility] 2025-03-15 12:02 Sepsis, unspecified organism [facility] 2025-03-15 12:02 Type 2 diabetes mellitus with h yperglycemia [facility] 2025-03-15 12:02 Type 2 diabetes mellitus withou t complications [facility] 2025-03-15 12:02 Hyperkalemia [facility] 2025-03-15 12:02 Unspecified atrial fibrillation [facility] 2025-03-15 12:02 Heart failure, unspecified [facility] 2025-03-15 12:02 Pressure ulcer of un specified buttock, unspecified [facility]25-03-15 12:02 Urinary tract infection, site n ot specified [facility] 2025-03-15 12:02 Altered mental status, unspecif ied [facility] 2025-03-15 12:02 Other reduced mobility [facility] 2025-03-15 13:27 Sepsis, unspecified organism [facility] 2025-03-15 13:27 Type 2 diabetes mellitus with h yperglycemia [facility] 2025-03-15 13:27 Type 2 diabetes mellitus withou t complications [facility] 2025-03-15 13:27 Hyperkalemia [facility] 2025-03-15 13:27 Unspecified atrial fibrillation [facility] 2025-03-15 13:27 Heart failure, unspecified [facility] 2025-03-15 13:27 Pressure ulcer of un specified buttock, unspecified stage [facility] 2025-03-15 13:27 Urinary tract infection, site n ot specified [facility] 2025-03-15 13:27 Altered mental status, unspecif ied [facility] 2025-03-15 13:27 Other reduced mobility [facility] 2025-03-15 15:32 Sepsis, unspecified organism [facility] 2025-03-15 15:32 Type 2 diabetes mellitus with h yperglycemia [facility] 2025-03-15 15:32 Type 2 diabetes mellitus withou t complications [facility] 2025-03-15 15:32 Hyperkalemia [facility] 2025-03-15 15:32 Unspecified atrial fibrillation [facility] 2025-03-15 15:32 Heart failure, unspecified [facility] 2025-03-15 15:32 Pressure ulcer of un specified buttock, unspecified stage [facility] 2025-03-15 15:32 Urinary tract infection, site n ot specified [facility] 2025-03-15 15:32 Altered mental status, unspecif ied [facility] 2025-03-15 15:32 Other reduced mobility [facility] 2025-03-17 05:10 Sepsis, unspecified [facility] 2025-03-17 05:10 Type 2 diabetes mellitus with h yperglycemia [facility] 2025-03-17 05:10 Type 2 diabetes mellitus withou t complications [facility] 2025-03-17 05:10 Hyperkalemia [facility] 2025-03-17 05:10 Unspecified atrial fibrillation [facility] 2025-03-17 05:10 Heart failure, unspecified [facility] 2025-03-17 05:10 Pressure ulcer of un specified buttock, unspecified stage [facility] 2025-03-17 05:10 Urinary tract infection, site n ot specified [facility] 2025-03-17 05:10 Chest pain, unspecified [facility] 2025-03-17 05:10 Altered mental status, unspecif ied [facility] 2025-03-17 05:10 Weakness [facility] 2025-03-17 05:10 Other reduced mobility [facility] 2025-03-19 08:26 Slowness and poor responsivenes s [facility] 2025-03-27 09:53 Weakness [facility] 2025-03-31 23:40 Encounter for screening for lip oid disorders [facility] 2025-04-01 09:27 Encounter for screening for lip oid disorders [facility] Results/Labs test date facility value unit notes Result panel 1 WBC,URINE 2025-03-11 06:30 [facility] >25 /hpf URINE CATHETERIZED SPECIFIC GRAVITY,URINE 2025-03-11 06:30 [facility] >=1.030 (missin g) (missing) CEFAZOLIN 2025-03-11 06:30 [facility] >=64 (missin g) (missing) NITROFURANTOIN 2025-03-11 06:30 [facility] <=16 (missin g) (missing) UROBILINOGEN,URINE 2025-03-11 06:30 [facility] 0.2 (NORMAL) e.u./dl (missing) CUL, URINE 2025-03-11 [...] may include reference ranges. BILIRUBIN,TOTAL 2025-03-11 06:35 [facility] [employer] [facility] 0.6 mg /dl As of May 2023 testing method has changed, this may include reference ranges. ALBUMIN/GLOBULIN RATIO 2025-03-11 06[facility] 0.9 (missing) (missing) MONOCYTES # (AUTO) 2025-03-11 06:35 [facility] [employer] 1.0 10 3/ul (missing) LYMPHOCYTES # (AUTO) 2025-03-11 06:35 [facility] [facility] 1.1 10 3/ul (missing) ALKALINE PHOSPHATASE 2025-03-11 06:35 [facility] [employer] 103 iu/l As of May 2023 testing method has changed, this may include reference ranges. GFR - MDRD 2025-03-11 06:35 [facility] [employer] 119 (vanessa arredondo) Social History date description facility
[2025-04-01 11:45] LABS: BILIRUBIN,URINE NEGATIVE (NEGATIVE); GLUCOSE, URINE (UA) NEGATIVE (NEGATIVE); KETONES,URINE (UA) TRACE mg/dL (NEGATIVE); LEUKOCYTE ESTERASE, URINE NEGATIVE (NEGATIVE); NITRITE,URINE NEGATIVE (NEGATIVE); OCCULT BLOOD,URINE NEGATIVE (NEGATIVE); PROTEIN,URINE 30 mg/dL (NEGATIVE); UROBILINOGEN,URINE 1 (NORMAL) E.U./dL (NORMAL)
[2025-04-01 11:59] LABS: BACTERIA,URINE Few /HPF (None Seen); CLARITY,URINE CLEAR (CLEAR); RBC,URINE 0-5 /HPF (0-5); SQUAMOUS EPITHELIAL CELL,UR RARE Squamous (<= Few)
[2025-04-01] MEDS: DULoxetine 20 MG CAPSULE PO SCH (13:08)
[2025-04-01] MEDS: CAMPHOR TOP SCH (14:23)
[2025-04-01] MEDS: MENTHOL TOP SCH (14:23)
[2025-04-01] MEDS: CARBOXYMETHYLCELLULOSE OPHTH DROPS EACHEYE SCH (14:25)
--- NOTE | 2025-04-01 14:46 | PHARMACY PROGRESS NOTE ---
Best Possible Medication History Admit Date and Time: 04/01/25 [id number] Home Medications Medication Instructions Recorded Confirmed Type albuterol sulfate 90 mcg/actuation 2 inh inhalation Q4 H PRN shortness 08/06/24 04/01/25 History breath activated powder inhaler of breath (ProAir RespiClick) ascorbic acid (vitamin C) 500 mg 500 mg PO DAILY 08/0604/01/25 History chewable tablet (C-500) bisacodyl 10 mg rectal suppository 10 mg TN ONCE PRN C onstipation 08/06/24 04/01/25 History carboxymethylcellulose sodium 0.5 2 ea ophthalmic (eye ) TID dry eyes 08/06/24 04/01/25 History % eye drops in a dropperette (Refresh Plus) cholecalciferol (vitamin D3) 25 50 mcg PO DAILY 04/01/25 History mcg (1,000 unit) tablet ferrous sulfate 325 mg (65 mg 325 mg PO DAILY 08/06/24 04/01/25 History iron) tablet guaifenesin 100 mg/5 mL oral liquid 15 ml PO Q6H PRN C ough 08/06/24 04/01/25 History mineral oil (Fleet Mineral Oil 1 ea RC PRN PRN Constip ation 08/06/24 04/01/25 History enema) naloxone 4 mg/actuation nasal 1 spray intranasal PRN P RN opioid 08/06/24 04/01/25 History spray (Narcan) overdose pantoprazole 40 mg tablet,delayed 40 mg PO DAILY 08/0604/01/25 History release polyethylene glycol 3350 17 gram 17 g PO DAILY PRN con stipation 08/06/24 04/01/25 History oral powder packet saliva stimulant comb. no.3 15 ml PO DAILY 08/06/24 History (Biotene Moisturizing Mouth mucosal spray) sennosides 8.6 mg tablet (Senna 17.2 mg PO DAILY PRN C onstipation 08/06/24 04/01/25 History Lax) furosemide 20 mg tablet 20 mg PO DAILY new chf #1 ta b 08/07/24 04/01/25 Rx acetaminophen 325 mg tablet 650 mg PO Q4H PRN pain 04/01/25 History camphor-menthol 0.2 %-3.5 % 1 applic topical Q8HR 02/1204/01/25 History topical gel duloxetine 20 mg capsule,delayed 20 mg PO QAM 03/11/25 04/01/25 History release sprinkle (Drizalma Sprinkle) oxycodone 5 mg tablet 5 mg PO Q12H PRN breakthroug h pain 03/11/25 04/01/25 History pregabalin 225 mg capsule 225 mg PO BID 03/11/2504/01 History metoprolol tartrate 25 mg tablet 25 mg PO BID #60 tabs 03/15/25 04/01/25 Rx tgwhxywbjhvh-ifibrwvp-uxez 1 tab PO DAILYWM #30 tabs 0 03/15/25 04/01/25 Rx fumarate 19 mg-folic acid 400 mcg tablet (Therapeutic-M) apixaban 5 mg tablet (Eliquis) 5 mg PO BID 04/01/25 History Processed by: Pharmacy Medications reviewed in ED?: No Medication History completed: Yes Patient Interview: Completed Secondary Source(s): Caregiver and Insurance records [facility] Statement: Per review of [employer] insurance records, and Order Summary [facility]. As the person ultimately responsible for medication therapy, providers are able to order a medication from an existing home medication list in [facility] via the "Reconcile Routine" prior to Confirmation of that medication by computer support specialist instructor. Such practice is discouraged except when the physician, in their clinical judgment, deems that a medical need exists for a medication without regard to previous use.
[2025-04-01] MEDS ORDERED: METOPROLOL TARTRATE 25 MG TABLET PO SCH ×2 (16:08→21:00)
[2025-04-01] MEDS: ACETAMINOPHEN 325 MG TABLET PO PRN (16:35)
[2025-04-01 16:53] LABS: THYROID STIMULATING HORMONE 8.97 uIU/mL (0.34-5.60)
[2025-04-01] MEDS: METOPROLOL TARTRATE 25 MG TABLET PO SCH (16:55)
--- NOTE | 2025-04-01 17:37 | CT Report ---
PROCEDURE: CT Head WO INDICATIONS: AMS TECHNIQUE: CT of the head was performed, without intravenous contrast. Reformats: Coronal and sagittal. For radiation dose reduction, the following was used: automated exposure control, adjustment of mA and/or kV according to patient size. COMPARISON: None. FINDINGS: Image quality: Diagnostic. CSF spaces: Basal cisterns are patent. No extra-axial fluid collections. Ventricles are normal in size and shape. Brain: No midline shift. No intracranial mass effect or hemorrhage. Morales- white matter interface is normal. Age-appropriate brain parenchymal volume loss and chronic small vessel ischemic change can be seen. A few scattered lacunar infarcts can be seen, including within the left basal ganglia. Skull and face: Calvarium and visualized facial bones are intact, without suspicious lesions. Sinuses: Visualized sinuses and mastoids are clear. IMPRESSION: Noncontrast head CT within normal limits for age, with brain parenchymal volume loss and chronic small vessel ischemic change noted. Reviewed by: Jose Carlos Maldonado MD on 04/01/2025 4:36 PM [email or web address] Approved by: Jose Carlos Maldonado MD on 04/01/2025 4:36 PM AKDT Station ID: [id number]
[2025-04-01 18:12] LABS: CALCIUM 9.2 mg/dL (8.5-10.3); CREATININE 0.6 mg/dL (0.6-1.3); POTASSIUM 4.7 mmol/L (3.5-4.5)
[2025-04-01] MEDS: KETOROLAC 15 MG/ML VIAL IVP STA (18:15)
[2025-04-01] MEDS: LACTATED RINGERS 500 ML IV ONE ×2 (18:20→19:00)
[2025-04-01] MEDS ORDERED: PREGABALIN 100 MG CAPSULE PO SCH (21:00)
[2025-04-01] MEDS ORDERED: APIXABAN 5 MG TABLET PO SCH (21:00)
[2025-04-01] MEDS ORDERED: PREGABALIN 25 MG CAPSULE PO SCH (21:00)
[2025-04-01] MEDS: CEFEPIME 2 GM VIAL IVP SCH (21:44)
[2025-04-01] MEDS: APIXABAN 5 MG TABLET PO SCH (21:45)
[2025-04-01] MEDS: CHLORHEXIDINE GLUCONATE 15 ML UDC PO SCH (21:45)
[2025-04-01] MEDS ORDERED: CEFEPIME 2 GM VIAL IVP SCH (22:00)
[2025-04-01] MEDS: LACTATED RINGERS 1,000 ML IV ONE (22:18)
[2025-04-01] MEDS: LACTATED RINGERS 1,000 ML IV SCH (23:37)
[2025-04-02 04:49] LABS: HGB - HEMOGLOBIN 12.1 g/dL (12.0-16.0); MEAN CORPUSCULAR HEMOGLOBIN 28.7 pg (27.0-31.0); MEAN CORPUSCULAR HGB CONC 30.3 g/dL (32.0-36.0); MEAN PLATELET VOLUME 10.1 fL (7.9-10.8); RED BLOOD COUNT 4.21 10^6/uL (4.20-5.40); RED CELL DISTRIBUTION WIDTH 14.8 % (12.0-15.0); WHITE BLOOD COUNT 8.1 x10^3/uL (4.8-10.8)
[2025-04-02 04:53] LABS: VBG BASE EXCESS 29.5 mmol/L (-2 - +2); VBG PCO2 60.8 mmHg (41-51); VBG PH 7.538 (7.31-7.41); VBG PO2 104.9 mmHg (25-47); VBG TOTAL CO2 54.2 mmol/L (24-29)
[2025-04-02 04:55] LABS: CALCIUM, IONIZED 1.12 mmol/L (1.09-1.30); VBG PH 7.548 (7.31-7.41)
[2025-04-02 05:07] LABS: MAGNESIUM 1.8 mg/dL (1.7-2.3); PHOSPHORUS 2.6 mg/dL (2.5-5.0)
[2025-04-02 05:08] LABS: CALCIUM 9.1 mg/dL (8.5-10.3); CREATININE 0.6 mg/dL (0.6-1.3); POTASSIUM 4.7 mmol/L (3.5-4.5)
[2025-04-02] MEDS: PANTOPRAZOLE 40 MG VIAL IVP SCH (06:08)
[2025-04-02] MEDS: MAGNESIUM OXIDE 400 MG TABLET PO SCH (06:09)
[2025-04-02] MEDS: FERROUS SULFATE 325 MG TABLET PO SCH (08:12)
[2025-04-02] MEDS: ASCORBIC ACID 500 MG TABLET PO SCH (08:13)
[2025-04-02] MEDS: CHOLECALCIFEROL 25 MCG TABLET PO SCH (08:13)
[2025-04-02] MEDS: MULTIVITAMIN W/MINERALS TABLET PO SCH (08:13)
[2025-04-02] MEDS ORDERED: FUROSEMIDE 20 MG TABLET PO SCH (09:00)
[2025-04-02] MEDS ORDERED: cefTRIAXone 1 GM VIAL IVP SCH (09:00)
--- NOTE | 2025-04-02 10:27 | XRAY Report ---
PROCEDURE: XR Chest 1V INDICATIONS: doug TECHNIQUE: One view of the chest was acquired. COMPARISON: 04/01/2025, 03/11/2025. FINDINGS: Surgical changes and devices: None. Lungs and pleura: There is pulmonary vascular congestion and mild pulmonary edema. Small bilateral pleural effusion is seen, no loose bodies. Underlying small interstitial infiltrates cannot be entirely excluded. Overall aeration of bilateral lung pink has improved compared to previous study. Mediastinum: Mediastinal contours appear normal. Heart size is enlarged. Bones and chest wall: No suspicious bony lesions. Overlying soft tissues appear unremarkable. IMPRESSION: Congestive changes and pulmonary edema. Overall improved bilateral lung aeration compared to previous study. Underlying small interstitial infiltrates cannot be excluded. No pneumothorax. Reviewed by: Riaz Tello MD on 04/02/2025 10:26 AM PDT Approved by: Riaz Tello MD on 04/02/2025 10:26 AM PDT Station ID: [id number]
--- NOTE | 2025-04-02 12:28 | PROVIDER PROGRESS NOTE ---
Subjective Subjective Subjective: This morning, patient is alert and oriented x 3. She was pretty anxious. She states that sometimes it is hard to breathe, it is hard to take a deep breath. She appears very anxious. We discussed the use of BiPAP at night to help with her work of breathing, as well as her CO2 retention. She was reluctant but agreeable to try it. Current Medications Current Medications Current Medications: Current Medications Generic Name Dose Route Start Last Admin Trade Name Freq PRN Reason Stop Dose Admin Acetaminophen 650 mg 04/01/25 11:47 04/01/25 16:35 Acetaminophen 325 Mg Tablet PO 650 mg Q4H PRN Administration pain Apixaban 5 mg 04/01/25 21:00 04/01/25 21:45 Apixaban 5 Mg Tablet PO 5 mg BID AMAN Administration Ascorbic Acid 500 mg 04/02/25 09:00 04/02/25 08:13 Ascorbic Acid 500 Mg Tablet PO 500 mg DAILY AMAN Administration Carboxymethylcellulose 2 drops 04/01/25 14:00 04/02/25 06:09 Carboxymethylcellulose Ophth Drops EACHEYE 2 drops TID AMAN Administration Cefepime HCl 2 gm 04/01/25 18:11 04/02/25 06:08 Cefepime 2 Gm Vial IVP 2 gm Q8HR AMAN Administration Chlorhexidine Gluconate 15 ml 04/01/25 21:00 04/02/25 08:13 Chlorhexidine Gluconate 15 Ml Udc PO 15 ml BID AMAN Administration Cholecalciferol 50 mcg 04/02/25 09:00 04/02/25 08:13 Cholecalciferol 25 Mcg Tablet PO 50 mcg DAILY AMAN Administration Duloxetine HCl 20 mg 04/01/25 11:47 04/02/25 08:13 Duloxetine 20 Mg Capsule PO 20 mg DAILY AMAN Administration Ferrous Sulfate 325 mg 04/02/25 09:00 04/02/25 08:12 Ferrous Sulfate 325 Mg Tablet PO 325 mg DAILY AMAN Administration Metoprolol Tartrate 25 mg 04/01/25 16:45 04/02/25 08:13 Metoprolol Tartrate 25 Mg Tablet PO 25 mg BID AMAN Administration Multivitamins/Minerals 1 tab 04/02/25 08:00 04/02/25 08:13 Multivitamin W/Minerals Tablet PO 1 tab DAILYWM AMAN Administration Pantoprazole Sodium 40 mg 04/02/25 07:00 04/02/25 06:08 Pantoprazole 40 Mg Vial IVP 40 mg QDAC [facility] Administration Camphor-Menthol 0.2% 1 each 04/01/25 14:00 04/02/25 05:54 -3.5% Topical Gel TOP Not Given Q8HR [facility] Objective Vital Signs/Intake & Output Reviewed Vital Signs: Yes Vital Signs: Vital Signs x48h Temp Pulse Pulse Resp BP BP BP 04/02/25 12:00 98.8 F 104 H 19 121/98 H 04/02/25 11:00 99.0 F 91 23 99/63 04/02/25 10:00 99.0 F 84 26 H 112/65 04/02/25 09:00 98.8 F 83 23 98/59 L 04/02/25 08:13 93 114/74 04/02/25 08:00 98.2 F 97 25 H 114/74 04/02/25 07:00 92 24 112/60 04/02/25 06:00 98.1 F 85 19 107/52 L 04/02/25 05:00 98.1 F 91 22 124/55 L Pulse Ox O2 Flow Rate 04/02/25 12:00 99 1 04/02/25 11:00 98 1 04/02/25 10:00 99 1 04/02/25 09:00 99 1 04/02/25 08:13 04/02/25 08:00 98 1 04/02/25 07:00 99 1 04/02/25 06:00 98 1 04/02/25 05:00 100 1 Intake & Output: Intake & Output 03/30/25 03/31/25 04/01/25 04/02/25 23:59 23:59 23:59 23:59 Intake Total 1015 / 1015 300 / 300 Output Total 53 / 53 81 / 81 Balance 962 / 962 219 / 219 Weight (kg) 119.4 kg Objective General Appearance: positive No acute distress, Alert and Anxious Eyes Bilateral: positive Normal inspection, PERRL and No scleral icterus ENT: positive ENT inspection nml, Pharynx nml and No signs of dehydration Neck: positive No JVD and Other Respiratory: positive Chest non-tender, No respiratory distress and Other (hypoventilation and diminished breath sounds) Cardiovascular: positive No murmur, Irregularly irregular (atrial fibrillation) and Tachycardia Abdomen: positive Non-tender; negative Rebound, Hepatomegaly, Splenomegaly, Mass, Abnml bowel sounds or Bruit Skin: positive Color nml, Warm, Dry and Other (scab/eschar lesion on right anterior lower leg and left medial lower leg) Extremities: positive Non-tender and Pedal edema (left 2+ edema, right 1+ ) Neurologic/Psychiatric: positive Disoriented to time (Patient is aware of person and place.) and Depressed mood/affect Lab Results 04/02/25 04:34 04/02/25 04:34 Other Labs: Lab Results x24hrs 04/02/25 04/02/25 04/01/25 Range/Units 04:34 04:34 17:25 WBC 8.1 (4.8-10.8) x10^3/uL RBC 4.21 (4.20-5.40) 10^6/uL Hgb 12.1 (12.0-16.0) g/dL Hct 40.0 (37.0-47.0) % MCV 95.0 (81.0-99.0) fL MCH 28.7 (27.0-31.0) pg MCHC 30.3 L (32.0-36.0) g/dL RDW 14.8 (12.0-15.0) % Plt Count 326 (130-450) 10^3/uL MPV 10.1 (7.9-10.8) fL VBG pH 7.548 H 7.538 H (7.31-7.41) VBG pCO2 60.8 H (41-51) mmHg VBG pO2 104.9 H (25-47) mmHg VBG HCO3 52.3 H (23-28) mmol/L VBG Total CO2 54.2 H (24-29) mmol/L VBG O2 Saturation 99.0 H (60-80) % VBG Base Excess 29.5 H (-2 - +2) mmol/L Ionized Calcium 1.12 (1.09-1.30) mmol/L Sodium 139 140 (135-145) mmol/L Potassium 4.7 H 4.7 H (3.5-4.5) mmol/L Chloride 91 L 91 L (101-111) mmol/L Carbon Dioxide 42 H* 40 H* (21-32) mmol/L Anion Gap 6.0 9.0 (6-13) BUN 25 H 23 H (6-20) mg/dL Creatinine 0.6 0.6 (0.6-1.3) mg/dL Estimated GFR (MDRD) 96 96 (>89) Glucose 159 H 203 H (74-104) mg/dL Lactic Acid 1.6 (0.5-2.2) mmol/L Calcium 9.1 9.2 (8.5-10.3) mg/dL Phosphorus 2.6 (2.5-5.0) mg/dL Magnesium 1.8 (1.7-2.3) mg/dL TSH (0.34-5.60) uIU/mL Free T4 Direct (0.58-1.64) ng/dL Nasal Screen MRSA (PCR) (NEGATIVE) 04/01/25 04/01/25 Range/Units 11:29 09:30 WBC (4.8-10.8) x10^3/uL RBC (4.20-5.40) 10^6/uL Hgb (12.0-16.0) g/dL Hct (37.0-47.0) % MCV (81.0-99.0) fL MCH (27.0-31.0) pg MCHC (32.0-36.0) g/dL RDW (12.0-15.0) % Plt Count (130-450) 10^3/uL MPV (7.9-10.8) fL VBG pH (7.31-7.41) VBG pCO2 (41-51) mmHg VBG pO2 (25-47) mmHg VBG HCO3 (23-28) mmol/L VBG Total CO2 (24-29) mmol/L VBG O2 Saturation (60-80) % VBG Base Excess (-2 - +2) mmol/L Ionized Calcium (1.09-1.30) mmol/L Sodium (135-145) mmol/L Potassium (3.5-4.5) mmol/L Chloride (101-111) mmol/L Carbon Dioxide (21-32) mmol/L Anion Gap (6-13) BUN (6-20) mg/dL Creatinine (0.6-1.3) mg/dL Estimated GFR (MDRD) (>89) Glucose (74-104) mg/dL Lactic Acid (0.5-2.2) mmol/L Calcium (8.5-10.3) mg/dL Phosphorus (2.5-5.0) mg/dL Magnesium (1.7-2.3) mg/dL TSH 8.97 H (0.34-5.60) uIU/mL Free T4 Direct 0.71 (0.58-1.64) ng/dL Nasal Screen MRSA (PCR) NEGATIVE (NEGATIVE) Diagnostic Imaging Diagnostic Imaging Results: positive Final report reviewed ABX Reporting Has patient been on IV antibiotics over the past 48 hours?: Yes Sepsis Event Note (H) Evaluation Current Stage of Sepsis: Sepsis Possible source of Sepsis: positive Genitourinary Sepsis Criteria Sepsis Criteria: Suspected or Documented, Recorded Heart Rate greater than 90 bpm, Recorded Respiratory Rate greater than 20 and WBC count greater than 12,000 or less than 4000 Assessment/Plan Problem List (1) Acute metabolic encephalopathy: Impression: Patient was found to be lethargic, obtunded. Was intubated via EMS. Self extubated in the ICU. Likely has an underlying component of obesity hypoventilation versus obstructive sleep apnea. Continue BiPAP at night. Continue to monitor. Continue to trend VBG's. Patient is now more responsive, alert and oriented x 2-3. CT head ordered, no growth to date. TSH elevated, T4 within normal limits. UA positive for acute infection. Continue IV cefepime at this time until there is final speciation. Previous cultures resistant to Rocephin. (2) Sepsis: Impression: Patient with leukocytosis, tachycardia, as well as fevers. Source is likely urine. Continue cefepime as stated above. Qualifiers: Sepsis type: sepsis due to unspecified organism Sepsis acute organ dysfunction status: unspecified Qualified Code(s): A41.9 - Sepsis, unspecified organism (3) Acute respiratory failure with hypoxia: Impression: Patient was intubated. Now currently requiring 1 L of oxygen, saturating well. Continue to monitor. No documented history of COPD. Remote history of asthma. Likely has some underlying obesity hypoventilation versus obstructive sleep apnea. Will trial BiPAP at night. (4) GERD (gastroesophageal reflux disease): Impression: Continue Protonix. Qualifiers: Esophagitis presence: without esophagitis Qualified Code(s): K21.9 - Gastro-esophageal reflux disease without esophagitis (5) Congestive heart failure: Impression: Last ECHO in our system is from 08/06 which shows mild to moderate mitral regurgitation, but normal left ventricular size and systolic function. Patient was recently placed on oral Lasix due to "new history of congestive heart failure". She does appear euvolemic at this time. Qualifiers: Heart failure chronicity: acute Heart failure type: unspecified Q ualified Code(s): I50.9 - Heart failure, unspecified (6) Hypertension: Impression: Continue home metoprolol. Qualifiers: Hypertension type: unspecified Qualified Code(s): I10 - Essential (primary) hypertension (7) Diabetes mellitus: Impression: Last A1c was 5.9. Continue to hold sliding scale insulin at this time. Qualifiers: Diabetes mellitus complication status: with hyperglycemia Diabetes mellitus senior living insulin use: without long term care phlebotomist use Diabetes mellitus type: t ype 2 Qualified Code(s): E11.65 - Type 2 diabetes mellitus with hyperglycemia (8) Atrial fibrillation with RVR: Impression: Patient does have a history of atrial fibrillation. On previous visits, her daughter had stated that she would like to hold off on Eliquis. It appears it may have been started at her facility; Plavix and aspirin have been held. She remains just on Eliquis. Will continue at this time.
[2025-04-02] MEDS ORDERED: PREGABALIN 25 MG CAPSULE PO SCH (21:00)
[2025-04-02] MEDS: PREGABALIN 25 MG CAPSULE PO SCH (21:21)
[2025-04-02] MEDS: PREGABALIN 100 MG CAPSULE PO SCH (21:21)
[2025-04-02] MEDS ORDERED: SODIUM CHLORIDE 0.65% NASAL SPRAY NAS PRN (21:44)
[2025-04-02] MEDS: ALBUTEROL NEB 2.5 MG/3 ML INH PRN (21:44)
[2025-04-03 04:43] LABS: HCT - HEMATOCRIT 39.6 % (37.0-47.0); HGB - HEMOGLOBIN 12.1 g/dL (12.0-16.0); MEAN CORPUSCULAR HEMOGLOBIN 28.8 pg (27.0-31.0); MEAN CORPUSCULAR HGB CONC 30.6 g/dL (32.0-36.0); MEAN CORPUSCULAR VOLUME 94.3 fL (81.0-99.0); MEAN PLATELET VOLUME 9.9 fL (7.9-10.8); RED BLOOD COUNT 4.2 10^6/uL (4.20-5.40); RED CELL DISTRIBUTION WIDTH 15.1 % (12.0-15.0); WHITE BLOOD COUNT 7.8 x10^3/uL (4.8-10.8)
[2025-04-03 04:50] LABS: CALCIUM, IONIZED 1.11 mmol/L (1.09-1.30); VBG PH 7.587 (7.31-7.41)
[2025-04-03 04:53] LABS: MAGNESIUM 1.9 mg/dL (1.7-2.3)
[2025-04-03 05:03] LABS: CREATININE 0.6 mg/dL (0.6-1.3)
[2025-04-03] MEDS: NEUTRA-PHOS 250 MG TABLET PO SCH (06:40)
--- NOTE | 2025-04-03 08:27 | PROVIDER PROGRESS NOTE ---
Subjective Subjective Subjective: This morning, patient is alert and oriented x 3. Overnight, she used BiPAP without difficulty. She likely has undiagnosed obstructive sleep apnea versus obesity hypoventilation syndrome, and will require noninvasive ventilation on discharge. She states her breathing is better. She has no chest pain, no shortness of breath. Current Medications Current Medications Current Medications: Current Medications Generic Name Dose Route Start Last Admin Trade Name Freq PRN Reason Stop Dose Admin Acetaminophen 650 mg 04/01/25 11:47 04/01/25 16:35 Acetaminophen 325 Mg Tablet PO 650 mg Q4H PRN Administration pain Albuterol 2.5 mg 04/02/25 21:19 04/02/25 21:44 Albuterol Neb 2.5 Mg/3 Ml INH 2.5 mg RTQ4H PRN Administration Wheezing Apixaban 5 mg 04/01/25 21:00 04/03/25 08:13 Apixaban 5 Mg Tablet PO 5 mg BID AMAN Administration Ascorbic Acid 500 mg 04/02/25 09:00 04/03/25 08:14 Ascorbic Acid 500 Mg Tablet PO 500 mg DAILY AMAN Administration Carboxymethylcellulose 2 drops 04/01/25 14:00 04/03/25 06:39 Carboxymethylcellulose Ophth Drops EACHEYE 2 drops TID AMAN Administration Cefepime HCl 2 gm 04/01/25 18:11 04/03/25 06:40 Cefepime 2 Gm Vial IVP 2 gm Q8HR AMAN Administration Chlorhexidine Gluconate 15 ml 04/01/25 21:00 04/03/25 08:14 Chlorhexidine Gluconate 15 Ml Udc PO 15 ml BID AMAN Administration Cholecalciferol 50 mcg 04/02/25 09:00 04/03/25 08:13 Cholecalciferol 25 Mcg Tablet PO 50 mcg DAILY AMAN Administration Duloxetine HCl 20 mg 04/01/25 11:47 04/03/25 08:14 Duloxetine 20 Mg Capsule PO 20 mg DAILY AMAN Administration Ferrous Sulfate 325 mg 04/02/25 09:00 04/03/25 08:13 Ferrous Sulfate 325 Mg Tablet PO 325 mg DAILY AMAN Administration Metoprolol Tartrate 25 mg 04/01/25 16:45 04/03/25 08:14 Metoprolol Tartrate 25 Mg Tablet PO 25 mg BID AMAN Administration Multivitamins/Minerals 1 tab 04/02/25 08:00 04/03/25 08:14 Multivitamin W/Minerals Tablet PO 1 tab DAILYWM AMAN Administration Pantoprazole Sodium 40 mg 04/02/25 07:00 04/03/25 06:39 Pantoprazole 40 Mg Vial IVP 40 mg QDAC AMAN Administration Camphor-Menthol 0.2% 1 each 04/01/25 14:00 04/03/25 06:40 -3.5% Topical Gel TOP Not Given Q8HR AMAN Pregabalin 200 mg 04/02/25 21:00 04/03/25 08:13 Pregabalin 100 Mg Capsule PO 200 mg BID AMAN Administration Pregabalin 25 mg 04/02/25 21:00 04/03/25 08:14 Pregabalin 25 Mg Capsule PO 25 mg BID AMAN Administration Sodium Chloride 2 sprays 04/02/25 21:44 Sodium Chloride 0.65% Nasal [place] TRISH Q4HR PRN Nasal Congestion Objective Vital Signs/Intake & Output Reviewed Vital Signs: Yes Vital Signs: Vital Signs x48h Temp Pulse Pulse Resp BP BP Pulse Ox 04/03/25 08:14 103 H 102/49 L 04/03/25 07:35 04/03/25 07:00 98.6 F 91 29 H 114/60 97 04/03/25 06:00 98.8 F 79 27 H 96/60 95 04/03/25 05:48 93 04/03/25 05:00 98.8 F 87 28 H 97/63 94 04/03/25 04:00 98.8 F 77 23 97/54 L 96 04/03/25 03:46 81 04/03/25 03:00 74 27 H 131/75 H 96 04/03/25 02:00 98.8 F 74 26 H 130/74 96 04/03/25 01:24 84 04/03/25 01:00 98.8 F 82 24 95/54 L 97 O2 Flow Rate 04/03/25 08:14 04/03/25 07:35 1 04/03/25 07:00 04/03/25 06:00 04/03/25 05:48 04/03/25 05:00 04/03/25 04:00 04/03/25 03:46 04/03/25 03:00 04/03/25 02:00 04/03/25 01:24 04/03/25 01:00 Intake & Output: Intake & Output 03/31/25 04/01/25 04/02/25 04/03/25 23:59 23:59 23:59 23:59 Intake Total 1515 / 1515 1590 / 1590 Output Total 53 53 648 / 648 218 / 218 Balance 1462 / 1462 942 / 942 -218 / -218 Weight (kg) 119.4 kg Objective General Appearance: positive No acute distress, Alert and Anxious Eyes Bilateral: positive Normal inspection, PERRL and No scleral icterus ENT: positive ENT inspection nml, Pharynx nml and No signs of dehydration Neck: positive No JVD and Other Respiratory: positive Chest non-tender, No respiratory distress and Other (hypoventilation and diminished breath sounds) Cardiovascular: positive No murmur, Irregularly irregular (atrial fibrillation) and Tachycardia Abdomen: positive Non-tender; negative Rebound, Hepatomegaly, Splenomegaly, Mass, Abnml bowel sounds or Bruit Skin: positive Color nml, Warm, Dry and Other (scab/eschar lesion on right anterior lower leg and left medial lower leg) Extremities: positive Non-tender and Pedal edema (left 2+ edema, right 1+ ) Neurologic/Psychiatric: positive Disoriented to time (Patient is aware of person and place.) and Depressed mood/affect Lab Results 04/03/25 04:34 04/03/25 04:34 Other Labs: Lab Results x24hrs 04/03/25 04/02/25 Range/Units 04:34 17:06 WBC 7.8 (4.8-10.8) x10^3/uL RBC 4.20 (4.20-5.40) 10^6/uL Hgb 12.1 (12.0-16.0) g/dL Hct 39.6 (37.0-47.0) % MCV 94.3 (81.0-99.0) fL MCH 28.8 (27.0-31.0) pg MCHC 30.6 L (32.0-36.0) g/dL RDW 15.1 H (12.0-15.0) % Plt Count 301 (130-450) 10^3/uL MPV 9.9 (7.9-10.8) fL VBG pH 7.587 H (7.31-7.41) Ionized Calcium 1.11 (1.09-1.30) mmol/L Sodium 142 (135-145) mmol/L Potassium 4.0 (3.5-4.5) mmol/L Chloride 95 L (101-111) mmol/L Carbon Dioxide 44 H* (21-32) mmol/L Anion Gap 3.0 L (6-13) BUN 23 H (6-20) mg/dL Creatinine 0.6 (0.6-1.3) mg/dL Estimated GFR (MDRD) 96 (>89) Glucose 116 H (74-104) mg/dL Calcium 9.0 (8.5-10.3) mg/dL Phosphorus 2.1 L (2.5-5.0) mg/dL Magnesium 1.9 2.0 (1.7-2.3) mg/dL Diagnostic Imaging Diagnostic Imaging Results: positive Final report reviewed ABX Reporting Has patient been on IV antibiotics over the past 48 hours?: Yes Sepsis Event Note (H) Evaluation Current Stage of Sepsis: Sepsis Possible source of Sepsis: positive Genitourinary Sepsis Criteria Sepsis Criteria: Suspected or Documented, Recorded Heart Rate greater than 90 bpm, Recorded Respiratory Rate greater than 20 and WBC count greater than 12,000 or less than 4000 Assessment/Plan Problem List (1) Acute metabolic encephalopathy: Impression: Resolved. Patient was found to be lethargic, obtunded. Was intubated via EMS. Self extubated in the ICU. Likely has an underlying component of obesity hypoventilation versus obstructive sleep apnea. Continue BiPAP at night. Continue to monitor. Continue to trend VBG's. CT head ordered, negative. TSH elevated, T4 within normal limits. UA positive for acute infection. Continue IV cefepime at this time until there is final speciation. Previous cultures resistant to Rocephin. (2) Sepsis: Impression: Patient with leukocytosis, tachycardia, as well as fevers. Source is likely urine. All improving. Continue cefepime as stated above. Qualifiers: Sepsis acute organ dysfunction status: unspecified Sepsis type: sepsis due to unspecified organism Qualified Code(s): A41.9 - Sepsis, unspecified organism (3) Acute respiratory failure with hypoxia: Impression: Patient was intubated. Now currently requiring 1 L of oxygen, saturating well. Continue to monitor. No documented history of COPD. Remote history of asthma. Likely has some underlying obesity hypoventilation versus obstructive sleep apnea. Overnight, she used BiPAP without difficulty. She likely has undiagnosed obstructive sleep apnea versus obesity hypoventilation syndrome, and will require noninvasive ventilation on discharge. (4) GERD (gastroesophageal reflux disease): Impression: Continue Protonix. Qualifiers: Esophagitis presence: without esophagitis Qualified Code(s): K21.9 - Gastro-esophageal reflux disease without esophagitis (5) Congestive heart failure: Impression: Last ECHO in our system is from 08/06 which shows mild to moderate mitral regurgitation, but normal left ventricular size and systolic function. Patient was recently placed on oral Lasix due to "new history of congestive heart failure". She does appear euvolemic at this time. IVF stopped. Hold Lasix at this time. Qualifiers: Heart failure chronicity: acute Heart failure type: unspecified Q ualified Code(s): I50.9 - Heart failure, unspecified (6) Hypertension: Impression: Continue home metoprolol. Qualifiers: Hypertension type: unspecified Qualified Code(s): I10 - Essential (primary) hypertension (7) Diabetes mellitus: Impression: Last A1c was 5.9. Continue to hold sliding scale insulin at this time. Qualifiers: Diabetes mellitus complication status: with hyperglycemia Diabetes mellitus [facility] insulin use: without [facility] use Diabetes mellitus type: t ype 2 Qualified Code(s): E11.65 - Type 2 diabetes mellitus with hyperglycemia (8) Atrial fibrillation with RVR: Impression: Patient does have a history of atrial fibrillation. On previous visits, her daughter had stated that she would like to hold off on Eliquis. It appears it may have been started at her facility; Plavix and aspirin have been held. She remains just on Eliquis. Will continue at this time.
[2025-04-03 11:25] LABS: B. PARAPERTUSSIS- RESP PCR PAN NOT DETECTED; B. PERTUSSIS- RESP PCR PANEL NOT DETECTED; C. PNEUMONIAE- RESP PCR PANEL NOT DETECTED; CORONAVIRUS 229E-RESP PCR NOT DETECTED; CORONAVIRUS HKU1-RESP PCR NOT DETECTED; CORONAVIRUS NL63-RESP PCR NOT DETECTED; CORONAVIRUS OC43-RESP PCR NOT DETECTED; HUMAN METAPNEUMOVIRUS NOT DETECTED; INFLUENZA A- RESP PCR PANEL NOT DETECTED; INFLUENZA B - RESP PCR PANEL NOT DETECTED; M. PNEUMONIAE- RESP PCR PANEL NOT DETECTED; PARAINFLUENZA VIRUS 1 NOT DETECTED; PARAINFLUENZA VIRUS 2 NOT DETECTED; PARAINFLUENZA VIRUS 4 NOT DETECTED; RHINOVIRUS/ENTEROVIRUS NOT DETECTED; RSV- RESP PCR PANEL NOT DETECTED; SARS-CoV-2 -RESP PCR PANEL NOT DETECTED
[2025-04-03] MEDS: ONDANSETRON 4 MG/2 ML VIAL IVP PRN (21:49)
[2025-04-04 06:01] LABS: HCT - HEMATOCRIT 40.3 % (37.0-47.0); HGB - HEMOGLOBIN 11.7 g/dL (12.0-16.0); MEAN CORPUSCULAR HEMOGLOBIN 28.1 pg (27.0-31.0); MEAN CORPUSCULAR VOLUME 96.9 fL (81.0-99.0); MEAN PLATELET VOLUME 10.3 fL (7.9-10.8); RED BLOOD COUNT 4.16 10^6/uL (4.20-5.40); RED CELL DISTRIBUTION WIDTH 15.1 % (12.0-15.0)
[2025-04-04 06:20] LABS: CALCIUM 8.6 mg/dL (8.5-10.3); CREATININE 0.6 mg/dL (0.6-1.3); POTASSIUM 4.3 mmol/L (3.5-4.5)
[2025-04-04] MEDS: PANTOPRAZOLE 40 MG TABLET PO SCH (06:34)
--- NOTE | 2025-04-04 09:35 | Discharge Summary ---
"Discharge Summary Admit Date: 04/01/25 Discharge Date: 04/04/25 Discharging Provider: Dr. Kelsey Lang Primary Care Provider: [facility]: Dr. Stallings or Dr. Rivas Code Status: Do Not Attempt Resuscitation Discharge Facility Name: [facility] DIAGNOSES Admission Diagnoses: Acute metabolic encephalopathy Acute respiratory failure with hypoxia GERD Congestive heart failure Hypertension Diabetes mellitus Atrial fibrillation with RVR Discharge Diagnoses with Status of Each Condition: Acute metabolic encephalopathyresolved. Patient likely has obesity hypoventilation syndrome or obstructive sleep apnea. Should be using BiPAP or CPAP at night. Respiratory therapist is working on getting her trilogy device which she can use in place of this until she gets sleep study done. She also UTI, received 4 days of IV antibiotics. Will require 1 more day of Macrobid. Chronic ventilatory failuredue to patient's advanced obesity hypoventilation syndrome/obstructive sleep apnea, patient requires volume ensured pressure support ventilation with automatic titration as well as mouthpiece ventilation,. All care alarms and backup battery none of which are not not available on the standard bilevel for home use. She has had consistently elevated pCO2's on ABGs. Without noninvasive ventilation, patient's condition will continue deteriorate leading to further medical harm, patient morbidity and potential hospital readmissions or . She is on 2L of oxygen at baseline. Sepsisresolved. Acute respiratory failure with hypoxiaresolved. On her home 2L. Will likely need BiPAP or CPAP overnight. GERDcontinue Protonix. Congestive heart failurecontinue oral Lasix. Hypertensioncontinue home metoprolol. Diabetes mellitusnow prediabetic. Hold insulin sliding scale. Atrial fibrillation with RVRpatient was previously just on aspirin and Plavix with her history of strokes. Appears that she was switched to Eliquis at [facility] and Plavix/aspirin were stopped. This was continued on discharge. Continue metoprolol as well. HPI History of Present Illness: Patient is a 79-year-old female with a likely diagnosis of obesity hypoventilation syndrome versus obstructive sleep apnea who presents due to lethargy noted at her halfway facility. Per ER records, patient was obtunded. She was not tolerating CPAP, and as such, she was intubated via EMS. Of note, she was admitted recently from 03/11 to t this time, she also had altered mentation, and required a night of BiPAP with improvement of her CO2 retention. She was also treated for a UTI and sepsis at that time. Advance care planning was completed, as well as documented well. Patient is a DNR/DNI. She does have a POLST filled out. In the ED, patient was intubated and sedated so further history cannot be elicited. I did try to reach out to her daughter multiple times without success. In the ER, she was saturating 96% on minimal settings on the ventilator. Her blood pressure was soft at 90/55, after receiving ketamine and propofol for sedation. Respiratory rate was 16, heart rate was 83, and she was afebrile. Lab work was reviewed, and it showed no white count. Her initial VBG did show a PCO2 in the 90s, and after half an hour on the ventilator, this improved to 56.6. Her potassium was elevated at 5.6. Her creatinine was within normal limits at 0.6. UA was positive for urinary tract infection. Respiratory viral panel was negative. Chest x-ray was completed, and it does show small left pleural effusion, as well as atelectasis or pneumonia. When she was transferred to the ICU, she self extubated, and now remains on 3 L, saturating well, with a normal respiratory rate. CONSULTS | PROCEDURES Consultations: - Procedures: Intubation, extubation, chest x-ray, CT head HOSPITAL COURSE Hospital Course: Patient is a 79-year-old female with a likely diagnosis of obesity hypoventilation syndrome versus obstructive sleep apnea who presented for lethargy, obtundation. She was intubated in the field for GCS less than 8. She started waking up after just a few hours on the ventilator. She self extubated. When she woke up, she was still little bit confused, but this rapidly improved with BiPAP use at night. She was retaining some CO2. She is chronically on 2 L of oxygen, per [facility], and she was resumed on this. While she was here, she was also septic. Source is likely urine. On her last visit, her urine was resistant to Rocephin. She was started on cefepime, for which she completed a 4-day course so far. Will send her home with one more day of Macrobid. She requires a sleep study in the outpatient setting to get a formal diagnosis of OHS or LARON. She will then require a BiPAP or CPAP machine, to be used when she naps or nightly to avoid CO2 retention. We are trying to get her approved for a Trilogy device in the meantime. Ok to discharge back to [facility]. ALLERGIES Allergies Allergy/AdvReac Type Severity Reaction Status Date / Time Opioids - Morphine Analogues Allergy Intermediate Rash Unverified 04/01/25 11:48 latex Allergy Itching Verified 04/01/25 11:48 Sulfa (Sulfonamide Allergy Unknown Verified 04/01/25 11:48 Antibiotics) MEDICATIONS Ambulatory Orders Medication Instructions Recorded Confirmed albuterol sulfate 90 mcg/actuation 2 inh inhalation Q4 H PRN shortness 08/06/24 04/01/25 breath activated powder inhaler of breath (ProAir RespiClick) ascorbic acid (vitamin C) 500 mg 500 mg PO DAILY 08/0604/01/25 chewable tablet (C-500) bisacodyl 10 mg rectal suppository 10 mg TX ONCE PRN C onstipation 08/06/24 04/01/25 carboxymethylcellulose sodium 0.5 2 ea ophthalmic (eye ) TID dry eyes 08/06/24 04/01/25 % eye drops in a dropperette (Refresh Plus) cholecalciferol (vitamin D3) 25 50 mcg PO DAILY 04/01/25 mcg (1,000 unit) tablet ferrous sulfate 325 mg (65 mg 325 mg PO DAILY 08/06/24 04/01/25 iron) tablet guaifenesin 100 mg/5 mL oral liquid 15 ml PO Q6H PRN C ough 08/06/24 04/01/25 mineral oil (Fleet Mineral Oil 1 ea RC PRN PRN Constip ation 08/06/24 04/01/25 enema) naloxone 4 mg/actuation nasal 1 spray intranasal PRN P RN opioid 08/06/24 04/01/25 spray (Narcan) overdose pantoprazole 40 mg tablet,delayed 40 mg PO DAILY 08/0604/01/25 release polyethylene glycol 3350 17 gram 17 g PO DAILY PRN con stipation 08/06/24 04/01/25 oral powder packet saliva stimulant comb. no.3 15 ml PO DAILY 08/06/24 (Biotene Moisturizing Mouth mucosal spray) sennosides 8.6 mg tablet (Senna 17.2 mg PO DAILY PRN C onstipation 08/06/24 04/01/25 Lax) furosemide 20 mg tablet 20 mg PO DAILY new chf #1 ta b 08/07/24 04/01/25 acetaminophen 325 mg tablet 650 mg PO Q4H PRN pain 04/01/25 camphor-menthol 0.2 %-3.5 % 1 applic topical Q8HR /08/0704/01/25 topical gel duloxetine 20 mg capsule,delayed 20 mg PO QAM 03/11/25 04/01/25 release sprinkle (Drizalma Sprinkle) oxycodone 5 mg tablet 5 mg PO Q12H PRN breakthroug h pain 03/11/25 04/01/25 pregabalin 225 mg capsule 225 mg PO BID 03/11/2504/01 metoprolol tartrate 25 mg tablet 25 mg PO BID #60 tabs 03/15/25 04/01/25 [id number] 1 tab PO DAILYWM #30 tabs 0 03/15/25 04/01/25 fumarate 19 mg-folic acid 400 mcg tablet (Therapeutic-M) apixaban 5 mg tablet (Eliquis) 5 mg PO BID 04/01/25 nitrofurantoin 100 mg PO BID 1 day #2 caps 04/04/25 monohydrate/macrocrystals 100 mg capsule (Macrobid) PHYSICAL EXAM AT DISCHARGE Vital Signs: Vital Signs x48h Temp Pulse Pulse Resp BP BP Pulse Ox 04/04/25 14:25 96.6 F L 94 19 131/84 H 94 04/04/25 08:48 99 125/68 04/04/25 08:30 04/04/25 08:30 97.3 F L 99 16 125/68 97 O2 Flow Rate 04/04/25 14:25 1 04/04/25 08:48 04/04/25 08:30 2 04/04/25 08:30 2 General Appearance: positive No acute distress and Alert; negative Anxious or Lethargic Eyes Bilateral: positive Normal inspection, PERRL and EOMI ENT: positive ENT inspection nml, Pharynx nml, No signs of dehydration and Purulent nasal drainage Neck: positive Nml inspection and Thyroid nml Respiratory: positive Chest non-tender, No respiratory distress and Other (diminished air entry bilaterally ) Cardiovascular: positive No murmur, No gallop and Irregularly irregular Peripheral Pulses: positive 2+ Abdomen: positive Non-tender and No distention; negative Guarding or Splenomegaly Back: positive Nml inspection; negative CVA tenderness (R) or CVA tenderness (L) Skin: positive Color nml, No rash, Warm and Dry Extremities: positive Non-tender, Nml appearance and Pedal edema (minimal, trace) Neurologic/Psychiatric: positive Oriented x3 and Mood/affect nml LABS 04/04/25 05:22 04/04/25 05:22 DIAGNOSTIC IMAGING Diagnostic Imaging Results: Final report reviewed SEPSIS Current Stage of Sepsis: Resolved Possible source of Sepsis: Genitourinary FOLLOW UP Follow Up: Follow up with PCP. Follow up and complete sleep study. TIME SPENT Time Spent in Discharge (Minutes): 35 Discharge Plan Discharge Patient Disposition: [facility] DC/Xfer Condition: Stable Prescriptions: New nitrofurantoin monohyd/m-cryst [Macrobid] 100 mg capsule 100 mg PO BID 1 Days Qty: 2 0RF Rx Instructions: must administer with a meal/food Continued ProAir RespiClick 90 MCG aerosol powdr breath activated 2 inh inhalation Q4H PRN (Reason: shortness of breath) ferrous sulfate 325 MG tablet 325 mg PO DAILY bisacodyl 10 MG suppository 10 mg TX ONCE PRN (Reason: Constipation) Rx Instructions: use 1 supp rectally as needed for bm if senna not effective on 5th day of no bm. ascorbic acid (vitamin C) [C-500] 500 MG tablet,chewable 500 mg PO DAILY carboxymethylcellulose sodium [Refresh Plus] 1 EACH dropperette 2 ea ophthalmic (eye) TID Rx Instructions: instill 2 drops into both eyes 3 times daily for related cataract surgery. cholecalciferol (vitamin D3) 25 MCG tablet 50 mcg PO DAILY Biotene Moisturizing Mouth 100 SPRAYS/44.3 ML spray,non-aerosol 15 ml PO DAILY polyethylene glycol 3350 17 GM powder in packet 17 g PO DAILY PRN (Reason: constipation) Rx Instructions: give 17 grams by mouth as needed for day 3 without a bowel movement guaifenesin 100 MG/5 ML liquid 15 ml PO Q6H PRN (Reason: Cough) mineral oil [Fleet Mineral Oil] 133 ML enema 1 ea RC PRN PRN (Reason: Constipation) Rx Instructions: insert 1 as needed if bisacodyl supp not effective on 6th day of no bm. naloxone [Narcan] 4 MG spray,non-aerosol 1 spray intranasal PRN PRN (Reason: opioid overdose) sennosides [Senna Lax] 8.6 MG tablet 17.2 mg PO DAILY PRN (Reason: Constipation) Rx Instructions: give two tabs by mouth as needed for day 4 without a bowel movement pantoprazole 40 MG tablet,delayed release (DR/EC) 40 mg PO DAILY furosemide 20 MG tablet 20 mg PO DAILY Qty: 1 0RF camphor-menthol 0.2-3.5 % gel 1 applic topical Q8HR Rx Instructions: Apply to RLE topically every 8 hours for pain Drizalma Sprinkle 20 mg capsule, delayed rel sprinkle 20 mg PO QAM oxycodone 5 mg tablet 5 mg PO Q12H PRN (Reason: breakthrough pain) acetaminophen 325 mg tablet 650 mg PO Q4H PRN (Reason: pain) pregabalin 225 mg capsule 225 mg PO BID metoprolol tartrate 25 mg Tablet 25 mg PO BID Qty: 60 0RF Therapeutic-M 19 mg iron- 400 mcg Tablet 1 tab PO DAILYWM Qty: 30 0RF Eliquis 5 mg tablet 5 mg PO BID Activity Restrictions: Activity as Tolerated Diet: Cardiac Health Concerns: You came in because you were obtunded, and confused. You had a buildup of gas in your system which makes you sleepy likely because of undiagnosed obesity hypoventilation syndrome or obstructive sleep apnea. You should try to get a sleep study done in the outpatient setting, and use a CPAP or a BiPAP device at home, every time you sleep, whether that's when your napping during the day or sleeping at night. Our respiratory therapist is trying to get you a similar device that you can use back at [facility]. While you were here, you were also found to have a urinary tract infection. You completed 4 days of IV antibiotics, and I am sending you home with 1 more day of oral antibiotics. We are glad you are feeling back to your normal self. Thank you for letting us take care of you. Print Language: [place] Patient Instructions: Carbon Dioxide Blood Stand Alone Forms: SNF Discharge, PCP List"
[2025-04-04 14:41] VITALS: BP 131/84; TEMP 96.6; O2SAT 94
== END 2025-04-04 14:45 | DRG 189 ==
LOC: ED 09:16 → ICU 11:12 → MS3 04-03 15:12
PROVIDERS: ADMIT Internal Medicine; ATTEND Internal Medicine

== ENCOUNTER 2025-04-06 05:28 | Inpatient (IN) ==
--- NOTE | 2025-04-06 05:50 | ED Physician Documentation ---
PD HPI DYSPNEA Stated complaint Stated Complaint: RESP DISTRESS Chief complaint Chief Complaint: Resp History obtained from History obtained from: EMS Additional information Additional information: Report from EMS as the patient is unable to give any history. Patient has a resident of [facility] she was picked up by medics today with concern of increasing respiratory difficulty and altered mental status. Medics transported the patient to the hospital on BiPAP and they have administered 20 mg of ketamine intravenously. They have noted the patient to be nonresponsive they felt she was not moving the left side well. The patient has been discharged from 04-04-25 with respiratory failure. A CPAP machine was to be provided by family and this was not acchieved. [place] Coma Scale Assess Eye opening: To Pain Verbal response: Inappropriate Motor response: Withdraws to Pain Total score: 9 Review of Systems Status of ROS: unobtainable due to medical condition Meds/Allgy Home Medications Ambulatory Orders Medication Instructions Recorded Confirmed albuterol sulfate 90 mcg/actuation 2 inh inhalation Q4 H PRN shortness 08/06/24 04/01/25 breath activated powder inhaler of breath (ProAir RespiClick) ascorbic acid (vitamin C) 500 mg 500 mg PO DAILY 08/0604/01/25 chewable tablet (C-500) bisacodyl 10 mg rectal suppository 10 mg PA ONCE PRN C onstipation 08/06/24 04/01/25 carboxymethylcellulose sodium 0.5 2 ea ophthalmic (eye ) TID dry eyes 08/06/24 04/01/25 % eye drops in a dropperette (Refresh Plus) cholecalciferol (vitamin D3) 25 50 mcg PO DAILY 04/01/25 mcg (1,000 unit) tablet ferrous sulfate 325 mg (65 mg 325 mg PO DAILY 08/06/24 04/01/25 iron) tablet guaifenesin 100 mg/5 mL oral liquid 15 ml PO Q6H PRN C ough 08/06/24 04/01/25 mineral oil (Fleet Mineral Oil 1 ea RC PRN PRN Constip ation 08/06/24 04/01/25 enema) naloxone 4 mg/actuation nasal 1 spray intranasal PRN P RN opioid 08/06/24 04/01/25 spray (Narcan) overdose pantoprazole 40 mg tablet,delayed 40 mg PO DAILY 08/0604/01/25 release polyethylene glycol 3350 17 gram 17 g PO DAILY PRN con stipation 08/06/24 04/01/25 oral powder packet saliva stimulant comb. no.3 15 ml PO DAILY 08/06/24 (Biotene Moisturizing Mouth mucosal spray) sennosides 8.6 mg tablet (Senna 17.2 mg PO DAILY PRN C onstipation 08/06/24 04/01/25 Lax) furosemide 20 mg tablet 20 mg PO DAILY new chf #1 ta b 08/07/24 04/01/25 acetaminophen 325 mg tablet 650 mg PO Q4H PRN pain 04/01/25 camphor-menthol 0.2 %-3.5 % 1 applic topical Q8HR 04/08/0704/01/25 topical gel duloxetine 20 mg capsule,delayed 20 mg PO QAM 03/11/25 04/01/25 release sprinkle (Drizalma Sprinkle) oxycodone 5 mg tablet 5 mg PO Q12H PRN breakthroug h pain 03/11/25 04/01/25 pregabalin 225 mg capsule 225 mg PO BID 03/11/2504/01 metoprolol tartrate 25 mg tablet 25 mg PO BID #60 tabs 03/15/25 04/01/25 [id number]-[id number] 1 tab PO DAILYWM #30 tabs 0 03/15/25 04/01/25 fumarate 19 mg-folic acid 400 mcg tablet (Therapeutic-M) apixaban 5 mg tablet (Eliquis) 5 mg PO BID 04/01/25 nitrofurantoin 100 mg PO BID 1 day #2 caps 04/04/25 monohydrate/macrocrystals 100 mg capsule (Macrobid) Allergies Allergies Allergy/AdvReac Type Severity Reaction Status Date / Time Opioids - Morphine Analogues Allergy Intermediate Rash Verified 04/06/25 06:35 latex Allergy Itching Verified 04/06/25 06:35 Sulfa (Sulfonamide Allergy Unknown Verified 04/06/25 06:35 Antibiotics) PFSH Active Problems All Active Problems (Updated 04/06/25 @ 08:13 by Dioni Amaro MD) Acute metabolic encephalopathy (Acute) Hypercapnic respiratory failure (Acute) Hypercapnia (Acute) Decubitus ulcer, buttock (Acute) UTI (urinary tract infection) (Acute) Hypertension (Acute) Diabetes mellitus (Acute) Obstructive sleep apnea (Acute) Pulmonary edema (Acute) Respiratory failure (Acute) Pneumonia (Acute) Back pain (Acute) Medical History Medical History (Updated 04/06/25 @ 08:13 by Dioni Amaro MD) Depression Anemia, iron deficiency Anxiety Dementia HLD (hyperlipidemia) GERD (gastroesophageal reflux disease) Fibromyalgia Chronic pain syndrome Social History Social History Smoking Status: Unknown if ever smoked Do you dip or chew tobacco?: No Do you vape?: No Living arrangement: [facility] Living Condition: Alone Relationship: Level: Dependent Do you feel safe in your home environment?: Yes (unobtainable) Suffered physical, verbal, emotional, or financial abuse?: No (unobtainable) History of Abuse: No ETOH Use: Frequency: Occasional Number of Amount/day: 1 POLST Patient has POLST: Yes POLST Status: Full Code Exam Exam Vital Signs: Vital Signs x48h Temp Pulse Resp BP Pulse Ox 04/06/25 05:30 37.2 C 111 H 24 120/68 89 L Unconscious 79-year-old female with BiPAP in place has reasonable vital signs on arrival with a blood pressure 120/68 a pulse of 111 respirations of 24 temperature is 37 2 and the O2 saturation is low at 89%. Constitutional Minimally responsive 79-year-old female with BiPAP in place HENMT normocephalic and head/scalp atraumatic Eyes PERRL and EOMs intact bilaterally Neck/C-Spine visual inspection normal and trachea midline Respiratory Diminished breath sounds bilaterally Cardiovascular Tachycardia with irregularly irregular rate and rhythm Gastrointestinal abdomen normal to inspection, abdomen soft to palpation and nontender to palpation Extremities There is 1+ pitting edema to the ankles bilaterally Neurology The patient is unable to cooperate with exam but appears to have some reduced motion of the left hand. Skin skin color normal and no rash Results Vitals Vitals: Vital Signs - 24 hr 04/06/25 05:30 Temperature 37.2 C Temperature Source Rectal Pulse Rate 111 H Respiratory Rate 24 Blood Pressure 120/68 O2 Saturation 89 L O2 Source CPAP Pain Intensity 0 Oxygen O2 Source CPAP EKG (time done) 0536: EKG releavant findings:: EKG personally interpreted by author of this note. Relevant findings are: Rate: Rate (enter#) (117) Rhythm: Atrial fibrillation QRS: Low voltage Compare to prior EKG: Unchanged from prior EKG Computer interpretation: Agree with computer Rads (name of study) chest: Relevant Findings:: Prelim report reviewed and EMP independent interpretation of test (no dense consolidation) Interpretation: Impression: Left lower lobe infiltrate and bilateral pleural effusions. CT head: Relevant Findings:: Prelim report reviewed and EMP independent interpretation of test (unremarkable) Interpretation: Impression: No acute intracranial pathology. If clinically suspected acute stroke, consider MRI. PD Medical Decision Making ED course Complexity details: reviewed old records, reviewed results, re-evaluated patient and considered differential Reviewed Lab Results: We reviewed a complete blood count showing an elevated white blood cell count of 12.9 and normal hemoglobin hematocrit MCV was elevated at 102 platelets are normal at 303 1000 the differential favors neutrophils chemistries show carbon dioxide level elevated at 44 potassium is mildly elevated at 4.7 kidney function is normal lactate is 1.1 BNP is 303 this is elevated from her most recent of 203 5 days ago. These laboratory values support her diagnosis of respiratory failure without evidence of overwhelming sepsis or overwhelming congestive failure. Social Determinants of Health: This patient is now a intermediate resident and she does not have her CPAP available to her. ED course: 79-year-old female with history of hypercarbic respiratory failure was tuned up in the hospital and discharged to the intermediate with anticipation of CPAP being available for her. This did not occur at the facility and the patient is again developed hypercarbic respiratory failure. She is now a DNR DNI. She is improving with BiPAP. We will seek readmission to the hospital. Spoke with Dr. Lang [phone] they are working on a discharge from the ED and the patient will be borded in the ED on BIPAP awaiting a bed. Discharge Plan Discharge Patient Disposition: [facility] DC/Xfer Condition: Critical Clinical Impression: Hypercapnic respiratory failure, Acute metabolic encephalopathy Prescriptions: No Action ProAir RespiClick 90 MCG aerosol powdr breath activated 2 inh inhalation Q4H PRN (Reason: shortness of breath) ferrous sulfate 325 MG tablet 325 mg PO DAILY bisacodyl 10 MG suppository 10 mg PA ONCE PRN (Reason: Constipation) Rx Instructions: use 1 supp rectally as needed for bm if senna not effective on 5th day of no bm. ascorbic acid (vitamin C) [C-500] 500 MG tablet,chewable 500 mg PO DAILY carboxymethylcellulose sodium [Refresh Plus] 1 EACH dropperette 2 ea ophthalmic (eye) TID Rx Instructions: instill 2 drops into both eyes 3 times daily for related cataract surgery. cholecalciferol (vitamin D3) 25 MCG tablet 50 mcg PO DAILY Biotene Moisturizing Mouth 100 SPRAYS/44.3 ML spray,non-aerosol 15 ml PO DAILY polyethylene glycol 3350 17 GM powder in packet 17 g PO DAILY PRN (Reason: constipation) Rx Instructions: give 17 grams by mouth as needed for day 3 without a bowel movement guaifenesin 100 MG/5 ML liquid 15 ml PO Q6H PRN (Reason: Cough) mineral oil [Fleet Mineral Oil] 133 ML enema 1 ea RC PRN PRN (Reason: Constipation) Rx Instructions: insert 1 as needed if bisacodyl supp not effective on 6th day of no bm. naloxone [Narcan] 4 MG spray,non-aerosol 1 spray intranasal PRN PRN (Reason: opioid overdose) sennosides [Senna Lax] 8.6 MG tablet 17.2 mg PO DAILY PRN (Reason: Constipation) Rx Instructions: give two tabs by mouth as needed for day 4 without a bowel movement pantoprazole 40 MG tablet,delayed release (DR/EC) 40 mg PO DAILY furosemide 20 MG tablet 20 mg PO DAILY Qty: 1 0RF camphor-menthol 0.2-3.5 % gel 1 applic topical Q8HR Rx Instructions: Apply to RLE topically every 8 hours for pain Drizalma Sprinkle 20 mg capsule, delayed rel sprinkle 20 mg PO QAM oxycodone 5 mg tablet 5 mg PO Q12H PRN (Reason: breakthrough pain) acetaminophen 325 mg tablet 650 mg PO Q4H PRN (Reason: pain) pregabalin 225 mg capsule 225 mg PO BID metoprolol tartrate 25 mg Tablet 25 mg PO BID Qty: 60 0RF Therapeutic-M 19 mg iron- 400 mcg Tablet 1 tab PO DAILYWM Qty: 30 0RF Eliquis 5 mg tablet 5 mg PO BID nitrofurantoin monohyd/m-cryst [Macrobid] 100 mg capsule 100 mg PO BID 1 Days Qty: 2 0RF Rx Instructions: must administer with a meal/food Print Language: [place]
[2025-04-06 06:13] LABS: BASOPHILS # (AUTO) 0.1 10^3/uL (0.0-0.1); BASOPHILS % (AUTO) 0.5 %; EOSINOPHILS # (AUTO) 0.1 10^3/uL (0.0-0.7); EOSINOPHILS % (AUTO) 0.9 %; HCT - HEMATOCRIT 45.3 % (37.0-47.0); HGB - HEMOGLOBIN 12.5 g/dL (12.0-16.0); LYMPHOCYTES # (AUTO) 0.6 10^3/uL (1.5-3.5); LYMPHOCYTES % (AUTO) 4.7 %; MEAN CORPUSCULAR HEMOGLOBIN 28.2 pg (27.0-31.0); MEAN CORPUSCULAR HGB CONC 27.6 g/dL (32.0-36.0); MEAN PLATELET VOLUME 10.3 fL (7.9-10.8); MONOCYTES # (AUTO) 0.7 10^3/uL (0.0-1.0); MONOCYTES % (AUTO) 5.4 %; NEUTROPHILS # (AUTO) 11.4 10^3/uL (1.5-6.6); PLT - PLATELET COUNT 331 10^3/uL (130-450); RED BLOOD COUNT 4.44 10^6/uL (4.20-5.40); RED CELL DISTRIBUTION WIDTH 14.8 % (12.0-15.0); WHITE BLOOD COUNT 12.9 x10^3/uL (4.8-10.8)
[2025-04-06] MEDS: SODIUM CHLORIDE 0.9% 500 ML IV STA (06:29)
[2025-04-06 06:30] LABS: ALBUMIN 3.3 g/dL (3.2-5.5); BILIRUBIN,TOTAL 0.6 mg/dL (0.2-1.0); CREATININE 0.7 mg/dL (0.6-1.3); POTASSIUM 4.7 mmol/L (3.5-4.5); TOTAL PROTEIN 6.5 g/dL (6.4-8.9)
[2025-04-06 06:31] LABS: SLIDE REVIEW? Indicated
[2025-04-06 06:36] LABS: PLATELET ESTIMATE, MANUAL NORMAL (130-450,000) (NORMAL); PLATELET MORPHOLOGY NORMAL APPEARANCE (NORMAL); RBC MORPHOLOGY (MULTIPLE) 1+ HYPOCHROMASIA (NORMAL); WBC MORPHOLOGY (MULTIPLE) NORMAL APPEARANCE (NORMAL)
[2025-04-06] MEDS ORDERED: cefTRIAXone 1 GM VIAL ONE (06:39)
[2025-04-06] MEDS: cefTRIAXone 1 GM in SODIUM CHLORIDE 0.9% MINIBAG 100 ML IV STA (06:41)
--- OUTSIDE RECORDS SUMMARY | 2025-04-06 06:56 | EXTERNAL MEDICAL SUMMARY RPT | Continuity of Care Document ---
Author Organization [facility] Address [address] [place] [id number] Phone Problems date description facility 2025-03-11 09:20 Altered mental status, unspecif ied [facility] 2025-03-11 10:30 Unspecified atrial fibrillation [facility] 2025-03-11 10:30 Urinary tract infection, site n ot specified [facility] 2025-03-11 10:30 Altered mental status, unspecif ied [facility] 2025-03-13 21:23 Sepsis, unspecified organism [facility] 2025-03-13 21:23 Type 2 diabetes mellitus with h yperglycemia [facility] 2025-03-13 21:23 Type 2 diabetes mellitus withou t complications [facility] 2025-03-13 21:23 Hyperkalemia [facility] 2025-03-13 21:23 Unspecified atrial fibrillation [facility] 2025-03-13 21:23 Heart failure, unspecified [facility] 2025-03-13 21:23 Pressure ulcer of un specified buttock, unspecified stage [facility] 2025-03-13 21:23 Urinary tract infection, site n ot specified [facility] 2025-03-13 21:23 Altered mental status, unspecif ied [facility] 2025-03-13 21:23 Other reduced mobility [facility] 2025-03-14 23:03 Sepsis, unspecified organism [facility] 2025-03-14 23:03 Type 2 diabetes mellitus with h yperglycemia [facility] 2025-03-14 23:03 Type 2 diabetes mellitus withou t complications [facility] 2025-03-14 23:03 Hyperkalemia [facility] 2025-03-14 23:03 Unspecified atrial fibrillation [facility] 2025-03-14 23:03 Heart failure, unspecified [facility] 2025-03-14 23:03 Pressure ulcer of un specified buttock, unspecified stage [facility] 2025-03-14 23:03 Urinary tract infection, site n ot specified [facility] 2025-03-14 23:03 Altered mental status, unspecif ied [facility] 2025-03-14 23:03 Other reduced mobility [facility] 2025-03-15 11:00 Sepsis, [facility] 11:00 Type 2 diabetes mellitus with h yperglycemia [facility] 2025-03-15 11:00 Type 2 diabetes mellitus [facility]ou t [facility] 11:00 Hyperkalemia [facility] 2025-03-15 11:00 Unspecified atrial fibrillation [facility] 2025-03-15 11:00 Heart failure, unspecified [facility] [facility] 2025-03-15 11:00 Pressure ulcer of un specified buttock, unspecified stage [facility] 2025-03-15 11:00 Urinary tract infection, site n ot specified [facility] 2025-03-15 11:00 Altered mental status, unspecif ied [facility] 2025-03-15 11:00 Other reduced mobility [facility] 2025-03-15 11:09 Sepsis, unspecified [facility] 11:09 Type 2 diabetes mellitus with h [facility]perglycemia [facility] 11:09 Type 2 diabetes mellitus withou t complications [facility] 2025-[facility]15 11:09 Hyperkalemia [facility] 2025-03-15 11:09 Unspecified atrial fibrillation [facility] 2025-03-15 11:09 Heart failure, unspecified [facility] 2025-03-15 11:09 Pressure ulcer of un specified buttock, unspecified stage [facility] 2025-03-15 11:09 Urinary tract infection, site n ot specified [facility] 2025-03-15 11:09 Altered mental status, unspecif ied [facility] 2025-03-15 11:09 Other reduced mobility [facility] 2025-03-15 11:30 Sepsis, unspecified organism [facility] 2025-03-15 11:30 Type 2 diabetes mellitus with h yperglycemia [facility] 2025-03-15 11:30 Type 2 diabetes mellitus withou t complications [facility] 11:30 [facility]kalemia [facility] 2025-03[facility]15 11:30 Unspecified atrial fibrillation [facility] 2025-03[facility]15 11:30 Heart failure, unspecified [facility] 2025-03-15 11:30 Pressure ulcer of un specified buttock, unspecified stage [facility] 2025-03-15 11:30 Urinary tract infection, site n ot specified [facility] 2025-03-15 11:30 Altered mental status, unspecif ied [facility] 2025-03-15 11:30 Other reduced mobility [facility] 2025-03-15 11:44 Sepsis, unspecified organism [facility] 11:44 Type 2 diabetes mellitus with h yperglycemia [facility] 2025-03-15 11:44 Type 2 diabetes mellitus withou t complications [facility] 11:44 Hyperkalemia [facility] 2025-03-15 11:44 Unspecified atrial fibrillation [facility] 2025-03[facility]15 11:44 Heart failure, unspecified [facility] 2025-03-15 11:44 Pressure ulcer of un specified buttock, unspecified stage [facility] 2025-03-15 11:44 Urinary tract infection, site n ot specified [facility] 2025-03-15 11:44 Altered mental status, unspecif ied [facility] 2025-03-15 11:44 Other reduced mobility [facility] 2025-03-15 12:02 Sepsis, unspecified organism [facility] 2025-03-15 12:02 Type 2 diabetes mellitus with h yperglycemia [facility] 2025-03-15 12:02 Type 2 diabetes mellitus withou t complications [facility] 2025-03-15 12:02 Hyperkalemia [facility] 2025-03-15 12:02 Unspecified atrial [facility] 12:02 Heart failure, unspecified [facility] 2025-03-15 12:02 Pressure ulcer of un specified buttock, unspecified stage [facility] 2025-03-15 12:02 Urinary tract infection, site n ot specified [facility] 2025-03-15 12:02 Altered mental status, unspecif ied [facility] 2025-03-15 12:02 Other reduced mobility [facility] 2025-03-15 13:27 Sepsis, unspecified organism [facility]15 13:27 Type 2 diabetes mellitus with h yperglycemia [facility] 2025-03-15 13:27 Type 2 diabetes mellitus withou t complications [facility] 2025-03-15 13:27 Hyperkalemia [facility] 2025-03-15 13:27 Unspecified atrial fibrillation [facility] 2025-03-15 13:27 Heart failure, unspecified [facility] 2025-03-15 13:27 Pressure ulcer of un specified buttock, unspecified stage [facility] 2025-03-15 13:27 Urinary tract infection, site n ot specified [facility] 2025-03-15 13:27 Altered [facility] status, [facility] 13:27 Other reduced mobility [facility] 2025-03-15 15:32 Sepsis, unspecified organism [facility]25-[facility]15 15:32 Type 2 diabetes mellitus with h yperglycemia [facility] 2025-03-15 15:32 Type 2 diabetes mellitus withou t complications [facility] 2025-03-15 15:32 Hyperkalemia [facility] 2025-03-15 15:32 Unspecified atrial fibrillation [facility] 2025-03-15 15:32 Heart failure, unspecified [facility] 2025-03-15 15:32 Pressure ulcer of un specified buttock, unspecified stage [facility] 2025-03-15 15:32 Urinary tract infection, site n ot specified [facility] 2025-03-15 15:32 Altered mental status, unspecif ied [facility] 2025-03-15 15:32 Other reduced mobility [facility] 2025-03-17 05:10 Sepsis, unspecified organism [facility] 2025-03-17 05:10 Type 2 diabetes mellitus with h yperglycemia [facility] 2025-03-17 05:10 Type 2 diabetes mellitus withou t complications [facility] 2025-03-17 05:10 Hyperkalemia [facility] 2025-03-17 05:10 Unspecified atrial fibrillation [facility] 2025-03-17 05:10 Heart failure, unspecified [facility] 2025-03-17 05:10 Pressure ulcer of un specified buttock, unspecified stage [facility] 2025-03-17 05:10 Urinary tract infection, site n ot specified [facility] 2025-03-17 05:10 Chest pain, unspecified [facility] 2025-03-17 05:10 Altered mental status, unspecif ied [facility] 2025-03-17 05:10 Weakness [facility] 2025-03-17 05:10 Other reduced mobility [facility] 2025-03-19 08:26 Slowness and poor responsivenes s [facility] 2025-03-27 09:53 Weakness [facility] 2025-03-31 23:40 Encounter for screening for lip oid disorders [facility] 2025-04-01 09:27 Encounter for screening for lip oid disorders [facility] 2025-04-01 11:13 Respiratory failure, unspecified, unspecified whether with hypoxia or hypercapnia [facility] 2025-04-01 11:46 Respiratory failure, unspecified, unspecified whether with hypoxia or hypercapnia [facility] 2025-04-01 11:48 Respiratory failure, unspecified, unspecified whether with hypoxia or [facility]capnia [facility] 2025-04-01 11:48 Encounter for screening for lip oid disorders [facility] 2025-04-01 12:02 Respiratory failure, unspecified, unspecified whether with hypoxia or hypercapnia [facility] 2025-04-01 12:25 Respiratory failure, unspecified, unspecified whether with hypoxia or hypercapnia [facility] 2025-04-01 15:03 Respiratory failure, unspecified, unspecified whether with hypoxia or hypercapnia [facility] 2025-04-01 15:05 Respiratory failure, unspecified, unspecified whether with hypoxia or hypercapnia [facility] 2025-04-02 07:57 Encounter for screening for lip oid disorders [facility] 2025-04-02 07:58 Encounter for screening for lip oid disorders [facility] 2025-04-02 08:36 Encounter for screening for lip oid disorders [facility] 2025-04-03 13:05 Sepsis, unspecified organism [facility]03 13:05 Type 2 diabetes mellitus with h yperglycemia [facility] 2025-04-03 13:05 Metabolic encephalopathy [facility] 2025-[facility]03 13:05 Essential (primary) hypertensio n [facility] 2025-04-03 13:05 Unspecified atrial fibrillation [facility] 2025-04-03 13:05 Heart failure, unspecified [facility] 2025-04-03 13:05 Acute respiratory failure with hypoxia [facility] 2025-04-03 13:05 Respiratory failure, unspecified, unspecified whether with hypoxia or hypercapnia [facility] 2025-04-03 13:05 Gastro-esophageal reflux diseas e without esophagitis [facility] 2025-04-03 15:13 Sepsis, unspecified organism [facility] 2025-04-03 15:13 Type 2 diabetes mellitus with h yperglycemia [facility] 2025-04-03 15:13 Metabolic encephalopathy [facility] 2025-04-03 15:13 Essential (primary) hypertensio n [facility] 2025-04-03 15:13 Unspecified atrial fibrillation [facility] 2025-04-03 15:13 Heart failure, unspecified [facility] 2025-04-03 15:13 Acute respiratory failure with hypoxia [facility] 2025-04-03 15:13 Respiratory failure, unspecified, unspecified whether with hypoxia or hypercapnia [facility] 2025-04-03 15:13 Gastro-esophageal reflux diseas e without esophagitis [facility] 2025-04-04 11:19 Sepsis, unspecified organism [facility] 2025-04-04 11:19 Type 2 diabetes mellitus with h yperglycemia [facility] 2025-04-04 11:19 Metabolic encephalopathy [facility] 2025-04-04 11:19 Essential (primary) hypertensio n [facility] 2025-04-04 11:19 Unspecified atrial fibrillation [facility] 2025-04-04 11:19 Heart failure, unspecified [facility] 2025-04-04 11:19 Acute respiratory failure with hypoxia [facility] 2025-04-04 11:19 Respiratory failure, unspecified, unspecified whether with hypoxia or hypercapnia [facility] 2025-04-04 11:19 Gastro-esophageal reflux diseas e without esophagitis [facility] 2025-04-04 11:27 Sepsis, unspecified organism [facility] 2025-04-04 11:27 Type 2 diabetes mellitus with h yperglycemia [facility] 2025-04-04 11:27 Metabolic encephalopathy [facility] 2025-04-04 11:27 Essential (primary) hypertensio n [facility] 2025-04-04 11:27 Unspecified atrial fibrillation [facility] 2025-04-04 11:27 Heart failure, unspecified [facility] 2025-04-04 11:27 Acute respiratory failure with hypoxia [facility] 2025-04-04 11:27 Respiratory failure, unspecified, unspecified whether with hypoxia or hypercapnia [facility] 2025-04-04 11:27 Gastro-esophageal reflux diseas e without esophagitis [facility] 2025-04-04 12:12 Sepsis, unspecified organism [facility] 2025-04-04 12:12 Type 2 diabetes mellitus with h yperglycemia [facility] 2025-04-04 12:12 Metabolic encephalopathy [facility] 2025-04-04 12:12 Essential (primary) hypertensio n [facility] 2025-04-04 12:12 Unspecified atrial fibrillation [facility] 2025-04-04 12:12 Heart failure, unspecified [facility] 2025-04-04 12:12 Acute respiratory failure with hypoxia [facility] 2025-04-04 12:12 Respiratory failure, unspecified, unspecified whether with hypoxia or hypercapnia [facility] 2025-04-04 12:12 Gastro-esophageal reflux diseas e without esophagitis [facility] 2025-04-04 14:46 Sepsis, unspecified organism [facility] 2025-04-04 14:46 Type 2 diabetes mellitus with h yperglycemia [facility] 2025-04-04 14:46 Metabolic encephalopathy [facility] 2025-04-04 14:46 Essential (primary) hypertensio n [facility] 2025-04-04 14:46 Unspecified atrial fibrillation [facility] 2025-04-04 14:46 Heart failure, unspecified [facility] 2025-04-04 14:46 Acute respiratory failure with hypoxia [facility] 2025-04-04 14:46 Respiratory failure, unspecified, unspecified whether with hypoxia or hypercapnia [facility] 2025-04-04 14:46 Gastro-esophageal reflux diseas e without esophagitis [facility] Results/Labs test date facility value unit notes Result panel 1 WBC,URINE 2025-03-11 06:30 [facility] >25 /hpf URINE CATHETERIZED SPECIFIC GRAVITY,URINE 2025-03-11 06:30 [facility] >=1.030 (missin g) (missing) CEFAZOLIN 2025-03-11 06:30 [facility] >=64 (missin g) (missing) NITROFURANTOIN 2025-03-11 06:30 [facility] <=16 (missin g) (missing) UROBILINOGEN,URINE 2025-03-11 06:30 [facility] 0.2 (NORMAL) e.u./dl (missing) CUL, URINE 2025-03-11 06:30 [facility] 100>100,000 CFU/mL (missin g) (missing) RBC,URINE 2025-03-11 06:30 [facility] 11-25 /hpf (missing) PH,URINE 2025-03-11 06:30 [facility] [...] (missing) CUL, URINE 2025-03-11 06:30 [facility] C.6COLONY COUNT (missin g) (missing) COLOR,URINE 2025-03-11 06:30 [...] include reference ranges. ALBUMIN/GLOBULIN RATIO 2025-03-11 06:35 [facility] 0.9 (missing) (missing) MONOCYTES # (AUTO) 2025-03-11 06:35 [facility] 1.0 10 3/ul (missing) LYMPHOCYTES # (AUTO) 2025-03-11 06:35 [facility] 1.1 10 3/ul (missing) ALKALINE PHOSPHATASE 2025-03-11 06:35 [facility] 103 iu/l As of May 2023 testing method has changed, this may include reference ranges. GFR - MDRD 2025-03-11 06:35 [facility] 119 (vanessa arredondo) Social History date description facility
--- NOTE | 2025-04-06 08:08 | CT Report ---
PROCEDURE: CT Head WO INDICATIONS: decreased LOC L hemiparesis TECHNIQUE: CT of the head was performed, without intravenous contrast. Reformats: Coronal and sagittal. For radiation dose reduction, the following was used: automated exposure control, adjustment of mA and/or kV according to patient size. COMPARISON: None. FINDINGS: Image quality: Diagnostic. CSF spaces: Basal cisterns are patent. No extra-axial fluid collections. Ventricles are normal in size and shape. Brain: No midline shift. No intracranial mass effect or hemorrhage. Morales- white matter interface is normal. Age appropriate volume loss and periventricular white matter hypoattenuation, likely chronic ischemic change. Skull and face: Calvarium and visualized facial bones are intact, without suspicious lesions. Sinuses: Visualized sinuses and mastoids are clear. IMPRESSION: No acute intracranial pathology. Comment: If clinically suspected acute stroke, consider MRI. Reviewed by: Cipriano Koehler MD on 04/06/2025 8:06 AM PDT Approved by: Cipriano Koehler MD on 04/06/2025 8:06 AM PDT Station ID: [id number]
--- NOTE | 2025-04-06 08:10 | XRAY Report ---
PROCEDURE: XR Chest 1V INDICATIONS: Sepsis TECHNIQUE: One view of the chest was acquired. COMPARISON: 04/02/2025. FINDINGS: Surgical changes and devices: None. Lungs and pleura: Left basilar consolidation. Bilateral pleural effusion. Question mild pulmonary edema. Mediastinum: Mediastinal contours appear normal. Heart size is enlarged. Bones and chest wall: No suspicious bony lesions. Overlying soft tissues appear unremarkable. IMPRESSION: 1. Probable left basilar pneumonia. 2.. Suspect congestive heart failure exacerbation Findings are concordant with preliminary interpretation provided by [facility]. Reviewed by: Cipriano Koehler MD on 04/06/2025 8:08 AM PDT Approved by: Cipriano Koehler MD on 04/06/2025 8:08 AM PDT Station ID: [id number]
[2025-04-06 08:17] LABS: ABG PH 7.29 (7.35-7.45)
[2025-04-06 08:18] LABS: ABG BASE EXCESS 16.9 mmol/L (-2.0-3.0); ABG HCO3 43.8 mmol/L (22.0-26.0); ABG OXYGEN SATURATION 99 % (95-98); ABG PO2 362 mmHg (83-108); ALLEN TEST POSITIVE
[2025-04-06 08:19] LABS: ABG MODE OF VENTILATION SYNCHRONOUS/TIMES; ABG RESPIRATORY RATE 15 b/min
[2025-04-06 08:21] LABS: ABG PCO2 91 mmHg (34-45); ABG TCO2 46.6 mmol/L (21.0-29.0)
[2025-04-06 08:26] LABS: BILIRUBIN,URINE NEGATIVE (NEGATIVE); GLUCOSE, URINE (UA) NEGATIVE (NEGATIVE); KETONES,URINE (UA) 15 mg/dL (NEGATIVE); LEUKOCYTE ESTERASE, URINE NEGATIVE (NEGATIVE); NITRITE,URINE NEGATIVE (NEGATIVE); OCCULT BLOOD,URINE NEGATIVE (NEGATIVE); PROTEIN,URINE 100 mg/dL (NEGATIVE); UROBILINOGEN,URINE 0.2 (NORMAL) E.U./dL (NORMAL)
--- NOTE | 2025-04-06 08:34 | ED Physician Documentation ---
ED Addendum Addendum Addendum: I took over care for this patient from the overnight physician Dr. Amaro. In short, this is an 79-year-old planned for admission to the hospital for acute hypercapnic respiratory failure on BiPAP. Her initial ABG showed pCO2 of 91. Respiratory therapy and I decided to decrea se settings from 16/5 to 14/5 and increased respiratory rate from 12 to 22 due to excessive tidal volumes of 600 mL on the prior settings. Unfortunatlly, she is still remaining hypercapnic and retaining CO2. I will continue to assess her until she can be admitted to the hospital. 8:45 I met with the patient's daughter at bedside and discussed guarded prognosis. Patient was examined by me and is not waking up to answer questions. There is good air movement bilaterally with no wheezing. She is diffusely edematous. Repeat VBG showed mild improvement of pCO2. Patient will continue on her cur rent BiPAP settings. She was admitted to the ICU for further care. Discharge Plan Discharge Patient Disposition: 66 [facility] DC/Xfer Condition: Critical Clinical Impression: Acute metabolic encephalopathy Hypercapnic respiratory failure Qualifiers: Chronicity: acute on chronic Qualified Code(s): J96.22 - Acute and chronic respiratory failure with hypercapnia
[2025-04-06 08:59] LABS: CLARITY,URINE CLOUDY (CLEAR)
[2025-04-06 09:00] LABS: AMORPHOUS SEDIMENT,UR Moderate /LPF; BACTERIA,URINE Few /HPF (None Seen); RBC,URINE 0-5 /HPF (0-5); SQUAMOUS EPITHELIAL CELL,UR FEW Squamous (<= Few)
[2025-04-06 09:46] LABS: VBG BASE EXCESS 19.8 mmol/L (-2 - +2); VBG PCO2 80.8 mmHg (41-51); VBG PH 7.355 (7.31-7.41); VBG PO2 50.4 mmHg (25-47)
[2025-04-06 11:16] LABS: VBG BASE EXCESS 21.1 mmol/L (-2 - +2); VBG PCO2 75.5 mmHg (41-51); VBG PH 7.391 (7.31-7.41); VBG PO2 32.4 mmHg (25-47); VBG TOTAL CO2 48.5 mmol/L (24-29)
--- NOTE | 2025-04-06 12:47 | HISTORY & PHYSICAL EXAMINATION ---
Chief Complaint Chief Complaint Chief Complaint: Altered mentation History of Present Illness Admitted From Admitted From:: [facility] History Obtained From Records Reviewed: EMR History obtained from: Chart review Exam Limitations: Patient lethargic History of Present Illness HPI Comment/Other: Patient is a 79-year-old female with a likely diagnosis of obesity hypoventilation syndrome versus obstructive sleep apnea who presents due to [facility]arg[facility]. Per ER records, patient was obtunded. Of note, she was admitted recently from 03/11 to t this time, she also had altered mentation, and required a night of BiPAP with improvement of her CO2 retention. She was also treated for a UTI and sepsis at that time. Advance care planning was completed, as well as documented well. Patient is a DNR/DNI. She does have a POLST filled out. She was admitted again from 04/01 to 04/04 She was intubated in the field for GCS less than 8. She started waking up after just a few hours on the ventilator. She self extubated. When she woke up, she was still little bit confused, but this rapidly improved with BiPAP use at night. She was retaining some CO2. She is chronically on 2 L of oxygen, per [facility], and she was resumed on this. While she was here last time, she was also septic. Source is likely urine. On her last visit, her urine was resistant to Rocephin. She was started on cefepime, and completed a course. Ultimately, patient requires a sleep study in the outpatient setting to get a formal diagnosis of OHS or LARON. She will then require a BiPAP or CPAP machine, to be used when she naps or nightly to avoid CO2 retention. Last admit, we tried to get her approved for a Trilogy device but she has no diagnosis of COPD so it was rejected. This time around, she presents similarly for altered mentation, obtundation due to CO2 retention. She was placed on BiPAP. On admission, patient was afebrile, tachycardic to 103, and atrial fibrillation. She was breathing comfortably on the BiPAP with a respiratory rate of 16, and oxygen saturation of 94. She was normotensive with blood pressure of 116/97. Her white count was mildly elevated at 12.9. Her CO2 on the initial gas was 91. Will repeat this again to ensure it is decreasing appropriately. Her creatinine is within normal limits. Her chest x-ray showed possible left basilar pneumonia, CHF. Head CT was also done which showed no acute intracranial pathology. She was admitted for altered mental status. Meds/Allgy Home Medications Ambulatory Orders Medication Instructions Recorded Confirmed albuterol sulfate 90 mcg/actuation 2 inh inhalation Q4 H PRN shortness 08/06/24 04/06/25 breath activated powder inhaler of breath (ProAir RespiClick) ascorbic acid (vitamin C) 500 mg 500 mg PO DAILY 08/0604/06/25 chewable tablet (C-500) bisacodyl 10 mg rectal suppository 10 mg ME ONCE PRN C onstipation 08/06/24 04/06/25 carboxymethylcellulose sodium 0.5 2 ea ophthalmic (eye ) TID dry eyes 08/06/24 04/06/25 % eye drops in a dropperette (Refresh Plus) cholecalciferol (vitamin D3) 25 50 mcg PO DAILY 04/06/25 mcg (1,000 unit) tablet ferrous sulfate 325 mg (65 mg 325 mg PO DAILY 08/06/24 04/06/25 iron) tablet guaifenesin 100 mg/5 mL oral liquid 15 ml PO Q6H PRN C ough 08/06/24 04/06/25 mineral oil (Fleet Mineral Oil 1 ea RC PRN PRN Constip ation 08/06/24 04/06/25 enema) naloxone 4 mg/actuation nasal 1 spray intranasal PRN P RN opioid 08/06/24 04/06/25 spray (Narcan) overdose pantoprazole 40 mg tablet,delayed 40 mg PO DAILY 08/0604/06/25 release polyethylene glycol 3350 17 gram 17 g PO DAILY PRN con stipation 08/06/24 04/06/25 oral powder packet saliva stimulant comb. no.3 15 ml PO DAILY 08/06/24 (Biotene Moisturizing Mouth mucosal spray) sennosides 8.6 mg tablet (Senna 17.2 mg PO DAILY PRN C onstipation 08/06/24 04/06/25 Lax) furosemide 20 mg tablet 20 mg PO DAILY new chf #1 ta b 08/07/24 04/06/25 acetaminophen 325 mg tablet 650 mg PO Q4H PRN pain 04/06/25 camphor-menthol 0.2 %-3.5 % 1 applic topical Q8HR 0408/0704/06/25 topical gel duloxetine 20 mg capsule,delayed 20 mg PO QAM 03/11/25 04/06/25 release sprinkle (Drizalma Sprinkle) oxycodone 5 mg tablet 5 mg PO Q12H PRN breakthroug h pain 03/11/25 04/06/25 pregabalin 225 mg capsule 225 mg PO BID 03/11/2504/06 metoprolol tartrate 25 mg tablet 25 mg PO BID #60 tabs 03/15/25 04/06/25 kcicjvqajvjq-xalwnqrt-btza 1 tab PO DAILYWM #30 tabs 0 03/15/25 04/06/25 fumarate 19 mg-folic acid 400 mcg tablet (Therapeutic-M) apixaban 5 mg tablet (Eliquis) 5 mg PO BID 04/01/25 nitrofurantoin 100 mg PO BID 1 day #2 caps 04/04/25 04/06/25 monohydrate/macrocrystals 100 mg capsule (Macrobid) Allergies Allergies Allergy/AdvReac Type Severity Reaction Status Date / Time Opioids - Morphine Analogues Allergy Intermediate Rash Verified 04/06/25 06:35 latex Allergy Itching Verified 04/06/25 06:35 Sulfa (Sulfonamide Allergy Unknown Verified 04/06/25 06:35 Antibiotics) PFSH Active Problems All Active Problems (Updated 04/06/25 @ 08:13 by Dioni Amaro MD) Acute metabolic encephalopathy (Acute) Hypercapnic respiratory failure (Acute) Hypercapnia (Acute) Decubitus ulcer, buttock (Acute) UTI (urinary tract infection) (Acute) Hypertension (Acute) Diabetes mellitus (Acute) Obstructive sleep apnea (Acute) Pulmonary edema (Acute) Respiratory failure (Acute) Pneumonia (Acute) Back pain (Acute) Medical History Medical History (Updated 04/06/25 @ 08:13 by Dioni Amaro MD) Depression Anemia, iron deficiency Anxiety Dementia HLD (hyperlipidemia) GERD (gastroesophageal reflux disease) Fibromyalgia Chronic pain syndrome Social History Social History Smoking Status: Unknown if ever smoked Do you dip or chew tobacco?: No Do you vape?: No Living arrangement: residential Living Condition: Alone Relationship: Level: Dependent Do you feel safe in your home environment?: Yes (unobtainable) Suffered physical, verbal, emotional, or financial abuse?: No (unobtainable) History of Abuse: No ETOH Use: Frequency: Occasional Number of Amount/day: 1 Substance Use Details: UNABLE TO ASSESS POLST Patient has POLST: Yes POLST Status: Full Code Review of Systems Patient lethargic; unable to answer. Status of ROS: unobtainable due to medical condition and unobtainable due to mental status Prior Level of Functionality: Bedbound at baseline due to multiple orthopedic surgeries. Exam Exam Vital Signs: Vital Signs x48h Temp Pulse Pulse Resp BP BP Pulse Ox 04/06/25 14:00 99.7 F 97 22 93/54 L 94 04/06/25 13:20 109 H 04/06/25 13:00 103 H 22 117/67 96 04/06/25 12:58 103 H 20 117/67 96 04/06/25 12:15 88 04/06/25 11:30 99 22 131/54 H 98 04/06/25 11:15 100 21 108/82 97 04/06/25 11:11 95 22 116/66 96 04/06/25 10:41 104 H 04/06/25 10:05 94 16 92/69 99 04/06/25 09:37 94 16 141/98 H 95 04/06/25 08:58 99 04/06/25 08:31 104 H 04/06/25 08:00 115 H 20 135/66 H 100 04/06/25 07:00 112 H 20 116/97 H 100 04/06/25 06:45 107 H 20 126/66 100 04/06/25 06:32 120 H 22 130/83 99 Constitutional abnormal general appearance (appears older than stated age), no apparent distress, abnormal body habitus (obese) and level of alertness abnormal (obtunded) and (lethargic) lethargic HENMT normocephalic and head/scalp atraumatic Eyes PERRL and EOMs intact bilaterally Chest inspection of chest normal and palpation of chest normal Respiratory breath sounds equal bilaterally, normal respiratory effort, no wheezes and no rales mild bibasilar crackles Cardiovascular heart rate abnormal (tachycardic), rhythm abnormal (irregular), no rub, no murmur and edema noted (2+ peripheral edema noted) Gastrointestinal abdomen normal to inspection, abdomen soft to palpation, nontender to palpation and nontender to percussion Genitourinary no CVA tenderness, bladder normal to palpation and external appearance normal Back/Pelvis spine normal to inspection and no thoracic spine tenderness Extremities normal to palpation and no tenderness Neurology no movement abnormality noted and no focal motor deficit noted Psychiatry orientation abnormal (disoriented to person), (disoriented to place) and (disoriented to time) lethargic Skin skin color normal, no rash and no lesions Conclusion/Plan Problem List (1) Acute metabolic encephalopathy: Plan: Patient was found to be lethargic, obtunded. Likely has an underlying component of obesity hypoventilation versus obstructive sleep apnea. Continue BiPAP at night. Continue to monitor. Continue to trend VBG's. CT head with no acute bleeds or strokes. (2) Acute respiratory failure with hypoxia: Plan: Patient remains on BIPAP. Wears 2L oxygen at home. Chest x-ray does show infiltrate, and she has a new leukocytosis. Will continue Rocephin and azithromycin at htis time. No documented history of COPD. Remote history of asthma. Likely has some underlying obesity hypoventilation versus obstructive sleep apnea. Continue continous BIPAP. (3) GERD (gastroesophageal reflux disease): Plan: Continue Protonix. Qualifiers: Esophagitis presence: without esophagitis Qualified Code(s): K21.9 - Gastro-esophageal reflux disease without esophagitis (4) Congestive heart failure: Plan: Last ECHO in our system is from 08/06 which shows mild to moderate mitral regurgitation, but normal left ventricular size and systolic function. Patient was recently placed on oral Lasix due to "new history of congestive heart failure". Continue IV Lasix at this time as patient does appear diffusely overloaded. Qualifiers: Heart failure chronicity: acute Heart failure type: unspecified Q ualified Code(s): I50.9 - Heart failure, unspecified (5) Hypertension: Plan: Continue home Lasix, as well as metoprolol. Qualifiers: Hypertension type: unspecified Qualified Code(s): I10 - Essential (primary) hypertension (6) Diabetes mellitus: Plan: Last A1c was 5.9. Continue hold sliding scale insulin at this time. Qualifiers: Diabetes mellitus type: type 2 Diabetes mellitus glass wool blanket machine feeder insulin use: without glass wool blanket machine feeder use Diabetes mellitus complication status: with hyperglycemia Qualified Code(s): E11.65 - Type 2 diabetes mellitus with hyperglycemia (7) Atrial fibrillation with RVR: Plan: Patient does have a history of atrial fibrillation. On previous visits, her daughter had stated that she would like to hold off on Eliquis. It appears it may have been started at her facility; Plavix and aspirin have been held. She remains just on Eliquis. Lab Results Lab results reviewed: Yes 04/06/25 05:56 04/06/25 05:56 Diagnostic Imaging Results Diagnostic Imaging Results: positive Final report reviewed Core Measures Anticipated LOS I expect patient to be DC'd or transferred within 96 hours.: Yes Issues Hospital Issues and Management Plan: None anticipated. DVT/VTE - Prophylaxis VTE/DVT Device ordered at admit?: No VTE/DVT Prophylaxis med ordered at admit?: Yes
--- OUTSIDE RECORDS SUMMARY | 2025-04-06 12:48 | EXTERNAL MEDICAL SUMMARY RPT | Continuity of Care Document ---
Author Organization [facility] Address [address] [place] [id number] Phone Problems date description facility 2025-03-11 09:20 Altered mental status, unspecif ied [facility] 2025-03-11 10:30 Unspecified atrial fibrillation [facility] 2025-03-11 10:30 Urinary tract infection, site n ot specified [facility] 2025-03-11 10:30 Altered mental status, unspecif ied [facility] 2025-03-13 21:23 Sepsis, unspecified organism [employer] [facility] 2025-03-13 21:23 Type 2 diabetes mellitus with h yperglycemia [facility] 2025-03-13 21:23 Type 2 diabetes mellitus withou t complications [facility] 2025-03-13 21:23 Hyperkalemia [facility] 2025-03-13 21:23 Unspecified atrial fibrillation [facility] 2025-03-13 21:23 Heart failure, unspecified [facility] 2025-03-13 21:23 Pressure ulcer of un specified buttock, unspecified stage [facility] 2025-03-13 21:23 Urinary tract infection, site n ot specified [facility] 2025-03-13 21:23 Altered mental status, unspecif ied [facility] 2025-03-13 21:23 Other reduced mobility [facility] 2025-03-14 23:03 Sepsis, unspecified organism [employer] 2025-03-14 23:03 Type 2 diabetes mellitus with h yperglycemia [facility] 2025-03-14 23:03 Type 2 diabetes mellitus withou t complications [facility] 2025-03-14 23:03 Hyperkalemia [facility] 2025-03-14 23:03 Unspecified atrial fibrillation [facility] 2025-03-14 23:03 Heart failure, unspecified [employer] 2025-03-14 23:03 Pressure ulcer of un specified buttock, unspecified stage [facility] 2025-03-14 23:03 Urinary tract infection, site n ot specified [employer] [facility] 2025-03-14 23:03 Altered mental status, unspecif ied [employer] [facility] 2025-03-14 23:03 Other reduced mobility [employer] [facility] [employer] 2025-03-15 11:00 Sepsis, unspecified organism [facility] 2025-03-15 11:00 Type 2 diabetes mellitus with h yperglycemia [employer] 2025-03-15 11:00 Type 2 diabetes mellitus withou t complications [facility]25-03-15 11:00 Hyperkalemia [employer] [facility] 2025-03-15 11:00 Unspecified atrial fibrillation [employer] 2025-03-15 11:00 Heart failure, unspecified [employer] 2025-03-15 11:00 Pressure ulcer of un specified buttock, unspecified stage [employer] 2025-03-15 11:00 Urinary tract infection, site n ot specified [employer] 2025-03-15 11:00 Altered mental status, unspecif ied [employer] 2025-03-15 11:00 Other reduced mobility [employer] 2025-03-15 11:09 Sepsis, unspecified organism [facility] 2025-03-15 11:09 Type 2 diabetes mellitus with h yperglycemia [facility] 2025-03-15 11:09 Type 2 diabetes mellitus withou t complications [facility] 2025-03-15 11:09 Hyperkalemia [employer] 2025-03-15 11:09 Unspecified atrial fibrillation [employer] 2025-03-15 11:09 Heart failure, unspecified [employer] 2025-03-15 11:09 Pressure ulcer of un specified buttock, unspecified stage [employer] 2025-03-15 11:09 Urinary tract infection, site n ot specified [employer] 2025-03-15 11:09 Altered mental status, unspecif ied [employer] 2025-03-15 11:09 Other reduced mobility [employer] 2025-03-15 11:30 Sepsis, unspecified organism [employer] 2025-03-15 11:30 Type 2 diabetes mellitus with h yperglycemia [employer] 2025-03-15 11:30 Type 2 diabetes mellitus withou t complications [facility] 2025-03-15 11:30 Hyperkalemia [facility] 2025-03-15 11:30 Unspecified atrial fibrillation [facility] 2025-03-15 11:30 Heart failure, unspecified [facility] [employer] 2025-03-15 11:30 Pressure ulcer of un specified buttock, unspecified stage [employer] 2025-03-15 11:30 Urinary tract infection, site n ot specified [employer] 2025-03-15 11:30 Altered mental status, unspecif ied [employer] 2025-03-15 11:30 Other reduced mobility [employer] 2025-03-15 11:44 Sepsis, unspecified organism [facility] 2025-03-15 11:44 Type 2 diabetes mellitus with h yperglycemia [employer] 2025-03-15 11:44 Type 2 diabetes mellitus withou t complications [facility] 2025-03-15 11:44 Hyperkalemia [employer] 2025-03-15 11:44 Unspecified atrial fibrillation [facility] 2025-03-15 11:44 Heart failure, unspecified [facility] [employer] 2025-03-15 11:44 Pressure ulcer of un specified buttock, unspecified stage [employer] 2025-03-15 11:44 Urinary tract infection, site n ot specified [employer] 2025-03-15 11:44 Altered mental status, unspecif ied [employer] 2025-03-15 11:44 Other reduced mobility [facility] 2025-03-15 12:02 Sepsis, unspecified organism [employer] 2025-03-15 12:02 Type 2 diabetes mellitus with h yperglycemia [employer] 2025-03-15 12:02 Type 2 diabetes mellitus withou t complications [employer] 2025-03-15 12:02 Hyperkalemia [employer] 2025-03-15 12:02 Unspecified atrial fibrillation [facility] 2025-03-15 12:02 Heart failure, unspecified [facility] [employer] 2025-03-15 12:02 Pressure ulcer of un specified buttock, unspecified stage [facility] 2025-03-15 12:02 Urinary tract infection, site n ot specified [facility] 2025-03-15 12:02 Altered mental status, unspecif ied [facility] 2025-03-15 12:02 Other reduced mobility [facility] 2025-03-15 13:27 Sepsis, unspecified organism [facility] 2025-03-15 13:27 Type 2 diabetes mellitus with h yperglycemia [facility] 2025-03-15 13:27 Type 2 diabetes mellitus withou t complications [facility] 2025-03-15 13:27 Hyperkalemia [facility] 2025-03-15 13:27 Unspecified atrial fibrillation [facility] 2025-03-15 13:27 Heart failure, unspecified [employer] 2025-03-15 13:27 Pressure ulcer of un specified buttock, unspecified stage [facility] 2025-03-15 13:27 Urinary tract infection, site n ot specified [facility] 2025-03-15 13:27 [facility]tered [facility] status, [facility]25-[facility]-15 13:27 Other reduced mobility [facility] 2025-03-15 15:32 Sepsis, unspecified organism [facility] 2025-03-15 15:32 Type 2 diabetes mellitus with h yperglycemia [facility] 2025-03-15 15:32 Type 2 diabetes mellitus withou t complications [facility] 2025-03-15 15:32 Hyperkalemia [facility] 2025-03-15 15:32 Unspecified atrial fibrillation [facility] 2025-03-15 15:32 Heart failure, unspecified [facility] 2025-03-15 15:32 Pressure ulcer of un specified buttock, unspecified stage [facility] 2025-03-15 15:32 Urinary tract infection, site n ot specified [employer] 2025-03-15 15:32 Altered mental status, unspecif ied [facility] 2025-03-15 15:32 Other reduced mobility [facility] 2025-03-17 05:10 Sepsis, unspecified organism [facility] 2025-03-17 05:10 Type 2 diabetes mellitus with h yperglycemia [facility] 2025-03-17 05:10 Type 2 diabetes mellitus withou t complications [facility] 2025-03-17 05:10 Hyperkalemia [facility] 2025-03-17 05:10 Unspecified atrial fibrillation [facility] 2025-03-17 05:10 Heart failure, unspecified [employer] 2025-03-17 05:10 Pressure ulcer of un specified buttock, unspecified stage [facility] 2025-03-17 05:10 Urinary tract infection, site n ot specified [facility] 2025-03-17 05:10 Chest pain, unspecified [facility] 2025-03-17 05:10 Altered mental status, unspecif ied [facility] 2025-03-17 05:10 Weakness [facility] 2025-03-17 05:10 Other reduced mobility [facility] 2025-03-19 08:26 Slowness and poor responsivenes s [facility] 2025-03-27 09:53 Weakness [facility] 2025-03-31 23:40 Encounter for screening for lip oid disorders [facility] 2025-04-01 09:27 Encounter for screening for lip oid disorders [facility] 2025-04-01 11:13 Respiratory failure, unspecified, unspecified whether with hypoxia or hypercapnia [facility] 2025-04-01 11:46 Respiratory failure, unspecified, unspecified whether with hypoxia or hypercapnia [facility] 2025-04-01 11:48 Respiratory failure, unspecified, unspecified whether with hypoxia or [facility]capnia [facility] 2025-04-01 11:48 Encounter for screening for lip oid disorders [facility] 2025-04-01 12:02 Respiratory failure, unspecified, unspecified whether with hypoxia or hypercapnia [facility] 2025-04-01 12:25 Respiratory failure, unspecified, unspecified whether with hypoxia or hypercapnia [facility] 2025-04-01 15:03 Respiratory failure, unspecified, unspecified whether with hypoxia or hypercapnia [facility] 2025-04-01 15:05 Respiratory failure, unspecified, unspecified whether with hypoxia or hypercapnia [facility] 2025-04-02 07:57 Encounter for screening for lip oid disorders [facility] 2025-04-02 07:58 Encounter for screening for lip oid disorders [facility] 2025-04-02 08:36 Encounter for screening for lip oid disorders [facility] 2025-04-03 13:05 Sepsis, unspecified organism [facility] 2025-04-03 13:05 Type 2 diabetes mellitus with h yperglycemia [facility] 2025-04-03 13:05 Metabolic encephalopathy [facility] 2025-04-03 13:05 Essential (primary) hypertensio n [facility] 2025-04-03 13:05 Unspecified atrial fibrillation [facility] 2025-04-03 13:05 Heart failure, unspecified [facility] [employer] 2025-04-03 13:05 Acute respiratory failure with hypoxia [facility] 2025-04-03 13:05 Respiratory failure, unspecified, unspecified whether with hypoxia or hypercapnia [facility] 2025-04-03 13:05 Gastro-esophageal reflux diseas e without esophagitis [facility] 2025-04-03 15:13 Sepsis, unspecified organism [facility] 2025-04-03 15:13 Type 2 diabetes mellitus with h yperglycemia [facility] 2025-04-03 15:13 Metabolic encephalopathy [facility] 2025-04-03 15:13 Essential (primary) hypertensio n [facility] 2025-04-03 15:13 Unspecified atrial fibrillation [facility] 2025-04-03 15:13 Heart failure, unspecified [facility] [employer] 2025-04-03 15:13 Acute respiratory failure with hypoxia [facility] 2025-04-03 15:13 Respiratory failure, unspecified, unspecified whether with hypoxia or hypercapnia [facility] 2025-04-03 15:13 Gastro-esophageal reflux diseas e without esophagitis [facility] 2025-04-04 11:19 Sepsis, unspecified organism [facility] 2025-04-04 11:19 Type 2 diabetes mellitus with h yperglycemia [facility] 2025-04-04 11:19 Metabolic encephalopathy [facility] 2025-04-04 11:19 Essential (primary) hypertensio n [facility] 2025-04-04 11:19 Unspecified atrial fibrillation [facility] 2025-04-04 11:19 Heart failure, unspecified [facility] 2025-04-04 11:19 Acute respiratory failure with hypoxia [facility] 2025-04-04 11:19 Respiratory failure, unspecified, unspecified whether with hypoxia or hypercapnia [facility] 2025-04-04 11:19 Gastro-esophageal reflux diseas e without esophagitis [facility] 2025-04-04 11:27 Sepsis, unspecified organism [facility] 2025-04-04 11:27 Type 2 diabetes mellitus with h yperglycemia [facility] 2025-04-04 11:27 Metabolic encephalopathy [facility] 2025-04-04 11:27 Essential (primary) hypertensio n [facility] 2025-04-04 11:27 Unspecified atrial fibrillation [facility] 2025-04-04 11:27 Heart failure, unspecified [facility] 2025-04-04 11:27 Acute respiratory failure with hypoxia [facility] 2025-04-04 11:27 Respiratory failure, unspecified, unspecified whether with hypoxia or hypercapnia [facility] 2025-04-04 11:27 Gastro-esophageal reflux diseas e without esophagitis [facility] 2025-04-04 12:12 Sepsis, unspecified organism [facility] 2025-04-04 12:12 Type 2 diabetes mellitus with h yperglycemia [facility] 2025-04-04 12:12 Metabolic encephalopathy [facility] 2025-04-04 12:12 Essential (primary) hypertensio n [facility] 2025-04-04 12:12 Unspecified atrial fibrillation [facility] 2025-04-04 12:12 Heart failure, unspecified [facility] [employer] 2025-04-04 12:12 Acute respiratory failure with hypoxia [facility] 2025-04-04 12:12 Respiratory failure, unspecified, unspecified whether with hypoxia or hypercapnia [facility] 2025-04-04 12:12 Gastro-esophageal reflux diseas e without esophagitis [facility] [employer] 2025-04-04 14:46 Sepsis, unspecified organism [facility] 2025-04-04 14:46 Type 2 diabetes mellitus with h yperglycemia [facility] 2025-04-04 14:46 Metabolic encephalopathy [facility] 2025-04-04 14:46 Essential (primary) hypertensio n [facility] [employer] 2025-04-04 14:46 Unspecified atrial fibrillation [facility] [employer] 2025-04-04 14:46 Heart failure, unspecified [facility] [employer] 2025-04-04 14:46 Acute respiratory failure with hypoxia [facility] 2025-04-04 14:46 Respiratory failure, unspecified, unspecified whether with hypoxia or hypercapnia [facility] 2025-04-04 14:46 Gastro-esophageal reflux diseas e without esophagitis [facility] Results/Labs test date facility value unit notes Result panel 1 WBC,URINE 2025-03-11 06:30 [facility] >25 /hpf URINE CATHETERIZED SPECIFIC GRAVITY,URINE 2025-03-11 06:30 [facility] >=1.030 (missin g) (missing) CEFAZOLIN 2025-03-11 06:30 [facility] >=64 (missin g) (missing) NITROFURANTOIN 2025-03-11 06:30 [facility] <=16 (missin g) (missing) UROBILINOGEN,URINE 2025-03-11 06:30 [facility] 0.2 (NORMAL) e.u./dl (missing) CUL, URINE 2025-03-11 06:30 [facility] 100>100,000 CFU/mL (missin g) (missing) RBC,URINE 2025-03-11 06:30 [facility] 11-25 /hpf (missing) PH,URINE 2025-03-11 06:30 [place] [...] 3/ul (missing) LYMPHOCYTES # (AUTO) 2025-03-11 06:35 [facility] 1.1 10 3/ul (missing) ALKALINE PHOSPHATASE 2025-03-11 06:35 [facility] [employer] 103 iu/l As of May 2023 testing method has changed, this may include reference ranges. GFR - MDRD 2025-03-11 06:35 [facility] 119 (vanessa arredondo) Social History date description facility
--- NOTE | 2025-04-06 13:10 | PHARMACY PROGRESS NOTE ---
Best Possible Medication History Admit Date and Time: 04/06/25 [id number] Home Medications Medication Instructions Recorded Confirmed Type albuterol sulfate 90 mcg/actuation 2 inh inhalation Q4 H PRN shortness 08/06/24 04/06/25 History breath activated powder inhaler of breath ([employer]Air RespiClick) ascorbic acid (vitamin C) 500 mg 500 mg PO DAILY 08/0604/06/25 History chewable tablet (C-500) bisacodyl 10 mg rectal suppository 10 mg VT ONCE PRN C onstipation 08/06/24 04/06/25 History carboxymethylcellulose sodium 0.5 2 ea ophthalmic (eye ) TID dry eyes 08/06/24 04/06/25 History % eye drops in a dropperette (Refresh Plus) cholecalciferol (vitamin D3) 25 50 mcg PO DAILY 04/06/25 History mcg (1,000 unit) tablet ferrous sulfate 325 mg (65 mg 325 mg PO DAILY 08/06/24 04/06/25 History iron) tablet guaifenesin 100 mg/5 mL oral liquid 15 ml PO Q6H PRN C ough 08/06/24 04/06/25 History mineral oil (Fleet Mineral Oil 1 ea RC PRN PRN Constip ation 08/06/24 04/06/25 History enema) naloxone 4 mg/actuation nasal 1 spray intranasal PRN P RN opioid 08/06/24 04/06/25 History spray (Narcan) overdose pantoprazole 40 mg tablet,delayed 40 mg PO DAILY 08/0604/06/25 History release polyethylene glycol 3350 17 gram 17 g PO DAILY PRN con stipation 08/06/24 04/06/25 History oral powder packet saliva stimulant comb. no.3 15 ml PO DAILY 08/06/24 History (Biotene Moisturizing Mouth mucosal spray) sennosides 8.6 mg tablet (Senna 17.2 mg PO DAILY PRN C onstipation 08/06/24 04/06/25 History Lax) furosemide 20 mg tablet 20 mg PO DAILY new chf #1 ta b 08/07/24 04/06/25 Rx acetaminophen 325 mg tablet 650 mg PO Q4H PRN pain 04/06/25 History camphor-menthol 0.2 %-3.5 % 1 applic topical Q8HR /08/0704/06/25 History topical gel duloxetine 20 mg capsule,delayed 20 mg PO QAM 03/11/25 04/06/25 History release sprinkle (Drizalma Sprinkle) oxycodone 5 mg tablet 5 mg PO Q12H PRN breakthroug h pain 03/11/25 04/06/25 History pregabalin 225 mg capsule 225 mg PO BID 03/11/2504/06 History metoprolol tartrate 25 mg tablet 25 mg PO BID #60 tabs 03/15/25 04/06/25 Rx amrkgkuvqasz-rrmywehl-jjfu 1 tab PO DAILYWM #30 tabs 0 03/15/25 04/06/25 Rx fumarate 19 mg-folic acid 400 mcg tablet (Therapeutic-M) apixaban 5 mg tablet (Eliquis) 5 mg PO BID 04/01/25 History nitrofurantoin 100 mg PO BID 1 day #2 caps 04/04/25 04/06/25 Rx monohydrate/macrocrystals 100 mg capsule (Macrobid) Processed by: Pharmacy Medications reviewed in ED?: No Medication History completed: Yes Secondary Source(s): Previous admit records [facility] Statement: As the person ultimately responsible for medication therapy, providers are able to order a medication from an existing home medication list in [facility] via the "Reconcile Routine" prior to Confirmation of that medication by work station support specialist. Such practice is discouraged except when the physician, in their clinical judgment, deems that a medical need exists for a medication without regard to previous use.
[2025-04-06] MEDS ORDERED: guaiFENesin 100 MG/5 ML UDC PO PRN (13:19)
[2025-04-06] MEDS: DULoxetine 20 MG CAPSULE PO SCH (13:45)
[2025-04-06 15:47] LABS: VBG BASE EXCESS 21.2 mmol/L (-2 - +2); VBG PCO2 30.9 mmHg (41-51); VBG PO2 221.1 mmHg (25-47); VBG TOTAL CO2 41.9 mmol/L (24-29)
[2025-04-06 15:49] LABS: VBG PH 7.725 (7.31-7.41)
[2025-04-06] MEDS ORDERED: oxyCODONE 5 MG TABLET PO PRN (18:26)
[2025-04-06] MEDS ORDERED: MAG HYDROX/AL HYDROX/SIMETH 30 ML UDC PO PRN (18:27)
[2025-04-06] MEDS: ACETAMINOPHEN 325 MG TABLET PO PRN (18:39)
[2025-04-06] MEDS: ONDANSETRON 4 MG/2 ML VIAL IVP PRN (18:39)
[2025-04-06] MEDS: SODIUM CHLORIDE FLUSH 0.9% 10 ML SYRINGE IVP SCH (18:40)
[2025-04-06 19:20] LABS: VBG BASE EXCESS 22.2 mmol/L (-2 - +2); VBG PCO2 55.6 mmHg (41-51); VBG PH 7.515 (7.31-7.41); VBG PO2 47.9 mmHg (25-47)
[2025-04-06] MEDS: FUROSEMIDE 40 MG/4 ML VIAL IVP SCH (20:39)
[2025-04-06] MEDS: METOPROLOL TARTRATE 25 MG TABLET PO SCH (20:40)
[2025-04-06] MEDS: PREGABALIN 25 MG CAPSULE PO SCH (20:40)
[2025-04-06] MEDS: APIXABAN 5 MG TABLET PO SCH (20:40)
[2025-04-06] MEDS: PREGABALIN 100 MG CAPSULE PO SCH (20:40)
[2025-04-06] MEDS: SODIUM CHLORIDE FLUSH 0.9% 10 ML SYRINGE IVP PRN (20:41)
[2025-04-06] MEDS: CARBOXYMETHYLCELLULOSE OPHTH DROPS EACHEYE SCH (21:21)
[2025-04-07 05:18] LABS: BASOPHILS # (AUTO) 0.1 10^3/uL (0.0-0.1); BASOPHILS % (AUTO) 0.9 %; EOSINOPHILS # (AUTO) 0.1 10^3/uL (0.0-0.7); EOSINOPHILS % (AUTO) 1.3 %; HGB - HEMOGLOBIN 11.2 g/dL (12.0-16.0); LYMPHOCYTES # (AUTO) 0.9 10^3/uL (1.5-3.5); LYMPHOCYTES % (AUTO) 10.9 %; MEAN CORPUSCULAR HEMOGLOBIN 28.1 pg (27.0-31.0); MEAN CORPUSCULAR HGB CONC 28.7 g/dL (32.0-36.0); MONOCYTES # (AUTO) 0.6 10^3/uL (0.0-1.0); MONOCYTES % (AUTO) 7.5 %; NEUTROPHILS # (AUTO) 6.2 10^3/uL (1.5-6.6); NEUTROPHILS % (AUTO) 79.1 %; PLT - PLATELET COUNT 278 10^3/uL (130-450); RED BLOOD COUNT 3.98 10^6/uL (4.20-5.40); RED CELL DISTRIBUTION WIDTH 14.9 % (12.0-15.0); VBG BASE EXCESS 23.3 mmol/L (-2 - +2); VBG PCO2 62.4 mmHg (41-51); VBG PH 7.481 (7.31-7.41); VBG PO2 53.3 mmHg (25-47); VBG TOTAL CO2 48.9 mmol/L (24-29); WHITE BLOOD COUNT 7.9 x10^3/uL (4.8-10.8)
[2025-04-07 05:19] LABS: CALCIUM, IONIZED 1.15 mmol/L (1.09-1.30); VBG PH 7.488 (7.31-7.41)
[2025-04-07 05:34] LABS: MAGNESIUM 1.8 mg/dL (1.7-2.3); PHOSPHORUS 2.3 mg/dL (2.5-5.0)
[2025-04-07 05:43] LABS: CALCIUM 8.7 mg/dL (8.5-10.3); CREATININE 0.6 mg/dL (0.6-1.3)
[2025-04-07] MEDS: PANTOPRAZOLE 40 MG TABLET PO SCH (06:59)
[2025-04-07] MEDS: NEUTRA-PHOS 250 MG TABLET PO SCH (09:00)
[2025-04-07] MEDS: MAGNESIUM OXIDE 400 MG TABLET PO SCH (09:00)
[2025-04-07] MEDS: MULTIVITAMIN W/MINERALS TABLET PO SCH (09:02)
[2025-04-07] MEDS: AZITHROMYCIN INJ 500 MG in SODIUM CHLORIDE 0.9% 250 ML IV SCH (09:02)
[2025-04-07] MEDS: cefTRIAXone 1 GM VIAL IVP SCH (09:03)
[2025-04-07] MEDS: CHOLECALCIFEROL 25 MCG TABLET PO SCH (09:03)
[2025-04-07] MEDS: FERROUS SULFATE 325 MG TABLET PO SCH (09:04)
--- NOTE | 2025-04-07 09:57 | PROVIDER PROGRESS NOTE ---
Subjective Subjective Subjective: This morning, patient is alert and oriented x 3. Overnight, she used BiPAP without difficulty. She likely has undiagnosed obstructive sleep apnea versus obesity hypoventilation syndrome, and will require noninvasive ventilation on discharge. She states her breathing is better. She has no chest pain, no shortness of breath. She does have lower extremity swelling noted. We had a long discussion about goals of care with her and her daughter at bedside. She is interested in a hospice informational. She is very clear and direct about what she wants, and she certainly does not want any more aggressive medical treatment. She understands a BiPAP helps her at times, but it is very uncomfortable for her, and she does not want to continue it. She understands what hospice is, also like more information about it. Current Medications Current Medications Current Medications: Current Medications Generic Name Dose Route Start Last Admin Trade Name Freq PRN Reason Stop Dose Admin Acetaminophen 650 mg 04/06/25 13:19 04/06/25 18:39 Acetaminophen 325 Mg Tablet PO 650 mg Q4H PRN Administration pain Al Hydroxide/Mg Hydroxide 30 ml 04/06/25 18:27 Mag Hydrox/Al Hydrox/Simeth 30 Ml Udc PO Q4HR PRN INDIGESTION Apixaban 5 mg 04/06/25 21:00 04/07/25 09:02 Apixaban 5 Mg Tablet PO 5 mg BID AMAN Administration Carboxymethylcellulose 2 drops 04/06/25 22:00 04/07/25 06:59 Carboxymethylcellulose Ophth Drops EACHEYE 2 drops TID AMAN Administration Ceftriaxone Sodium 1 gm 04/07/25 09:00 04/07/25 09:03 Ceftriaxone 1 Gm Vial IVP 04/10/25 09:01 1 gm DAILY AMAN Administration Cholecalciferol 50 mcg 04/07/25 09:00 04/07/25 09:03 Cholecalciferol 25 Mcg Tablet PO 50 mcg DAILY AMAN Administration Duloxetine HCl 20 mg 04/06/25 13:19 04/07/25 09:05 Duloxetine 20 Mg Capsule PO 20 mg DAILY MAAN Administration Ferrous Sulfate 325 mg 04/07/25 09:00 04/07/25 09:04 Ferrous Sulfate 325 Mg Tablet PO 325 mg DAILY AMAN Administration Furosemide 40 mg 04/06/25 21:00 04/07/25 09:06 Furosemide 40 Mg/4 Ml Vial IVP 40 mg BID AMAN Administration Guaifenesin 300 mg 04/06/25 13:19 Guaifenesin 100 Mg/5 Ml Udc PO Q6H PRN Cough Azithromycin 500 mg/ Sodium 250 mls @ 250 mls/hr 04/07/25 09:00 04/07/25 09:02 Chloride IV 04/09/25 09:59 250 mls/hr DAILY AMAN Administration Magnesium Oxide 400 mg 04/07/25 08:00 04/07/25 09:00 Magnesium Oxide 400 Mg Tablet PO 04/07/25 14:01 400 mg Q6H AMAN Administration Protocol Metoprolol Tartrate 25 mg 04/06/25 21:00 04/07/25 09:04 Metoprolol Tartrate 25 Mg Tablet PO 25 mg BID AMAN Administration Multivitamins/Minerals 1 tab 04/07/25 08:00 04/07/25 09:02 Multivitamin W/Minerals Tablet PO 1 tab DAILYWM AMAN Administration Ondansetron HCl 4 mg 04/06/25 13:19 04/06/25 18:39 Ondansetron 4 Mg/2 Ml Vial IVP 4 mg Q6HR PRN Administration Nausea / Vomiting Oxycodone HCl 5 mg 04/06/25 18:26 Oxycodone 5 Mg Tablet PO Q12H PRN breakthrough pain Pantoprazole Sodium 40 mg 04/07/25 07:00 04/07/25 06:59 Pantoprazole 40 Mg Tablet PO 40 mg QDAC AMAN Administration Pregabalin 200 mg 04/06/25 21:00 04/07/25 09:03 Pregabalin 100 Mg Capsule PO 200 mg BID AMAN Administration Pregabalin 25 mg 04/06/25 21:00 04/07/25 09:03 Pregabalin 25 Mg Capsule PO 25 mg BID AMAN Administration Sodium Chloride 10 ml 04/06/25 17:00 04/07/25 09:04 Sodium Chloride Flush 0.9% 10 Ml Syringe IVP 10 ml 0100,[id number],1700 AMAN Administration Sodium Chloride 10 ml 04/06/25 13:19 04/06/25 20:41 Sodium Chloride Flush 0.9% 10 Ml Syringe IVP 10 ml PRN PRN Administration NEEDED PER PROVIDER ORDERS Sodium Phosphate 250 mg 04/07/25 08:00 04/07/25 09:00 Neutra-Phos 250 Mg Tablet PO 04/07/25 10:01 250 mg Q2H AMAN Administration Protocol Objective Vital Signs/Intake & Output Reviewed Vital Signs: Yes Vital Signs: Vital Signs x48h Temp Pulse Pulse Resp BP BP Pulse Ox 04/07/25 09:04 105 H 122/56 L 04/07/25 09:00 04/07/25 09:00 99.1 F 116 H 22 122/56 L 93 04/07/25 08:16 04/07/25 08:00 99.0 F 96 21 120/62 97 04/07/25 07:00 99.1 F 90 18 129/76 97 04/07/25 06:00 99.1 F 83 23 117/52 L 97 04/07/25 05:50 96 04/07/25 05:00 99.1 F 80 20 95/62 96 04/07/25 04:00 99.1 F 81 23 131/72 H 95 04/07/25 03:16 90 04/07/25 03:00 85 22 97/55 L 96 04/07/25 02:00 86 22 105/59 L 96 O2 Flow Rate 04/07/25 09:04 04/07/25 09:00 2 04/07/25 09:00 2 04/07/25 08:16 2 04/07/25 08:00 2 04/07/25 07:00 2 04/07/25 06:00 04/07/25 05:50 04/07/25 05:00 04/07/25 04:00 04/07/25 03:16 04/07/25 03:00 04/07/25 02:00 Intake & Output: Intake & Output 04/04/25 04/05/25 04/06/25 04/07/25 23:59 23:59 23:59 23:59 Intake Total 635 / 635 340 / 340 Output Total 347 / 347 542 / 542 Balance 288 / 288 -202 / -202 Weight (kg) 113 kg 112.5 kg Objective General Appearance: positive No acute distress, Alert and Anxious Eyes Bilateral: positive Normal inspection, PERRL and No scleral icterus ENT: positive ENT inspection nml, Pharynx nml and No signs of dehydration Neck: positive No JVD and Other Respiratory: positive Chest non-tender, No respiratory distress and Other (diminished breath sounds; bibasilar crackles noted) Cardiovascular: positive No murmur, Irregularly irregular (atrial fibrillation) and Tachycardia Abdomen: positive Non-tender; negative Rebound, Hepatomegaly, Splenomegaly, Mass, Abnml bowel sounds or Bruit Skin: positive Color nml, Warm, Dry and Other (scab/eschar lesion on right anterior lower leg and left medial lower leg) Extremities: positive Non-tender and Pedal edema (left 2+ edema, right 1+ ) Neurologic/Psychiatric: positive Disoriented to time (Patient is aware of person and place.) and Depressed mood/affect Lab Results 04/07/25 05:09 04/07/25 05:09 Other Labs: Lab Results x24hrs 04/07/25 04/07/25 04/06/25 Range/Units 05:09 05:09 19:11 WBC 7.9 (4.8-10.8) x10^3/uL RBC 3.98 L (4.20-5.40) 10^6/uL Hgb 11.2 L (12.0-16.0) g/dL Hct 39.0 (37.0-47.0) % MCV 98.0 (81.0-99.0) fL MCH 28.1 (27.0-31.0) pg MCHC 28.7 L (32.0-36.0) g/dL RDW 14.9 (12.0-15.0) % Plt Count 278 (130-450) 10^3/uL MPV 10.0 (7.9-10.8) fL Neut # (Auto) 6.2 (1.5-6.6) 10^3/uL Lymph # (Auto) 0.9 L (1.5-3.5) 10^3/uL [place] # (Auto) 0.6 (0.0-1.0) 10^3/uL Eos # (Auto) 0.1 (0.0-0.7) 10^3/uL Baso # (Auto) 0.1 (0.0-0.1) 10^3/uL Absolute Nucleated RBC 0.00 x10^3/uL Nucleated RBC % 0.0 /100WBC VBG pH 7.488 H 7.481 H 7.515 H (7.31-7.41) VBG pCO2 62.4 H 55.6 H (41-51) mmHg VBG pO2 53.3 H 47.9 H (25-47) mmHg VBG HCO3 47.0 H 45.3 H (23-28) mmol/L VBG Total CO2 48.9 H 47.0 H (24-29) mmol/L VBG O2 Saturation 92.0 H 89.0 H (60-80) % VBG Base Excess 23.3 H 22.2 H (-2 - +2) mmol/L Ionized Calcium 1.15 (1.09-1.30) mmol/L Sodium 143 (135-145) mmol/L Potassium 4.0 (3.5-4.5) mmol/L Chloride 93 L (101-111) mmol/L Carbon Dioxide 41 H* (21-32) mmol/L Anion Gap 9.0 (6-13) BUN 20 (6-20) mg/dL Creatinine 0.6 (0.6-1.3) mg/dL Estimated GFR (MDRD) 96 (>89) Glucose 90 (74-104) mg/dL Calcium 8.7 (8.5-10.3) mg/dL Phosphorus 2.3 L (2.5-5.0) mg/dL Magnesium 1.8 (1.7-2.3) mg/dL Nasal Screen MRSA (PCR) (NEGATIVE) 04/06/25 04/06/25 04/06/25 Range/Units 15:37 13:20 11:09 WBC (4.8-10.8) x10^3/uL RBC (4.20-5.40) 10^6/uL Hgb (12.0-16.0) g/dL Hct (37.0-47.0) % MCV (81.0-99.0) fL MCH (27.0-31.0) pg MCHC (32.0-36.0) g/dL RDW (12.0-15.0) % Plt Count (130-450) 10^3/uL MPV (7.9-10.8) fL Neut # (Auto) (1.5-6.6) 10^3/uL Lymph # (Auto) (1.5-3.5) 10^3/uL [place] # (Auto) (0.0-1.0) 10^3/uL Eos # (Auto) (0.0-0.7) 10^3/uL Baso # (Auto) (0.0-0.1) 10^3/uL Absolute Nucleated RBC x10^3/uL Nucleated RBC % /100WBC VBG pH 7.725 H* 7.391 (7.31-7.41) VBG pCO2 30.9 L 75.5 H (41-51) mmHg VBG pO2 221.1 H 32.4 (25-47) mmHg VBG HCO3 40.9 H 46.2 H (23-28) mmol/L VBG Total CO2 41.9 H 48.5 H (24-29) mmol/L VBG O2 Saturation 99.0 H 63.0 (60-80) % VBG Base Excess 21.2 H 21.1 H (-2 - +2) mmol/L Ionized Calcium (1.09-1.30) mmol/L Sodium (135-145) mmol/L Potassium (3.5-4.5) mmol/L Chloride (101-111) mmol/L Carbon Dioxide (21-32) mmol/L Anion Gap (6-13) BUN (6-20) mg/dL Creatinine (0.6-1.3) mg/dL Estimated GFR (MDRD) (>89) Glucose (74-104) mg/dL Calcium (8.5-10.3) mg/dL Phosphorus (2.5-5.0) mg/dL Magnesium (1.7-2.3) mg/dL Nasal Screen MRSA (PCR) NEGATIVE (NEGATIVE) Diagnostic Imaging Diagnostic Imaging Results: positive Final report reviewed ABX Reporting Has patient been on IV antibiotics over the past 48 hours?: Yes Sepsis Event Note (H) Evaluation Current Stage of Sepsis: Sepsis Possible source of Sepsis: positive Genitourinary Sepsis Criteria Sepsis Criteria: Suspected or Documented, Recorded Heart Rate greater than 90 bpm, Recorded Respiratory Rate greater than 20 and WBC count greater than 12,000 or less than 4000 Assessment/Plan Problem List (1) Acute metabolic encephalopathy: Impression: Resolved. Patient was found to be lethargic, obtunded. CO2 narcosis on admission, improved on VBG this morning. Likely has an underlying component of obesity hypoventilation versus obstructive sleep apnea. Continue BiPAP at night. Continue to monitor. Continue to trend VBGs. CT head ordered, negative. TSH elevated, T4 within normal limits. UA negative for acute infection. CXR with pneumonia noted. Continue IV Rocephin and azithromycin at this time. Long goals of care discussion about overall goals of care with these frequent readmissions, and her chronic debility. Patient is interested in hospice informational. I spoke with the hospice team, and they will plan to come by later this afternoon. (2) Acute respiratory failure with hypoxia: Impression: Patient was intubated. Now currently requiring 2 L of oxygen, saturating well. This is her baseline oxygen status needs (she states she does not have known chronic lung disease but was placed on oxygen after the 'Narcan' episode in October. No documented history of COPD. Overnight, she used BiPAP without difficulty. She likely has undiagnosed obstructive sleep apnea versus obesity hypoventilation syndrome, and will require noninvasive ventilation on discharge. (3) GERD (gastroesophageal reflux disease): Impression: Continue Protonix. Qualifiers: Esophagitis presence: without esophagitis Qualified Code(s): K21.9 - Gastro-esophageal reflux disease without esophagitis (4) Congestive heart failure: Impression: Last ECHO in our system is from 08/06 which shows mild to moderate mitral regurgitation, but normal left ventricular size and systolic function. Repeat ECHO ordered. Continue diuresis with IV Lasix 40mg BID. Qualifiers: Heart failure chronicity: acute Heart failure type: unspecified Q ualified Code(s): I50.9 - Heart failure, unspecified (5) Hypertension: Impression: Continue home metoprolol. Qualifiers: Hypertension type: unspecified Qualified Code(s): I10 - Essential (primary) hypertension (6) Diabetes mellitus: Impression: Last A1c was 5.9. Continue to hold sliding scale insulin at this time. Qualifiers: Diabetes mellitus complication status: with hyperglycemia Diabetes mellitus [facility] insulin use: without [facility] use Diabetes mellitus type: t ype 2 Qualified Code(s): E11.65 - Type 2 diabetes mellitus with hyperglycemia (7) Atrial fibrillation with RVR: Impression: Patient does have a history of atrial fibrillation. On previous visits, her daughter had stated that she would like to hold off on Eliquis. It appears it may have been started at her facility; Plavix and aspirin have been held. She remains just on Eliquis. Will continue at this time.
[2025-04-08 05:44] LABS: HCT - HEMATOCRIT 39.8 % (37.0-47.0); HGB - HEMOGLOBIN 11.9 g/dL (12.0-16.0); MEAN CORPUSCULAR HEMOGLOBIN 28.5 pg (27.0-31.0); MEAN CORPUSCULAR HGB CONC 29.9 g/dL (32.0-36.0); MEAN CORPUSCULAR VOLUME 95.2 fL (81.0-99.0); RED BLOOD COUNT 4.18 10^6/uL (4.20-5.40); RED CELL DISTRIBUTION WIDTH 15.2 % (12.0-15.0); WHITE BLOOD COUNT 9.1 x10^3/uL (4.8-10.8)
[2025-04-08 05:57] LABS: MAGNESIUM 1.7 mg/dL (1.7-2.3); PHOSPHORUS 2.6 mg/dL (2.5-5.0)
[2025-04-08 06:12] LABS: CALCIUM, IONIZED 1.12 mmol/L (1.09-1.30); VBG PH 7.471 (7.31-7.41)
[2025-04-08 06:29] LABS: BUN - BLOOD UREA NITROGEN 20 mg/dL (6-20); CALCIUM 8.4 mg/dL (8.5-10.3); CARBON DIOXIDE - CO2 > 45 mmol/L (21-32); CHLORIDE 90 mmol/L (101-111); CREATININE 0.7 mg/dL (0.6-1.3); GFR - MDRD 81 (>89); GLUCOSE 130 mg/dL (74-104); POTASSIUM 3.6 mmol/L (3.5-4.5); SODIUM 142 mmol/L (135-145)
--- NOTE | 2025-04-08 16:58 | ECHO Report ---
Version: 1 Study ID: [id number] Adult Echocardiogram Report Name: JACOB SARAVIA Study Date: 04/08/2025, 10: 07 AM BP: 118 / 68 mmHg Patient Location: [id number] HR: 83 bpm : 1945 (MM/DD/YYYY) Gender: Female Height: 64 in Age: 79 Years Weight: 263.232 lb Reason For Study: RAZ History: Atrial fibrillation with RVR, acute metabolic encephalopathy - evalute for CHF Procedure: A complete two-dimensional transthoracic echocardiogram was performed (2D, M- mode, Doppler and color flow Doppler). Indication: Evaluate cardiac and valve function. This study was focused secondary to limited cardiac windows. The patient refused the exam during the procedure, causing the procedure to be terminated before a complete exam could be acquired. The underlying rhythm was atrial fibrillation. Interpretation Summary Global left ventricular function is lower limits of normal. The visual left ventricular ejection fraction is estimated at 50 to 55%. The right ventricle is normal size. The inferior vena cava is significantly dilated with diminished collapse with sniff (estimated right atrial pressure 15-20mmHg). The pulmonary artery systolic pressure, calculated from a peak tricuspid regurgitant velocity in conjunction with an estimated right atrial pressure, is 38 - 42mmHg. Left Ventricle: The left ventricle is normal in size. There is normal left ventricular wall thickness. Global left ventricular function is lower limits of normal. The visual left ventricular ejection fraction is estimated at 50 to 55%. No regional wall motion abnormalities are present. Diastolic function could not be accurately assessed due to atrial fibrillation. Right Ventricle: The right ventricle is normal size. The right ventricular systolic function is mildly decreased. Aortic Valve: The aortic valve is trileaflet. The aortic valve is mildly thickened. Aortic valve sclerosis is present without stenosis. No aortic regurgitation is present. Mitral Valve: The mitral valve leaflets appear thickened, but with normal motion. The mitral annular calcification is both posterior and anterior. Mild mitral annular calcification is present. No evidence of mitral stenosis is seen. There is mild to moderate mitral regurgitation. Tricuspid Valve: The tricuspid valve is normal in structure and function. Mild tricuspid regurgitation present. Pulmonic Valve: The pulmonic valve is normal in structure and function. Trace pulmonic valvular regurgitation is present. Left Atrium: The left atrium is mildly dilated. The left atrial volume indexed to body surface area is 37 ml/m2. This refers to the maximal volume measured prior to mitral valve opening. Right Atrium: The right atrium is mildly dilated. The inferior vena cava is significantly dilated with diminished collapse with sniff (estimated right atrial pressure 15-20mmHg). Atrial Septum: The interatrial septum is not well seen. Interatrial shunt cannot be excluded. Aorta: The ascending aorta is not well seen. The sinuses of Valsalva are not well visualized. Pulmonary Artery: The pulmonary artery systolic pressure, calculated from a peak tricuspid regurgitant velocity in conjunction with an estimated right atrial pressure, is 38 - 42mmHg. The pulmonary artery systolic pressure is mildly increased. Pericardium/Pleural Space: There is no pericardial effusion. A prominent fat pad is present. Bilateral pleural effusions are present. CPT Codes: 42713/[id number]: Transthoracic Echo with Spectral and Color Doppler. Doppler Measurements & Calculations Ao max P.1 mmHg Ao V2 max: 112.5 cm/sec LV V1 max: 63.8 cm/sec LV V1 max P.63 mmHg LV V1 mean: 49.3 cm/sec LV V1 mean P.04 mmHg LV V1 VTI: 11.6 cm PA max P.01 mmHg PA V2 max: 50.1 cm/sec RAP systole: 20.0 mmHg TR max P.6 mmHg TR max milvia: 232.4 cm/sec MMode/2D Measurements & Calculations EDV(MOD-sp4): 47.5 ml EF (est.): 47.0 % ESV(MOD-sp4): 27.6 ml ESV(sp4-el): 76.1 ml Heart Rate: 83.0 BPM Height (metric): 162.6 cm IVSd: 1.03 cm LA A4C-A/L: 22.8 cm² LA dimension: 6.2 cm LA ESV-A/L: 64.4 ml LAV(MOD-sp2): 77.8 ml LAV(MOD-sp4): 82.1 ml LVIDd: 4.6 cm LVIDs: 3.8 cm LVLd ap4: 6.7 cm LVLs ap4: 6.0 cm LVPWd: 0.91 cm Systolic Pressure: 118.0 mmHg Other Measurements & Calculations Ao V2 max: 112.5 cm/sec BMI: 45.2 kilograms/m² BSA: 2.20 m² BSA([place]): 2.39 m² Diastolic Pressure: 68.0 mmHg EDV(MOD-sp4): 47.5 ml EDV(Teich): 97.3 ml EF (est.): 47.0 % EF(MOD-sp4): 41.8 % EF(Teich): 35.2 % ESV(MOD-sp4): 27.6 ml ESV(sp4-el): 76.1 ml ESV(Teich): 63.1 ml FS: 16.8 % Heart Rate: 83.0 BPM Height (metric): 162.6 cm IVSd: 1.03 cm LA A4C-A/L: 22.8 cm² LA dimension: 6.2 cm LA ESV-A/L: 64.4 ml LAV(MOD-sp2): 77.8 ml LAV(MOD-sp4): 82.1 ml LV V1 max: 63.8 cm/sec LV V1 mean: 49.3 cm/sec LV V1 mean P.04 mmHg LVIDd: 4.6 cm LVIDs: 3.8 cm LVLd ap4: 6.7 cm LVLs ap4: 6.0 cm LVPWd: 0.91 cm PA max P.01 mmHg PA V2 max: 50.1 cm/sec RAP systole: 20.0 mmHg RVSP(TR): 41.6 mmHg SV(MOD-sp4): 19.8 ml Systolic Pressure: 118.0 mmHg TR max P.6 mmHg TR max milvia: 232.4 cm/sec TV max P.6 mmHg Weight (metric): 119.4 kg EDV(MOD-sp2): 46.3 ml EF Mod BP: 47.4 % ESV(MOD-sp2): 22.2 ml EF(MOD-sp2): 52.2 % EF(sp-el): 58.2 % MD Taylor Galicia 04/08/2025, 4: 57 PM Ordering Physician: Kelsey Lang Referring Physician: Dioni Ryan Performed By: Stefani Michaud SERGEY
--- NOTE | 2025-04-08 19:06 | PROVIDER PROGRESS NOTE ---
Progress Note Progress Note Progress Note: April 08, 2025 6:55 PM Patient was seen this morning with her daughter at the bedside. She is an 79-year-old female with a history of undiagnosed obesity hypoventilation versus obstructive sleep apnea who has had multiple admissions for lethargy. We document CO2 narcosis, that required BiPAP, she improved, but then she returns. She is also being treated for community-acquired pneumonia. In the outpatient setting she has been unable to get evaluated for CPAP machine because she has not had a sleep study. With this admission, she and her daughter are interested in transitioning to hospice. The hospice medical billing assistant and I spoke. Hospice is willing to provi de her with an outpatient CPAP machine for comfort measures but we at least have to show that she improves on CPAP with this admission. With today's exam blood pressure is 136/69, pulse is 105, respirations 16, temperature is 37, O2 sat 97% on room air. She is 5 foot 9 inches tall, 112 kg. She will be sitting up in bed, and have a slow response to my questions and fall asleep in midsentence. She was chewing food and fell asleep in mid chew. But she does awaken easily to my touch or to her daughter's voice. No respiratory distress. Neck is supple but difficult to assess for JVD because of obesity Diminished breath sounds at the bases and overall shallow, slow, unlabored respiration. No respiratory distress Regular rate and rhythm Abdomen is obese, soft, nontender. Hyde draining yellow urine. Extremities have mod pitting edema of legs. slightly pink Skin of R butt with tear and bandage in place. Neuro shows her to respond to voice or touch and does speak, but slow. Diffuse generalized weakness. Total assist. Labs show to have a rising serum carbon dioxide as she metabolically compensates for her probable chronic hypercapnia. Today's carbon dioxide level is 45. But sodium, potassium, BUN and creatinine continue to be normal. White cell count is normal. Hemoglobin slightly low 11.9 and she started at 12.5 on admission. Platelets are 288. Assessment/Plan Problem List (1) Acute metabolic encephalopathy: Impression: Resolved per yesterday's eval but I still find her more lethargic/sleepy that expected. On admit, patient was found to be lethargic, obtunded. CO2 narcosis on admission, improved on VBG by 04/07 am. Likely has an underlying component of obesity hypoventilation versus obstructive sleep apnea. we have continued BiPAP at night. CT head ordered, negative. TSH elevated, T4 within normal limits. UA negative for acute infection. CXR with pneumonia noted. We are continuing IV Rocephin and azithromycin at this time. Long goals of care discussion about overall goals of care with these frequent readmissions, and her chronic debility. She was visited by hospice as an informational visit yesterday on April 07 and the patient and her daughter have decided for her to transition to hospice. (2) Acute respiratory failure with hypoxia: Impression: Patient was intubated. Now currently requiring 2 L of oxygen, saturating well. This is her baseline oxygen status needs (she states she does not have known chronic lung disease but was placed on oxygen after the 'Narcan' episode in October. No documented history of COPD. Overnight, she used BiPAP without difficulty. She likely has undiagnosed obstructive sleep apnea versus obesity hypoventilation syndrome, and will require noninvasive ventilation on discharge. -Hospice is willing to use CPAP at home for comfort. But they would like more objective data. As such I will do an arterial blood gas before bedtime. Put her on CPAP. And then repeat the blood gas tomorrow morning. With those blood gases objective info, hospice will be able to put the patient on CPAP. This was requested by hospice medical billing assistant and I will comply with that request. (3) GERD (gastroesophageal reflux disease): Impression: Continue Protonix But changed to p.o. from IV. Qualifiers: Esophagitis presence: without esophagitis Qualified Code(s): K21.9 - Gastro-esophageal reflux disease without esophagitis (4) Congestive heart failure: Impression: Last ECHO in our system is from 08/06 which shows mild to moderate mitral regurgitation, but normal left ventricular size and systolic function. An echocardiogram was ordered and done before the patient had decided to go for hospice. If she had decided to go for hospice, I do not think we would have done the echo. Nevertheless the echo has global left ventricular function that was lower limits of normal. Ejection fraction was 50 to 55%. Right ventricle normal size. Inferior vena cava is significantly dilated with diminished collapse with sniff which is an estimated right atrial pressure of 15 to 20 mmHg. The pulmonary artery systolic pressure is measured at 30 to 42 mmHg. Continue diuresis with IV Lasix 40mg BID Until discharge. This is most likely right-sided heart failure.. Qualifiers: Heart failure chronicity: acute Heart failure type: unspecified Qualified Code(s): I50.9 - Heart failure, unspecified (5) Hypertension: Impression: Continue home metoprolol. Qualifiers: Hypertension type: unspecified Qualified Code(s): I10 - Essential (primary) hypertension (6) Diabetes mellitus: Impression: Last A1c was 5.9. Continue to hold sliding scale insulin at this time. Qualifiers: Diabetes mellitus complication status: with hyperglycemia Diabetes mellitus assisted insulin use: without assisted use Diabetes mellitus type: type 2 Qualified Code(s): E11.65 - Type 2 diabetes mellitus with hyperglycemia (7) Atrial fibrillation with RVR: Impression: Patient does have a history of atrial fibrillation. On previous visits, her daughter had stated that she would like to hold off on Eliquis. It appears it may have been started at her facility; Plavix and aspirin have been held. She remains just on Eliquis. Will continue at this time. Current Medications Current Medications Current Medications: Current Medications Generic Name Dose Route Start Last Admin Trade Name Cleo PRN Reason Stop Dose Admin Acetaminophen 650 mg 04/06/25 13:19 04/08/25 08:40 Acetaminophen 325 Mg Tablet PO 650 mg Q4H PRN Administration pain Al Hydroxide/Mg Hydroxide 30 ml 04/06/25 18:27 Mag Hydrox/Al Hydrox/Simeth 30 Ml Udc PO Q4HR PRN INDIGESTION Apixaban 5 mg 04/06/25 21:00 04/08/25 08:50 Apixaban 5 Mg Tablet PO 5 mg BID AMAN Administration Carboxymethylcellulose 2 drops 04/06/25 22:00 04/08/25 13:55 Carboxymethylcellulose Ophth Drops EACHEYE 2 drops TID AMAN Administration Ceftriaxone Sodium 1 gm 04/07/25 09:00 04/08/25 08:51 Ceftriaxone 1 Gm Vial IVP 04/10/25 09:01 1 gm DAILY AMAN Administration Cholecalciferol 50 mcg 04/07/25 09:00 04/08/25 08:48 Cholecalciferol 25 Mcg Tablet PO 50 mcg DAILY AMAN Administration Duloxetine HCl 20 mg 04/06/25 13:19 04/08/25 08:48 Duloxetine 20 Mg Capsule PO 20 mg DAILY AMAN Administration Ferrous Sulfate 325 mg 04/07/25 09:00 04/08/25 08:48 Ferrous Sulfate 325 Mg Tablet PO 325 mg DAILY AMAN Administration Furosemide 40 mg 04/06/25 21:00 04/08/25 08:50 Furosemide 40 Mg/4 Ml Vial IVP 40 mg BID AMAN Administration Guaifenesin 300 mg 04/06/25 13:19 Guaifenesin 100 Mg/5 Ml Udc PO Q6H PRN Cough Azithromycin 500 mg/ Sodium 250 mls @ 250 mls/hr 04/07/25 09:00 04/08/25 10:05 Chloride IV 04/09/25 09:59 Infused DAILY AMAN Infusion Metoprolol Tartrate 25 mg 04/06/25 21:00 04/08/25 08:48 Metoprolol Tartrate 25 Mg Tablet PO 25 mg BID AMAN Administration Multivitamins/Minerals 1 tab 04/07/25 08:00 04/08/25 08:50 Multivitamin W/Minerals Tablet PO 1 tab DAILYWM AMAN Administration Ondansetron HCl 4 mg 04/06/25 13:19 04/06/25 18:39 Ondansetron 4 Mg/2 Ml Vial IVP 4 mg Q6HR PRN Administration Nausea / Vomiting Oxycodone HCl 5 mg 04/06/25 18:26 Oxycodone 5 Mg Tablet PO Q12H PRN breakthrough pain Pantoprazole Sodium 40 mg 04/07/25 07:00 04/08/25 06:04 Pantoprazole 40 Mg Tablet PO 40 mg QDAC AMAN Administration Pregabalin 200 mg 04/06/25 21:00 04/08/25 08:48 Pregabalin 100 Mg Capsule PO 200 mg BID AMAN Administration Pregabalin 25 mg 04/06/25 21:00 04/08/25 08:48 Pregabalin 25 Mg Capsule PO 25 mg BID AMAN Administration Sodium Chloride 10 ml 04/06/25 17:00 04/08/25 10:41 Sodium Chloride Flush 0.9% 10 Ml Syringe IVP 10 ml 0100,0900,1700 AMAN Administration Sodium Chloride 10 ml 04/06/25 13:19 04/06/25 20:41 Sodium Chloride Flush 0.9% 10 Ml Syringe IVP 10 ml PRN PRN Administration NEEDED PER PROVIDER ORDERS
[2025-04-08] MEDS: polyethylene glycoL 3350 17 GM PACKET PO SCH (20:47)
[2025-04-08 22:03] LABS: ABG HCO3 56.3 mmol/L (22.0-26.0); ABG OXYGEN SATURATION 99 % (95-98); ABG PH 7.44 (7.35-7.45); ABG PO2 102 mmHg (83-108); ALLEN TEST POSITIVE
[2025-04-08 22:07] LABS: ABG PCO2 82 mmHg (34-45); ABG TCO2 58.8 mmol/L (21.0-29.0)
[2025-04-09 05:23] LABS: ABG PH 7.49 (7.35-7.45)
[2025-04-09 05:24] LABS: ABG BASE EXCESS 36.3 mmol/L (-2.0-3.0); ABG HCO3 59.9 mmol/L (22.0-26.0); ABG PO2 53 mmHg (83-108); ALLEN TEST POSITIVE
[2025-04-09 05:27] LABS: ABG OXYGEN SATURATION 87 % (95-98); ABG PCO2 78 mmHg (34-45); ABG TCO2 62.3 mmol/L (21.0-29.0)
[2025-04-09 05:37] LABS: CALCIUM, IONIZED 1.11 mmol/L (1.09-1.30); VBG PH 7.492 (7.31-7.41)
[2025-04-09 05:45] LABS: MAGNESIUM 1.6 mg/dL (1.7-2.3); PHOSPHORUS 2.6 mg/dL (2.5-5.0)
[2025-04-09 08:24] VITALS: BP 127/70
[2025-04-09 08:40] VITALS: TEMP 97.9; O2SAT 98
--- NOTE | 2025-04-09 11:56 | Discharge Summary ---
"Discharge Summary Admit Date: 04/06/25 Discharge Date: 04/09/25 Discharging Provider: Kristi Laguerre MD Primary Care Provider: Marion cruz MD (hospice) Code Status: Do Not Attempt Resuscitation Discharge Facility Name: [facility] DIAGNOSES Discharge Diagnoses with Status of Each Condition: 1. Acute on chronic respiratory failure with hypoxia and hypercapnia 2. Acute metabolic encephalopathy secondary to hypercapnia 3. GERD 4. Chronic right-sided heart failure 5. Hypertension 6. Type 2 diabetes mellitus 7. Chronic atrial fibrillation with RVR 8. Morbid obesity 9. Probable obesity hypoventilation syndrome HPI History of Present Illness: Patient is a 79-year-old female with a likely diagnosis of obesity hypoventilation syndrome versus obstructive sleep apnea who presents due to lethargy noted at her correction facility. Per ER records, patient was obtunded. Of note, she was admitted recently from 03/11 to t this time, she also had altered mentation, and required a night of BiPAP with improvement of her CO2 retention. She was also treated for a UTI and sepsis at that time. Advance care planning was completed, as well as documented well. Patient is a DNR/DNI. She does have a POLST filled out. She was admitted again from 04/01 to 04/04 She was intubated in the field for GCS less than 8. She started waking up after just a few hours on the ventilator. She self extubated. When she woke up, she was still little bit confused, but this rapidly improved with BiPAP use at night. She was retaining some CO2. She is chronically on 2 L of oxygen, per [facility], and she was resumed on this. While she was here last time, she was also septic. Source is likely urine. On her last visit, her urine was resistant to Rocephin. She was started on cefepime, and completed a course. Ultimately, patient requires a sleep study in the outpatient setting to get a formal diagnosis of OHS or LARON. She will then require a BiPAP or CPAP machine, to be used when she naps or nightly to avoid CO2 retention. Last admit, we tried to get her approved for a Trilogy device but she has no diagnosis of COPD so it was rejected. This time around, she presents similarly for altered mentation, obtundation due to CO2 retention. She was placed on BiPAP. On admission, patient was afebrile, tachycardic to 103, and atrial fibrillation. She was breathing comfortably on the BiPAP with a respiratory rate of 16, and oxygen saturation of 94. She was normotensive with blood pressure of 116/97. Her white count was mildly elevated at 12.9. Her CO2 on the initial gas was 91. Will repeat this again to ensure it is decreasing appropriately. Her creatinine is within normal limits. Her chest x-ray showed possible left basilar pneumonia, CHF. Head CT was also done which showed no acute intracranial pathology. She was admitted for altered mental status. CONSULTS | PROCEDURES Procedures: Head CT is without acute intracranial pathology. Chest x-ray is probable left basilar pneumonia. Suspect congestive heart failure exacerbation. Echocardiogram has global left ventricular function that was lower limits of normal with an EF of 50 to 55%. Right ventricle was normal. Inferior vena cava is significantly dilated with diminished collapse indicating right atrial pressure 15 to 20 mmHg. Pulmonary artery systolic pressure, calculated from the peak tricuspid regurgitant velocity injection with estimated right atrial pressure is 38 to 42 mmHg. Blood cultures from April 06 negative after 5 days HOSPITAL COURSE Hospital Course: Ultimately, patient requires a sleep study in the outpatient setting to get a formal diagnosis of OHS or LARON. She will then require a BiPAP or CPAP machine, to be used when she naps or nightly to avoid CO2 retention. Last admit, we tried to get her approved for a Trilogy device but she has no diagnosis of COPD so it was rejected. This time around, she presents similarly for altered mentation, obtundation due to CO2 retention. She was placed on BiPAP.She also received Rocephin and azithromycin. She was also treated with Lasix 40 mg IV push twice daily for probable right-sided heart failure in the engorged IVC. She was placed on BiPAP, and in the ICU. She eventually recovered as she usually does. However ongoing conversations were held with between she and her daughter and the patient and family have decided to transition to hospice. We did trial her on CPAP to see if she should go back to the detention on CPAP but she is still miserable on it and there was not much change on blood gas. Hospice will be taking over and may consider BiPAP. While we are resuming her usual home medications, I would think that her medicines will be reviewed by her primary care provider at the detention as well as hospice to decide if many of these can be discontinued as we transition to comfort measures only. At discharge the patient is responsive to voice and to touch but psychomotor slowing. She seems fatigued or sedated with her hypercapnia. Her last blood gas showed a PCO2 between 78-82. Blood pressure is 122/70. Pulse is 97. Respirations are 20 and blood pressure is 127/70. She is a morbidly obese elderly white female at 5 foot 9 inches tall, 110.5 kg. Neck is thick and difficult to assess for JVD but supple. Lungs have poor aeration and that they are shallow, slow, with diminished breath sounds. She has a regular rate and rhythm. An obese abdomen that is soft, nontender nondistended. Changes of moistness in the intertriginous folds of abdomen and groin are present. She has 3+ pitting edema in her legs that I presume is because of right-sided heart failure in a patient with chronic hypercapnia and most likely pulmonary hypertension. She has a Hyde catheter draining yellow urine. She is a partial to complete assist with regards to feeding and toileting. She does follow commands depending on her sedation. Greater than 30 minutes was spent coordinating discharge This document was made in part using voice recognition software. While efforts are made to proofread this document, sound alike and grammatical errors may occur. ALLERGIES Allergies Allergy/AdvReac Type Severity Reaction Status Date / Time Opioids - Morphine Analogues Allergy Intermediate Rash Verified 04/06/25 06:35 latex Allergy Itching Verified 04/06/25 06:35 Sulfa (Sulfonamide Allergy Unknown Verified 04/06/25 06:35 Antibiotics) MEDICATIONS Ambulatory Orders Medication Instructions Recorded Confirmed albuterol sulfate 90 mcg/actuation 2 inh inhalation Q4 H PRN shortness 08/06/24 04/06/25 breath activated powder inhaler of breath (ProAir RespiClick) ascorbic acid (vitamin C) 500 mg 500 mg PO DAILY 08/0604/06/25 chewable tablet (C-500) bisacodyl 10 mg rectal suppository 10 mg MT ONCE PRN C onstipation 08/06/24 04/06/25 carboxymethylcellulose sodium 0.5 2 ea ophthalmic (eye ) TID dry eyes 08/06/24 04/06/25 % eye drops in a dropperette (Refresh Plus) cholecalciferol (vitamin D3) 25 50 mcg PO DAILY 04/06/25 mcg (1,000 unit) tablet ferrous sulfate 325 mg (65 mg 325 mg PO DAILY 08/06/24 04/06/25 iron) tablet guaifenesin 100 mg/5 mL oral liquid 15 ml PO Q6H PRN C ough 08/06/24 04/06/25 mineral oil (Fleet Mineral Oil 1 ea RC PRN PRN Constip ation 08/06/24 04/06/25 enema) naloxone 4 mg/actuation nasal 1 spray intranasal PRN P RN opioid 08/06/24 04/06/25 spray (Narcan) overdose pantoprazole 40 mg tablet,delayed 40 mg PO DAILY 08/0604/06/25 release polyethylene glycol 3350 17 gram 17 g PO DAILY PRN con stipation 08/06/24 04/06/25 oral powder packet saliva stimulant comb. no.3 15 ml PO DAILY 08/06/24 (Biotene Moisturizing Mouth mucosal spray) sennosides 8.6 mg tablet (Senna 17.2 mg PO DAILY PRN C onstipation 08/06/24 04/06/25 Lax) furosemide 20 mg tablet 20 mg PO DAILY new chf #1 ta b 08/07/24 04/06/25 acetaminophen 325 mg tablet 650 mg PO Q4H PRN pain 04/06/25 camphor-menthol 0.2 %-3.5 % 1 applic topical Q8HR 02/1204/06/25 topical gel duloxetine 20 mg capsule,delayed 20 mg PO QAM 03/11/25 04/06/25 release sprinkle (Drizalma Sprinkle) oxycodone 5 mg tablet 5 mg PO Q12H PRN breakthroug h pain 03/11/25 04/06/25 pregabalin 225 mg capsule 225 mg PO BID 03/11/2504/06 metoprolol tartrate 25 mg tablet 25 mg PO BID #60 tabs 03/15/25 04/06/25 [id number] 1 tab PO DAILYWM #30 tabs 0 03/15/25 04/06/25 fumarate 19 mg-folic acid 400 mcg tablet (Therapeutic-M) apixaban 5 mg tablet (Eliquis) 5 mg PO BID 04/01/25 nitrofurantoin 100 mg PO BID 1 day #2 caps 04/04/25 04/06/25 monohydrate/macrocrystals 100 mg capsule (Macrobid) bisacodyl 10 mg rectal suppository 10 mg MT DAILY PRN Constipation #3 04/09/25 (Dulcolax (bisacodyl)) ea lorazepam 0.5 mg tablet (Ativan) 0.5 mg PO Q6H PRN Anx iety #10 tabs 04/09/25 morphine concentrate 100 mg/5 mL 5 mg (0.25 mL) PO Q4H PRN pain or 04/09/25 (20 mg/mL) oral solution breathlessness #30 mL sennosides 8.6 mg tablet (senna) 8.6 mg PO BID PRN Con stipation #10 04/09/25 tabs PHYSICAL EXAM AT DISCHARGE Vital Signs: Vital Signs x48h Temp Pulse Pulse Resp BP BP Pulse Ox 04/09/25 08:22 97 127/70 04/09/25 07:40 36.6 C 105 H 20 127/70 98 04/09/25 05:29 04/09/25 05:25 O2 Flow Rate 04/09/25 08:22 04/09/25 07:40 2 04/09/25 05:29 2 04/09/25 05:25 2 LABS 04/08/25 05:32 04/08/25 05:32 SEPSIS Current Stage of Sepsis: Sepsis Possible source of Sepsis: Genitourinary Sepsis Criteria: Suspected or Documented, Recorded Heart Rate greater than 90 bpm, Recorded Respiratory Rate greater than 20 and WBC count greater than 12,000 or less than 4000 Discharge Plan Discharge Patient Disposition: 50 Hospice/Home DC/Xfer Condition: Critical Medically Cleared Date:: 04/09/25 Prescriptions: New sennosides [senna] 8.6 mg Tablet 8.6 mg PO BID PRN (Reason: Constipation) Qty: 10 0RF Rx Instructions: Take one tablet, by mouth, twice a day as needed for constipation. morphine concentrate 100 mg/5 mL (20 mg/mL) Solution 5 mg PO Q4H PRN (Reason: pain or breathlessness) Qty: 30 0RF Rx Instructions: Take 0.25 ml (equal to 5 mg) by mouth, or under the tongue, every 4 hours as needed for moderate to severe pain. lorazepam [Ativan] 0.5 mg Tablet 0.5 mg PO Q6H PRN (Reason: Anxiety) Qty: 10 0RF Rx Instructions: Take one tablet, by mouth, every 6 hours as needed for anxiety. bisacodyl [Dulcolax (bisacodyl)] 10 mg Suppository 10 mg MT DAILY PRN (Reason: Constipation) Qty: 3 0RF Rx Instructions: Unwrap and insert one suppository rectally daily, as needed for constipation. Continued ProAir RespiClick 90 MCG aerosol powdr breath activated 2 inh inhalation Q4H PRN (Reason: shortness of breath) ferrous sulfate 325 MG tablet 325 mg PO DAILY bisacodyl 10 MG suppository 10 mg MT ONCE PRN (Reason: Constipation) Rx Instructions: use 1 supp rectally as needed for bm if senna not effective on 5th day of no bm. ascorbic acid (vitamin C) [C-500] 500 MG tablet,chewable 500 mg PO DAILY carboxymethylcellulose sodium [Refresh Plus] 1 EACH dropperette 2 ea ophthalmic (eye) TID Rx Instructions: instill 2 drops into both eyes 3 times daily for related cataract surgery. cholecalciferol (vitamin D3) 25 MCG tablet 50 mcg PO DAILY Biotene Moisturizing Mouth 100 SPRAYS/44.3 ML spray,non-aerosol 15 ml PO DAILY polyethylene glycol 3350 17 GM powder in packet 17 g PO DAILY PRN (Reason: constipation) Rx Instructions: give 17 grams by mouth as needed for day 3 without a bowel movement guaifenesin 100 MG/5 ML liquid 15 ml PO Q6H PRN (Reason: Cough) mineral oil [Fleet Mineral Oil] 133 ML enema 1 ea RC PRN PRN (Reason: Constipation) Rx Instructions: insert 1 as needed if bisacodyl supp not effective on 6th day of no bm. naloxone [Narcan] 4 MG spray,non-aerosol 1 spray intranasal PRN PRN (Reason: opioid overdose) sennosides [Senna Lax] 8.6 MG tablet 17.2 mg PO DAILY PRN (Reason: Constipation) Rx Instructions: give two tabs by mouth as needed for day 4 without a bowel movement pantoprazole 40 MG tablet,delayed release (DR/EC) 40 mg PO DAILY furosemide 20 MG tablet 20 mg PO DAILY Qty: 1 0RF camphor-menthol 0.2-3.5 % gel 1 applic topical Q8HR Rx Instructions: Apply to RLE topically every 8 hours for pain Drizalma Sprinkle 20 mg capsule, delayed rel sprinkle 20 mg PO QAM oxycodone 5 mg tablet 5 mg PO Q12H PRN (Reason: breakthrough pain) acetaminophen 325 mg tablet 650 mg PO Q4H PRN (Reason: pain) pregabalin 225 mg capsule 225 mg PO BID metoprolol tartrate 25 mg Tablet 25 mg PO BID Qty: 60 0RF Therapeutic-M 19 mg iron- 400 mcg Tablet 1 tab PO DAILYWM Qty: 30 0RF Eliquis 5 mg tablet 5 mg PO BID nitrofurantoin monohyd/m-cryst [Macrobid] 100 mg capsule 100 mg PO BID 1 Days Qty: 2 0RF Rx Instructions: must administer with a meal/food Activity Restrictions: Activity as Tolerated Diet: Regular Health Concerns: Patient is a 79-year-old female with a likely diagnosis of obesity hypoventilation syndrome versus obstructive sleep apnea who presents due to lethargy noted at her correction facility. Per ER records, patient was obtunded. Of note, she was admitted recently from 03/11 to t this time, she also had altered mentation, and required a night of BiPAP with improvement of her CO2 retention. She was also treated for a UTI and sepsis at that time. Advance care planning was completed, as well as documented well. Patient is a DNR/DNI. She does have a POLST filled out. She was admitted again from 04/01 to 04/04 She was intubated in the field for GCS less than 8. She started waking up after just a few hours on the ventilator. She self extubated. When she woke up, she was still little bit confused, but this rapidly improved with BiPAP use at night. She was retaining some CO2. She is chronically on 2 L of oxygen, per [facility], and she was resumed on this. While she was here last time, she was also septic. Source is likely urine. On her last visit, her urine was resistant to Rocephin. She was started on cefepime, and completed a course. Ultimately, patient requires a sleep study in the outpatient setting to get a formal diagnosis of OHS or LARON. She will then require a BiPAP or CPAP machine, to be used when she naps or nightly to avoid CO2 retention. Last admit, we tried to get her approved for a Trilogy device but she has no diagnosis of COPD so it was rejected. This time around, she presents similarly for altered mentation, obtundation due to CO2 retention. She was placed on BiPAP. She was placed on BiPAP, and in the ICU. She eventually recovered as she usually does. However ongoing conversations were held with between she and her daughter and the patient and family have decided to transition to hospice. We did trial her on CPAP to see if she should go back to the detention on CPAP but she is still miserable on it and there was not much change on blood gas. Hospice will be taking over and may consider BiPAP. While we are resuming her usual home medications, I would think that her medicines will be reviewed by her primary care provider at the detention as well as hospice to decide if many of these can be discontinued as we transition to comfort measures only. At discharge the patient is responsive to voice and to touch but psychomotor slowing. She seems fatigued or sedated with her hypercapnia. Her last blood gas showed a PCO2 between 78-82. Blood pressure is 122/70. Pulse is 97. Respirations are 20 and blood pressure is 127/70. She is a morbidly obese elderly white female at 5 foot 9 inches tall, 110.5 kg. Neck is thick and difficult to assess for JVD but supple. Lungs have poor aeration and that they are shallow, slow, with diminished breath sounds. She has a regular rate and rhythm. An obese abdomen that is soft, nontender nondistended. Changes of moistness in the intertriginous folds of abdomen and groin are present. She has 3+ pitting edema in her legs that I presume is because of right-sided heart failure in a patient with chronic hypercapnia and most likely pulmonary hypertension. She has a Hyde catheter draining yellow urine. She is a partial to complete assist with regards to feeding and toileting. She does follow commands depending on her sedation. Print Language: Occitan Patient Instructions: Hospice Stand Alone Forms: SNF Discharge"
[2025-04-09] MEDS ORDERED: polyethylene glycoL 3350 17 GM PACKET PO SCH (19:33)
== END 2025-04-09 14:15 | disposition hospice, home (50) | DRG 871 ==
LOC: ED 05:28 → ICU 12:43 → MS3 04-07 15:14
PROVIDERS: ADMIT Internal Medicine; ATTEND Internal Medicine
DX: E66.2 Morbid (severe) obesity with alveolar hypoventilation; A41.9 Sepsis, unspecified organism; I27.20 Pulmonary hypertension, unspecified; Z79.01 Long term (current) use of anticoagulants; I11.0 Hypertensive heart disease with heart failure; I48.20 Chronic atrial fibrillation, unspecified; Z66 Do not resuscitate; R00.0 Tachycardia, unspecified; I48.91 Unspecified atrial fibrillation; I50.812 Chronic right heart failure; G47.33 Obstructive sleep apnea (adult) (pediatric); J96.21 Acute and chronic respiratory failure with hypoxia; E11.65 Type 2 diabetes mellitus with hyperglycemia; D72.829 Elevated white blood cell count, unspecified; J18.9 Pneumonia, unspecified organism; G93.41 Metabolic encephalopathy; K21.9 Gastro-esophageal reflux disease without esophagitis; Z68.37 Body mass index [BMI] 37.0-37.9, adult; J96.22 Acute and chronic respiratory failure with hypercapnia; S31.811A Laceration without foreign body of right buttock, initial encounter